=== PATIENT | female | born 1955 | race Caucasian/White ===

== ENCOUNTER 2020-05-02 06:50 | Inpatient (IN) | payer MEDICARE, OTHER, SELFPAY ==
[2020-05-01 13:30] VITALS: BMI 24.7
[2020-05-02] VITALS (18 sets, daily range): BP systolic 92–141; BP diastolic 55–104; PULSE 50–87; RESP 11–21; TEMP 36.2–37.1; O2SAT 95–100
--- NOTE | 2020-05-02 | CT_ITS ---
CT Images, Deep Stimulator Guide; total exam DLP: 984.20 mGy-cm MTDD
--- NOTE | 2020-05-02 07:00 | MR_ITS ---
WS: [id number] MRI BRAIN WITH AND WITHOUT CONTRAST, limited examination. HISTORY: Preop for deep brain stimulator. COMPARISON: 08/31/2019 TECHNIQUE: Multiplanar imaging performed through the brain with Prohance 12 ml's IV. No diffusion-weighted imaging is submitted on today's examination. There is very mild cerebral atroph y. No significant signal abnormalities or enhancing masses are identified within the visualized porti ons of the brain. No prior infarct or lacunes. On the postcontrast imaging there are no enhancing ma sses or vascular malformations. No midline shift. Visualized portions of the [place] are nor mal. No significant paranasal sinus disease or mastoid air cell disease. MR/MR head wo/w con [id number] IMPRESSION: 1. Limited evaluation of the brain. Study is performed prior to deep brain sti mulator placement. 2. Mild atrophy. No mass or midline shift or edema.
[2020-05-02 07:48] LABS: Blood Urea Nitrogen 13 mg/dL (8-23); Glomerular Filtration Rate 84.2 mL/min (90-130)
--- NOTE | 2020-05-02 08:02 | W.PM.OPSUD ---
Surgery/Procedure H&P Update DATE OF PROCEDURE: May 02, 2020 DATE H&P PERFORMED: 04/29/20 H&P UPDATE INFORMATION: I have reviewed H&P completed within last 30 days and H&P to be scanned into chart PREOP DIAGNOSIS: Parkinsons disease PRIMARY INDICATION FOR PROCEDURE: Parkinson's disease PLANNED PROCEDURE: Operation Date: 05/02/20 08:10 Proposed Procedures Bilateral Deep Brain Stimulator placement, Stage 1 26334 G20(Bilateral) - Ken Rodarte MD
--- NOTE | 2020-05-02 09:09 | ANES.PREANE2 ---
Pre-Anesthetic Assessment Pre-Anesthetic Assessment: Height/Weight: Height 1.57 m Weight 61.235 kg Preop Diagnosis: Parkinsons disease Proposed Procedure: Operation Date: 05/02/20 08:10 Proposed Procedures p Deep Brain Stimulator Stage 1 45446 G20(Bilateral) - Ken Rodarte MD Social: Social History: Tobacco (quit 1999) and No alcohol Exam: Pre-Anes Outpt Exam: alert, oriented x 3, clear to auscultation bilaterally and regular rate & rhythm Airway: Submandibular: WNL Cervical ROM: WNL MP: 1 Dentition: False (upper and lower) History/ROS: No significant history except as noted Pulmonary: Pulmonary: COPD and BROCK CV/HEM: CV/HEM: HTN : : None reported Hepatic: Hepatic: None reported GI: GI: GERD (occ) Metabolic: Metabolic: Thyroid Musc/skel: Musc/skel: Lower Back Pain and OA/DJD Neuropsych: Comments: parkinsons dz Anesthetic Plan: ASA status: 3 Anesthesia: Anesthesia Evaluation and General Risk of > 500 ml blood loss (7ml/kg in children): No PFSH Anesthesia PFSH: Medical History (Updated 01/04/20 @ 14:04 by Ken Rodarte MD) Parkinsons disease Surgical History (Updated 01/04/20 @ 14:04 by Ken Rodarte MD) History of left knee replacement S/P bilateral foot surgery Family History (Updated 01/04/20 @ 12:57 by Ksenia Joshi LPN) Brother CAD (coronary artery disease) Hypertension Father CAD (coronary artery disease) Diabetes Hypertension Mother CAD (coronary artery disease) Hypertension Sister Hypertension Social History (Updated 01/04/20 @ 12:57 by Ksenia Joshi LPN) Smoking and tobacco status: never smoked Alcohol intake: never Marital status: Current occupational status: disabled Data Anesthesia CBC & Chem 7: 05/02/20 07:25 Other Labs: Laboratory Results - last 48 hr 05/02/20 07:25 BUN 13 Creatinine 0.7 GFR Calculation 84.2 L Cardiac Studies: No Data to Display
--- NOTE | 2020-05-02 09:10 | SUR.PREOP ---
IV PLACED IN [facility] FOR MRI
--- NOTE | 2020-05-02 09:17 | ANES.PREANE2 ---
Documented by User: Yoselyn Lopes CRNA 05/02/20 09:19 Pre-Anesthetic Assessment Pre-Anesthetic Assessment: Height/Weight: Height 1.57 m Weight 61.235 kg Temp Pulse Resp BP Pulse Ox 97.5 F L 87 18 141/85 98 05/02/20 09:07 05/02/20 09:07 05/02/20 09:07 05/02/20 09:07 05/02/20 09:07 Preop Diagnosis: Parkinsons disease Proposed Procedure: Operation Date: 05/02/20 08:10 Proposed Procedures p Deep Brain Stimulator Stage 1 11052 G20(Bilateral) - Ken Rodarte MD Was Beta Kingsley taken within 24 hours: N/A Last intake: Intake Last Liquid Date 05/01/20 Last Liquid Time 23:00 Last Solid Date 05/01/20 Last Solid Time 19:00 Social: Social History: No alcohol and No tobacco Exam: Pre-Anes Outpt Exam: alert, oriented x 3, clear to auscultation bilaterally and regular rate & rhythm Airway: Submandibular: WNL Cervical ROM: WNL MP: 1 History/ROS: No significant history except as noted Pulmonary: Pulmonary: None reported CV/HEM: CV/HEM: None reported : : None reported Hepatic: Hepatic: None reported GI: GI: None reported Metabolic: Metabolic: Thyroid Musc/skel: Musc/skel: None reported Neuropsych: Comments: tremors and freezing episodes Anesthetic Plan: ASA status: 2 Anesthesia: Anesthesia Evaluation and MAC Risk of > 500 ml blood loss (7ml/kg in children): No PFSH Anesthesia PFSH: Medical History (Updated 01/04/20 @ 14:04 by Ken Rodarte MD) Parkinsons disease Surgical History (Updated 01/04/20 @ 14:04 by Ken Rodarte MD) History of left knee replacement S/P bilateral foot surgery Family History (Updated 01/04/20 @ 12:57 by Ksenia Joshi LPN) Brother CAD (coronary artery disease) Hypertension Father CAD (coronary artery disease) Diabetes Hypertension Mother CAD (coronary artery disease) Hypertension Sister Hypertension Social History (Updated 01/04/20 @ 12:57 by Ksenia Joshi LPN) Smoking and tobacco status: never smoked Alcohol intake: never Marital status: Current occupational status: disabled Data Anesthesia CBC & Chem 7: 05/02/20 07:25 Other Labs: Laboratory Results - last 48 hr 05/02/20 07:25 BUN 13 Creatinine 0.7 GFR Calculation 84.2 L Cardiac Studies: No Data to Display Documented by User: Reji Simmons MD 05/02/20 09:25 PFSH Anesthesia PFSH: Medical History (Updated 01/04/20 @ 14:04 by Ken Rodarte MD) Parkinsons disease Surgical History (Updated 01/04/20 @ 14:04 by Ken Rodarte MD) History of left knee replacement S/P bilateral foot surgery Family History (Updated 01/04/20 @ 12:57 by Ksenia Joshi LPN) Brother CAD (coronary artery disease) Hypertension Father CAD (coronary artery disease) Diabetes Hypertension Mother CAD (coronary artery disease) Hypertension Sister Hypertension Social History (Updated 01/04/20 @ 12:57 by Ksenia Joshi LPN) Smoking and tobacco status: never smoked Alcohol intake: never Marital status: Current occupational status: disabled Data Anesthesia CBC & Chem 7: 05/02/20 07:25 Cardiac Studies: No Data to Display
--- NOTE | 2020-05-02 09:27 | P.OP_ITS ---
Brief Operative Note: Date of procedure: 05/02/20 Pre-op diagnosis: Parkinson's disease Post-op diagnosis: same Procedure Done: Bilateral CT/MRI guided stereotactic placement of deep brain stimulation electrode arrays, with microelectrode recordings. Surgeon: Ken Rodarte Estimated blood loss (mL): 40 Complications: None Post-op Plan: Overnight ICU monitoring. Condition: stable Disposition: ICU Coding Level of Care Code Acute Superintendent Meter Tests for Micheline Garcia
[2020-05-02] MEDS: vancomycin 1,000 MG in sodium chloride 0.9% 250 ML 250 MG IV (10:09)
[2020-05-02] MEDS: iohexol 300 mg/mL 100 mL Btl IV (10:11)
--- NOTE | 2020-05-02 11:04 | SUR.OPER ---
Family Notified Of Patient's Status Via Phone.
[2020-05-02] MEDS: thrombin 5,000 unit SDV 5000 UNIT XX (11:31)
--- NOTE | 2020-05-02 11:34 | SUR.OPER ---
Family Notified Of Patient's Status Via Phone.
--- NOTE | 2020-05-02 13:00 | SUR.OPER ---
Family Notified Of Patient's Status Via Phone.
--- NOTE | 2020-05-02 13:43 | SUR.OPER ---
Family Notified Of Patient's Status Via Phone.
[2020-05-02] MEDS: neomycin-poly-bacitracin oint 28 gm 1 APPLIC TOPICAL (14:48)
--- NOTE | 2020-05-02 14:53 | SUR.OPER ---
Family Notified Of Patient's Status Via Phone.
--- NOTE | 2020-05-02 16:12 | CTR_ITS ---
PROCEDURE INFORMATION: Exam: CT Head Without Contrast Exam date and time: 05/02/2020 4:39 PM Age: 64 years old Clinical indication: Device placement; Other: Stimulator; Additional info: Postop TECHNIQUE: Imaging protocol: Computed tomography of the head without contrast. Radiation optimization: All CT scans at this facility use at least one of these dose optimization techniques: automated exposure control; mA and/or kV adjustment per patient size (includes targeted exams where dose is matched to clinical indication); or iterative reconstruction. COMPARISON: CT head w con [id number] 05/02/2020 9:53 AM RADIATION DOSE METRICS: Total DLP: 749.57 mGy-cm FINDINGS: Tubes, catheters and devices: Stimulator leads transverse the right and left frontal lobes with tips near the inferior right and left thalami respectively. Brain: No abnormal brain attenuation. No intracranial hemorrhage. Anterior frontal pneumocephaly. Ventricles: Normal. No ventriculomegaly. Bones/joints: Bilateral frontal calvarium [place] holes. Sinuses: Visualized sinuses are unremarkable. No fluid levels. Mastoid air cells: Visualized mastoid air cells are well aerated. Soft tissues: Postsurgical changes of the bilateral frontal and right temporal scalp with implant devices. CT/CT head wo con* [id number] IMPRESSION: 1. Bilateral stimulator leads with tips near the inferior right and left thalami. 2. Bilateral frontal calvarial [place] holes and frontal pneumocephaly, consistent with recent surgery. Radiation Dose CTDIVOL = (mGy): DLP = 749.57 (mGy-cm)
[2020-05-02] MEDS: lactated ringers 1,000 ML 90 ML IV (16:55)
[2020-05-02 17:17] LABS: Basophils # 0.1 10^3/uL (0.0-0.1); Basophils % 0.7 %; Eosinophils % 0.1 %; Hematocrit 38.2 % (37.0-47.0); Lymphocytes # 0.5 10^3/uL (0.8-4.8); Lymphocytes % 5.9 %; Mean Corpuscular HGB Conc 31.4 g/dL (30.0-36.0); Mean Corpuscular Hemoglobin 29.1 pg (28.0-34.0); Mean Corpuscular Volume 92.5 fL (81-99); Monocytes # 0.2 10^3/uL (0.2-0.9); Monocytes % 2.9 %; Neutrophils # 6.9 10^3/uL (1.8-7.7); Neutrophils % 90.3 %; Nucleated Red Blood Cells % 0 %; Platelet Count 218 10^3/cmm (130-400); Red Blood Count 4.13 10^6/uL (4.1-5.3); Red Cell Distribution Width 14.9 % (12.1-15.1); White Blood Count 7.6 10^3/uL (4.0-10.0)
[2020-05-02 17:28] LABS: Anion Gap 13.5 (5-19); Blood Urea Nitrogen 12 mg/dL (8-23); Calcium 8.2 mg/dL (8.5-10.5); Carbon Dioxide 20 mmol/L (22-29); Chloride 108 mmol/L (98-107); Glomerular Filtration Rate 124.2 mL/min (90-130); Glucose 116 mg/dL (65-115); Osmolality Calculated 283 mOsm/kg (285-295); Potassium 3.5 mmol/L (3.5-5.1); Sodium 138 mmol/L (136-145)
[2020-05-02 17:54] LABS: Fibrinogen 496 mg/dL (184-529); INR 1.09 (0.8-1.2)
[2020-05-02] MEDS: docusate sodium 100 mg Capsule PO (19:10)
[2020-05-02] MEDS: ropinirole 2 mg Tablet PO (21:22)
--- NOTE | 2020-05-02 23:36 | PM.OP ---
Operative Report Date of procedure: May 02, 2020 Pre-op Diagnosis: Parkinsons disease Post-op diagnosis: same Procedure Done: Bilateral CT/MRI guided stereotactic placement of deep brain stimulation electrode arrays via bur holes, with microelectrode recordings Implants: Medtronic 3389S, 40 cm leads Stimloc bur hole covers Pathology: none sent Surgeon: Ken Rodarte Anesthesia: MAC Estimated blood loss (mL): 40 IV fluids (mL): 1,500 Complications: None Condition: stable Disposition: ICU Brief History: The patient is a 64-year-old female with advanced Parkinson's disease. She has symptoms that have progressed in spite of aggressive medication management. She has significant side-effects related to the required medications. She has some tremor, but is mainly bothered by severe dyskinesias and intermittent freezing spells . She was referred by Dr. Webster for consideration of Deep Brain Stimulator implantation. After review of the diagnostic and treatment options with the risks/potential benefits/rationale for each, she requested to proceed with bilateral deep brain stimulator lead implantations (Stage I) via burrholes. Procedure: After routine preoperative evaluation and informed consent were obtained, the patient was fit in the [employer] model G stereotactic head frame and transported to the Radiology Department. A postcontrast CT scan of the head was performed utilizing a stereotactic localization protocol. The CT images were merged with the preoperative brain MRI. Utilizing the [employer]ish[employer] workstation, bilateral subthalamic nucleus targets were chosen. Approach trajectories were planned to minimize the risk of ventricular entry or vascular injury during lead placements. The patient was transported to the surgical suite, and positioned supine on the operating table. The operating table was adjusted to a modified beach chair position. The head was placed in a comfortable position and secured to the table utilizing the Multani adapter, which was attached to the stereotactic head frame. Hair clippers were utilized on the scalp, which was then scrubbed with Betadine and prepped with DuraPrep. Modified sterile draping was utilized to preserve a sterile field, without limiting patient upper extremity movements or the ability to perform neurologic assessments during the procedure. Anesthesia personnel monitored the patient and maintained minimal sedation during the procedure. The stereotactic arc/ring/frame components were assembled, target coordinates were set. The device was secured to the stereotactic head frame. The planned right frontal scalp entry site was marked with a sterile skin marker. The area was infiltrated with 1% lidocaine with epinephrine. An incision was made and carried down to the pericranium. Archie clips were applied. A self-retaining retractor was placed. The [employer] high-speed drill and an Acra-Cut advertising copy writer were utilized to create a 14 mm [place] hole. The dura was coagulated at the base of the [place] hole. A Medtronic Stimloc [place] hole ring was placed and secured with 2 screws. A cruciate dural incision was made and the dural leaflets were coagulated with the bipolar electrocautery. Hemostasis was ensured. The microdrive system was assembled and affixed to the stereotactic frame. The guide tube/reducing sleeve and Stylet were placed. The microelectrode array was then positioned within the electrode drive system and through the guide tube/reducing sleeve. The array was advanced toward the target site on the right, with intermittent microelectrode recordings obtained and patient testing performed. The microelectrode array was advanced past the target site, and recordings were obtained to further verify appropriate localization. Target localization was felt to be accurate. The microelectrode array was removed. The [employer] 3389S 40 cm lead was measured, and the stop was secured at the desired position. The furniture associate sleeve was removed from the guide tube, and the lead was advanced to the target site without incident. The lead extension was connected to the lead and intraoperative stimulation was initiated with the assistance of the Medtronic representatives. The patient was also monitored closely by Anesthesia personnel, with no adverse effect on vital signs observed. Her status was monitored during various neurologic tests, and her ability to perform tasks simulating normal activities of daily living was assessed. Extraocular movements, speech, cognition and verbalization were evaluated. Stimulation at the chosen site resulted in improvement in bradykinesia/rigidity and general upper extremity function. The patient tolerated stimulation to 5 V with no adverse effects. Decreased rigidity/bradykinesia and a general improvement in upper extremity function was noted at less than 3 V stimulation. The guide tube was carefully withdrawn to a point allowing visualization of the lead at the [place] hole entry site. The Medtronic Stimloc [place] Hole Cover locking cap was advanced into the [place] hole ring and secured. The locking mechanism was closed to anchor the lead at the [place] hole entry site. The lead was marked with a sterile marker at the locking cap-lead interface. The lead stylet was removed. The guide tube and drive components were removed as necessary to provide adequate access to the [place] hole site. The lead was placed within the slot in the [place] hole ring and secured with the final component of the Stimloc device. A loop of the lead was placed about the [place] hole site. The lead tail was placed in a protected location while the contralateral DBS lead was placed. Attention was then turned to the left side. Stereotactic component coordinates were adjusted to target the left subthalamic nucleus, with a trajectory that avoided major vasculature, sulci, and the lateral ventricle. A scalp incision was made on the left side, after infiltration with 1% Xylocaine with epinephrine. Archie clips were applied, and a self-retaining retractor was placed. A [place] hole was fashioned with the Acra-Cut advertising copy writer and the [employer] Jose high-speed drill. The [place] hole ring was placed and secured with 2 screws. A cruciate dural incision was fashioned with a #11 blade, and the dural leaflets were coagulated with the bipolar electrocautery. The microdrive system was assembled and secured to the stereotactic frame. The guide tube/reducing sleeve and Stylet were placed. The microelectrode array was positioned within the electrode drive system and through the guide tube/reducing sleeve. The array was advanced toward the target site, with intermittent microelectrode recordings obtained and patient testing performed. The microelectrode array was advanced past the target site, and recordings were obtained to further verify appropriate localization. Target localization was felt to be acceptable. The microelectrode array was removed. A Lumicell Diagnosticstronic 3389S 40 cm lead was measured, and the stop was secured at the desired position. The furniture associate sleeve was removed from the guide tube, and the lead was advanced to the target site without incident. The lead extension was connected to the lead, and intraoperative stimulation was initiated with the assistance of the Medtronic representatives. The patient was monitored by Anesthesia personnel for changes in vital signs. Neurologic and functional testing was performed. Extraocular movements, speech, cognition and verbalization were evaluated. Stimulation at the chosen site again resulted in improvement in bradykinesia/rigidity and general upper extremity function. The patient tolerated stimulation to 5 V with no adverse effects. Decreased rigidity/bradykinesia and a general improvement in upper extremity function were noted at less than 3 V stimulation. The guide tube was carefully withdrawn to a point allowing visualization of the lead at the [place] hole entry site. The Medtronic Stimloc Burt Hole Cover locking cap was advanced into the [place] hole ring and secured. The locking mechanism was closed to anchor the lead at the [place] hole entry site. The lead was marked with a sterile marker at the lead/orlando hole ring interface. The lead stylet was removed. The guide tube and drive components were removed as necessary to provide adequate access to the [place] hole site. The lead was placed within the slot in the [place] hole ring and secured with the third component of the Stimloc [place] Hole cover device. A subgaleal pocket was fashioned extending from the skin incision site into the posterior temporal area behind the right ear. The tunneling tool was utilized to pass the left sided lead tail to the right-sided scalp incision. A bullet protector was placed over the exposed end of each lead. The bullet protector on the left was marked with a second silk tie to allow identification of left versus right at the time of generator placement. The bullet protectors and lead tails were advanced into the subgaleal pocket to allow ease of access at the time of Stage II pulse generator implantation and lead extension connection. A loose coil of each lead tail was fashioned around their respective [place] hole covers. Both incision sites were copiously irrigated with sterile saline and antibiotic irrigation. Hemostasis was ensured with the bipolar electrocautery and thrombin-soaked Gelfoam. Scalp incision closures were performed with 2-0 Vicryl Plus simple interrupted closure of the galea. Final skin closure was performed at both scalp incision sites utilizing 3-0 Nylon in a running locking pattern. Antibiotic ointment was placed along the suture lines. Sterile dressing were applied, followed by a Kerlix head wrap. The patient was released from the stereotactic head frame and transported to the ICU for postoperative monitoring and management. The patient tolerated the procedure well. All sponge, needle, and instrument counts were correct at the completion of the procedure.
[2020-05-03] VITALS (32 sets, daily range): BP systolic 99–129; BP diastolic 48–73; PULSE 51–90; RESP 11–25; TEMP 37.1; O2SAT 94–99
--- NOTE | 2020-05-03 08:03 | PC.NURSE ---
given by proir nurse not scanned
[2020-05-03] MEDS: CLONazepam 0.5 mg Tablet PO (08:28)
[2020-05-03] MEDS: levothyroxine 100 mcg Tablet PO (08:28)
[2020-05-03] MEDS: ropinirole 2 mg Tablet PO (08:28)
[2020-05-03] MEDS: pantoprazole DR 40 mg Tablet PO (08:28)
[2020-05-03] MEDS: docusate sodium 100 mg Capsule PO (08:29)
--- NOTE | 2020-05-03 08:57 | PC.NURSE ---
assist dressing change on head with Dr Rodarte
--- NOTE | 2020-05-03 13:50 | PC.NURSE ---
last antibiotic hung at this time pending discharge .....
--- NOTE | 2020-05-28 08:02 | PM.DCS ---
Discharge Providers Date of Admission: 05/02/20 06:50 Date of Discharge: May 03, 2020 Attending Provider at Admission: Ken Rodarte MD Attending Provider at Discharge: Ken Rodarte MD Primary Care Provider: TRU JAIMES MD Reason for Visit Reason for Visit: Parkinsons Disease Brief History: The patient is a 64-year-old female with advanced Parkinson's disease. She has symptoms that have progressed in spite of aggressive medication management. She has significant side-effects related to the required medications. She has some tremor, but is mainly bothered by severe dyskinesias and intermittent freezing spells . She was referred by Dr. Webster for consideration of Deep Brain Stimulator implantation. After review of the diagnostic and treatment options with the risks/potential benefits/rationale for each, she requested to proceed with bilateral deep brain stimulator lead implantations (Stage I) via burrholes. Discharge Data Data Completed and Pending: Completed Studies During Hospitalization Category Date Time Status CT head w con 704 60 Routine Cat Scan 05/02/20 09:[address] head wo con* 7 0450 Routine Cat Scan 05/02/20 16:12 Completed MR head wo/w con [id number] Routine MRI 05/02/20 07:00 Completed Vitals: Last Vital Signs Temp 98.8 F 05/03/20 14:18 Pulse 82 05/03/20 14:18 Resp 22 H 05/03/20 14:18 BP 124/71 05/03/20 14:18 Pulse Ox 98 05/03/20 14:18 Discharge Plan Discharge Patient Disposition: Home, Self-Care Condition: Stable Prescriptions: Continued amantadine HCl 100 mg capsule 100 mg PO BID RF: 0 ropinirole [Requip XL] 2 mg tablet extended release 24 hr 2 mg PO TID RF: 0 levothyroxine 100 mcg capsule 100 mcg PO DAILY RF: 0 Prilosec OTC 20 mg tablet,delayed release (DR/EC) 20 mg PO DAILY RF: 0 calcium carbonate 600 mg calcium (1,500 mg) tablet 600 mg PO DAILY RF: 0 alendronate 70 mg tablet 70 mg PO .weekly RF: 0 clonazepam [Klonopin] 0.5 mg tablet 0.5 mg PO DAILY Qty: 30 RF: 5 carbidopa-levodopa [Sinemet] 25-250 mg tablet 1 tab PO .COMPLEX Qty: 315 RF: 0 Held aspirin [Adult Aspirin Regimen] 81 mg tablet,delayed release (DR/EC) 81 mg PO DAILY RF: 0 Hold Instructions: Resume on 05/05/20. No Action Cordova 10-325 mg tablet 1 tab PO TID PRN (Reason: pain) Qty: 20 RF: 0 Referrals: Ken Rodarte MD [Physician] - 2 weeks (05/16/20@1:00) Discharge Diet: Usual diet Discharge Activity: Limit activity as instructed Activity Restrictions/Additional Instructions: Activity - No driving until office followup visit - No lifting/pushing/pulling over 10 pounds - Avoid twisting or bending - Walking is encouraged - Home exercise per physical therapist - You may engage in sexual intercourse at any time as long as it is comfortable for you - Check with your doctor before returning to work. Notify your doctor if you develop: - temperature of 101.5 degrees F. or higher - redness or swelling of the incision - Foul drainage - increasing pain - increasing numbness or tingling in the arms or legs - New or increasing problems with vision, balance, memory, speaking, nausea or vomiting Hygiene: - Showering is okay - No tub baths or soaking Other: Remove outer bandage 3 days after surgery. If you have paper strips, leaving in place until they fall off on their own. If you have stitches, keep your incision dry until the stitches are removed. Brain surgery: You may wear hats, scarves or turbans at any time. Your doctor's office is available to answer any questions from 7 AM to 5:00 PM, Wednesday through at [phone]. After hours, go to the emergency room at [facility] or call 911 for assistance. Discharge Date/Time: 05/03/20 13:45 Coding Level of Care Code Acute Progress Man for Micheline Garcia
== END 2020-05-03 13:45 | disposition home or self-care (01) | DRG 24 ==
LOC: OR 06:52 → ICU 11:15
PROVIDERS: Admitting Provider Specialist; PCP Family Medicine; Visit Provider Specialist
PROC: 00H03MZ Insertion of Neurostimulator Lead into Brain, Percutaneous Approach (ICD-10-PCS; principal; 2020-05-02 08:10)
DX: G20 Parkinson's disease (principal); J44.9 Chronic obstructive pulmonary disease, unspecified; Z87.891 Personal history of nicotine dependence; I10 Essential (primary) hypertension; M19.90 Unspecified osteoarthritis, unspecified site; Z96.652 Presence of left artificial knee joint
CPT/HCPCS: 12345; 36415; 70450; 70460; 70553; 80048; 82565; 84520; 85025; 85384; 85610; A9579; C1778; J0131; J0360; J0690; J2001; J2250; J2704; J3010; J3370; J3490; J7050; Q9967

== ENCOUNTER 2020-05-09 08:18 | Day surgery (SDC) | payer MEDICARE, OTHER, SELFPAY ==
[2020-05-08 14:15] VITALS: BMI 24.7
[2020-05-09] VITALS (9 sets, daily range): BP systolic 108–133; BP diastolic 61–74; PULSE 63–83; RESP 12–18; TEMP 36.4–36.5; O2SAT 96–98
[2020-05-09] MEDS: sodium chloride 0.9% 1,000 ML 30 ML IV (08:46)
[2020-05-09] MEDS: vancomycin 1,000 MG in sodium chloride 0.9% 250 ML 250 MG IV (08:50)
--- NOTE | 2020-05-09 09:05 | W.PM.OPSUD ---
Surgery/Procedure H&P Update DATE OF PROCEDURE: May 09, 2020 DATE H&P PERFORMED: 04/29/20 H&P UPDATE INFORMATION: I have reviewed H&P completed within last 30 days and H&P to be scanned into chart PREOP DIAGNOSIS: Parkinson's disease PRIMARY INDICATION FOR PROCEDURE: Parkinson's disease, with medically refractory symptoms PLANNED PROCEDURE: Operation Date: 05/09/20 09:45 Proposed Procedures Deep Brain Stimulator pulse generator implantation, Stage 2(Not Applicable) - Ken Rodarte MD
--- NOTE | 2020-05-09 09:18 | ANES.PREANE2 ---
Pre-Anesthetic Assessment Pre-Anesthetic Assessment: Height/Weight: Height 1.57 m Weight 61.235 kg Temp Pulse Resp BP Pulse Ox 97.7 F 63 12 108/63 96 05/09/20 09:10 05/09/20 09:15 05/09/20 09:15 05/09/20 09:15 05/09/20 09:15 Preop Diagnosis: Parkinson's disease Proposed Procedure: Operation Date: 05/09/20 09:45 Proposed Procedures p Deep Brain Stimulator Stage 2(Not Applicable) - Ken Rodarte MD Familial anesthetic complications: None Was Beta Kingsley taken within 24 hours: N/A Last intake: Intake Last Liquid Date 05/08/20 Last Liquid Time 19:00 Last Solid Date 05/08/20 Last Solid Time 19:00 Social: Social History: No alcohol and No tobacco Exam: Pre-Anes Outpt Exam: alert, oriented x 3, clear to auscultation bilaterally and regular rate & rhythm Airway: Cervical ROM: WNL MP: 1 Additional comments: missing Pulmonary: Pulmonary: None reported CV/HEM: CV/HEM: None reported : : None reported Hepatic: Hepatic: None reported GI: GI: GERD Metabolic: Metabolic: Thyroid Musc/skel: Musc/skel: None reported Comments: osteoporis Neuropsych: Comments: parkinson's Anesthetic Plan: ASA status: 3 Anesthesia: General Risk of > 500 ml blood loss (7ml/kg in children): No Meds/Allergies Current Medications: Current Medications Generic Name Dose Route Start Last Admin Trade Name Freq PRN Reason Stop Dose Admin Sodium Chloride 1,000 mls @ 30 ml s/hr 05/09/20 08:45 05/09/20 08:46 Sodium Chloride 0.9% IV 05/10/20 08:44 30 mls/hr .Q24H TALHA Administration PFSH Anesthesia PFSH: Medical History (Updated 01/04/20 @ 14:04 by Ken Rodarte MD) Parkinsons disease Surgical History (Updated 01/04/20 @ 14:04 by Ken Rodarte MD) History of left knee replacement S/P bilateral foot surgery Family History (Updated 01/04/20 @ 12:57 by Ksenia Joshi LPN) Brother CAD (coronary artery disease) Hypertension Father CAD (coronary artery disease) Diabetes Hypertension Mother CAD (coronary artery disease) Hypertension Sister Hypertension Social History (Updated 01/04/20 @ 12:57 by Ksenia Joshi LPN) Smoking and tobacco status: never smoked Alcohol intake: never Marital status: Current occupational status: disabled Data Anesthesia Cardiac Studies: No Data to Display
--- NOTE | 2020-05-09 09:31 | P.OP_ITS ---
Brief Operative Note: Date of procedure: 05/09/20 Pre-op diagnosis: Parkinsons disease Post-op diagnosis: same Procedure Done: Placement of subcutaneous programmable pulse generator with connection to bilateral DBS electrode arrays. Surgeon: Ken Rodarte Estimated blood loss (mL): 3 Complications: None. Post-op Plan: PACU, then Home per Ambulatory Surgery protocol. Condition: stable Disposition: PACU Coding Level of Care Code Acute Boot And Saddle Repair Person for Micheline Garcia
--- NOTE | 2020-05-09 11:01 | SUR.OPER ---
Family Notified Of Patient's Status Via Phone.
[2020-05-09] MEDS: neomycin-poly-bacitracin oint 28 gm 1 APPLIC TOPICAL (11:03)
--- NOTE | 2020-05-09 15:23 | P.OP_ITS ---
Operative Report Date of procedure: May 09, 2020 Pre-op Diagnosis: Parkinson's disease Post-op diagnosis: same Procedure Done: Placement of subcutaneous programmable pulse generator with connection to bilateral deep brain stimulation electrode arrays. (Stage II) Implants: [employer] Activa PC pulse generator. Surgeon: Ken Rodarte Anesthesia: General Estimated blood loss (mL): 3 IV fluids (mL): 700 Complications: None Condition: stable Disposition: PACU Brief History: The patient is a 64-year-old female with Parkinson's disease and medically re fractory symptoms. She was referred by her managing neurologist for consideration of deep brain stimulator implantation. Imaging studies demonstrated no contraindication to deep brain stimulation therapy. After review of the diagnostic and treatment options with the risks/potential benefits/rationale for each, the patient requested to proceed with surgery. DESCRIPTION OF PROCEDURE: Procedure: After routine preoperative evaluation and informed consent were obtained, the patient was taken to the Operating Room and placed under general endotracheal anesthesia. She was positioned supine on the operating table with the head rotated toward the left. Scalp preparation with hair clippers was performed. A proposed transverse skin incision was marked in the right infraclavicular area. A proposed scalp incision was marked in line with the planned course of the subcutaneous lead extensions just beyond the palpable bullet protectors for the previously implanted deep brain stimulation lead tails. The right scalp, anterolateral neck and anterior chest were then prepped and draped in the usual fashion. The proposed incision sites were infiltrated with 1% lidocaine with epinephrine. The right lateral scalp incision was made with a sharp knife and carried down into the subcutaneous tissues. Self-retaining retractors were placed. The bullet tip protectors for the lead tails were identified and delivered into the incision. Gentle traction allowed the leads to be extended to the point that the bullet tip protectors could be removed. The right infraclavicular incision was made at the previously injected site. A subcutaneous pocket was fashioned with blunt dissection. The subcutaneous tunneling tool was then utilized to create a subcutaneous passage between the scalp incision and the infraclavicular incision. The 40 centimeter lead extensions were passed through the subcutaneous tunnel between the 2 incision sites without incident. The protective boots were advanced over the DBS lead tails, which were then advanced into the connector sites on the lead extensions. The set screws were tightened with a torque wrench, and verified to be engaging the connection sites appropriately. The connections appeared to be secure. The boots were advanced over the connection sites and silk ties were applied. The distal connectors were advanced into the ports on the [employer] Activa PC pulse generator and a lead test was performed. The lead test demonstrated no lead faults. The incision sites were copiously irrigated with sterile saline and antibiotic irrigation. The pulse generator was placed within the subcutaneous pocket and secured with a silk anchor suture placed through the suture loop on the device. Excess lead extension was coiled deep to the device prior to securing the device in position and proceeding with wound closure. Closure was performed in multiple layers with 2-0 Vicryl Plus simple interrupted closure of the galea at the scalp incision site and deep dermis at the infraclavicular site. Final skin closure was performed at the scalp site with 4-0 nylon in a running locking pattern. Final closure at the infraclavicular site was performed with 3-0 Vicryl Plus in a running subcuticular pattern. Steri-Strips were applied at the infraclavicular incision site, with antibiotic ointment applied along the scalp suture line. Sterile dressings were placed at both sites. The patient tolerated the procedure well. All sponge, needle and instrument counts were correct at the completion of the procedure. She was extubated and transported to the PACU, without incident.
--- NOTE | 2020-05-09 22:02 | PM.DCS ---
Discharge Providers Date of Discharge: May 03, 2020 Attending Provider at Discharge: Ken Rodarte MD Primary Care Provider: TRU JAIMES MD Diagnoses at Discharge Discharge Diagnosis (1) Parkinsons disease: Status: Chronic Reason for Visit Reason for Visit: Brief History: The patient is a 64-year-old female with advanced Parkinson's disease. She has symptoms that have progressed in spite of aggressive medication management. She has significant side-effects related to the required medications. She has some tremor, but is mainly bothered by severe dyskinesias and intermittent freezing spells . She was referred by Dr. Webster for consideration of Deep Brain Stimulator implantation. After review of the diagnostic and treatment options with the risks/potential benefits/rationale for each, she requested to proceed with bilateral deep brain stimulator lead implantations (Stage I) via burrholes. Hospital Course Hospital Course: The patient underwent bilateral orlando holes and CT/MRI guided stereotactic placement of deep brain stimulation electrode arrays, with microelectrode recordings, on 05/02/2020 (Stage I). She tolerated the procedure well. She was monitored in the intensive care unit overnight. A postoperative CT documented bilateral DBS lead placements, without intracranial hemorrhage. She completed perioperative intravenous antibiotics. She was ambulatory, voiding, and tolerating regular diet prior to discharge home on postoperative day #1. Physical Exam Const: COMMON NORMALS: no acute distress and alert GENERAL APPEARANCE: cooperative and comfortable HENMT: HEAD & SCALP: other (Surgical site scalp dressings intact) Eye: COMMON NORMALS: EOMs intact bilaterally Neck/C-Spine: COMMON NORMALS: supple Resp: COMMON NORMALS: normal respiratory effort EFFORT & INSPECTION: Yes able to speak in complete sentences and Yes tachypneic Extremity: COMMON NORMALS: no clubbing, cyanosis or edema Neuro: SENSORIUM/ORIENTATION: Yes alert SPEECH: speech normal MOTOR EXAM: Tremors during motor activity present Psych: COMMON NORMALS: mental status grossly normal, Normal thought process present and speech normal APPEARANCE: Yes grossly normal ATTITUDE: Yes calm and Yes engaged ACTIVITY/MOTOR BEHAVIOR: Yes appropriate eye contact SPEECH: Yes normal speech MOOD & AFFECT: Yes euthymic mood THOUGHT PROCESS: Normal thought process present ATTENTION/CONCENTRATION: Yes attention grossly intact INSIGHT: Good insight present (Psych) JUDGEMENT: Good judgement present (Psych) Skin: WOUNDS: Yes surgical site (Bilateral frontal scalp surgical incisions intact. Sutures present.) Discharge Data Procedures Performed: Burrholes and bilateral CT/MRI guided stereotactic placement of deep brain stimulation electrode arrays, with microelectrode recordings. IV antibiotics. ICU monitoring. Head CT. Vitals: Last Vital Signs Temp 97.7 F 05/09/20 12:04 Pulse 80 05/09/20 13:25 Resp 18 05/09/20 13:25 BP 117/70 05/09/20 13:25 Pulse Ox 98 05/09/20 13:25 Discharge Plan Discharge Patient Disposition: Home, Self-Care Condition: Stable Prescriptions: New Tyronza 10-325 mg tablet 1 tab PO TID PRN (Reason: pain) Qty: 20 RF: 0 Continued amantadine HCl 100 mg capsule 100 mg PO BID RF: 0 ropinirole [Requip XL] 2 mg tablet extended release 24 hr 2 mg PO TID RF: 0 levothyroxine 100 mcg capsule 100 mcg PO DAILY RF: 0 Prilosec OTC 20 mg tablet,delayed release (DR/EC) 20 mg PO DAILY RF: 0 calcium carbonate 600 mg calcium (1,500 mg) tablet 600 mg PO DAILY RF: 0 alendronate 70 mg tablet 70 mg PO .weekly RF: 0 clonazepam [Klonopin] 0.5 mg tablet 0.5 mg PO DAILY Qty: 30 RF: 5 carbidopa-levodopa [Sinemet] 25-250 mg tablet 1 tab PO .COMPLEX Qty: 315 RF: 0 Held aspirin [Adult Aspirin Regimen] 81 mg tablet,delayed release (DR/EC) 81 mg PO DAILY RF: 0 Hold Instructions: Resume on 05/05/20. Discontinued hydrocodone-acetaminophen [Tyronza] 7.5-325 mg tablet 1 tab PO Q4H PRN (Reason: pain) Qty: 20 RF: 0 Discharge Orders: Discharge Order (Routine); Ordered 05/09/20 Ordered By: Ken Rodarte Referrals: Yesenia Webster MD [Physician] - 05/27/20 (As per Dr. Webster's office.) Ken Rodarte MD [Physician] - 05/13/20 1:00 pm (Frontal scalp suture removal) TRU JAIMES MD [Primary Care Provider] - Discharge Diet: Regular Discharge Activity: Limit activity as instructed Patient Instructions: Post Anesthesia Care Activity Restrictions/Additional Instructions: Activity - No driving until office followup visit - No lifting/pushing/pulling over 10 pounds - Avoid twisting or bending - Walking is encouraged - Home exercise per physical therapist - You may engage in sexual intercourse at any time as long as it is comfortable for you - Check with your doctor before returning to work. Notify your doctor if you develop: - temperature of 101.5 degrees F. or higher - redness or swelling of the incision - Foul drainage - increasing pain - increasing numbness or tingling in the arms or legs - New or increasing problems with vision, balance, memory, speaking, nausea or vomiting Hygiene: - Showering is okay - No tub baths or soaking Other: Remove outer bandage 3 days after surgery. If you have paper strips, leaving in place until they fall off on their own. If you have stitches, keep your incision dry until the stitches are removed. Brain surgery: You may wear hats, scarves or turbans at any time. Your doctor's office is available to answer any questions from 7 AM to 5:00 PM, Wednesday through at [phone]. After hours, go to the emergency room at [facility] or call 911 for assistance. Discharge Date/Time: 05/09/20 14:03 Discharge Attestations Time Spent in Discharge Care*: other (postop global) Quality Metrics Clinical Quality Measures During this hospital stay, did patient experience: None Coding Level of Care Code Acute Upscale Security Officer for Micheline Fwd Exam Comprehensive Diagnoses Parkinsons disease G20 Comment postop global
== END 2020-05-09 14:03 | disposition home or self-care (01) ==
PROVIDERS: PCP Family Medicine; Visit Provider Specialist
PROC: (CPT 61885; principal; 2020-05-09 09:45)
DX: G20 Parkinson's disease (principal); K21.9 Gastro-esophageal reflux disease without esophagitis; M81.0 Age-related osteoporosis without current pathological fracture; Z82.49 Family history of ischemic heart disease and other diseases of the circulatory system
CPT/HCPCS: 61885; 12345; 96365; C1767; J0330; J0690; J2001; J2370; J2405; J2704; J3010; J3370; J3490; J7030; J7050

== ENCOUNTER → 2020-05-27 10:28 | Outpatient (BNVA) | payer MEDICARE, OTHER, SELFPAY | PROVIDERS: PCP Family Medicine; Visit Provider Specialist | DX: G20 Parkinson's disease (principal) | CPT/HCPCS: 95983; 99214 ==

== ENCOUNTER → 2020-06-10 07:44 | Outpatient (BNVA) | payer MEDICARE, OTHER, SELFPAY | PROVIDERS: PCP Family Medicine; Visit Provider Specialist | DX: G20 Parkinson's disease (principal); Z96.89 Presence of other specified functional implants | CPT/HCPCS: 95983; 99214 ==

== ENCOUNTER → 2020-06-17 07:46 | Outpatient (BNVA) | payer MEDICARE, OTHER, SELFPAY | PROVIDERS: PCP Family Medicine; Referring Provider Specialist; Visit Provider Specialist | DX: G20 Parkinson's disease (principal) | CPT/HCPCS: 95983; 99213 ==

== ENCOUNTER → 2020-06-19 07:44 | Outpatient (BNVA) | payer MEDICARE, OTHER, SELFPAY | PROVIDERS: PCP Family Medicine; Visit Provider Specialist | DX: G20 Parkinson's disease (principal) | CPT/HCPCS: 95983; 99213 ==

== ENCOUNTER → 2020-07-02 07:46 | Outpatient (BNVA) | payer MEDICARE, OTHER, SELFPAY | PROVIDERS: PCP Family Medicine; Visit Provider Specialist | DX: G20 Parkinson's disease (principal); R26.81 Unsteadiness on feet | CPT/HCPCS: 95983; 99214 ==

== ENCOUNTER → 2020-07-08 07:48 | Outpatient (BNVA) | payer MEDICARE, OTHER, SELFPAY | PROVIDERS: PCP Family Medicine; Visit Provider Specialist | DX: G20 Parkinson's disease (principal) | CPT/HCPCS: 95983; 95984; 99213 ==

== ENCOUNTER 2020-07-15 11:47 | Outpatient (RCR) | payer MEDICARE, OTHER, SELFPAY | END 2020-07-29 23:59 | disposition home or self-care (01) | LOC: SPT 11:47 | PROVIDERS: PCP Family Medicine; Visit Provider Specialist | DX: R26.81 Unsteadiness on feet (principal) | CPT/HCPCS: 97110; 97112; 97162 ==

== ENCOUNTER → 2020-07-24 07:50 | Outpatient (BNVA) | payer MEDICARE, OTHER, SELFPAY | PROVIDERS: PCP Family Medicine; Visit Provider Specialist | DX: G20 Parkinson's disease (principal) | CPT/HCPCS: 95983; 95984; 99214 ==

== ENCOUNTER 2020-07-30 06:00 | Outpatient (RCR) | payer MEDICARE, OTHER, SELFPAY | END 2020-08-28 23:59 | disposition home or self-care (01) | LOC: SPT 06:00 | PROVIDERS: PCP Family Medicine; Visit Provider Specialist | DX: R26.81 Unsteadiness on feet (principal) | CPT/HCPCS: 97110; 97112 ==

== ENCOUNTER 2020-08-29 06:00 | Outpatient (RCR) | payer MEDICARE, OTHER, SELFPAY | END 2020-09-04 23:00 | disposition home or self-care (01) | LOC: SPT 06:00 | PROVIDERS: PCP Family Medicine; Visit Provider Specialist | DX: R26.81 Unsteadiness on feet (principal) | CPT/HCPCS: 97110; 97112 ==

== ENCOUNTER → 2020-10-30 07:48 | Outpatient (BNVA) | payer MEDICARE, SELFPAY | PROVIDERS: PCP Family Medicine; Visit Provider Specialist | DX: G20 Parkinson's disease (principal) | CPT/HCPCS: 95983; 99214 ==

== ENCOUNTER → 2020-12-02 09:44 | Outpatient (BNVA) | payer MEDICARE, OTHER, SELFPAY | PROVIDERS: PCP Family Medicine; Visit Provider Family Medicine | DX: E03.9 Hypothyroidism, unspecified (principal); Z13.6 Encounter for screening for cardiovascular disorders | CPT/HCPCS: 80053; 80061; 84443; 85025 ==

== ENCOUNTER → 2020-12-03 16:42 | Outpatient (BNVA) | payer MEDICARE, OTHER, SELFPAY | PROVIDERS: PCP Family Medicine; Visit Provider Family Medicine | DX: Z13.6 Encounter for screening for cardiovascular disorders (principal); E03.9 Hypothyroidism, unspecified; R60.0 Localized edema; D64.9 Anemia, unspecified | CPT/HCPCS: 83550 ==

== ENCOUNTER 2020-12-11 15:02 | Outpatient (CLI) | payer MEDICARE, SELFPAY ==
--- NOTE | 2020-12-11 15:45 | USCV_ITS ---
Ksenia Tejada Age: 65 Gender: F : 1955 Exam Date: 12/11/2020 15:34 Ordering Phys: Jenni Beltran DO Technologist: Shaniqua Burns [place] [facility] [place] Indication: SOB BP: 134 / 82 HR: 85 Rhythm: Sinus Technical Quality: Adequate MEASUREMENTS (Male / Female) Normal Values 2D ECHO LV Diastolic Diameter PLAX 3.5 cm 4.2 - 5.9 / 3.9 - 5.3 cm LV Systolic Diameter PLAX 1.9 cm LV Chamber Size 3.1 cm IVS Diastolic Thickness 1.1 cm 0.6 - 1.0 / 0.6 - 0.9 cm IVS Systolic Thickness 1.0 cm LVPW Diastolic Thickness 1.2 cm 0.6 - 1.0 / 0.6 - 0.9 cm LVPW Systolic Thickness 1.1 cm RV Chamber Size 2.5 cm LVOT Diameter 2.1 cm LV Ejection Fraction 2D Teich 77.5 % LV Ejection Fraction MOD 2C 44.6 % LV Ejection Fraction 2C AL 46.0 % LA Diameter 4.4 cm LA Width 3.3 cm LA Height 4.5 cm RA Width 2.3 cm RA Height 4.5 cm Aorta at Sinotubular Diameter 3.2 cm M-MODE LV Diastolic Diameter MM 4.4 cm 4.2 - 5.9 / 3.9 - 5.3 cm LV Systolic Diameter MM 2.7 cm LV Ejection Fraction MM Teich 69.0 % IVS Diastolic Thickness MM 1.3 cm 0.6 - 1.0 / 0.6 - 0.9 cm IVS Systolic Thickness MM 1.7 cm LVPW Diastolic Thickness MM 1.5 cm 0.6 - 1.0 / 0.6 - 0.9 cm LVPW Systolic Thickness MM 2.0 cm RV Diastolic Diameter MM 1.2 cm Aortic Annulus Diameter 3.1 cm LA Ao Ratio MM 1.4 MV E Point Septal Separation 0.5 cm DOPPLER AV Peak Velocity 138.0 cm/s LVOT Peak Velocity 105.0 cm/s AV Area Cont Eq vti 2.6 cm squared AV Area Cont Eq pk 2.6 cm squared MV Area PHT 6.7 cm squared Mitral E to A Ratio 0.8 MV E' Velocity 43.0 cm/s Mitral E to MV E' Ratio 7.1 Mitral E to LV E' Lateral Ratio 5.8 Mitral E to LV E' Septal Ratio 9.2 TR Peak Velocity 135.1 cm/s TR Peak Gradient 7.3 mmHg TR Mean Velocity 85.4 cm/s TR Mean Gradient 3.3 mmHg TR Velocity Time Integral 27.2 cm TV Peak E Velocity 65.0 cm/s Right Atrial Pressure 3.0 mmHg Pulmonary Artery Systolic Pressu 10.3 mmHg PV Peak Velocity 69.0 cm/s RV Acceleration Time 0.1 s RV Ejection Time 0.3 s RV AcT/ET 0.4 FINDINGS Left Ventricle Normal left ventricular cavity size. Normal left ventricular systolic function. No regional wall motion abnormalities. Left ventricular ejection fraction is estimated at 65 %. Grade I/IV diastolic dysfunction (abnormal relaxation filling pattern), normal to mildly elevated filling pressures. Right Ventricle The right ventricle is normal in size and function. Right Atrium The right atrium is normal in size. Left Atrium The left atrium is normal in size. Mitral Valve Structurally normal mitral valve without significant stenosis or prolapse. There is no mitral regurgitation. Aortic Valve Mild aortic valve calcification. No aortic valve stenosis. Trace aortic valve regurgitation. Tricuspid Valve Structurally normal tricuspid valve without significant stenosis or regurgitation. Pulmonary artery systolic pressure is normal. Pulmonic Valve Structurally normal pulmonic valve without significant stenosis. There is no pulmonic regurgitation. Pericardium Normal pericardium without effusion. Aorta Normal ascending aorta dimension. CONCLUSIONS 1-Normal left ventricular cavity size. Normal left ventricular systolic function. No regional wall motion abnormalities. Left ventricular ejection fraction is estimated at 65 %. Grade I/IV diastolic dysfunction (abnormal relaxation filling pattern), normal to mildly elevated filling pressures. 2-Mild aortic valve calcification. No aortic valve stenosis. Trace aortic valve regurgitation. 3-There is no pericardial effusion. 4-Pulmonary artery systolic pressure is within normal limits. 5-Right atrial pressure is around 5 mm of mercury. 6-There are no prior echocardiogram studies to compare. Indra Gonzales MD (Electronically Signed) Final Date: 11 December 2020 19:01 S
== END 2020-12-11 15:03 | disposition home or self-care (01) ==
LOC: US 15:03
PROVIDERS: PCP Family Medicine; Visit Provider Family Medicine
DX: R06.02 Shortness of breath (principal); I70.0 Atherosclerosis of aorta
CPT/HCPCS: 93306

== ENCOUNTER 2020-12-16 12:44 | Outpatient (CLI) | payer MEDICARE, SELFPAY ==
--- NOTE | 2020-12-16 12:53 | XR_ITS ---
WS: [id number] HIP WITH PELVIS LEFT TECHNIQUE: 3 views of the left hip with pelvis CLINICAL INFORMATION: chronic left hip pain COMPARISON: None. FINDINGS: Osteopenia. Moderate degenerative arthritis left hip. Normal left pubic rami. No acute fractures. XR/XR hip LT 2-3V wo/w pel* [id number] IMPRESSION: Moderate degenerative arthritis left hip. No acute fractures.
== END 2020-12-16 12:45 | disposition home or self-care (01) ==
LOC: RADWPI 12:47
PROVIDERS: PCP Family Medicine; Visit Provider Family Medicine
DX: G89.29 Other chronic pain (principal); M16.12 Unilateral primary osteoarthritis, left hip
CPT/HCPCS: 73502; 80048

== ENCOUNTER → 2020-12-27 07:37 | Outpatient (BNVA) | payer MEDICARE, SELFPAY | PROVIDERS: PCP Family Medicine; Visit Provider Surgery | DX: Z01.812 Encounter for preprocedural laboratory examination (principal); Z12.11 Encounter for screening for malignant neoplasm of colon | CPT/HCPCS: 87635 ==

== ENCOUNTER 2021-01-01 09:37 | Day surgery (SDC) | payer MEDICARE, SELFPAY ==
[2020-12-31 12:05] VITALS: BMI 29.2
--- NOTE | 2021-01-01 10:08 | W.PM.OPSUD ---
Surgery/Procedure H&P Update DATE OF PROCEDURE: January 01, 2021 DATE H&P PERFORMED: 12/12/20 H&P UPDATE INFORMATION: I have reviewed H&P completed within last 30 days, I have examined patient prior to procedure and Changes to prior documentation as noted here CHANGES TO PREVIOUS DOCUMENTATION: Dr. Beltran requested an EGD as she is concerned about the patient's anemia, so we will plan to perform a diagnostic EGD and screening colonoscopy today. Patient agreed on the plan of care. Plan of care; After thorough history and physical examination and reviewing the chart, plan to perform a diagnostic esophagogastroduodenoscopy and screening colonoscopy with possible biopsy and possible polypectomy, in the GI lab. I discussed with the patient in detail the risks,benefits,alternatives and indications.The risk of aspiration, bleeding, soft tissue injury, perforation of the stomach/esophagus/colon and other potential concomitant complications were explained to the patient in details.The patient understood this well and did agree to proceed. Rationale was carefully and clearly discussed with the patient.Appropriate informed consent have been reviewed and signed Verbal and written Instructions were given to the patient for colonoscopy prep PREOP DIAGNOSIS: Anemia and screening colonoscopy PRIMARY INDICATION FOR PROCEDURE: The same PLANNED PROCEDURE: Operation Date: 01/01/21 11:00 Proposed Procedures p EGD(Not Applicable) - Catrachito Calderon MD s Colonoscopy 78921 Z12.11(Not Applicable) - Catrachito Calderon MD
[2021-01-01 10:15] VITALS: BP 134/77; PULSE 89; RESP 18; TEMP 37.3; O2SAT 98
[2021-01-01] MEDS: sodium chloride 0.9% 1,000 ML 30 ML IV (10:19)
--- NOTE | 2021-01-01 10:25 | ANES.PREANE2 ---
Pre-Anesthetic Assessment Pre-Anesthetic Assessment: Height/Weight: Height 1.57 m Weight 72.575 kg Temp Pulse Resp BP Pulse Ox 99.1 F 89 18 134/77 98 01/01/21 10:15 01/01/21 10:15 01/01/21 10:15 01/01/21 10:15 01/01/21 10:15 Preop Diagnosis: Anemia and screening colonoscopy Proposed Procedure: Operation Date: 01/01/21 11:00 Proposed Procedures p EGD(Not Applicable) - Catrachito Calderon MD s Colonoscopy 82781 Z12.11(Not Applicable) - Catrachito Calderon MD Familial anesthetic complications: None Was Beta Kingsley taken within 24 hours: N/A Last intake: Intake Last Liquid Date 12/31/20 Last Solid Date 12/30/20 Social: Social History: No alcohol and No tobacco Exam: Pre-Anes Outpt Exam: alert, oriented x 3, clear to auscultation bilaterally and regular rate & rhythm Airway: Cervical ROM: WNL MP: 2 Dentition: Loose (top two loose, multiple missing, patient informed of risk of dental damage) GI: GI: GERD Metabolic: Metabolic: Thyroid Neuropsych: Comments: parkinson's Anesthetic Plan: ASA status: 2 Anesthesia: MAC Risk of > 500 ml blood loss (7ml/kg in children): No Meds/Allergies Current Medications: Current Medications Generic Name Dose Route Start Last Admin Trade Name Freq PRN Reason Stop Dose Admin Sodium Chloride 1,000 mls @ 30 ml s/hr 01/01/21 10:00 01/01/21 10:19 Sodium Chloride 0.9% IV 01/02/21 09:59 30 mls/hr .Q24H TALHA Administration PFSH Anesthesia PFSH: Medical History (Updated 12/16/20 @ 09:21 by Jenni Beltran DO) Family history of colon cancer GERD (gastroesophageal reflux disease) Hypothyroidism Parkinsons disease RLS (restless legs syndrome) Surgical History (Updated 12/16/20 @ 09:09 by Jenni Beltran DO) History of colonoscopy History of left knee replacement History of shoulder surgery S/P bilateral foot surgery Status post deep brain stimulator placement Family History Brother CAD (coronary artery disease) Hypertension Father CAD (coronary artery disease) Diabetes Hypertension Mother CAD (coronary artery disease) Hypertension Sister Hypertension Social History Smoking and tobacco status: never smoked Alcohol intake: never Marital status: Current occupational status: disabled History of recent travel: No Data Anesthesia Cardiac Studies: No Data to Display
[2021-01-01 12:34] VITALS: BP 112/58; PULSE 78; RESP 18; TEMP 36.6; O2SAT 97
[2021-01-01 12:40] VITALS: BP 107/60; PULSE 78; RESP 18; O2SAT 98
--- NOTE | 2021-01-01 12:54 | ANE.PACU2 ---
Inpatient post-anesthesia follow up: Airway intact: Yes Vital signs: Temperature 97.8 F Pulse Rate 78 Respiratory Rate 18 Blood Pressure 107/60 Pulse Oximetry 98 Oxygen Delivery Me thod Room Air Oxygen Flow Rate Fraction of Inspir ed Oxygen Hydration adequate: Yes Nausea and vomiting: No Pain level: 1 Mental status: Baseline
--- NOTE | 2021-01-01 16:55 | SUR.PHASEII ---
called pt and did not script for omprezole will get otc prescription placed into shred box per juancho cunharn
== END 2021-01-01 13:05 | disposition home or self-care (01) ==
PROVIDERS: PCP Family Medicine; Visit Provider Surgery
PROC: 0DJ08ZZ Inspection of Upper Intestinal Tract, Via Natural or Artificial Opening Endoscopic (ICD-10-PCS; CPT 43235; principal; 2021-01-01 11:00)
PROC: 0DJD8ZZ Inspection of Lower Intestinal Tract, Via Natural or Artificial Opening Endoscopic (ICD-10-PCS; CPT 45378; 2021-01-01 11:00)
DX: Z12.11 Encounter for screening for malignant neoplasm of colon (principal); D64.9 Anemia, unspecified; K52.9 Noninfective gastroenteritis and colitis, unspecified; Q27.30 Arteriovenous malformation, site unspecified; K31.7 Polyp of stomach and duodenum; K21.00 Gastro-esophageal reflux disease with esophagitis, without bleeding; I85.00 Esophageal varices without bleeding; K44.9 Diaphragmatic hernia without obstruction or gangrene; K29.70 Gastritis, unspecified, without bleeding; G20 Parkinson's disease; E03.9 Hypothyroidism, unspecified; Z80.0 Family history of malignant neoplasm of digestive organs
CPT/HCPCS: 12345; 43239; 45378; 82274; 83630; 87493; 87506; 88305; J2704; J7030

== ENCOUNTER → 2021-01-28 10:32 | Outpatient (BNVA) | payer MEDICARE, SELFPAY | PROVIDERS: PCP Family Medicine; Visit Provider Family Medicine | DX: E03.9 Hypothyroidism, unspecified (principal) | CPT/HCPCS: 84443 ==

== ENCOUNTER 2021-03-18 11:27 | Outpatient (CLI) | payer MEDICARE, SELFPAY ==
--- NOTE | 2021-03-18 11:45 | USCV_ITS ---
Ksenia Tejada Age: 65 Gender: F : 1955 Exam Date: 03/18/2021 11:49 Ordering Phys: Jenni Beltran DO Technologist: Awa Lord Exam Location: [facility] – [place] Indication: LT ANKLE SWELLING AND REDNESS PROCEDURES: Venous duplex imaging was performed in only the left lower extremity. The following venous structures were evaluated: common femoral vein, profunda vein, proximal portion of the greater saphenous vein, superficial femoral vein, and the popliteal vein. In addition, the posterior tibial and peroneal trunk were evaluated. FINDINGS: Normal 2-D Doppler and augmentation and compressibility throughout the lower extremity venous structures. Additional imaging through the proximal calf veins also reveals no thrombus. Limited evaluation of the greater saphenous vein is patent with no thrombus.. The veins were found to be easily compressible with spontaneous blood flow. Non pulsatile flow pattern. CONCLUSIONS No evidence of DVT in the above-mentioned identifiable veins. Dr Abner Núñez MD [facility] (Electronically Signed) Final Date: 19 March 2021 19:27 S
== END 2021-03-18 11:28 | disposition home or self-care (01) ==
LOC: RAD 11:31
PROVIDERS: PCP Family Medicine; Visit Provider Family Medicine
DX: M79.89 Other specified soft tissue disorders (principal); L53.9 Erythematous condition, unspecified; E03.9 Hypothyroidism, unspecified
CPT/HCPCS: 84443; 93971

== ENCOUNTER → 2021-04-02 07:54 | Outpatient (BNVA) | payer MEDICARE, SELFPAY | PROVIDERS: PCP Family Medicine; Visit Provider Specialist | DX: G20 Parkinson's disease (principal); Z96.82 Presence of neurostimulator | CPT/HCPCS: 95983; 95984; 99214 ==

== ENCOUNTER 2021-04-18 11:58 | Outpatient (CLI) | payer MEDICARE, SELFPAY ==
--- NOTE | 2021-04-18 12:45 | USCV_ITS ---
Ksenia Tejada Age: 65 Gender: F : 1955 Exam Date: 04/18/2021 12:41 Ordering Phys: Jenni Beltran DO Technologist: Indy Peacock [place] [facility] [place]: HISTORY: PROCEDURES: Bilateral duplex Venous Insufficiency study of the Deep and Superficial systems was carried out according to normal protocol with the patient in supine positon for deep system and dependent position for the superficial system. FINDINGS: No DVT or superficial thrombus seen in right or left leg. Right GSV reflux noted in distal and below knee segments Left GSV reflux noted in SFJ, GSV prox, mid, distal and below knee segments. No reflux noted in SSV in right or left leg CONCLUSIONS 1. No evidence of DVT in the above-mentioned identifiable veins. 2. On the right side, significant venous reflux of greater than 500 ms were noted at the distal and below-knee greater saphenous vein segments. The venous segments were found to be 0.48 and 0.47 cm in diameter and at a depth of more than 1 cm from the surface. 3. On the left side, significant venous reflux of greater than 500 ms were noted at the saphenofemoral junction, and throughout the greater saphenous vein including the below-knee segment. The venous segments were measuring anywhere from 0.42 to 0.69 cm in diameter and at a depth of more than 1 cm from the surface. There was some reflux in the left popliteal vein but was found to be less than 1000 ms. 4. No significant reflux were noted of the small saphenous veins bilaterally. Dr Abner Núñez MD [facility] (Electronically Signed) Final Date: 18 Apr 2021 16:31 S
== END 2021-04-18 11:59 | disposition home or self-care (01) ==
LOC: US 12:00
PROVIDERS: PCP Family Medicine; Visit Provider Family Medicine
DX: R60.0 Localized edema (principal)
CPT/HCPCS: 93970

== ENCOUNTER 2021-06-25 07:44 | Outpatient (CLI) | payer MEDICARE, SELFPAY ==
--- NOTE | 2021-06-25 07:50 | US_ITS ---
WS: [id number] ABDOMINAL ULTRASOUND LIMITED REASON FOR VISIT: ABNORMAL RESULTS OF LIVER FUNCTION STUDIES TECHNIQUE: Grayscale and Doppler ultrasound examination of the abdomen. FINDINGS: Pancreas: Obscured by bowel gas. Abdominal aorta and IVC: Normal Liver: Liver measures 12.7 cm in length. Moderately echogenic without focal lesion. Gallbladder: Gallbladder wall thickness measures 0.2 mm. No calculi. Common bile duct measures 8 mm i n maximum diameter. Right kidney: Right kidney measures 10.1 cm x 5.1 cm x 4.8 cm. No mass, hydronephrosis, or calculus i dentified. No ascites. US/US abdomen limited [id number] IMPRESSION: Possible fatty infiltration of the liver. Common bile duct diameter is at the upper limits of normal to slightly dilated. If the Alkaline phosphatase is significantly elevated CT scan of the abdomen o r MRCP would be most helpful for evaluation of biliary obstruction.
== END 2021-06-25 07:45 | disposition home or self-care (01) ==
PROVIDERS: PCP Family Medicine; Visit Provider Internal Medicine Gastroenterology
DX: R94.5 Abnormal results of liver function studies (principal)
CPT/HCPCS: 76705

== ENCOUNTER 2021-08-06 18:24 | Emergency (ER) | payer MEDICARE, SELFPAY ==
--- NOTE | 2021-08-06 18:25 | XRR_ITS ---
PROCEDURE INFORMATION: Exam: XR Chest Exam date and time: 08/06/2021 6:25 PM Age: 66 years old Clinical indication: Sternal or substernal pain; Additional info: Cp TECHNIQUE: Imaging protocol: XR of the chest. Views: 1 view. COMPARISON: No relevant prior studies available. FINDINGS: Tubes, catheters and devices: Implanted right chest vagus nerve stimulator device. Lungs: Unremarkable. No consolidation. Pleural spaces: Unremarkable. No pleural effusion. No pneumothorax. Heart/Mediastinum: Unremarkable. No cardiomegaly. Bones/joints: Unremarkable. XR/XR chest 1V portable [id number] IMPRESSION: No acute pulmonary disease.
[2021-08-06 18:32] VITALS: BP 131/71; PULSE 86; RESP 18; TEMP 37.3; O2SAT 96; BMI 32.9
--- NOTE | 2021-08-06 20:14 | ED_ITS ---
Documented by User: Reji Smith MD 08/09/21 19:20 HPI - Chest Pain General: Chief Complaint: Chest Pain Stated Complaint: CP/SOB Time Seen by Provider: 08/06/21 20:13 History of Present Illness: HPI narrative: Ms. Tejada is a 66-year-old lady with significant past medical history of hypertension, hyperlipidemia, and Parkinson's disease who presents the emergency department due to chest pain. Symptom onset was subacute at approximately 2 PM. She was driving at this time and does not recall any specific provoking factors. She describes the chest pain as across her chest that is aching and occasionally sharp in nature with r adiation through to the back. She had mild associated nausea and lightheadedness which subsequently improved but the discomfort persisted. Intensity of symptoms is moderate. Overall the course has persisted. There is no associated shortness of breath or other infectious symptoms. She reports 1 similar episode approximately 1 month ago however this resolved spontaneously. She denies frequent previous episodes of chest pain. No other specific exacerbating, or provoking factors identified. Review of Systems General: Reports: 10 or more systems reviewed and unremarkable except in HPI and below Narrative: CONSTITUTIONAL: See HPI EYES - denies pain, denies loss of vision EARS - denies ear issues. NOSE - denies congestion or rhinorrhea. THROAT - denies sore throat or difficulty swallowing. CARDIOVASCULAR -see HPI RESPIRATORY - denies shortness of breath and cough GASTROINTESTINAL -see HPI GENITOURINARY - denies dysuria or urinary frequency MUSCULOSKELETAL- denies deformity or pain SKIN - denies rashes or new changed skin lesions NEUROLOGIC - denies focal weakness or sensory changes HEMATOLOGIC/LYMPHATIC - denies easy bruising or lymphadenopathy. [facility] ED PFSH: Medical History Family history of colon cancer GERD (gastroesophageal reflux disease) Hypothyroidism Parkinsons disease RLS (restless legs syndrome) Surgical History History of colonoscopy (~12/2020) History of esophagogastroduodenoscopy (EGD) (~12/2020) History of left knee replacement History of shoulder surgery S/P bilateral foot surgery Status post deep brain stimulator placement Family History Brother CAD (coronary artery disease) Hypertension Father CAD (coronary artery disease) Diabetes Hypertension Mother CAD (coronary artery disease) Hypertension Sister Hypertension Social History Smoking and tobacco status: never smoked Alcohol intake: never Marital status: Current occupational status: disabled History of recent travel: No Physical Exam Narrative: EXAM NARRATIVE: GENERAL/CONSTITUTIONAL - well-appearing. No acute distress. Eyes - PERRL, no conjunctival injection ENMT - Atraumatic external nose and ears. Moist mucous membranes NECK - supple. trachea midline CARDIOVASCULAR - regular rate and rhythm. Peripheral pulses 2+ and equal RESPIRATORY -clear to auscultation bilaterally. No retractions or accessory muscle use. ABDOMEN/GI -mild tenderness in the epigastric region. Nondistended. No tenderness to percussion or evidence of peritonitis MSK - Extremities without obvious deformity or tenderness to palpation SKIN - Warm, Dry NEURO - alert and appropriately oriented. strength and sensation intact. Moves all extremities equally. PSYCH - Appropriate mood and affect Course ED course: - Patient was seen and evaluated by me at bedside - Patient placed on cardiac monitors, IV access obtained - Initial evaluation notable for no acute distress, nontoxic appearance. -Symptom treatment ordered - Labs notable for no leukocytosis, metabolic panel notable for T bili of 5 with direct bili 3.6, AST mildly elevated at 133, alk phos elevated 387. delta troponin negative. - Imaging notable for concern for biliary pathology - Initially attempted to obtain MRCP at this facility however we do not have protocols for this given the patient's deep brain stimulator. - Patient care handed off to overnight physician Dr. Pretty pending outside transfer Vital Signs: Vital signs: Vital Signs Temperature 98.3 F 08/07/21 06:00 Pulse Rate 72 08/07/21 12:32 Respiratory Rate 21 H 08/07/21 12:32 Blood Pressure 113/58 08/07/21 06:30 Pulse Oximetry 97 08/07/21 12:32 MDM - Chest Pain Medical Records: Attestation: I reviewed the patient's medical records. Lab Data: Attestation: I reviewed the patient's lab results. Labs: Lab Results 08/06/21 08/06/21 08/06/21 Range/Units 20:20 20:20 20:20 WBC 9.1 (4.0-10.0) 10^3/ uL RBC 4.63 (4.1-5.3) 10^6/u L Hgb 14.4 (11.5-15.3) g/dL Hct 42.7 (37.0-47.0) % MCV 92.2 (81-99) fl MCH 31.1 (28.0-34.0) pg MCHC 33.7 (30.0-36.0) g/dL RDW 13.9 (12.1-15.1) % Plt Count 228 (130-400) 10^3/c mm MPV 10.8 H (7.4-10.4) fL Neut % (Auto) 81.7 % Lymph % (Auto) 9.8 % [place] % (Auto) 6.8 % Eos % (Auto) 0.7 % Baso % (Auto) 0.7 % Neut # (Auto) 7.42 (1.8-7.7) 10^3/u L Lymph # (Auto) 0.9 (0.8-4.8) 10^3/u L [place] # (Auto) 0.6 (0.2-0.9) 10^3/u L Eos # (Auto) 0.1 (0.0-0.8) 10^3/u L Baso # (Auto) 0.1 (0.0-0.1) 10^3/u L Nucleated RBC % (a uto) 0 % Nucleated RBCs # 0.0 /100WBC Sodium 133 L (136-145) mmol/L Potassium 3.8 (3.5-5.1) mmol/L Chloride 101 (98-107) mmol/L Carbon Dioxide 20 L (22-29) mmol/L Anion Gap 15.8 (5-19) BUN 8 (8-23) mg/dL Creatinine 0.5 (0.5-0.9) mg/dL GFR Calculation 123.4 (90-130) mL/min Glucose 92 (65-115) mg/dL Calculated Osmolal ity 274 L (285-295) mOsm/k g Calcium 8.1 L (8.5-10.5) mg/dL Total Bilirubin 5.0 H (0.15-1.2) mg/dL Direct Bilirubin (0.00-0.30) mg/d L AST 133 H (0-32) U/L ALT 29 (0-33) U/L Alkaline Phosphata se 387 H (35-105) IU/L Troponin T Baselin e 15 H (0-10) ng/L Troponin T 120 Min [place] (0-10) ng/L Delta Troponin T (0-10) ABS# Troponin T Hi Sens 6Hr (0-10) ng/L Troponin T Hi Sens 6Hr Delta (0-12) ng/L NT-Pro-B Natriuret Pep 274 H (0-125) pg/mL Total Protein 7.8 (6.6-8.7) g/dL Albumin 3.2 L (3.5-5.2) g/dL Globulin 4.6 (1.3-4.6) g/dL Lipase 19 (13-60) U/L SARS-CoV-2 Ag (Rap id) (Negative) 08/06/21 08/06/21 08/06/21 Range/Units 20:20 21:30 22:24 WBC (4.0-10.0) 10^3/ uL RBC (4.1-5.3) 10^6/u L Hgb (11.5-15.3) g/dL Hct (37.0-47.0) % MCV (81-99) fl MCH (28.0-34.0) pg MCHC (30.0-36.0) g/dL RDW (12.1-15.1) % Plt Count (130-400) 10^3/c mm MPV (7.4-10.4) fL Neut % (Auto) % Lymph % (Auto) % [place] % (Auto) % Eos % (Auto) % Baso % (Auto) % Neut # (Auto) (1.8-7.7) 10^3/u L Lymph # (Auto) (0.8-4.8) 10^3/u L [place] # (Auto) (0.2-0.9) 10^3/u L Eos # (Auto) (0.0-0.8) 10^3/u L Baso # (Auto) (0.0-0.1) 10^3/u L Nucleated RBC % (a uto) % Nucleated RBCs # /100WBC Sodium (136-145) mmol/L Potassium (3.5-5.1) mmol/L Chloride (98-107) mmol/L Carbon Dioxide (22-29) mmol/L Anion Gap (5-19) BUN (8-23) mg/dL Creatinine (0.5-0.9) mg/dL GFR Calculation (90-130) mL/min Glucose (65-115) mg/dL Calculated Osmolal ity (285-295) mOsm/k g Calcium (8.5-10.5) mg/dL Total Bilirubin (0.15-1.2) mg/dL Direct Bilirubin 3.60 H (0.00-0.30) mg/d L AST (0-32) U/L ALT (0-33) U/L Alkaline Phosphata se (35-105) IU/L Troponin T Baselin e (0-10) ng/L Troponin T 120 Min [place] 14.26 H (0-10) ng/L Delta Troponin T -0.74 L (0-10) ABS# Troponin T Hi Sens 6Hr (0-10) ng/L Troponin T Hi Sens 6Hr Delta (0-12) ng/L NT-Pro-B Natriuret Pep (0-125) pg/mL Total Protein (6.6-8.7) g/dL Albumin (3.5-5.2) g/dL Globulin (1.3-4.6) g/dL Lipase (13-60) U/L SARS-CoV-2 Ag (Rap id) Negative (Negative) 08/07/21 Range/Units 02:25 WBC (4.0-10.0) 10^3/ uL RBC (4.1-5.3) 10^6/u L Hgb (11.5-15.3) g/dL Hct (37.0-47.0) % MCV (81-99) fl MCH (28.0-34.0) pg MCHC (30.0-36.0) g/dL RDW (12.1-15.1) % Plt Count (130-400) 10^3/c mm MPV (7.4-10.4) fL Neut % (Auto) % Lymph % (Auto) % [place] % (Auto) % Eos % (Auto) % Baso % (Auto) % Neut # (Auto) (1.8-7.7) 10^3/u L Lymph # (Auto) (0.8-4.8) 10^3/u L [place] # (Auto) (0.2-0.9) 10^3/u L Eos # (Auto) (0.0-0.8) 10^3/u L Baso # (Auto) (0.0-0.1) 10^3/u L Nucleated RBC % (a uto) % Nucleated RBCs # /100WBC Sodium (136-145) mmol/L Potassium (3.5-5.1) mmol/L Chloride (98-107) mmol/L Carbon Dioxide (22-29) mmol/L Anion Gap (5-19) BUN (8-23) mg/dL Creatinine (0.5-0.9) mg/dL GFR Calculation (90-130) mL/min Glucose (65-115) mg/dL Calculated Osmolal ity (285-295) mOsm/k g Calcium (8.5-10.5) mg/dL Total Bilirubin (0.15-1.2) mg/dL Direct Bilirubin (0.00-0.30) mg/d L AST (0-32) U/L ALT (0-33) U/L Alkaline Phosphata se (35-105) IU/L Troponin T Baselin e (0-10) ng/L Troponin T 120 Min [place] (0-10) ng/L Delta Troponin T (0-10) ABS# Troponin T Hi Sens 6Hr 15.80 H (0-10) ng/L Troponin T Hi Sens 6Hr Delta 0.80 (0-12) ng/L NT-Pro-B Natriuret Pep (0-125) pg/mL Total Protein (6.6-8.7) g/dL Albumin (3.5-5.2) g/dL Globulin (1.3-4.6) g/dL Lipase (13-60) U/L SARS-CoV-2 Ag (Rap id) (Negative) EKG Data^: EKG 1: Attestation: I personally reviewed and interpreted this EKG as follows: EKG interpretation date: 08/06/21 EKG interpretation time: 20:32 Interpretation: Twelve-lead EKG shows a regular sinus rhythm at a rate of 73. [place] interval 187, QRS duration 102, QTc 439. Left axis deviation. Interpretation: Sinus rhythm Discharge Plan Discharge Patient Disposition: Xfer Short-Term Hosp Clinical Impression: Hyperbilirubinemia, Parkinsons disease, Bile duct obstruction Referrals: Jenni Beltran DO [Primary Care Provider] - Sign Out Sign Out Data: Patient Sign Out occurred on 08/07/21 at 06:11. Patient's care was discussed, and care was transferred from to Gutierrez Harden DO. Coding Level of Care Code ED Scrap Dealer for Chg Fwd Documented by User: Vanessa Pretty MD 08/07/21 05:46 HPI - Chest Pain General: Chief Complaint: Chest Pain Stated Complaint: CP/SOB Time Seen by Provider: 08/06/21 20:13 PFSH ED PFSH: Medical History Family history of colon cancer GERD (gastroesophageal reflux disease) Hypothyroidism Parkinsons disease RLS (restless legs syndrome) Surgical History History of colonoscopy (~12/2020) History of esophagogastroduodenoscopy (EGD) (~12/2020) History of left knee replacement History of shoulder surgery S/P bilateral foot surgery Status post deep brain stimulator placement Family History Brother CAD (coronary artery disease) Hypertension Father CAD (coronary artery disease) Diabetes Hypertension Mother CAD (coronary artery disease) Hypertension Sister Hypertension Social History Smoking and tobacco status: never smoked Alcohol intake: never Marital status: Current occupational status: disabled History of recent travel: No Course Vital Signs: Vital signs: Vital Signs Temperature 98.3 F 08/07/21 06:00 Pulse Rate 72 08/07/21 12:32 Respiratory Rate 21 H 08/07/21 12:32 Blood Pressure 113/58 08/07/21 06:30 Pulse Oximetry 97 08/07/21 12:32 MDM - Chest Pain Lab Data: Labs: Lab Results 08/06/21 08/06/21 08/06/21 Range/Units 20:20 20:20 20:20 WBC 9.1 (4.0-10.0) 10^3/ uL RBC 4.63 (4.1-5.3) 10^6/u L Hgb 14.4 (11.5-15.3) g/dL Hct 42.7 (37.0-47.0) % MCV 92.2 (81-99) fl MCH 31.1 (28.0-34.0) pg MCHC 33.7 (30.0-36.0) g/dL RDW 13.9 (12.1-15.1) % Plt Count 228 (130-400) 10^3/c mm MPV 10.8 H (7.4-10.4) fL Neut % (Auto) 81.7 % Lymph % (Auto) 9.8 % [place] % (Auto) 6.8 % Eos % (Auto) 0.7 % Baso % (Auto) 0.7 % Neut # (Auto) 7.42 (1.8-7.7) 10^3/u L Lymph # (Auto) 0.9 (0.8-4.8) 10^3/u L [place] # (Auto) 0.6 (0.2-0.9) 10^3/u L Eos # (Auto) 0.1 (0.0-0.8) 10^3/u L Baso # (Auto) 0.1 (0.0-0.1) 10^3/u L Nucleated RBC % (a uto) 0 % Nucleated RBCs # 0.0 /100WBC Sodium 133 L (136-145) mmol/L Potassium 3.8 (3.5-5.1) mmol/L Chloride 101 (98-107) mmol/L Carbon Dioxide 20 L (22-29) mmol/L Anion Gap 15.8 (5-19) BUN 8 (8-23) mg/dL Creatinine 0.5 (0.5-0.9) mg/dL GFR Calculation 123.4 (90-130) mL/min Glucose 92 (65-115) mg/dL Calculated Osmolal ity 274 L (285-295) mOsm/k g Calcium 8.1 L (8.5-10.5) mg/dL Total Bilirubin 5.0 H (0.15-1.2) mg/dL Direct Bilirubin (0.00-0.30) mg/d L AST 133 H (0-32) U/L ALT 29 (0-33) U/L Alkaline Phosphata se 387 H (35-105) IU/L Troponin T Baselin e 15 H (0-10) ng/L Troponin T 120 Min [place] (0-10) ng/L Delta Troponin T (0-10) ABS# Troponin T Hi Sens 6Hr (0-10) ng/L Troponin T Hi Sens 6Hr Delta (0-12) ng/L NT-Pro-B Natriuret Pep 274 H (0-125) pg/mL Total Protein 7.8 (6.6-8.7) g/dL Albumin 3.2 L (3.5-5.2) g/dL Globulin 4.6 (1.3-4.6) g/dL Lipase 19 (13-60) U/L SARS-CoV-2 Ag (Rap id) (Negative) 08/06/21 08/06/21 08/06/21 Range/Units 20:20 21:30 22:24 WBC (4.0-10.0) 10^3/ uL RBC (4.1-5.3) 10^6/u L Hgb (11.5-15.3) g/dL Hct (37.0-47.0) % MCV (81-99) fl MCH (28.0-34.0) pg MCHC (30.0-36.0) g/dL RDW (12.1-15.1) % Plt Count (130-400) 10^3/c mm MPV (7.4-10.4) fL Neut % (Auto) % Lymph % (Auto) % [place] % (Auto) % Eos % (Auto) % Baso % (Auto) % Neut # (Auto) (1.8-7.7) 10^3/u L Lymph # (Auto) (0.8-4.8) 10^3/u L [place] # (Auto) (0.2-0.9) 10^3/u L Eos # (Auto) (0.0-0.8) 10^3/u L Baso # (Auto) (0.0-0.1) 10^3/u L Nucleated RBC % (a uto) % Nucleated RBCs # /100WBC Sodium (136-145) mmol/L Potassium (3.5-5.1) mmol/L Chloride (98-107) mmol/L Carbon Dioxide (22-29) mmol/L Anion Gap (5-19) BUN (8-23) mg/dL Creatinine (0.5-0.9) mg/dL GFR Calculation (90-130) mL/min Glucose (65-115) mg/dL Calculated Osmolal ity (285-295) mOsm/k g Calcium (8.5-10.5) mg/dL Total Bilirubin (0.15-1.2) mg/dL Direct Bilirubin 3.60 H (0.00-0.30) mg/d L AST (0-32) U/L ALT (0-33) U/L Alkaline Phosphata se (35-105) IU/L Troponin T Baselin e (0-10) ng/L Troponin T 120 Min [place] 14.26 H (0-10) ng/L Delta Troponin T -0.74 L (0-10) ABS# Troponin T Hi Sens 6Hr (0-10) ng/L Troponin T Hi Sens 6Hr Delta (0-12) ng/L NT-Pro-B Natriuret Pep (0-125) pg/mL Total Protein (6.6-8.7) g/dL Albumin (3.5-5.2) g/dL Globulin (1.3-4.6) g/dL Lipase (13-60) U/L SARS-CoV-2 Ag (Rap id) Negative (Negative) 08/07/21 Range/Units 02:25 WBC (4.0-10.0) 10^3/ uL RBC (4.1-5.3) 10^6/u L Hgb (11.5-15.3) g/dL Hct (37.0-47.0) % MCV (81-99) fl MCH (28.0-34.0) pg MCHC (30.0-36.0) g/dL RDW (12.1-15.1) % Plt Count (130-400) 10^3/c mm MPV (7.4-10.4) fL Neut % (Auto) % Lymph % (Auto) % [place] % (Auto) % Eos % (Auto) % Baso % (Auto) % Neut # (Auto) (1.8-7.7) 10^3/u L Lymph # (Auto) (0.8-4.8) 10^3/u L [place] # (Auto) (0.2-0.9) 10^3/u L Eos # (Auto) (0.0-0.8) 10^3/u L Baso # (Auto) (0.0-0.1) 10^3/u L Nucleated RBC % (a uto) % Nucleated RBCs # /100WBC Sodium (136-145) mmol/L Potassium (3.5-5.1) mmol/L Chloride (98-107) mmol/L Carbon Dioxide (22-29) mmol/L Anion Gap (5-19) BUN (8-23) mg/dL Creatinine (0.5-0.9) mg/dL GFR Calculation (90-130) mL/min Glucose (65-115) mg/dL Calculated Osmolal ity (285-295) mOsm/k g Calcium (8.5-10.5) mg/dL Total Bilirubin (0.15-1.2) mg/dL Direct Bilirubin (0.00-0.30) mg/d L AST (0-32) U/L ALT (0-33) U/L Alkaline Phosphata se (35-105) IU/L Troponin T Baselin e (0-10) ng/L Troponin T 120 Min [place] (0-10) ng/L Delta Troponin T (0-10) ABS# Troponin T Hi Sens 6Hr 15.80 H (0-10) ng/L Troponin T Hi Sens 6Hr Delta 0.80 (0-12) ng/L NT-Pro-B Natriuret Pep (0-125) pg/mL Total Protein (6.6-8.7) g/dL Albumin (3.5-5.2) g/dL Globulin (1.3-4.6) g/dL Lipase (13-60) U/L SARS-CoV-2 Ag (Rap id) (Negative) Discharge Plan Discharge Patient Disposition: Xfer Short-Term Hosp Clinical Impression: Hyperbilirubinemia, Parkinsons disease, Bile duct obstruction Referrals: Jenni Beltran DO [Primary Care Provider] - Sign Out Sign Out Data: Patient Sign Out occurred on 08/07/21 at 06:11. Patient's care was discussed, and care was transferred from to Gutierrez Harden DO. Coding Level of Care Code ED Scrap Dealer for Chg Fwd Documented by User: Gutierrez Harden DO 08/07/21 06:01 HPI - Chest Pain General: Chief Complaint: Chest Pain Stated Complaint: CP/SOB Time Seen by Provider: 08/06/21 20:13 PFSH ED PFSH: Medical History Family history of colon cancer GERD (gastroesophageal reflux disease) Hypothyroidism Parkinsons disease RLS (restless legs syndrome) Surgical History History of colonoscopy (~12/2020) History of esophagogastroduodenoscopy (EGD) (~12/2020) History of left knee replacement History of shoulder surgery S/P bilateral foot surgery Status post deep brain stimulator placement Family History Brother CAD (coronary artery disease) Hypertension Father CAD (coronary artery disease) Diabetes Hypertension Mother CAD (coronary artery disease) Hypertension Sister Hypertension Social History Smoking and tobacco status: never smoked Alcohol intake: never Marital status: Current occupational status: disabled History of recent travel: No Course Vital Signs: Vital signs: Vital Signs Temperature 98.3 F 08/07/21 06:00 Pulse Rate 72 08/07/21 12:32 Respiratory Rate 21 H 09/09/21 12:32 Blood Pressure 113/58 08/07/21 06:30 Pulse Oximetry 97 08/07/21 12:32 MDM - Chest Pain MDM Narrative: Medical decision making narrative: Patient appeared on my work list however I was not in the department nor did I see the patient while she was here. See Dr. Patino note to manage the patient in the emergency room. Lab Data: Labs: Lab Results 08/06/21 08/06/21 08/06/21 Range/Units 20:20 20:20 20:20 WBC 9.1 (4.0-10.0) 10^3/ uL RBC 4.63 (4.1-5.3) 10^6/u L Hgb 14.4 (11.5-15.3) g/dL Hct 42.7 (37.0-47.0) % MCV 92.2 (81-99) fl MCH 31.1 (28.0-34.0) pg MCHC 33.7 (30.0-36.0) g/dL RDW 13.9 (12.1-15.1) % Plt Count 228 (130-400) 10^3/c mm MPV 10.8 H (7.4-10.4) fL Neut % (Auto) 81.7 % Lymph % (Auto) 9.8 % [place] % (Auto) 6.8 % Eos % (Auto) 0.7 % Baso % (Auto) 0.7 % Neut # (Auto) 7.42 (1.8-7.7) 10^3/u L Lymph # (Auto) 0.9 (0.8-4.8) 10^3/u L [place] # (Auto) 0.6 (0.2-0.9) 10^3/u L Eos # (Auto) 0.1 (0.0-0.8) 10^3/u L Baso # (Auto) 0.1 (0.0-0.1) 10^3/u L Nucleated RBC % (a uto) 0 % Nucleated RBCs # 0.0 /100WBC Sodium 133 L (136-145) mmol/L Potassium 3.8 (3.5-5.1) mmol/L Chloride 101 (98-107) mmol/L Carbon Dioxide 20 L (22-29) mmol/L Anion Gap 15.8 (5-19) BUN 8 (8-23) mg/dL Creatinine 0.5 (0.5-0.9) mg/dL GFR Calculation 123.4 (90-130) mL/min Glucose 92 (65-115) mg/dL Calculated Osmolal ity 274 L (285-295) mOsm/k g Calcium 8.1 L (8.5-10.5) mg/dL Total Bilirubin 5.0 H (0.15-1.2) mg/dL Direct Bilirubin (0.00-0.30) mg/d L AST 133 H (0-32) U/L ALT 29 (0-33) U/L Alkaline Phosphata se 387 H (35-105) IU/L Troponin T Baselin e 15 H (0-10) ng/L Troponin T 120 Min [place] (0-10) ng/L Delta Troponin T (0-10) ABS# Troponin T Hi Sens 6Hr (0-10) ng/L Troponin T Hi Sens 6Hr Delta (0-12) ng/L NT-Pro-B Natriuret Pep 274 H (0-125) pg/mL Total Protein 7.8 (6.6-8.7) g/dL Albumin 3.2 L (3.5-5.2) g/dL Globulin 4.6 (1.3-4.6) g/dL Lipase 19 (13-60) U/L SARS-CoV-2 Ag (Rap id) (Negative) 08/06/21 08/06/21 08/06/21 Range/Units 20:20 21:30 22:24 WBC (4.0-10.0) 10^3/ uL RBC (4.1-5.3) 10^6/u L Hgb (11.5-15.3) g/dL Hct (37.0-47.0) % MCV (81-99) fl MCH (28.0-34.0) pg MCHC (30.0-36.0) g/dL RDW (12.1-15.1) % Plt Count (130-400) 10^3/c mm MPV (7.4-10.4) fL Neut % (Auto) % Lymph % (Auto) % [place] % (Auto) % Eos % (Auto) % Baso % (Auto) % Neut # (Auto) (1.8-7.7) 10^3/u L Lymph # (Auto) (0.8-4.8) 10^3/u L [place] # (Auto) (0.2-0.9) 10^3/u L Eos # (Auto) (0.0-0.8) 10^3/u L Baso # (Auto) (0.0-0.1) 10^3/u L Nucleated RBC % (a uto) % Nucleated RBCs # /100WBC Sodium (136-145) mmol/L Potassium (3.5-5.1) mmol/L Chloride (98-107) mmol/L Carbon Dioxide (22-29) mmol/L Anion Gap (5-19) BUN (8-23) mg/dL Creatinine (0.5-0.9) mg/dL GFR Calculation (90-130) mL/min Glucose (65-115) mg/dL Calculated Osmolal ity (285-295) mOsm/k g Calcium (8.5-10.5) mg/dL Total Bilirubin (0.15-1.2) mg/dL Direct Bilirubin 3.60 H (0.00-0.30) mg/d L AST (0-32) U/L ALT (0-33) U/L Alkaline Phosphata se (35-105) IU/L Troponin T Baselin e (0-10) ng/L Troponin T 120 Min [place] 14.26 H (0-10) ng/L Delta Troponin T -0.74 L (0-10) ABS# Troponin T Hi Sens 6Hr (0-10) ng/L Troponin T Hi Sens 6Hr Delta (0-12) ng/L NT-Pro-B Natriuret Pep (0-125) pg/mL Total Protein (6.6-8.7) g/dL Albumin (3.5-5.2) g/dL Globulin (1.3-4.6) g/dL Lipase (13-60) U/L SARS-CoV-2 Ag (Rap id) Negative (Negative) 08/07/21 Range/Units 02:25 WBC (4.0-10.0) 10^3/ uL RBC (4.1-5.3) 10^6/u L Hgb (11.5-15.3) g/dL Hct (37.0-47.0) % MCV (81-99) fl MCH (28.0-34.0) pg MCHC (30.0-36.0) g/dL RDW (12.1-15.1) % Plt Count (130-400) 10^3/c mm MPV (7.4-10.4) fL Neut % (Auto) % Lymph % (Auto) % [place] % (Auto) % Eos % (Auto) % Baso % (Auto) % Neut # (Auto) (1.8-7.7) 10^3/u L Lymph # (Auto) (0.8-4.8) 10^3/u L [place] # (Auto) (0.2-0.9) 10^3/u L Eos # (Auto) (0.0-0.8) 10^3/u L Baso # (Auto) (0.0-0.1) 10^3/u L Nucleated RBC % (a uto) % Nucleated RBCs # /100WBC Sodium (136-145) mmol/L Potassium (3.5-5.1) mmol/L Chloride (98-107) mmol/L Carbon Dioxide (22-29) mmol/L Anion Gap (5-19) BUN (8-23) mg/dL Creatinine (0.5-0.9) mg/dL GFR Calculation (90-130) mL/min Glucose (65-115) mg/dL Calculated Osmolal ity (285-295) mOsm/k g Calcium (8.5-10.5) mg/dL Total Bilirubin (0.15-1.2) mg/dL Direct Bilirubin (0.00-0.30) mg/d L AST (0-32) U/L ALT (0-33) U/L Alkaline Phosphata se (35-105) IU/L Troponin T Baselin e (0-10) ng/L Troponin T 120 Min [place] (0-10) ng/L Delta Troponin T (0-10) ABS# Troponin T Hi Sens 6Hr 15.80 H (0-10) ng/L Troponin T Hi Sens 6Hr Delta 0.80 (0-12) ng/L NT-Pro-B Natriuret Pep (0-125) pg/mL Total Protein (6.6-8.7) g/dL Albumin (3.5-5.2) g/dL Globulin (1.3-4.6) g/dL Lipase (13-60) U/L SARS-CoV-2 Ag (Rap id) (Negative) Discharge Plan Discharge Patient Disposition: Xfer Short-Term Hosp Clinical Impression: Hyperbilirubinemia, Parkinsons disease, Bile duct obstruction Referrals: Jenni Beltran DO [Primary Care Provider] - Sign Out Sign Out Data: Patient Sign Out occurred on 08/07/21 at 06:11. Patient's care was discussed, and care was transferred from to Gutierrez Harden DO. Coding Level of Care Code ED Scrap Dealer for Micheline Garcia
--- NOTE | 2021-08-06 20:18 | PC.NURSE ---
pt states around 2 [address] she was driving home and a pain started across her chest that then radiated into her back. pt stabbing and aching when it doesn't feel like its stabbing her. pt states no hx of same symptoms.
--- NOTE | 2021-08-06 20:26 | ECG_ITS ---
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 Measurements Intervals [place] Rate: 73 P: 18 ME: 187 QRS: -40 QRSD: 102 T: -4 QT: 396 QTc: 439 Interpretive Statements SINUS RHYTHM LEFT AXIS DEVIATION [QRS AXIS < -30] No previous ECG available for comparison Electronically Signed On 08-07-2021 9:09:35 CDT by Jeimy Jules M.D. [email or web address]
[2021-08-06 20:33] LABS: Basophils # 0.1 10^3/uL (0.0-0.1); Basophils % 0.7 %; Eosinophils # 0.1 10^3/uL (0.0-0.8); Eosinophils % 0.7 %; Hematocrit 42.7 % (37.0-47.0); Hemoglobin 14.4 g/dL (11.5-15.3); Lymphocytes # 0.9 10^3/uL (0.8-4.8); Lymphocytes % 9.8 %; Mean Corpuscular HGB Conc 33.7 g/dL (30.0-36.0); Mean Corpuscular Hemoglobin 31.1 pg (28.0-34.0); Mean Corpuscular Volume 92.2 fl (81-99); Mean Platelet Volume 10.8 fL (7.4-10.4); Monocytes # 0.6 10^3/uL (0.2-0.9); Monocytes % 6.8 %; Neutrophils # 7.42 10^3/uL (1.8-7.7); Neutrophils % 81.7 %; Nucleated Red Blood Cells % 0 %; Platelet Count 228 10^3/cmm (130-400); Red Blood Count 4.63 10^6/uL (4.1-5.3); Red Cell Distribution Width 13.9 % (12.1-15.1); White Blood Count 9.1 10^3/uL (4.0-10.0)
[2021-08-06 20:37] VITALS: BP 144/74; PULSE 72; RESP 21; O2SAT 98
[2021-08-06 20:54] LABS: Troponin(5th) Baseline 15 ng/L (0-10)
[2021-08-06 21:00] VITALS: BP 123/64; PULSE 75; RESP 26; O2SAT 98
[2021-08-06 21:03] LABS: Alanine Aminotransferase 29 U/L (0-33); Albumin Level 3.2 g/dL (3.5-5.2); Alkaline Phosphatase 387 IU/L (35-105); Anion Gap 15.8 (5-19); Aspartate Amino Transferase 133 U/L (0-32); Blood Urea Nitrogen 8 mg/dL (8-23); Calcium 8.1 mg/dL (8.5-10.5); Carbon Dioxide 20 mmol/L (22-29); Chloride 101 mmol/L (98-107); Creatinine Clr Calc Pharmacy 68.4898; Globulin 4.6 g/dL (1.3-4.6); Glomerular Filtration Rate 123.4 mL/min (90-130); Glucose 92 mg/dL (65-115); Lipase 19 U/L (13-60); NT Pro B Type Natriuretic Pept 274 pg/mL (0-125); Osmolality Calculated 274 mOsm/kg (285-295); Potassium 3.8 mmol/L (3.5-5.1); Sodium 133 mmol/L (136-145); Total Protein 7.8 g/dL (6.6-8.7)
--- NOTE | 2021-08-06 21:46 | CTR_ITS ---
PROCEDURE INFORMATION: Exam: CTA Chest With Contrast Exam date and time: 08/06/2021 9:46 PM Age: 66 years old Clinical indication: Other: Elevated tbili; Angina and shortness of breath; Prior surgery; Surgery type: Brain stimulator, egd; Additional info: SOB, cp, elevated tbili, ? gallbladder pathology TECHNIQUE: Imaging protocol: Computed tomographic angiography of the chest with contrast. 3D rendering (Not supervised by radiologist): MIP and/or 3D reconstructed images were created by the technologist. Radiation optimization: All CT scans at this facility use at least one of these dose optimization techniques: automated exposure control; mA and/or kV adjustment per patient size (includes targeted exams where dose is matched to clinical indication); or iterative reconstruction. Contrast material: OMNI 350; Contrast volume: 95 ml; Contrast route: INTRAVENOUS (IV); COMPARISON: CR (CHEST, ) 08/06/2021 7:09 PM RADIATION DOSE METRICS: Total DLP (mGy-cm): 2870.05 FINDINGS: Tubes, catheters and devices: Vagus nerve stimulator device implanted in the right anterior chest wall. Pulmonary arteries: Normal. No pulmonary emboli. Aorta: Unremarkable. No aortic aneurysm. No aortic dissection. Lungs: Unremarkable. No consolidation. No masses. Pleural spaces: Unremarkable. No pneumothorax. No pleural effusion. Heart: Unremarkable. No cardiomegaly. No pericardial effusion. Mediastinal space: Moderate sized hiatal hernia. Distal thoracic esophageal varices suspected. Lymph nodes: Unremarkable. No enlarged lymph nodes. Bones/joints: Age indeterminate mild severity wedge compression deformity of the T11 vertebral body. Soft tissues: Chest wall soft tissues are unremarkable. Thoracic paraspinal soft tissues are unremarkable. IMPRESSION: Negative for acute chest abnormality. PROCEDURE INFORMATION: Exam: CT Abdomen And Pelvis With Contrast Exam date and time: 08/06/2021 9:46 PM Age: 66 years old Clinical indication: Other: Elevated tbili; Angina and shortness of breath; Prior surgery; Surgery type: Brain stimulator, egd; Additional info: SOB, cp, elevated tbili, ? gallbladder pathology TECHNIQUE: Imaging protocol: Computed tomography of the abdomen and pelvis with contrast. Radiation optimization: All CT scans at this facility use at least one of these dose optimization techniques: automated exposure control; mA and/or kV adjustment per patient size (includes targeted exams where dose is matched to clinical indication); or iterative reconstruction. Contrast material: OMNI 350; Contrast volume: 95 ml; Contrast route: INTRAVENOUS (IV); COMPARISON: CR (CHEST, ) 08/06/2021 7:09 PM RADIATION DOSE METRICS: Total DLP (mGy-cm): 2870.05 FINDINGS: Mediastinal space: Moderate sized hiatal hernia. Thoracic esophageal varices. Liver: Nodular changes of liver parenchyma. Heterogeneous parenchyma. Gallbladder and bile ducts: Diffuse dilation of intrahepatic and extrahepatic biliary system. There is increased enhancement of the distal common bile duct wall near the pancreatic head with smooth tapering of the distal common bile duct of uncertain significance. The gallbladder is moderately distended without inflammatory wall thickening. Pancreas: Normal. No ductal dilation. Spleen: Small amorphous low-attenuation lesion at the superior margin of the spleen. Negative for splenomegaly. Adrenal glands: Normal. No mass. Kidneys and ureters: Normal. No hydronephrosis. Stomach and bowel: Negative for bowel obstruction or perforation. Appendix: No evidence of appendicitis. Intraperitoneal space: Small volume ascites. No free intraperitoneal air. Vasculature: Retroaortic left renal vein. Mesenteric vasculature is patent. No abdominal aortic aneurysm. Lymph nodes: Unremarkable. No enlarged lymph nodes. Urinary bladder: Unremarkable as visualized. Reproductive: Unremarkable as visualized. Bones/joints: Unremarkable. No acute fracture. Soft tissues: Unremarkable. CT/CT angio chest w abd pel w con IMPRESSION: 1. Diffusely dilated biliary system. Distal common bile duct obstruction is not excluded. 2. Chronic liver disease. 3. Small volume ascites. 4. Distal thoracic esophageal varices. Radiation Dose CTDIVOL = (mGy): DLP = 2870.05~2870.05 (mGy-cm)
[2021-08-06 22:00] VITALS: PULSE 79; O2SAT 95
[2021-08-06] MEDS: iohexol 350 mg/mL 100 mL Btl IV (22:08)
[2021-08-06] MEDS: iodixanol 320 mg/mL 100mL Btl IV (22:12)
[2021-08-06 22:25] LABS: SARS Covid-2 Antigen Negative (Negative)
[2021-08-06 22:30] VITALS: BP 135/75; PULSE 77; O2SAT 98
[2021-08-06 22:55] LABS: Troponin 5 2HR 14.26 ng/L (0-10); Troponin 5 2HR Delta -0.74 ABS# (0-10)
[2021-08-07] VITALS (7 sets, daily range): BP systolic 113–132; BP diastolic 57–59; PULSE 59–78; RESP 19–21; TEMP 36.8; O2SAT 97–99
--- NOTE | 2021-08-07 00:26 | ECG_ITS ---
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 Measurements Intervals [place] Rate: 86 P: 50 PA: 198 QRS: -23 QRSD: 109 T: 55 QT: 391 QTc: 468 Interpretive Statements SINUS RHYTHM BORDERLINE LEFT AXIS DEVIATION [QRS AXIS < -20] No previous ECG available for comparison Electronically Signed On 08-07-2021 9:26:59 CDT by Jeimy Jules M.D. [id number]
[2021-08-07] MEDS: piperacillin-tazobactam 4.5 GM in sodium chloride 0.9% (plus) 50 ML IV (01:43)
--- NOTE | 2021-08-07 03:19 | PC.NURSE ---
3rd EKG canceled per physician
--- NOTE | 2021-08-07 03:47 | PC.NURSE ---
left for work at this time: mike Tejada- [phone]
--- NOTE | 2021-08-07 04:09 | PC.NURSE ---
pt asleep at this time. did not wake for vitals.
--- NOTE | 2021-08-07 05:41 | US_ITS ---
WS: [id number] ULTRASOUND ABDOMEN LIMITED CLINICAL INFORMATION: abd pain COMPARISON: None. FINDINGS: Technically difficult examination due to bowel gas Liver Size: Cirrhotic liver Craniocaudal length: 14.9 cm. Echogenicity: Coarse Surface nodularity: Present Mass (size and location): None. Bile ducts Intrahepatic ducts: Normal. Common bile duct diameter: 0.3 cm. Gallbladder Normal. Gallstones: None. Gallbladder sludge: None. Gallbladder wall thickenin.6 mm Pericholecystic fluid: None. Sonographic Ventura sign: Absent. Pancreas Not well seen due to bowel gas Right kidney: Normal. Hydronephrosis: None. Size: 10.4 cm x 5.3 cm x 4.7 cm. Abdominal aorta and IVC Visualized portions are normal. Ascites: Minimal US/US gall bladder [id number] IMPRESSION: 1. Cirrhotic liver with coarse heterogeneous echotexture. 2. Distended gallbladder with mild wall thickening likely due to hepatocellula r disease. No cholelithiasis. 3. Minimal ascites. 4. No hydronephrosis in right kidney.
--- NOTE | 2021-08-07 05:58 | PC.NURSE ---
ultrasound bedside at this time
--- NOTE | 2021-08-07 05:59 | PC.NURSE ---
site around IV cath reddened
--- NOTE | 2021-08-07 06:29 | PC.NURSE ---
pt moved rooms at this time. new vitals taken and pt call light within reach.
--- NOTE | 2021-08-07 10:53 | W.ED.GENADLT ---
HPI - General Adult General: Chief complaint: Chest Pain Stated complaint: CP/SOB Time Seen by Provider: 08/06/21 20:13 History of Present Illness: HPI narrative: Initially the patient was seen by Dr. Oneill and by Dr. Pretty. She was signed out with the plan to transfer her this morning. I had at the chart on my work list and had thought that she had been discharged realize she was still here signed out the chart is not having participated in her care. I did make arrangements for transfer see notes below. She has elevated liver enzymes and T bili. She came in initially with chest pain saw by Dr. Parra that this was referred pain from her gallbladder issues. He had hoped to do and it MRCP however because she has a deep brain stimulator from her Parkinson's she is not able to have an MRI. [facility] ED PFSH: Medical History Family history of colon cancer GERD (gastroesophageal reflux disease) Hypothyroidism Parkinsons disease RLS (restless legs syndrome) Surgical History History of colonoscopy (~12/2020) History of esophagogastroduodenoscopy (EGD) (~12/2020) History of left knee replacement History of shoulder surgery S/P bilateral foot surgery Status post deep brain stimulator placement Family History Brother CAD (coronary artery disease) Hypertension Father CAD (coronary artery disease) Diabetes Hypertension Mother CAD (coronary artery disease) Hypertension Sister Hypertension Social History Smoking and tobacco status: never smoked Alcohol intake: never Marital status: Current occupational status: disabled History of recent travel: No Course Vital Signs: Vital signs: Vital Signs Temperature 98.3 F 08/07/21 06:00 Pulse Rate 72 08/07/21 12:32 Respiratory Rate 21 H 08/07/21 12:32 Blood Pressure 113/58 08/07/21 06:30 Pulse Oximetry 97 08/07/21 12:32 MDM - General Adult MDM Narrative: Medical decision making narrative: We are able to make arrangements to transfer patient to [facility] where they do have GI and are able to do ERCP. Arrangements made. Lab Data: Labs: Lab Results 08/06/21 08/06/21 08/06/21 Range/Units 20:20 20:20 20:20 WBC 9.1 (4.0-10.0) 10^3/ uL RBC 4.63 (4.1-5.3) 10^6/u L Hgb 14.4 (11.5-15.3) g/dL Hct 42.7 (37.0-47.0) % MCV 92.2 (81-99) fl MCH 31.1 (28.0-34.0) pg MCHC 33.7 (30.0-36.0) g/dL RDW 13.9 (12.1-15.1) % Plt Count 228 (130-400) 10^3/c mm MPV 10.8 H (7.4-10.4) fL Neut % (Auto) 81.7 % Lymph % (Auto) 9.8 % Island % (Auto) 6.8 % Eos % (Auto) 0.7 % Baso % (Auto) 0.7 % Neut # (Auto) 7.42 (1.8-7.7) 10^3/u L Lymph # (Auto) 0.9 (0.8-4.8) 10^3/u L Island # (Auto) 0.6 (0.2-0.9) 10^3/u L Eos # (Auto) 0.1 (0.0-0.8) 10^3/u L Baso # (Auto) 0.1 (0.0-0.1) 10^3/u L Nucleated RBC % (a uto) 0 % Nucleated RBCs # 0.0 /100WBC Sodium 133 L (136-145) mmol/L Potassium 3.8 (3.5-5.1) mmol/L Chloride 101 (98-107) mmol/L Carbon Dioxide 20 L (22-29) mmol/L Anion Gap 15.8 (5-19) BUN 8 (8-23) mg/dL Creatinine 0.5 (0.5-0.9) mg/dL GFR Calculation 123.4 (90-130) mL/min Glucose 92 (65-115) mg/dL Calculated Osmolal ity 274 L (285-295) mOsm/k g Calcium 8.1 L (8.5-10.5) mg/dL Total Bilirubin 5.0 H (0.15-1.2) mg/dL Direct Bilirubin (0.00-0.30) mg/d L AST 133 H (0-32) U/L ALT 29 (0-33) U/L Alkaline Phosphata se 387 H (35-105) IU/L Troponin T Baselin e 15 H (0-10) ng/L Troponin T 120 Min crow (0-10) ng/L Delta Troponin T (0-10) ABS# Troponin T Hi Sens 6Hr (0-10) ng/L Troponin T Hi Sens 6Hr Delta (0-12) ng/L NT-Pro-B Natriuret Pep 274 H (0-125) pg/mL Total Protein 7.8 (6.6-8.7) g/dL Albumin 3.2 L (3.5-5.2) g/dL Globulin 4.6 (1.3-4.6) g/dL Lipase 19 (13-60) U/L SARS-CoV-2 Ag (Rap id) (Negative) 08/06/21 08/06/21 08/06/21 Range/Units 20:20 21:30 22:24 WBC (4.0-10.0) 10^3/ uL RBC (4.1-5.3) 10^6/u L Hgb (11.5-15.3) g/dL Hct (37.0-47.0) % MCV (81-99) fl MCH (28.0-34.0) pg MCHC (30.0-36.0) g/dL RDW (12.1-15.1) % Plt Count (130-400) 10^3/c mm MPV (7.4-10.4) fL Neut % (Auto) % Lymph % (Auto) % Island % (Auto) % Eos % (Auto) % Baso % (Auto) % Neut # (Auto) (1.8-7.7) 10^3/u L Lymph # (Auto) (0.8-4.8) 10^3/u L Island # (Auto) (0.2-0.9) 10^3/u L Eos # (Auto) (0.0-0.8) 10^3/u L Baso # (Auto) (0.0-0.1) 10^3/u L Nucleated RBC % (a uto) % Nucleated RBCs # /100WBC Sodium (136-145) mmol/L Potassium (3.5-5.1) mmol/L Chloride (98-107) mmol/L Carbon Dioxide (22-29) mmol/L Anion Gap (5-19) BUN (8-23) mg/dL Creatinine (0.5-0.9) mg/dL GFR Calculation (90-130) mL/min Glucose (65-115) mg/dL Calculated Osmolal ity (285-295) mOsm/k g Calcium (8.5-10.5) mg/dL Total Bilirubin (0.15-1.2) mg/dL Direct Bilirubin 3.60 H (0.00-0.30) mg/d L AST (0-32) U/L ALT (0-33) U/L Alkaline Phosphata se (35-105) IU/L Troponin T Baselin e (0-10) ng/L Troponin T 120 Min crow 14.26 H (0-10) ng/L Delta Troponin T -0.74 L (0-10) ABS# Troponin T Hi Sens 6Hr (0-10) ng/L Troponin T Hi Sens 6Hr Delta (0-12) ng/L NT-Pro-B Natriuret Pep (0-125) pg/mL Total Protein (6.6-8.7) g/dL Albumin (3.5-5.2) g/dL Globulin (1.3-4.6) g/dL Lipase (13-60) U/L SARS-CoV-2 Ag (Rap id) Negative (Negative) 08/07/21 Range/Units 02:25 WBC (4.0-10.0) 10^3/ uL RBC (4.1-5.3) 10^6/u L Hgb (11.5-15.3) g/dL Hct (37.0-47.0) % MCV (81-99) fl MCH (28.0-34.0) pg MCHC (30.0-36.0) g/dL RDW (12.1-15.1) % Plt Count (130-400) 10^3/c mm MPV (7.4-10.4) fL Neut % (Auto) % Lymph % (Auto) % Island % (Auto) % Eos % (Auto) % Baso % (Auto) % Neut # (Auto) (1.8-7.7) 10^3/u L Lymph # (Auto) (0.8-4.8) 10^3/u L Island # (Auto) (0.2-0.9) 10^3/u L Eos # (Auto) (0.0-0.8) 10^3/u L Baso # (Auto) (0.0-0.1) 10^3/u L Nucleated RBC % (a uto) % Nucleated RBCs # /100WBC Sodium (136-145) mmol/L Potassium (3.5-5.1) mmol/L Chloride (98-107) mmol/L Carbon Dioxide (22-29) mmol/L Anion Gap (5-19) BUN (8-23) mg/dL Creatinine (0.5-0.9) mg/dL GFR Calculation (90-130) mL/min Glucose (65-115) mg/dL Calculated Osmolal ity (285-295) mOsm/k g Calcium (8.5-10.5) mg/dL Total Bilirubin (0.15-1.2) mg/dL Direct Bilirubin (0.00-0.30) mg/d L AST (0-32) U/L ALT (0-33) U/L Alkaline Phosphata se (35-105) IU/L Troponin T Baselin e (0-10) ng/L Troponin T 120 Min crow (0-10) ng/L Delta Troponin T (0-10) ABS# Troponin T Hi Sens 6Hr 15.80 H (0-10) ng/L Troponin T Hi Sens 6Hr Delta 0.80 (0-12) ng/L NT-Pro-B Natriuret Pep (0-125) pg/mL Total Protein (6.6-8.7) g/dL Albumin (3.5-5.2) g/dL Globulin (1.3-4.6) g/dL Lipase (13-60) U/L SARS-CoV-2 Ag (Rap id) (Negative) Discharge Plan Discharge Patient Disposition: Xfer Short-Term Hosp Clinical Impression: Hyperbilirubinemia, Parkinsons disease, Bile duct obstruction Prescriptions: No Action (DME) Upright Walker See Rx Instructions .Route .MEDSUPPLY Qty: 1 RF: 0 amantadine HCl 100 mg capsule 100 mg PO BID Qty: 60 RF: 5 carbidopa-levodopa [Sinemet] 25-100 mg tablet 1 tab PO DAILY Qty: 30 RF: 5 ropinirole [Requip XL] 2 mg tablet extended release 24 hr 2 mg PO TID Qty: 90 RF: 5 clonazepam 0.5 mg tablet 0.5 mg PO DAILY Qty: 30 RF: 5 ferrous sulfate [Feosol] 325 mg (65 mg iron) tablet 325 mg PO BID Qty: 60 RF: 1 Euthyrox 137 mcg tablet 137 mcg PO DAILY RF: 0 hydrochlorothiazide 12.5 mg tablet 12.5 mg PO DAILY RF: 0 omeprazole magnesium [Prilosec OTC] 20 mg tablet,delayed release (DR/EC) 40 mg PO DAILY Qty: 0 RF: 0 Referrals: Jenni Beltran DO [Primary Care Provider] - Sign Out Sign Out Data: Patient Sign Out occurred on 08/07/21 at 06:11. Patient's care was discussed, and care was transferred from to Gutierrez Harden DO. Coding Level of Care Code ED Triple Valve Mechanic for Micheline Garcia
== END 2021-08-07 16:31 | disposition short-term general hospital (02) ==
PROVIDERS: Emergency Medicine; Emergency Provider Family Medicine; PCP Family Medicine
DX: E80.6 Other disorders of bilirubin metabolism (principal); G20 Parkinson's disease; K83.1 Obstruction of bile duct; Z20.822 Contact with and (suspected) exposure to COVID-19
CPT/HCPCS: 71045; 71275; 74177; 76705; 80053; 82248; 83690; 83880; 84484; 85025; 87426; 93005; 96365; 99284; J2543; Q9967

== ENCOUNTER 2021-09-21 17:02 | Emergency (ER) | payer MEDICARE, SELFPAY ==
[2021-09-21 17:08] VITALS: BP 100/52; PULSE 79; RESP 15; TEMP 37.1; O2SAT 95; BMI 30.3
--- NOTE | 2021-09-21 17:26 | ECG_ITS ---
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 Measurements Intervals [place] Rate: 70 P: 11 NV: 199 QRS: -25 QRSD: 107 T: -1 QT: 412 QTc: 446 Interpretive Statements SINUS RHYTHM MINIMAL VOLTAGE CRITERIA FOR LVH, CONSIDER NORMAL VARIANT [MEETS CRITERIA IN ONE OF: R(aVL), S(V1), R(V5), R(V5/V6)+S(V1)] POSSIBLE ANTERIOR MYOCARDIAL INFARCTION , PROBABLY OLD [30 ms Q WAVE IN V3/V4, OR R < 0.2 mV IN V4] Compared to ECG 08/06/2021 20:32:51 Myocardial infarct finding now present Left-axis deviation no longer present Electronically Signed On 09-21-2021 18:37:38 CDT by Abner Núñez M.D. [id number]
--- NOTE | 2021-09-21 17:27 | XRR_ITS ---
PROCEDURE INFORMATION: Exam: XR Chest Exam date and time: 09/21/2021 5:27 PM Age: 66 years old Clinical indication: Dyspnea and shortness of breath; Prior surgery; Surgery type: Brain stimulator; Patient HX: SOB and dyspnea. TECHNIQUE: Imaging protocol: XR of the chest. Views: 1 view. COMPARISON: CR XR chest 1V portable [id number] 08/06/2021 7:09 PM FINDINGS: Tubes, catheters and devices: Stimulator device in the right chest wall with leads extending up the neck. Lungs: Unremarkable. No consolidation. Pleural spaces: Unremarkable. No pleural effusion. No pneumothorax. Heart/Mediastinum: Unremarkable. No cardiomegaly. Bones/joints: Unremarkable. XR/XR chest 1V portable [id number] IMPRESSION: No acute findings. Radiation Dose CTDIVOL = (mGy): DLP = (mGy-cm)
--- NOTE | 2021-09-21 17:43 | XRR_ITS ---
PROCEDURE INFORMATION: Exam: XR Right Shoulder Exam date and time: 09/21/2021 5:43 PM Age: 66 years old Clinical indication: Prior surgery; Surgery type: Brain stimulator; Patient HX: C/O right shoulder pain. No injury. ; Additional info: Eval pain TECHNIQUE: Imaging protocol: XR Right shoulder. Views: 2 or more views. COMPARISON: CR (CHEST, ) 09/21/2021 5:45 PM FINDINGS: Tubes, catheters and devices: Stimulator device in the right chest wall with leads extending up the right neck. Bones/joints: Mild degenerative changes of the acromioclavicular joint. The bones are intact and in normal alignment. Soft tissues: Normal. XR/XR shoulder RT min 2V* [id number] IMPRESSION: 1. No acute finding. Radiation Dose CTDIVOL = (mGy): DLP = (mGy-cm)
--- NOTE | 2021-09-21 17:43 | CTR_ITS ---
PROCEDURE INFORMATION: Exam: CT Abdomen And Pelvis With Contrast Exam date and time: 09/21/2021 5:43 PM Age: 66 years old Clinical indication: Abdominal pain; Localized; Right upper quadrant (ruq); Prior surgery; Surgery date: 1-6 months; Surgery type: Stent; Additional info: Eval pathology, eval for stent migration (cbd) and L hip marija TECHNIQUE: Imaging protocol: Computed tomography of the abdomen and pelvis with contrast. Radiation optimization: All CT scans at this facility use at least one of these dose optimization techniques: automated exposure control; mA and/or kV adjustment per patient size (includes targeted exams where dose is matched to clinical indication); or iterative reconstruction. Contrast material: OMNI 300; Contrast volume: 95 ml; Contrast route: INTRAVENOUS (IV); COMPARISON: CT angio chest w abd pel w con 08/06/2021 10:03 PM RADIATION DOSE METRICS: Total DLP (mGy-cm): 1556.36 FINDINGS: Tubes, catheters and devices: Stent extending from the mid common bile duct into the 3rd portion of the duodenum. Liver: Normal. No mass. Gallbladder and bile ducts: Mild dilatation of the common bile duct measuring 13 mm. Mild intrahepatic ductal dilatation appears improved. Pancreas: Normal. No ductal dilation. Spleen: Stable hypodensities in the superior spleen, too small to characterize. The spleen size is normal. Adrenal glands: Normal. No mass. Kidneys and ureters: Unremarkable. No calculus or hydronephrosis. Stomach and bowel: Unremarkable. No obstruction. No mucosal thickening. Appendix: The appendix is visualized and is normal. Intraperitoneal space: Mild pelvic ascites. No free air. Mild edema throughout the mesentery. Vasculature: Portal venous hypertension with gastroesophageal varices. Retroaortic left renal vein. Lymph nodes: Prominent retroperitoneal and peripancreatic lymph nodes are most likely reactive. Urinary bladder: Unremarkable as visualized. Reproductive: Unremarkable as visualized. Bones/joints: Mild degenerative changes of the spine. Chronic T11 compression fracture. No acute fracture. Soft tissues: Unremarkable. Other findings: Mild body wall edema. CT/CT abdomen pelvis w con* [id number] IMPRESSION: 1. Common bile duct stent in standard position, with distal tip in the duodenum. 2. Improved mild intrahepatic ductal dilatation. 3. Cirrhotic liver with portal venous hypertension and gastroesophageal varices. 4. Mild ascites. 5. Stable low-density lesions in the superior spleen, possibly cysts. Radiation Dose CTDIVOL = (mGy): DLP = 1556.36 (mGy-cm)
[2021-09-21 18:02] VITALS: BP 113/60; PULSE 75; RESP 18; TEMP 37.1; O2SAT 94
[2021-09-21 18:32] LABS: Basophils # 0.1 10^3/uL (0.0-0.1); Basophils % 0.6 %; Eosinophils # 0.5 10^3/uL (0.0-0.8); Eosinophils % 5.2 %; Hematocrit 38.3 % (37.0-47.0); Lymphocytes # 0.8 10^3/uL (0.8-4.8); Lymphocytes % 8.3 %; Mean Corpuscular HGB Conc 33.9 g/dL (30.0-36.0); Mean Corpuscular Hemoglobin 31.9 pg (28.0-34.0); Mean Corpuscular Volume 93.9 fl (81-99); Mean Platelet Volume 10.8 fL (7.4-10.4); Monocytes # 1.2 10^3/uL (0.2-0.9); Monocytes % 12.9 %; Neutrophils # 6.57 10^3/uL (1.8-7.7); Neutrophils % 72.7 %; Nucleated Red Blood Cells % 0 %; Platelet Count 204 10^3/cmm (130-400); Red Blood Count 4.08 10^6/uL (4.1-5.3)
[2021-09-21 18:37] VITALS: PULSE 78; RESP 17; TEMP 37.1; O2SAT 96
[2021-09-21 18:43] LABS: INR 1.17 (0.8-1.2)
[2021-09-21 18:52] LABS: Alanine Aminotransferase 21 U/L (0-33); Albumin Level 3.1 g/dL (3.5-5.2); Alkaline Phosphatase 271 IU/L (35-105); Anion Gap 15.5 (5-19); Aspartate Amino Transferase 34 U/L (0-32); Blood Urea Nitrogen 10 mg/dL (8-23); Carbon Dioxide 19 mmol/L (22-29); Chloride 103 mmol/L (98-107); Creatinine Clr Calc Pharmacy 65.7156; Globulin 3.6 g/dL (1.3-4.6); Glomerular Filtration Rate 123.4 mL/min (90-130); Glucose 96 mg/dL (65-115); Lipase 13 U/L (13-60); Osmolality Calculated 277 mOsm/kg (285-295); Potassium 3.5 mmol/L (3.5-5.1); Sodium 134 mmol/L (136-145); Total Bilirubin 1.6 mg/dL (0.15-1.2); Total Protein 6.7 g/dL (6.6-8.7)
[2021-09-21 18:55] LABS: Troponin T (5th) Once 16 ng/L (0-10)
[2021-09-21 19:07] LABS: SARS Covid-2 Antigen Negative (Negative)
[2021-09-21] MEDS: iohexol 300 mg/mL 100 mL Btl IV (19:23)
--- NOTE | 2021-09-21 19:24 | ED_ITS ---
HPI - General Adult General: Chief complaint: Abdominal Pain Stated complaint: WEAKNESS; RUQ PAIN Time Seen by Provider: 09/21/21 17:11 History of Present Illness: HPI narrative: Patient is a 66-year-old female with a history of Parkinson's disease with deep brain stimulator, fatty liver disease, biliary stent placement for CBD dilation from 08/07/[address] Shaffer who presents the emergency room with complaints of right-sided shoulder pain, right upper abdominal pain radiating towards the left upper quadrant, and left-sided hip pain. Patient says the pain started 3days ago. Patient denies any fever chills, diarrhea, nausea/vomiting, chest pain or shortness of breath. Patient denies any fall or injuries. Patient is due to follow-up with Dr. Shaffer for the biliary stent evaluation on Wednesday. Onset: 3 days ago Duration:3 days Location:home Severity:home Review of Systems Narrative: Constitutional: No fever, no chills. HEENT: No vision changes CV: No chest pain, no palpitations PULM: no cough, no dyspnea. GI: +RUQ and LLQ abdominal pain, no N/V/D. : No dysuria MSKEL: +R shoulder pain, +L hip pain SKIN: No new rashes, no lesions. NEURO: No headache, no focal weakness. HEME: No visible bruises PSYCH: Normal mood PFSH ED PFSH: Medical History Family history of colon cancer GERD (gastroesophageal reflux disease) Hypothyroidism Parkinsons disease RLS (restless legs syndrome) Surgical History History of colonoscopy (~12/2020) History of esophagogastroduodenoscopy (EGD) (~12/2020) History of left knee replacement History of shoulder surgery S/P bilateral foot surgery Status post deep brain stimulator placement Family History Brother CAD (coronary artery disease) Hypertension Father CAD (coronary artery disease) Diabetes Hypertension Mother CAD (coronary artery disease) Hypertension Sister Hypertension Social History Alcohol intake: never Marital status: Current occupational status: disabled History of recent travel: No Female Reproductive History: Date of last menstrual period: 02/20/21 Physical Exam Narrative: EXAM NARRATIVE: Head: Atraumatic Eyes: PERRL, conjunctiva without injection ENT: Mucous membrane moist NECK: Supple, ROM intact LUNGS: LCTAB, no crackles/rhonchi CV: RRR ABDOMEN: Soft, no focal TTP. NO guarding rebound, guarding, rigidity. No CVA tenderness to percussion. Neg Ventura/Neg McBurney's point tenderness, no suprabupic tenderness to palpation. EXTREMITY: Normal ROM right shoulder intact, left hip intact, no focal tenderness to palpation, neurovascular exam intact SKIN: No rash or erythema NEURO: Awake and alert, no focal motor deficits PSYCH: Normal mood and affect Course Vital Signs: Vital signs: Vital Signs Temperature 98.7 F 09/21/21 18:37 Pulse Rate 66 09/21/21 21:09 Respiratory Rate 18 09/21/21 21:09 Blood Pressure 107/66 09/21/21 21:09 Pulse Oximetry 98 09/21/21 21:09 MDM - General Adult MDM Narrative: Medical decision making narrative: 66-year-old female with a history of recent biliary stent placement presenting to the emergency room for complaints including right shoulder pain, right upper quadrant pain radiating to her left upper quadrant, and left hip pain. There is no focal findings on physical exam at this time. EKG showing regular sinus rhythm at HT of 70. Normal axis. No ST elevations/depressions to suggest coronary occlusion. Normal MA, QRS, QT intervals. XR R shoulder are negative for any acute finding. Patient is noted to have a troponin of 16. EKG is nonischemic. Repeat troponin 2 hours is similar. No suspicion for ACS currently. CT abdomen pelvis showed a distended gallbladder without any signs of cholecystitis. Left hip appears to be intact. At this time, patient has no focal complaints. Patient instructed to follow-up with Dr. Shaffer on Wednesday for further evaluation. Disposition: Discharge. Patient counseled regarding diagnostic impression, treatment plan. Patient given ED strict return precautions to return for continuation, worsening, or development of new symptoms. Instructed to f/u w/ Dr. Shaffer regarding symptoms today. Patient verbalized understanding. Lab Data: Labs: Lab Results 09/21/21 09/21/21 09/21/21 18:19 18:19 18:19 WBC 9.0 10^3/uL 10^3/ uL (4.0-10.0) RBC 4.08 10^6/uL L 10 ^6/uL (4.1-5.3) Hgb 13.0 g/dL g/dL (11.5-15.3) Hct 38.3 % % (37.0-47.0) MCV 93.9 fl fl (81-99) MCH 31.9 pg pg (28.0-34.0) MCHC 33.9 g/dL g/dL (30.0-36.0) RDW 15.0 % % (12.1-15.1) Plt Count 204 10^3/cmm 10^3 /cmm (130-400) MPV 10.8 fL H fL (7.4-10.4) Neut % (Auto) 72.7 % % Lymph % (Auto) 8.3 % % Hardeman % (Auto) 12.9 % % Eos % (Auto) 5.2 % % Baso % (Auto) 0.6 % % Neut # (Auto) 6.57 10^3/uL 10^3 /uL (1.8-7.7) Lymph # (Auto) 0.8 10^3/uL 10^3/ uL (0.8-4.8) Hardeman # (Auto) 1.2 10^3/uL H 10^ 3/uL (0.2-0.9) Eos # (Auto) 0.5 10^3/uL 10^3/ uL (0.0-0.8) Baso # (Auto) 0.1 10^3/uL 10^3/ uL (0.0-0.1) Nucleated RBC % (a uto) 0 % % Nucleated RBCs # 0.0 /100WBC /100W BC PT 15.30 SECONDS H S ECONDS (12.1-14.9) INR 1.17 (0.8-1.2) APTT 43.0 SECONDS H SE CONDS (23.9-36.7) Sodium 134 mmol/L L mmol /L (136-145) Potassium 3.5 mmol/L mmol/L (3.5-5.1) Chloride 103 mmol/L mmol/L (98-107) Carbon Dioxide 19 mmol/L L mmol/ L (22-29) Anion Gap 15.5 (5-19) BUN 10 mg/dL mg/dL (8-23) Creatinine 0.5 mg/dL mg/dL (0.5-0.9) GFR Calculation 123.4 mL/min mL/m in (90-130) Glucose 96 mg/dL mg/dL (65-115) Calculated Osmolal ity 277 mOsm/kg L mOs m/kg (285-295) Calcium 8.0 mg/dL L mg/dL (8.5-10.5) Total Bilirubin 1.6 mg/dL H mg/dL (0.15-1.2) AST 34 U/L H U/L (0-32) ALT 21 U/L U/L (0-33) Alkaline Phosphata se 271 IU/L H IU/L (35-105) Troponin T Gen 5 n g/L Troponin T 120 Min [place] Troponin T Total Protein 6.7 g/dL g/dL (6.6-8.7) Albumin 3.1 g/dL L g/dL (3.5-5.2) Globulin 3.6 g/dL g/dL (1.3-4.6) Lipase 13 U/L U/L (13-60) Urine Color Urine Appearance Urine pH Ur Specific Gravit y Urine Protein Urine Glucose (UA) Urine Ketones Urine Blood Urine Nitrate Urine Bilirubin Urine Urobilinogen Ur Leukocyte Jud ase Urine RBC Urine WBC Ur Squamous Epith Cells Amorphous Sediment Urine Bacteria Urine Mucus SARS-CoV-2 Ag (Rap id) 09/21/21 09/21/21 09/21/21 18:19 18:20 19:04 WBC RBC Hgb Hct MCV MCH MCHC RDW Plt Count MPV Neut % (Auto) Lymph % (Auto) Hardeman % (Auto) Eos % (Auto) Baso % (Auto) Neut # (Auto) Lymph # (Auto) Hardeman # (Auto) Eos # (Auto) Baso # (Auto) Nucleated RBC % (a uto) Nucleated RBCs # PT INR APTT Sodium Potassium Chloride Carbon Dioxide Anion Gap BUN Creatinine GFR Calculation Glucose Calculated Osmolal ity Calcium Total Bilirubin AST ALT Alkaline Phosphata se Troponin T Gen 5 n g/L 16 ng/L H ng/L (0-10) Troponin T 120 Min [place] Troponin T Total Protein Albumin Globulin Lipase Urine Color Yellow (Yellow) Urine Appearance Sl hazy (CLEAR) Urine pH 5 (5-7) Ur Specific Gravit y 1.020 (1.005-1.030) Urine Protein Trace (Negative) Urine Glucose (UA) Norm (Normal) Urine Ketones Negative (Negative) Urine Blood Neg (Negative) Urine Nitrate Negative (Negative) Urine Bilirubin 1+ H (Negative) Urine Urobilinogen 4 mg/dL H mg/dL (Negative) Ur Leukocyte Jud ase 1+ H (Negative) Urine RBC 0-4 /hpf H /hpf (0-2) Urine WBC 5-10 /hpf H /hpf (0-5) Ur Squamous Epith Cells 15-25 /hpf H /hpf (0-5) Amorphous Sediment Not Reportable Urine Bacteria 1+ /hpf H /hpf (NONE) Urine Mucus 3+ /hpf /hpf SARS-CoV-2 Ag (Rap id) Negative (Negative) 09/21/21 20:08 WBC RBC Hgb Hct MCV MCH MCHC RDW Plt Count MPV Neut % (Auto) Lymph % (Auto) Hardeman % (Auto) Eos % (Auto) Baso % (Auto) Neut # (Auto) Lymph # (Auto) Hardeman # (Auto) Eos # (Auto) Baso # (Auto) Nucleated RBC % (a uto) Nucleated RBCs # PT INR APTT Sodium Potassium Chloride Carbon Dioxide Anion Gap BUN Creatinine GFR Calculation Glucose Calculated Osmolal ity Calcium Total Bilirubin AST ALT Alkaline Phosphata se Troponin T Gen 5 n g/L Troponin T 120 Min [place] 13.66 ng/L H ng/L (0-10) Delta Troponin T Not Reportable Total Protein Albumin Globulin Lipase Urine Color Urine Appearance Urine pH Ur Specific Gravit y Urine Protein Urine Glucose (UA) Urine Ketones Urine Blood Urine Nitrate Urine Bilirubin Urine Urobilinogen Ur Leukocyte Jud ase Urine RBC Urine WBC Ur Squamous Epith Cells Amorphous Sediment Urine Bacteria Urine Mucus SARS-CoV-2 Ag (Rap id) Imaging Data^: Other Imaging: Radiologist's impression: [address] [id number] ReportSigned Patient: Elizabeth Tejada #: [id number]: 5Acct#:[id number]/Sex: 66 / FADM Date: 09/21/21Loc: ERRoom/Bed:Attending Dr: Ordering Provider/Ordering MD: Gloria Be MD Date of Service: 09/21/21 Procedure(s): XR shoulder RT min 2V* [id number] Accession Number(s): [id number] Report Number: [id number] PROCEDURE INFORMATION: Exam: XR Right Shoulder Exam date and time: 09/21/2021 5:43 PM Age: 66 years old Clinical indication: Prior surgery; Surgery type: Brain stimulator; Patient HX: C/O right shoulder pain. No injury. ; Additional info: Eval pain TECHNIQUE: Imaging protocol: XR Right shoulder. Views: 2 or more views. COMPARISON: CR (CHEST, ) 09/21/2021 5:45 PM FINDINGS: Tubes, catheters and devices: Stimulator device in the right chest wall with leads extending up the right neck. Bones/joints: Mild degenerative changes of the acromioclavicular joint. The bones are intact and in normal alignment. Soft tissues: Normal. XR/XR shoulder RT min 2V* [id number] IMPRESSION: 1. No acute finding. Radiation Dose CTDIVOL = (mGy): DLP = (mGy-cm) Dictated By:Priscila Escalante By:Priscila Escalante Date/Time:09/21/21 1941DD/ [address] [id number] Scan ReportSigned Patient: Elizabeth Tejada #: [id number]: 5Acct#:[id number]/Sex: 66 / FADM Date: 09/21/21Loc: ERRoom/Bed:Attending Dr: Ordering Provider/Ordering MD: Gloria Be MD Date of Service: 09/21/21 Procedure(s): CT abdomen pelvis w con* [id number] Accession Number(s): [id number] Report Number: [id number] PROCEDURE INFORMATION: Exam: CT Abdomen And Pelvis With Contrast Exam date and time: 09/21/2021 5:43 PM Age: 66 years old Clinical indication: Abdominal pain; Localized; Right upper quadrant (ruq); Prior surgery; Surgery date: 1-6 months; Surgery type: Stent; Additional info: Eval pathology, eval for stent migration (cbd) and L hip marija TECHNIQUE: Imaging protocol: Computed tomography of the abdomen and pelvis with contrast. Radiation optimization: All CT scans at this facility use at least one of these dose optimization techniques: automated exposure control; mA and/or kV adjustment per patient size (includes targeted exams where dose is matched to clinical indication); or iterative reconstruction. Contrast material: OMNI 300; Contrast volume: 95 ml; Contrast route: INTRAVENOUS (IV); COMPARISON: CT angio chest w abd pel w con 08/06/2021 10:03 PM RADIATION DOSE METRICS: Total DLP (mGy-cm): 1556.36 FINDINGS: Tubes, catheters and devices: Stent extending from the mid common bile duct into the 3rd portion of the duodenum. Liver: Normal. No mass. Gallbladder and bile ducts: Mild dilatation of the common bile duct measuring 13 mm. Mild intrahepatic ductal dilatation appears improved. Pancreas: Normal. No ductal dilation. Spleen: Stable hypodensities in the superior spleen, too small to characterize. The spleen size is normal. Adrenal glands: Normal. No mass. Kidneys and ureters: Unremarkable. No calculus or hydronephrosis. Stomach and bowel: Unremarkable. No obstruction. No mucosal thickening. Appendix: The appendix is visualized and is normal. Intraperitoneal space: Mild pelvic ascites. No free air. Mild edema throughout the mesentery. Vasculature: Portal venous hypertension with gastroesophageal varices. Retroaortic left renal vein. Lymph nodes: Prominent retroperitoneal and peripancreatic lymph nodes are most likely reactive. Urinary bladder: Unremarkable as visualized. Reproductive: Unremarkable as visualized. Bones/joints: Mild degenerative changes of the spine. Chronic T11 compression fracture. No acute fracture. Soft tissues: Unremarkable. Other findings: Mild body wall edema. CT/CT abdomen pelvis w con* [id number] IMPRESSION: 1. Common bile duct stent in standard position, with distal tip in the duodenum. 2. Improved mild intrahepatic ductal dilatation. 3. Cirrhotic liver with portal venous hypertension and gastroesophageal varices. 4. Mild ascites. 5. Stable low-density lesions in the superior spleen, possibly cysts. Radiation Dose CTDIVOL = (mGy): DLP = 1556.36 (mGy-cm) Dictated By:Priscila Escalante By:Priscila Escalante Date/Time:09/21/211948DD/ 174 Ksenia Tejada 66 F [address] [id number] ReportSigned Patient: Elizabeth Tejada #: [id number]: 5Acct#:[id number]/Sex: 66 / FADM Date: 09/21/21Loc: ERRoom/Bed:Attending Dr: Ordering Provider/Ordering MD: Gloria Be MD Date of Service: 09/21/21 Procedure(s): XR chest 1V portable [id number] Accession Number(s): [id number] Report Number: [id number] PROCEDURE INFORMATION: Exam: XR Chest Exam date and time: 09/21/2021 5:27 PM Age: 66 years old Clinical indication: Dyspnea and shortness of breath; Prior surgery; Surgery type: Brain stimulator; Patient HX: SOB and dyspnea. TECHNIQUE: Imaging protocol: XR of the chest. Views: 1 view. COMPARISON: CR XR chest 1V portable [id number] 08/06/2021 7:09 PM FINDINGS: Tubes, catheters and devices: Stimulator device in the right chest wall with leads extending up the neck. Lungs: Unremarkable. No consolidation. Pleural spaces: Unremarkable. No pleural effusion. No pneumothorax. Heart/Mediastinum: Unremarkable. No cardiomegaly. Bones/joints: Unremarkable. XR/XR chest 1V portable [id number] IMPRESSION: No acute findings. Radiation Dose CTDIVOL = (mGy): DLP = (mGy-cm) Dictated By:Priscila Escalante By:Priscila Escalante Date/Time:09/21/211939DD/ 26 Discharge Plan Discharge Patient Disposition: Home Clinical Impression: Acute hip pain, Acute shoulder pain Condition: Stable Prescriptions: No Action (DME) Upright Walker See Rx Instructions .Route .MEDSUPPLY Qty: 1 RF: 0 omeprazole magnesium [Prilosec OTC] 20 mg tablet,delayed release (DR/EC) 40 mg PO BID RF: 0 amantadine HCl 100 mg capsule 100 mg PO BID Qty: 60 RF: 5 carbidopa-levodopa [Sinemet] 25-100 mg tablet 1 tab PO DAILY Qty: 30 RF: 5 ropinirole [Requip XL] 2 mg tablet extended release 24 hr 2 mg PO TID Qty: 90 RF: 5 clonazepam 0.5 mg tablet 0.5 mg PO DAILY Qty: 30 RF: 5 ferrous sulfate [Feosol] 325 mg (65 mg iron) tablet 325 mg PO BID Qty: 60 RF: 1 hydrochlorothiazide 12.5 mg tablet See Rx Instructions .ROUTE .COMPLEX Qty: 30 RF: 0 Euthyrox 137 mcg tablet See Rx Instructions .ROUTE .COMPLEX Qty: 14 RF: 0 Discharge Orders: Discharge ED (Routine); Ordered 09/21/21 Ordered By: Gloria Be Referrals: Jenni Beltran DO [Primary Care Provider] - Discharge Diet: Advance as tolerated Discharge Activity: Resume usual activity Patient Instructions: Shoulder Pain (ED), Hip Pain (ED) Activity Restrictions/Additional Instructions: Come back to the ER if your pain worsens or if you have any abdominal complaints. Coding Level of Care Code ED Choir Member for Micheline Garcia
[2021-09-21 20:11] LABS: Add Urine Microscopic? YES; Bilirubin Urine 1+ (Negative); Blood Urine Neg (Negative); Glucose Urine UA Norm (Normal); Ketones Urine Negative (Negative); Leukocyte Esterase Urine 1+ (Negative); Nitrate Urine Negative (Negative); Protein Urine Trace (Negative); Urine Appearance SL Hazy (CLEAR); Urine Color Yellow (Yellow); Urobilinogen Urine 4 mg/dL (Negative); pH Urine 5 (5-7)
[2021-09-21 20:12] LABS: Add Urine Culture? No; Bacteria Urine 1+ /hpf; Mucus Urine 3+ /hpf; RBC Urine 0-4 /hpf (0-2); Squamous Epithelial Cell Urine 15-25 /hpf (0-5)
[2021-09-21 20:36] LABS: Troponin 5 2HR 13.66 ng/L (0-10)
[2021-09-21 21:09] VITALS: BP 107/66; PULSE 66; RESP 18; O2SAT 98
== END 2021-09-21 21:19 | disposition home or self-care (01) ==
PROVIDERS: Emergency Provider Emergency Medicine; PCP Family Medicine
DX: M25.551 Pain in right hip (principal); M25.511 Pain in right shoulder; K82.8 Other specified diseases of gallbladder; K21.9 Gastro-esophageal reflux disease without esophagitis; E03.9 Hypothyroidism, unspecified; G20 Parkinson's disease
CPT/HCPCS: 36415; 71045; 73030; 74177; 80053; 81001; 83690; 84484; 85025; 85610; 85730; 87426; 93005; 99283; Q9967

== ENCOUNTER → 2021-10-03 15:02 | Outpatient (BNVA) | payer MEDICARE, SELFPAY | PROVIDERS: PCP Family Medicine; Visit Provider Family Medicine | DX: E03.9 Hypothyroidism, unspecified (principal) | CPT/HCPCS: 84443 ==

== ENCOUNTER → 2021-10-06 08:02 | Outpatient (BNVA) | payer MEDICARE, SELFPAY | PROVIDERS: PCP Family Medicine; Visit Provider Specialist | DX: G20 Parkinson's disease (principal); Z96.82 Presence of neurostimulator; Z91.81 History of falling | CPT/HCPCS: 95983; 95984; 99214 ==

== ENCOUNTER 2021-10-14 06:00 | Outpatient (RCR) | payer MEDICARE, SELFPAY | END 2021-10-28 23:59 | disposition home or self-care (01) | LOC: SPT 06:00 | PROVIDERS: PCP Family Medicine; Referring Provider Family Medicine; Visit Provider Family Medicine | DX: R26.81 Unsteadiness on feet (principal) | CPT/HCPCS: 97110; 97162 ==

== ENCOUNTER → 2021-10-20 08:23 | Outpatient (BNVA) | payer MEDICARE, SELFPAY | PROVIDERS: PCP Family Medicine; Visit Provider Internal Medicine Rheumatology | DX: R76.8 Other specified abnormal immunological findings in serum (principal); G20 Parkinson's disease; Z79.899 Other long term (current) drug therapy; Z11.59 Encounter for screening for other viral diseases; Z11.1 Encounter for screening for respiratory tuberculosis; K74.60 Unspecified cirrhosis of liver; M19.041 Primary osteoarthritis, right hand; M19.042 Primary osteoarthritis, left hand; M25.552 Pain in left hip; M19.90 Unspecified osteoarthritis, unspecified site; E03.9 Hypothyroidism, unspecified | CPT/HCPCS: 36415; 73130; 82306; 84443; 86160; 86162; 86200; 86235; 86255; 86376; 86431; 86480; 86704; 86800; 86803; 87340; 99204 ==

== ENCOUNTER 2021-10-20 10:30 | Outpatient (CLI) | payer MEDICARE, SELFPAY ==
--- NOTE | 2021-10-20 10:41 | XRR_ITS ---
PROCEDURE INFORMATION: Exam: XR Right Hand Exam date and time: 10/20/2021 10:41 AM Age: 66 years old Clinical indication: Pain; Hand; Bilateral; Additional info: R76.8 - other specified abnormal immunological findings i. . . TECHNIQUE: Imaging protocol: XR Right hand. Views: 3 or more views. COMPARISON: No relevant prior studies available. FINDINGS: Bones/joints: There is minimal degenerative changes, manifested by joint space narrowing and tiny periarticular osteophytes, involving mainly the 3rd and 5th DIP joints. No acute fracture or dislocation. Soft tissues: Normal. XR/XR hand RT min 3V* [id number] IMPRESSION: Minimal osteoarthrosis, involving mainly the 3rd and 5th DIP joints. Radiation Dose CTDIVOL = (mGy): DLP = (mGy-cm)
--- NOTE | 2021-10-20 10:41 | XRR_ITS ---
PROCEDURE INFORMATION: Exam: XR Left Hand Exam date and time: 10/20/2021 10:41 AM Age: 66 years old Clinical indication: Pain; Hand; Bilateral; Additional info: R76.8 - other specified abnormal immunological findings i. . . TECHNIQUE: Imaging protocol: XR Left hand. Views: 3 or more views. COMPARISON: No relevant prior studies available. FINDINGS: Bones/joints: No fracture or dislocation. Joint spaces are well maintained. Soft tissues: Normal. XR/XR hand LT min 3V* [id number] IMPRESSION: No acute findings. Radiation Dose CTDIVOL = (mGy): DLP = (mGy-cm)
[2021-10-20 12:43] LABS: Hepatitis B Core AB, Total Non-Reactive (Nonreactive); Hepatitis B Surface Antigen Non-Reactive (Nonreactive)
[2021-10-20 12:58] LABS: 25 Hydroxy Vitamin D 24 ng/mL (30-100); Thyroid Stimulating Hormone 6.31 uIU/mL (0.27-4.20)
[2021-10-20 13:19] LABS: Hepatitis C Virus Antibody Non-Reactive (Nonreactive)
[2021-10-21 12:53] LABS: COMPLEMENT COMPONENT C3C 155 mg/dL (83-193); COMPLEMENT COMPONENT C4C 18 mg/dL (15-57)
[2021-10-21 14:47] LABS: Cyclic Citrullinated Peptide <16 UNITS
[2021-10-21 14:58] LABS: THYROID PEROXIDASE ANTIBODIES 46 IU/mL (<9)
[2021-10-21 16:17] LABS: Thyroglobulin AB >1000 IU/mL (< or = 1)
[2021-10-22 12:07] LABS: COMPLEMENT, TOTAL (CH50) >60 U/mL (31-60)
[2021-10-22 14:33] LABS: ANA PATTERN Nuclear, Homogeneous; ANA SCREEN, IFA POSITIVE (NEGATIVE)
[2021-10-22 16:57] LABS: CENTROMERE B ANTIBODY <1.0 NEG AI (<1.0 NEG); JO-1 ANTIBODY <1.0 NEG AI (<1.0 NEG); RNP ANTIBODY <1.0 NEG AI (<1.0 NEG); SCL-70 ANTIBODY <1.0 NEG AI (<1.0 NEG); SJOGREN'S ANTIBODY (SS-A) <1.0 NEG AI (<1.0 NEG); SM ANTIBODY <1.0 NEG AI (<1.0 NEG); SS-B <1.0 NEG AI (<1.0 NEG)
[2021-10-24 12:18] LABS: Quantiferon Mitogen 6.56 IU/mL; Quantiferon Nil 0.01 IU/mL; Quantiferon TB Gold NEGATIVE (NEGATIVE)
[2021-10-24 15:07] LABS: DNA AB (DS) CRITHIDIA,IFA NEGATIVE (NEGATIVE)
== END 2021-10-20 10:31 | disposition home or self-care (01) ==
PROVIDERS: PCP Family Medicine; Visit Provider Internal Medicine Rheumatology
DX: M19.90 Unspecified osteoarthritis, unspecified site (principal); R76.8 Other specified abnormal immunological findings in serum; Z79.899 Other long term (current) drug therapy; Z11.59 Encounter for screening for other viral diseases; E03.9 Hypothyroidism, unspecified; Z11.1 Encounter for screening for respiratory tuberculosis
CPT/HCPCS: 36415; 73130; 82306; 84443; 86160; 86162; 86200; 86235; 86255; 86376; 86431; 86480; 86704; 86800; 86803; 87340

== ENCOUNTER 2021-10-29 06:00 | Outpatient (RCR) | payer MEDICARE, SELFPAY | END 2021-11-28 23:59 | disposition home or self-care (01) | LOC: SPT 06:00 | PROVIDERS: PCP Family Medicine; Referring Provider Family Medicine; Visit Provider Family Medicine | DX: R26.81 Unsteadiness on feet (principal) | CPT/HCPCS: 97110 ==

== ENCOUNTER 2021-11-06 07:34 | Outpatient (CLI) | payer MEDICARE, SELFPAY ==
--- NOTE | 2021-11-06 08:00 | US_ITS ---
WS: [id number] RIGHT UPPER QUADRANT ULTRASOUND HISTORY: K80.50 - Calculus of bile duct without cholangitis COMPARISON: 08/07/[address] 09/21/2021 Liver: 14.0 cm in length. Liver is normal size. Markedly heterogeneous echogenicity. No discrete mass identified. Probably related to patient's chronic cirrhosis and underlying liver disease. Portal Vein: Normal hepatopetal flow with monophasic waveform. Gallbladder: Well distended gallbladder. There is mild diffuse wall thickening which appears chronic. No pericholecystic fluid. There is ringdown artifact. CBD: 0.5 cm Pancreas: Not well visualized pancreas. There is a bright echogenic reflector near the region of the pancreatic head and course of the common bile duct. This area is significantly obscured by bowel gas but this is probably related to the common bile duct stent. Right kidney: 11.7 cm in length. Normal size and echogenicity. No hydronephrosis or mass. Aorta and IVC: Unremarkable abdominal aorta and IVC. No ascites. US/US gall bladder [id number] IMPRESSION: 1. Common bile duct stent is not well visualized due to significant adjacent b owel gas. RIGHT specular reflector near the pancreatic head which is probably t he common bile duct stent. The exact location is difficult to visualize otherwi se. 2. No residual common bile duct dilatation. 3. Heterogeneous liver related to cirrhosis. 4. Gallbladder adenomyomatosis. No stones identified today.
== END 2021-11-06 07:35 | disposition home or self-care (01) ==
LOC: RAD 07:41
PROVIDERS: PCP Family Medicine; Visit Provider Surgery
DX: K80.50 Calculus of bile duct without cholangitis or cholecystitis without obstruction (principal)
CPT/HCPCS: 76705

== ENCOUNTER 2021-11-29 06:00 | Outpatient (RCR) | payer MEDICARE, SELFPAY | END 2021-12-29 23:59 | disposition home or self-care (01) | LOC: SPT 06:00 | PROVIDERS: PCP Family Medicine; Referring Provider Family Medicine; Visit Provider Family Medicine | DX: R26.81 Unsteadiness on feet (principal) | CPT/HCPCS: 97110 ==

== ENCOUNTER 2021-12-01 07:24 | Outpatient (CLI) | payer MEDICARE, SELFPAY ==
[2021-12-01 08:09] LABS: Basophils # 0.1 10^3/uL (0.0-0.1); Basophils % 0.8 %; Eosinophils # 0.1 10^3/uL (0.0-0.8); Eosinophils % 1.3 %; Hematocrit 39.3 % (37.0-47.0); Hemoglobin 12.9 g/dL (11.5-15.3); Lymphocytes # 0.6 10^3/uL (0.8-4.8); Lymphocytes % 6.2 %; Mean Corpuscular HGB Conc 32.8 g/dL (30.0-36.0); Mean Corpuscular Hemoglobin 30.6 pg (28.0-34.0); Mean Corpuscular Volume 93.3 fl (81-99); Mean Platelet Volume 9.6 fL (7.4-10.4); Monocytes # 0.8 10^3/uL (0.2-0.9); Monocytes % 8.3 %; Neutrophils # 7.64 10^3/uL (1.8-7.7); Nucleated Red Blood Cells % 0 %; Platelet Count 293 10^3/cmm (130-400); Red Blood Count 4.21 10^6/uL (4.1-5.3); Red Cell Distribution Width 13.2 % (12.1-15.1); White Blood Count 9.2 10^3/uL (4.0-10.0)
[2021-12-01 08:20] LABS: INR 1.12 (0.8-1.2)
[2021-12-01 08:26] LABS: Alanine Aminotransferase < 5 U/L (0-33); Albumin Level 3.1 g/dL (3.5-5.2); Alkaline Phosphatase 279 IU/L (35-105); Anion Gap 15.9 (5-19); Aspartate Amino Transferase 41 U/L (0-32); Blood Urea Nitrogen 8 mg/dL (8-23); Carbon Dioxide 19 mmol/L (22-29); Chloride 103 mmol/L (98-107); Globulin 4.6 g/dL (1.3-4.6); Glucose 97 mg/dL (65-115); Osmolality Calculated 276 mOsm/kg (285-295); Potassium 3.9 mmol/L (3.5-5.1); Sodium 134 mmol/L (136-145); Total Bilirubin 1.2 mg/dL (0.15-1.2); Total Protein 7.7 g/dL (6.6-8.7)
== END 2021-12-01 07:25 | disposition home or self-care (01) ==
LOC: LAB 07:34
PROVIDERS: PCP Family Medicine; Visit Provider Nurse Practitioner
DX: K74.60 Unspecified cirrhosis of liver (principal)
CPT/HCPCS: 36415; 80048; 80076; 85025; 85610

== ENCOUNTER 2021-12-08 12:47 | Outpatient (CLI) | payer MEDICARE, SELFPAY ==
--- NOTE | 2021-12-08 | CT_ITS ---
WS: [id number] CT ABDOMEN WITH AND WITHOUT CONTRAST HISTORY: OBSTRUCTIVE HYPERBILIRUBINEMIA Contiguous single phase 5 mm axial imaging performed to the abdomen. Oral contrast has been provided. Coronal and sagittal reformats are submitted. All CT scans at [facility] use at least one of these dose optimization techniques: automated exposure control; mA and/or kV adjustment per patient size (includes targeted exams where dose is matched to clinical indication); or iterative reconstruct ion. CONTRAST: Omnipaque 300; 95 mL IV. DLP: 1260.21 mGycm COMPARISON: 09/21/2021 and gallbladder ultrasound 11/06/2021 Lower thorax: Lung bases are clear. Mild enlargement of the heart. Small amount of pericardial thicke brett. Moderate-sized hiatal hernia. Liver: Diffuse heterogeneous appearance of the liver. There are a few scattered areas of decreased at tenuation which are probably small cysts but these are unchanged. There is mild central bile duct dil atation which is also similar to the prior study. Gallbladder: Gallbladder is identified and well distended. There is a common bile duct stent which be gins in the distal common bile duct and extends into the duodenum. Unchanged in position. Common bile duct is not dilated. Portal vein is normal. Pancreas: Normal size. No pancreatic duct dilatation. Spleen: Spleen is normal size. Variable density with areas of decreased attenuation towards the super ior spleen. Similar to the prior studies. Adrenals: Normal. Right kidney: Normal. Left kidney: Normal. Aorta: Visualized aorta demonstrates mild atherosclerosis. Retroaortic LEFT renal vein. GI tract: There is marked constipation and fecal retention throughout the transverse colon. No GI tra ct obstruction. There are several indeterminate but enlarged lymph nodes identified which are probably present on the most recent studies but appears slightly more prominent in the gastrohepatic region and just superio r to the pancreas. These are ill-defined soft tissue nodules with the largest measuring 16 mm suspici ous for lymph nodes. There are a few prominent lymph nodes also in the retroperitoneum, periaortic in location which have slightly decreased in size since 09/21/2021. There is mild diffuse mesenteric ed ginger. Abdominal wall: No hernia. Visualized osseous structures: T11 compression fracture by 20%. CT/CT abdomen wo/w con [id number] IMPRESSION: 1. Common bile duct stent remains unchanged in position. Very mild persistent intrahepatic dilatation but improved since 08/06/2021. 2. Cirrhotic, edematous appearing liver. 3. Mesenteric edema. 4. Soft tissue nodules gastrohepatic and near the celiac axis and in the retro peritoneum as described above. Gastrohepatic lymph nodes measure up to 16 mm in diameter and may be related to patient's cirrhosis. No progression since 021. 5. Retroperitoneal lymph nodes are shotty and slightly improved since 09/21/20 21. These lymph nodes all may be reactive lymph nodes or inflammatory. No histo ry of malignancy or malignancy identified.
[2021-12-08] MEDS: iohexol 300 mg/mL 50 mL Btl PO (14:00)
[2021-12-08] MEDS: iohexol 300 mg/mL 100 mL Btl IV (14:00)
== END 2021-12-08 12:48 | disposition home or self-care (01) ==
PROVIDERS: PCP Family Medicine; Visit Provider Nurse Practitioner
DX: K83.1 Obstruction of bile duct (principal); K74.60 Unspecified cirrhosis of liver; R60.0 Localized edema
CPT/HCPCS: 74170; Q9967

== ENCOUNTER 2022-01-15 16:08 | Outpatient (CLI) | payer MEDICARE, SELFPAY ==
[2022-01-15 16:55] LABS: Basophils # 0.1 10^3/uL (0.0-0.1); Basophils % 1.2 %; Eosinophils # 0.6 10^3/uL (0.0-0.8); Eosinophils % 7.3 %; Hematocrit 24.9 % (37.0-47.0); Hemoglobin 7.5 g/dL (11.5-15.3); Lymphocytes # 1.2 10^3/uL (0.8-4.8); Lymphocytes % 13.7 %; Mean Corpuscular HGB Conc 30.1 g/dL (30.0-36.0); Mean Corpuscular Hemoglobin 26.3 pg (28.0-34.0); Mean Corpuscular Volume 87.4 fl (81-99); Mean Platelet Volume 10.4 fL (7.4-10.4); Monocytes # 0.9 10^3/uL (0.2-0.9); Monocytes % 10.5 %; Neutrophils % 67.1 %; Nucleated Red Blood Cells % 0 %; Platelet Count 274 10^3/cmm (130-400); Red Blood Count 2.85 10^6/uL (4.1-5.3); Red Cell Distribution Width 14.9 % (12.1-15.1); White Blood Count 8.5 10^3/uL (4.0-10.0)
[2022-01-15 17:18] LABS: Alanine Aminotransferase 27 U/L (0-33); Albumin Level 3.3 g/dL (3.5-5.2); Alkaline Phosphatase 306 IU/L (35-105); Aspartate Amino Transferase 42 U/L (0-32); Blood Urea Nitrogen 10 mg/dL (8-23); Carbon Dioxide 20 mmol/L (22-29); Chloride 111 mmol/L (98-107); Globulin 3.9 g/dL (1.3-4.6); Glomerular Filtration Rate 123.4 mL/min (90-130); Glucose 95 mg/dL (65-115); Osmolality Calculated 291 mOsm/kg (285-295); Sodium 141 mmol/L (136-145); Total Bilirubin 0.6 mg/dL (0.15-1.2); Total Protein 7.2 g/dL (6.6-8.7)
[2022-01-15 17:49] LABS: INR 1.07 (0.8-1.2)
== END 2022-01-15 16:09 | disposition home or self-care (01) ==
PROVIDERS: PCP Family Medicine; Visit Provider Nurse Practitioner
DX: K74.60 Unspecified cirrhosis of liver (principal)
CPT/HCPCS: 80053; 85025; 85610

== ENCOUNTER → 2022-02-03 15:28 | Outpatient (BNVA) | payer MEDICARE, SELFPAY | PROVIDERS: PCP Family Medicine; Visit Provider Family Medicine | DX: E03.9 Hypothyroidism, unspecified (principal) | CPT/HCPCS: 84443 ==

== ENCOUNTER → 2022-02-11 13:50 | Outpatient (BNVA) | payer MEDICARE, SELFPAY | PROVIDERS: PCP Family Medicine; Visit Provider Internal Medicine Rheumatology | DX: R76.8 Other specified abnormal immunological findings in serum (principal); M15.9 Polyosteoarthritis, unspecified; M70.62 Trochanteric bursitis, left hip; Y93.9 Activity, unspecified | CPT/HCPCS: 99214 ==

== ENCOUNTER 2022-02-21 12:06 | Emergency (ER) | payer MEDICARE, SELFPAY ==
--- NOTE | 2022-02-21 12:18 | XRR_ITS ---
PROCEDURE INFORMATION: Exam: XR Chest Exam date and time: 02/21/2022 1:22 PM Age: 66 years old Clinical indication: Shortness of breath; Prior surgery; Surgery date: 6+ months; Surgery type: Dbs box; Patient HX: C/O SOB w fluid retention; Additional info: Dyspnea TECHNIQUE: Imaging protocol: XR of the chest. Views: 1 view. COMPARISON: CR XR chest 1V portable [id number] 09/21/2021 5:45 PM FINDINGS: Tubes, catheters and devices: Stimulator device again noted in the right chest wall with leads extending up the right neck. Lungs: No consolidation. Pleural spaces: No pleural effusion. No pneumothorax. Heart/Mediastinum: Borderline cardiomegaly. Bones/joints: Visualized osseous structures are intact. XR/XR chest 1V portable [id number] IMPRESSION: No acute findings.
[2022-02-21 12:20] VITALS: BP 110/62; PULSE 75; RESP 18; TEMP 36.6; O2SAT 97; BMI 34.7
--- NOTE | 2022-02-21 13:19 | ED_ITS ---
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 Patient is followed by Dr. Beltran patient had completed course of 20 mg of Lasix for 2 weeks without significant improvement in symptoms. Now patient has been on 3 days of hydrochlorothiazide 12.5 mg daily. Patient reports leg swelling abdominal swelling and shortness of breath. Patient also reports orthopnea requiring increasing pillow use over the last 3-month. Patient reports that she has had decreased urinary output. Patient denies any nausea/vomiting, abdominal complaints, hematemesis, melena or hematochezia. Onset:chronic Duration:ongoing Location:home Severity:moderate Associated symptoms: Reports dyspnea; Deny chest pain, nausea, rash, palpitations or vomiting Review of Systems Const: Denies: fever(s) or chills Eyes: Denies: change in vision ENMT: Denies: mouth pain Card: Denies: chest pain or palpitations Resp: Reports: dyspnea; Denies: non-productive cough GI: Denies: abdominal pain, nausea, vomiting or diarrhea : Denies: dysuria Musc: Reports: other (+leg swelling); Denies: extremity pain Skin/Breast: Denies: rash or new lesions Neuro: Denies: weakness in extremities Psych: Reports: other (Normal mood) Ang/Lymph: Denies: easy bruising PFSH ED PFSH: Medical History Anti-TPO antibodies present Family history of colon cancer Fatty liver disease, nonalcoholic GERD (gastroesophageal reflux disease) High risk medication use Hypothyroidism Immunization counseling Inflammatory arthritis Liver cirrhosis Osteoarthritis, generalized Parkinsons disease Positive NICO (antinuclear antibody) RLS (restless legs syndrome) Surgical History History of colonoscopy (~12/2020) History of esophagogastroduodenoscopy (EGD) (~12/2020) History of left knee replacement History of shoulder surgery S/P bilateral foot surgery S/P ERCP Status post deep brain stimulator placement Family History Brother CAD (coronary artery disease) Hypertension Father CAD (coronary artery disease) Diabetes Hypertension Mother CAD (coronary artery disease) Hypertension Sister Hypertension Other Lupus Rheumatoid arthritis Denies family history of Lung disease Stroke Social History Smoking and tobacco status: never smoked Alcohol intake: never Marital status: Current occupational status: disabled History of recent travel: No Female Reproductive History: Date of last menstrual period: 02/20/21 Physical Exam Const: COMMON NORMALS: alert HENMT: COMMON NORMALS: atraumatic HEAD & SCALP: atraumatic MOUTH: moist mucous membranes not abnormal Eye: COMMON NORMALS: EOMs intact bilaterally and conjunctivae normal CONJUNCTIVA: Yes conjunctivae normal Neck/C-Spine: COMMON NORMALS: full ROM and supple Resp: COMMON NORMALS: normal respiratory effort and clear to auscultation bilaterally AUSCULTATION: clear to auscultation bilaterally Cardio: COMMON NORMALS: regular rate RATE: regular rate GI: COMMON NORMALS: Soft to palpation and non-tender PALPATION: Yes Soft to palpation OTHER: No focal TTP. NO guarding rebound, guarding, rigidity. No CVA tenderness to percussion. Neg Ventura/Neg McBurney's point tenderness, no suprabupic tenderness to palpation. : OTHER: RECTAL exam supervised by PRICE green: hemoocult negative brown stool Extremity: COMMON NORMALS: full ROM NARRATIVE EXTREMITY EXAM: 3+ lower extremity edema above the knees bilaterally Neuro: SENSORIUM/ORIENTATION: Yes alert MOTOR EXAM: No Abnormal motor strength present and Other motor observations present (no focal motor deficits) Psych: COMMON NORMALS: speech normal SPEECH: Yes normal speech MOOD & AFFECT: Yes euthymic mood Course Vital Signs: Vital signs: Vital Signs Temperature 98.1 F 02/21/22 17:36 Pulse Rate 73 02/21/22 19:38 Respiratory Rate 14 02/21/22 19:38 Blood Pressure 116/55 02/21/22 19:38 Pulse Oximetry 97 02/21/22 19:38 [facility] - General Adult Medical Decision Making 66-year-old female with a history of Echavarria cirrhosis complicated by esophageal varices presenting to the emergency room for evaluation of weight gain and abdominal swelling. On exam, patient has 3+ lower extremity edema to the thigh. Lab work showed a hemoglobin of 6.0 down from baseline 7.5. Rectal exam negative for melena or hemoocult stool. Patient does not have any history of melena or hematochezia or recent hematemesis. Given the fact that patient does have a history of varices with last EGD done in November at [facility] and the patient has been on iron since December without any significant improvement in her hemoglobin, I discussed case with Dr. Cook. Dr. Cook recommended transferring to outside facility given the fact that patient has a history of a varices. Although it is unlikely the patient has an acute upper GI bleed from varices currently, however we cannot rule out this possibility and at this time it is best to transfer this patient per Dr. Cook. Potassium 2.7 repleted with p.o. potassium tablets. BNP of 3K consistent with baseline of 2.7K. XR chest did not show any signs of CHF. S/p protonix and 1u of PRBC. Patient continues to be hemodynamically stable without any signs of melena or hematochezia or active hematemesis. Case was discussed with Dr. Mendes from GI at [facility] who agreed with the transfer to facility for further GI evaluation. Disposition: transfer to outside hospital for management of volume overload and GI bleeding Lab Data : 02/21/22 14:23 02/21/22 14:23 Radiology Impressions Chest X-Ray 02/21/22 12:18 IMPRESSION: No acute findings. Laboratory Results WBC 9.8 10^3/uL (4.0-10.0) 02/21/22 14: RBC 2.72 10^6/uL (4.1-5.3) L 02/21/22 14:23 Hgb 6.0 g/dL (11.5-15.3) L* 02/21/22 14: Hct 21.3 % (37.0-47.0) L 02/21/22 14: MCV 78.3 fl (81-99) L 02/21/22 14:23 MCH 22.1 pg (28.0-34.0) L 02/21/22 14: MCHC 28.2 g/dL (30.0-36.0) L 02/21/22 14: RDW 22.5 % (12.1-15.1) H 02/21/22 14:23 Plt Count 303 10^3/cmm (130-400) 02/21/22 14:23 MPV 10.5 fL (7.4-10.4) H 02/21/22 14:23 Neut % (Auto) 75.7 % 02/21/22 14:23 Lymph % (Auto) 9.0 % 02/21/22 14:23 Addison % (Auto) 8.5 % 02/21/22 14:23 Eos % (Auto) 6.1 % 02/21/22 14:23 Baso % (Auto) 0.4 % 02/21/22 14:23 Neut # (Auto) 7.43 10^3/uL (1.8-7.7) 02/21/22 14:23 Lymph # (Auto) 0.9 10^3/uL (0.8-4.8) 02/21/22 14:23 Addison # (Auto) 0.8 10^3/uL (0.2-0.9) 02/21/22 14:23 Eos # (Auto) 0.6 10^3/uL (0.0-0.8) 02/21/22 14:23 Baso # (Auto) 0.0 10^3/uL (0.0-0.1) 02/21/22 14: Nucleated RBC % (auto) 0 % 02/21/22 14: Nucleated RBCs # 0.0 /100WBC 02/21/22 14:23 PT 15.60 SECONDS (12.1-14.9) H 02/21/22 15:38 INR 1.21 (0.8-1.2) H 02/21/22 15:38 APTT 36.8 SECONDS (23.9-36.7) H 02/21/22 15:38 Sodium 135 mmol/L (136-145) L 02/21/22 14:23 Potassium 2.6 mmol/L (3.5-5.1) L* 02/21/22 14:23 Chloride 100 mmol/L (98-107) 02/21/22 14:23 Carbon Dioxide 23 mmol/L (22-29) 02/21/22 14:23 Anion Gap 14.6 (5-19) 02/21/22 14:23 BUN 14 mg/dL (8-23) 02/21/22 14:23 Creatinine 0.6 mg/dL (0.5-0.9) 02/21/22 14:23 GFR Calculation 100.0 mL/min (90-130) 02/21/22 14:23 Glucose 94 mg/dL (65-115) 02/21/22 14:23 Calculated Osmolality 280 mOsm/kg (285-295) L 02/21/22 14:23 Calcium 8.2 mg/dL (8.5-10.5) L 02/21/22 14:23 Troponin T Baseline 21 ng/L (0-10) H 02/21/22 14:23 Troponin T 120 Minute 17.21 ng/L (0-10) H 02/21/22 16:08 Delta Troponin T -3.79 ABS# (0-10) L 02/21/22 16:08 NT-Pro-B Natriuret Pep 3039 pg/mL (0-125) H 02/21/22 14:23 Blood Type O Negative 02/21/22 15:38 Rho(D) Type Negative 02/21/22 15:38 Antibody Screen Negative 02/21/22 15:38 Crossmatch See Detail 02/21/22 15:38 Imaging Data Other Imaging: Radiologist's impression: [address] [address] XRay Report Signed Patient: Ksenia Tejada Unit #: [id number] : 1955 Age/Sex: 66 / F ADM Date: 02/21/22 Loc: ER Room/Bed: Attending Dr: Ordering Provider/Ordering MD: Gloria Be MD Date of Service: 02/21/22 Procedure(s): XR chest 1V portable [id number] Accession Number(s): [id number] Report Number: [id number] PROCEDURE INFORMATION: Exam: XR Chest Exam date and time: 02/21/2022 1:22 PM Age: 66 years old Clinical indication: Shortness of breath; Prior surgery; Surgery date: 6+ months; Surgery type: Dbs box; Patient HX: C/O SOB w fluid retention; Additional info: Dyspnea TECHNIQUE: Imaging protocol: XR of the chest. Views: 1 view. COMPARISON: CR XR chest 1V portable [id number] 09/21/2021 5:45 PM FINDINGS: Tubes, catheters and devices: Stimulator device again noted in the right chest wall with leads extending up the right neck. Lungs: No consolidation. Pleural spaces: No pleural effusion. No pneumothorax. Heart/Mediastinum: Borderline cardiomegaly. Bones/joints: Visualized osseous structures are intact. XR/XR chest 1V portable [id number] IMPRESSION: No acute findings. ? Dictated By: Davon Rose DO Signed By: Davon Rose DO Signed Date/Time: 02/21/22 151 DD/ 1322 Discharge Plan Discharge Patient Disposition: Transfer to ED Clinical Impression: Anemia, Esophageal varices, GI bleed, Volume overload, Acute hypokalemia Condition: Stable Prescriptions: No Action (DME) Upright Walker See Rx Instructions .Route .MEDSUPPLY Qty: 1 0RF Rx Instructions: Use walker daily with ambulation at all times omeprazole magnesium [Prilosec OTC] 20 mg tablet,delayed release (DR/EC) 40 mg PO BID 0RF amantadine HCl 100 mg tablet 100 mg PO BID 0RF prednisone 5 mg tablet See Rx Instructions PO DAILY Qty: 60 1RF Rx Instructions: take 1 or 2 tabs for 5-7 days prn joint pain flare PO daily; potassium chloride [Klor-Con 10] 10 mEq tablet extended release 10 meq PO DAILY Qty: 30 0RF ferrous sulfate [Feosol] 325 mg (65 mg iron) tablet 325 mg PO BID Qty: 60 1RF (DME) upright walker with wheels and brakes See Rx Instructions .Route .MEDSUPPLY Qty: 1 0RF Rx Instructions: As directed carbidopa-levodopa 25-100 mg tablet 1 tab PO TID Qty: 90 3RF hydroxychloroquine 200 mg tablet See Rx Instructions PO DAILY Qty: 45 3RF Rx Instructions: alternate taking 1 tab today and 2 tabs tomorrow PO daily; ropinirole 2 mg tablet extended release 24 hr See Rx Instructions .ROUTE .COMPLEX Qty: 90 2RF Dose Instruction: TAKE 1 TABLET BY MOUTH THREE TIMES DAILY Rx Instructions: TAKE 1 TABLET BY MOUTH THREE TIMES DAILY levothyroxine 150 mcg tablet 150 mcg PO DAILY 90 Days Qty: 90 1RF clonazepam 0.5 mg tablet 0.5 mg PO DAILY PRN (Reason: Anxiety) 0RF hydrochlorothiazide 12.5 mg tablet 12.5 mg PO DAILY 0RF diclofenac sodium 1 % gel 2 g topical QID PRN (Reason: Pain) 0RF Rx Instructions: apply to affected area as needed carvedilol 3.125 mg Tablet 3.125 mg PO BID 0RF Rx Instructions: must administer with a meal/food Referrals: Jenni Beltran DO [Primary Care Provider] - Coding Level of Care Code ED Shipping Room Helper for Chg Fwd Exam Comprehensive
--- NOTE | 2022-02-21 14:18 | ECG_ITS ---
[facility] Test Date: 2022-02-21 Pat Name: Ksenia Tejada Department: Room: Gender: Female [employer]: : 1955 Requested By: Gloria Be Order Number: [id number] Reading MD: Michael Ulloa M.D. Measurements Intervals [place] Rate: 73 P: 4 [place]: 162 QRS: 91 QRSD: 110 T: 100 QT: 432 QTc: 479 Interpretive Statements SINUS RHYTHM BORDERLINE RIGHT AXIS DEVIATION [QRS AXIS > 90] LOW QRS VOLTAGE IN EXTREMITY LEADS [QRS DEFLECTION < 0.5 mV IN LIMB LEADS] POSSIBLE ANTERIOR MYOCARDIAL INFARCTION , OF INDETERMINATE AGE [30 ms Q WAVE IN V3/V4, OR R < 0.2 mV IN V4] Compared to ECG 09/21/2021 18:34:20 Low QRS voltage now present Myocardial infarct finding still present Electronically Signed On 02-23-2022 9:07:21 CDT by Michael Ulloa M.D. [id number]
[2022-02-21 14:45] LABS: Basophils % 0.4 %; Eosinophils # 0.6 10^3/uL (0.0-0.8); Eosinophils % 6.1 %; Hematocrit 21.3 % (37.0-47.0); Lymphocytes # 0.9 10^3/uL (0.8-4.8); Mean Corpuscular HGB Conc 28.2 g/dL (30.0-36.0); Mean Corpuscular Hemoglobin 22.1 pg (28.0-34.0); Mean Corpuscular Volume 78.3 fl (81-99); Mean Platelet Volume 10.5 fL (7.4-10.4); Monocytes # 0.8 10^3/uL (0.2-0.9); Monocytes % 8.5 %; Neutrophils # 7.43 10^3/uL (1.8-7.7); Neutrophils % 75.7 %; Nucleated Red Blood Cells % 0 %; Platelet Count 303 10^3/cmm (130-400); Red Blood Count 2.72 10^6/uL (4.1-5.3); Red Cell Distribution Width 22.5 % (12.1-15.1); White Blood Count 9.8 10^3/uL (4.0-10.0)
[2022-02-21 15:14] LABS: Troponin(5th) Baseline 21 ng/L (0-10)
[2022-02-21 15:20] LABS: Anion Gap 14.6 (5-19); Blood Urea Nitrogen 14 mg/dL (8-23); Calcium 8.2 mg/dL (8.5-10.5); Carbon Dioxide 23 mmol/L (22-29); Chloride 100 mmol/L (98-107); Glucose 94 mg/dL (65-115); NT Pro B Type Natriuretic Pept 3039 pg/mL (0-125); Osmolality Calculated 280 mOsm/kg (285-295); Sodium 135 mmol/L (136-145)
[2022-02-21 16:01] LABS: INR 1.21 (0.8-1.2)
[2022-02-21 16:02] LABS: Partial Thromboplastin Time 36.8 SECONDS (23.9-36.7)
[2022-02-21 16:15] LABS: Potassium 2.6 mmol/L (3.5-5.1)
[2022-02-21 16:36] LABS: Troponin 5 2HR 17.21 ng/L (0-10)
[2022-02-21 16:39] LABS: Troponin 5 2HR Delta -3.79 ABS# (0-10)
[2022-02-21 17:36] VITALS: PULSE 74; RESP 15; TEMP 36.7
--- NOTE | 2022-02-21 19:37 | PC.NURSE ---
Patient transferred to [facility] with blood continuing transfusing
--- NOTE | 2022-02-21 19:37 | PC.NURSE ---
Vital signs printed and scanned into chart
[2022-02-21 19:38] VITALS: BP 116/55; PULSE 73; RESP 14; O2SAT 97
== END 2022-02-21 19:23 ==
PROVIDERS: Emergency Provider Emergency Medicine; PCP Family Medicine
DX: I85.00 Esophageal varices without bleeding (principal); K92.2 Gastrointestinal hemorrhage, unspecified; E87.70 Fluid overload, unspecified; E87.6 Hypokalemia; D64.9 Anemia, unspecified
CPT/HCPCS: 36415; 36430; 71045; 80048; 83880; 84484; 85025; 85610; 85730; 86850; 86900; 86920; 93005; 99283; P9016

== ENCOUNTER → 2022-03-05 15:11 | Outpatient (BNVA) | payer MEDICARE, SELFPAY | PROVIDERS: PCP Family Medicine; Visit Provider Family Medicine | DX: R60.0 Localized edema (principal); E03.9 Hypothyroidism, unspecified; I85.00 Esophageal varices without bleeding; M79.89 Other specified soft tissue disorders; K21.9 Gastro-esophageal reflux disease without esophagitis | CPT/HCPCS: 85025 ==

== ENCOUNTER 2022-03-16 11:22 | Inpatient (IN) | payer MEDICARE, SELFPAY ==
[2022-03-16] VITALS (77 sets, daily range): BP systolic 93–131; BP diastolic 47–76; PULSE 57–77; RESP 12–24; TEMP 36.2–36.4; O2SAT 99–100; BMI 24.1
[2022-03-16] MEDS: succinylcholine 20 mg/mL SDV 10mL 100 MG IVP (11:30)
--- NOTE | 2022-03-16 11:30 | PC.NURSE ---
PT PLACED ON CONTINUOUS SPO2, NIBP, AND CM.
--- NOTE | 2022-03-16 11:36 | XR_ITS ---
WS: [id number] Exam: XR chest 1V portable [id number] Date/Time of Exam: 03/16/2022 12:16 PM Reason For Exam: dyspnea/cough Comparison 02/21/2022. The lungs are clear and fully expanded. Parts of the right upper lobe are obscured by a battery pack. Heart size is normal. The mediastinum is not widened. An ET tube has been placed and ends about 3 cm above the tad in satisfactory position. An enteric tube enters the stomach and appears to end xu r the expected region of the gastric antrum. Regional bony elements are intact. A neurostimulator pac k overlies the upper right chest with the leads extending cephalad. XR/XR chest 1V portable [id number] IMPRESSION: 1. No acute cardiopulmonary finding. 2. ET tube and enteric tube both in satisfactory position.
--- NOTE | 2022-03-16 11:36 | CTR_ITS ---
PROCEDURE INFORMATION: Exam: CT Head Without Contrast Exam date and time: 03/16/2022 12:17 PM Age: 66 years old Clinical indication: Altered mental status/memory loss; Prior surgery; Surgery type: Brain stimulator; Patient HX: PT found down this am. Fall last night; Additional info: AMS TECHNIQUE: Imaging protocol: Computed tomography of the head without contrast. Axial, coronal and sagittal reformatted images were created and reviewed. Radiation optimization: All CT scans at this facility use at least one of these dose optimization techniques: automated exposure control; mA and/or kV adjustment per patient size (includes targeted exams where dose is matched to clinical indication); or iterative reconstruction. COMPARISON: CT head wo con* [id number] 05/02/2020 5:16 PM RADIATION DOSE METRICS: Total DLP (mGy-cm): 1196.88 FINDINGS: Brain: Bilateral stimulator leads in place. Patchy areas of hypoattenuation in the periventricular and subcortical white matter, consistent with chronic small vessel ischemic disease. No CT evidence of acute intracranial hemorrhage or acute territorial infarction. No significant mass effect or midline shift. Basal cisterns patent. Cerebral ventricles: Prominence of the cortical sulci, cisterns and ventricular system, consistent with cerebral and cerebellar volume loss. Paranasal sinuses: Mild ethmoid mucosal thickening. No fluid levels. Mastoid air cells: Grossly unremarkable. Bones/joints: No acute osseous abnormality. Soft tissues: Grossly unremarkable. CT/CT head wo con* [id number]: 1[address] No CT evidence of acute intracranial abnormality. 2. Additional findings, as above.
[2022-03-16] MEDS: propofol 10 mg/mL SDV 20 mL 100 MG IVP (11:50)
[2022-03-16 12:00] LABS: ABG PCO2 20.1 mmHg (35-45); ABG PH Result 7.49 (7.35-7.45); Alveolar-Arterial Oxygen Gradi 11.9 mmHg (5-10); Arterial Blood Gas Hematocrit 27.6 % (37-47); Base Excess ABG -6.5 mmol/L (-2.0-2.0); Blood Gas Allen Test Pos; Blood Gas Operator Identificat CAK; Blood Gas Sample Site Radial, left; Blood Gas Sample Type Arterial; Blood Gas Tidal Volume 0.45; Carboxyhemoglobin < 0.0 %THgb (0.4-20.1); HCO3 ABG 15.4 mmol/L (22-26); HGB O2 Sat 97.9 % (95-100); Ionized Calcium Level - ABG 1.1 mmol/L (1.1-1.4); Oxygen Device VENT; Oxygen Saturation ABG 98.8; Potassium Level - ABG 3.2 mmol/L (3.5-5.0)
[2022-03-16 12:07] LABS: Add Urine Microscopic? NO; Charge for UA Resulting for Rev
[2022-03-16 12:09] LABS: Basophils % 0.4 %; Eosinophils % 0.1 %; Hematocrit 30.9 % (37.0-47.0); Hemoglobin 9.3 g/dL (11.5-15.3); Lymphocytes # 0.9 10^3/uL (0.8-4.8); Lymphocytes % 8.7 %; Mean Corpuscular HGB Conc 30.1 g/dL (30.0-36.0); Mean Corpuscular Hemoglobin 24.3 pg (28.0-34.0); Mean Corpuscular Volume 80.7 fl (81-99); Mean Platelet Volume 10.5 fL (7.4-10.4); Monocytes # 0.7 10^3/uL (0.2-0.9); Monocytes % 6.8 %; Neutrophils # 9.07 10^3/uL (1.8-7.7); Neutrophils % 83.4 %; Nucleated Red Blood Cells % 0 %; Platelet Count 229 10^3/cmm (130-400); Red Blood Count 3.83 10^6/uL (4.1-5.3); Red Cell Distribution Width 25.5 % (12.1-15.1); White Blood Count 10.9 10^3/uL (4.0-10.0)
[2022-03-16 12:19] LABS: Bilirubin Urine Neg (Negative); Blood Urine Neg (Negative); Glucose Urine UA Norm (Normal); Ketones Urine 1+ (Negative); Leukocyte Esterase Urine Negative (Negative); Nitrate Urine Negative (Negative); Protein Urine Neg (Negative); Urine Appearance Clear (CLEAR); Urine Color Yellow (Yellow); Urobilinogen Urine 4 mg/dL (Negative); pH Urine 7 (5-7)
[2022-03-16 12:42] LABS: Troponin(5th) Baseline 15 ng/L (0-10)
--- NOTE | 2022-03-16 12:44 | PC.NURSE ---
UPDATED PT FAMILY ON CARE. NO NEEDS VERBALIZED AT THIS TIME. PT CONDITION IS UNCHANGED.
[2022-03-16 12:45] LABS: Alanine Aminotransferase 28 U/L (0-33); Alkaline Phosphatase 225 IU/L (35-105); Anion Gap 18.9 (5-19); Aspartate Amino Transferase 36 U/L (0-32); Blood Urea Nitrogen 17 mg/dL (8-23); Calcium 7.5 mg/dL (8.5-10.5); Carbon Dioxide 14 mmol/L (22-29); Chloride 110 mmol/L (98-107); Creatine Phosphokinase 94 U/L (26-192); Globulin 4.4 g/dL (1.3-4.6); Glomerular Filtration Rate 83.7 mL/min (90-130); Glucose 106 mg/dL (65-115); Lipase 7 U/L (13-60); Magnesium 2.1 mg/dL (1.7-2.3); Osmolality Calculated 290 mOsm/kg (285-295); Potassium 3.9 mmol/L (3.5-5.1); Sodium 139 mmol/L (136-145); Total Bilirubin 0.9 mg/dL (0.15-1.2); Total Protein 7.4 g/dL (6.6-8.7)
[2022-03-16 12:46] LABS: Lactic Sepsis W/Reflex 2.2 mmol/L (0.5-2.2)
[2022-03-16] MEDS: ondansetron 2 mg/ML SDV 2 mL 4 MG IVP (12:51)
--- NOTE | 2022-03-16 12:51 | CTR_ITS ---
PROCEDURE INFORMATION: Exam: CT Abdomen And Pelvis With Contrast Exam date and time: 03/16/2022 2:33 PM Age: 66 years old Clinical indication: Abdominal pain; Generalized; Additional info: Abd pain TECHNIQUE: Imaging protocol: Computed tomography of the abdomen and pelvis with contrast. Radiation optimization: All CT scans at this facility use at least one of these dose optimization techniques: automated exposure control; mA and/or kV adjustment per patient size (includes targeted exams where dose is matched to clinical indication); or iterative reconstruction. Contrast material: OMNI 350; Contrast volume: 75 ml; Contrast route: INTRAVENOUS (IV); COMPARISON: CT abdomen wo/w con [id number] 12/08/2021 1:15 PM RADIATION DOSE METRICS: Total DLP (mGy-cm): 1748.51 FINDINGS: Tubes, catheters and devices: CBD stent has been removed. No obvious extrahepatic bile duct dilatation however there is possible minimal intrahepatic bile duct prominence. Biliary ductal assessment such as MRCP or ERCP may be helpful. Clinical/LFT correlation and possible GI consultation should also be obtained. NG tube with the tip in the distal gastric antrum region. Lungs: Left basilar linear scarring-atelectasis. Heart: Mild cardiomegaly which may have increased since prior exam. Diaphragm: Probable small hiatal hernia. Liver: Liver is normal in size with lobulated contour suggesting cirrhosis and/or other diffuse or hepatic biliary disease such as primary sclerosing cholangitis. Areas of peripheral concave hepatic contour suggesting which may be related to regional parenchymal atrophy/retraction. No obvious mass during portal venous phase. Gallbladder and bile ducts: Gallbladder is mildly distended with no obvious wall thickening or regional inflammatory response.. Pancreas: Normal. No ductal dilation. Spleen: Normal. No splenomegaly. Adrenal glands: Normal. No mass. Kidneys and ureters: See Veins finding. Stomach and bowel: There is minimal segmental colonic wall thickening involving the cecum and mid/distal descending colon which could be related to nondistention versus mild nonspecific colitis. Moderate-large colorectal stool burden with no bowel obstruction, pneumatosis or other suspicious bowel wall thickening. Appendix: No evidence of appendicitis. Intraperitoneal space: Trace amount of perihepatic ascites similar to prior exam. Trace amount of pelvic ascites. Arteries: See Veins finding. Veins: Retroaortic left renal vein, normal variant. No aortic aneurysm. No large branch venous thrombosis. Again seen see is mesenteric haziness around the proximal SMA with no obvious a submit thrombosis. Lymph nodes: Nonspecific slightly prominent peripancreatic/periportal and upper aortocaval lymph nodes measuring up to 12 mm short axis, unchanged. Urinary bladder: Suboptimally assessed bladder due to incomplete distention. The Brown balloon is in place. Reproductive: Unremarkable as visualized. Bones/joints: Stable chronic T11 compression deformity. Multilevel vertebral disc degeneration and endplate osteophytes. No acute osseous findings otherwise. Soft tissues: No acute findings. Other findings: Several images are degraded due to external streak artifacts arising from patient's arm(s) and from motion artifacts. CT/CT abdomen pelvis w con* [id number] IMPRESSION: 1. Comparison CT 11/29/2021. Interval removal of CBD stent. Slightly prominent intrahepatic bile duct as described with no obvious extrahepatic bile duct dilatation. There is also abnormal hepatic contour and mild upper abdominal adenopathy as described. Please see discussion above. 2. Small abdominopelvic ascites. 3. Mild segmental colonic wall thickening which may be related to nondistention/contraction versus mild colitis. Moderate-large colorectal stool burden. No bowel obstruction or other acute bowel findings. 4. Nonspecific mild mesenteric haziness around the proximal SMA, nonspecific. No obvious SMA stenosis or thrombosis. 5. Other nonacute findings as above.
--- NOTE | 2022-03-16 12:56 | W.ED.NEUROSD ---
HPI - Neuro Symptoms/Deficit General: Chief Complaint: Neuro Symptoms/Deficit Stated Complaint: UNRESPONSIVE Time Seen by Provider: 03/16/22 11:23 Source: family Mode of arrival: EMS Limitations: altered mental status History of Present Illness: 66-year-old female presents to the emergency room in acute respiratory distress essentially nonresponsive except to painful stimuli. She has a known history of Parkinson's she was last seen well sometime last evening. She is a Do Not Recussitate however family member who is present with her wants us to go ahead and intubate if needed and complete the work-up to find cause of her acute deterioration. There is no reports of chest pain fever sweats or chills. Patient does have known extensive liver disease with nonalcoholic steatohepatitis. She also has a positive NICO and history of antithyroid peroxidase antibodies. No report of chest pain cough or shortness of breath prior to this morning. Family were at the bedside said she seemed to be her normal self yesterday at around 2 PM. Her was with her last night and reported she fell at 10. She seemed to be altered at that time but they cannot really give a last known baseline normal between those 2 time periods. Onset (ago): hour(s) Timing confirmed by: spouse PFSH ED PFS: Medical History (Updated 03/16/22 @ 16:58 by Gutierrez Kennedy DO) Anti-TPO antibodies present Family history of colon cancer Fatty liver disease, nonalcoholic GERD (gastroesophageal reflux disease) High risk medication use Hypothyroidism Immunization counseling Inflammatory arthritis Liver cirrhosis KING (nonalcoholic steatohepatitis) Osteoarthritis, generalized Parkinsons disease Positive NICO (antinuclear antibody) RLS (restless legs syndrome) Surgical History History of colonoscopy (~12/2020) History of esophagogastroduodenoscopy (EGD) (~12/2020) History of left knee replacement History of shoulder surgery S/P bilateral foot surgery S/P ERCP Status post deep brain stimulator placement Family History Brother CAD (coronary artery disease) Hypertension Father CAD (coronary artery disease) Diabetes Hypertension Mother CAD (coronary artery disease) Hypertension Sister Hypertension Other Lupus Rheumatoid arthritis Denies family history of Lung disease Stroke Social History Smoking and tobacco status: never smoked Alcohol intake: never Marital status: Current occupational status: disabled History of recent travel: No Female Reproductive History: Date of last menstrual period: 02/20/21 Procedures Intubation Time out performed: Yes sedative: Etomidate Mg Given: 20 Mg Given: 100 Laryngoscope: fiber optic video scope Assist Device Used: fiber optic device ET Tube Size: 7.5 ET Tube Uncuffed: No Tube Secured Depth (cm): 21 Tube Secured Location: teeth Tube Placement Confirmation: visualized tube passing through cords, equal breath sounds bilaterally, no breath sounds over epigastrium and confirmation by capnometry Patient Tolerated Procedure: well Intubation Complications: none Additional Comments: Initial chest x-ray confirmed ET tube placement. Later imaging showed a dislodgment was repositioned Course Vital Signs: Vital signs: Vital Signs Temperature 97.6 F 03/16/22 11:28 Pulse Rate 77 03/16/22 11:28 Respiratory Rate 12 03/16/22 15:36 Blood Pressure 131/76 03/16/22 11:28 Pulse Oximetry 99 03/16/22 11:28 MDM - Neuro Symptoms/Deficit Medical Decision Making FlapHepatoencephalopathy. Incidental finding the ET tube seems to have shifted by the time the CT head and neck was done this will be adjusted and reimaged. Rate has been decreased in space and became more respiratory alkalotic. I think the altered mental status primarily driven by the CT patient also has a secondary incidental finding of a pneumonia she is chronically anemic and her hemoglobin today is actually better than her usual baseline. Discussed with hospitalist will admit orders have been written. Medical Records I reviewed the patient's medical records. Lab Data I reviewed the patient's lab results. : 03/16/22 11:25 03/16/22 11:[address] 03/16/22 11:[address] evidence of acute intracranial abnormality. 2. Additional findings, as above. Abdomen/Pelvis CT 03/16/22 12:51 IMPRESSION: 1. Comparison CT 11/29/2021. Interval removal of CBD stent. Slightly prominent intrahepatic bile duct as described with no obvious extrahepatic bile duct dilatation. There is also abnormal hepatic contour and mild upper abdominal adenopathy as described. Please see discussion above. 2. Small abdominopelvic ascites. 3. Mild segmental colonic wall thickening which may be related to nondistention/contraction versus mild colitis. Moderate-large colorectal stool burden. No bowel obstruction or other acute bowel findings. 4. Nonspecific mild mesenteric haziness around the proximal SMA, nonspecific. No obvious SMA stenosis or thrombosis. 5. Other nonacute findings as above. Head/Neck CTA 03/16/22 12:59 IMPRESSION: 1. No acute abnormality. 2. Chronic findings as discussed above. IMPRESSION: 1. The study is moderately limited due to patient motion artifact. 2. The endotracheal tube terminates at the entrance to the right mainstem bronchus. This should be withdrawn 3 cm and reimaged. 3. There are age-indeterminate superior endplate compression fractures at T1, T3, and T4. Mild vertebral body height loss is present at each level. These are new from the chest CT dated 08/06/2021. 4. No significant vascular abnormality REFERENCES: NASCET CRITERIA. The degree of internal carotid artery stenosis is based on NASCET criteria. Normal is no stenosis. Mild is less than 50% stenosis. Moderate is 50-69% stenosis. Severe is 70% to 99% stenosis. Total occlusion is no detectable patent lumen. ADDENDUM: 03/16/22 1553 THIS REPORT CONTAINS FINDINGS THAT MAY BE CRITICAL TO PATIENT CARE. The findings were verbally communicated via telephone conference with GUTIERREZ KENNEDY at 3:52 PM CDT on 03/16/2022. The findings were acknowledged and understood. Chest X-Ray 03/16/22 15:56 IMPRESSION: 1. Mild diffuse interstitial infiltrates in both lungs may represent pulmonary edema or interstitial pneumonia. This is a new finding. 2. ET tube directed into the right mainstem bronchus. The tube should be withdrawn approximately 3 cm for optimal position. NG tube in satisfactory location. These findings were discussed by phone with the attending ER physician Dr. Kennedy at 4:20 PM 03/16/2022. Laboratory Results WBC 10.9 10^3/uL (4.0-10.0) H 03/16/22 11:25 RBC 3.83 10^6/uL (4.1-5.3) L 03/16/22 11:25 Hgb 9.3 g/dL (11.5-15.3) L 03/16/22 11:25 Hct 30.9 % (37.0-47.0) L 03/16/22 11:25 MCV 80.7 fl (81-99) L 03/16/22 11:25 MCH 24.3 pg (28.0-34.0) L 03/16/22 11:25 MCHC 30.1 g/dL (30.0-36.0) 03/16/22 11:25 RDW 25.5 % (12.1-15.1) H 03/16/22 11:25 Plt Count 229 10^3/cmm (130-400) 03/16/22 11:25 MPV 10.5 fL (7.4-10.4) H 03/16/22 11:25 Neut % (Auto) 83.4 % 03/16/22 11: Lymph % (Auto) 8.7 % 03/16/22 11:25 [place] % (Auto) 6.8 % 03/16/22 11:25 Eos % (Auto) 0.1 % 03/16/22 11:25 Baso % (Auto) 0.4 % 03/16/22 11:25 Neut # (Auto) 9.07 10^3/uL (1.8-7.7) H 03/16/22 11:25 Lymph # (Auto) 0.9 10^3/uL (0.8-4.8) 03/16/22 11:25 [place] # (Auto) 0.7 10^3/uL (0.2-0.9) 03/16/22 11:25 Eos # (Auto) 0.0 10^3/uL (0.0-0.8) 03/16/22 11:25 Baso # (Auto) 0.0 10^3/uL (0.0-0.1) 03/16/22 11:25 Nucleated RBC % (auto) 0 % 03/16/22 11: Nucleated RBCs # 0.0 /100WBC 03/16/22 11:25 Specimen Type Arterial 03/16/22 15:23 Sample Site Radial, left 03/16/22 15:23 ABG pH 7.60 (7.35-7.45) H* 03/16/22 15:23 ABG pCO2 15.3 mmHg (35-45) L* 03/16/22 15: ABG pO2 214.0 mmHg (80.0-100.0) H 03/16/22 15: ABG HCO3 15.0 mmol/L (22-26) L 03/16/22 15: ABG O2 Saturation 98.0 03/16/22 15: ABG Base Excess -5.1 mmol/L (-2.0-2.0) L 03/16/22: Joshua Test Pos 03/16/22 15: A-a O2 Gradient 6.2 mmHg (5-10) 03/16/22 15: Hematocrit 26.1 % (37-47) L 03/16/22: Hgb O2 Saturation 97.2 % (95-100) 03/16/22: Carboxyhemoglobin < 0.0 %THgb (0.4-20.1) L 03/16/22: Methemoglobin 0.9 % (0.4-1.5) 03/16/22: Total Hemoglobin 8.5 g/dL (12-16) L 03/16/22 15: Sodium 143.0 mmol/L (131-143) 03/16/22 15: Potassium 2.7 mmol/L (3.5-5.0) L 03/16/22: Glucose 87.0 mg/dL (70-115) 03/16/22: Ionized Calcium 1.1 mmol/L (1.1-1.4) 03/16/22: O2 Delivery Device Vent 03/16/22 15: FiO2 40.0 % 03/16/22 15: Tidal Volume 0.45 03/16/22 15: PEEP 5.0 cmH20 03/16/22 15: Delinquent Tax Collector Assistant ID Cak 03/16/22 15: Sodium 139 mmol/L (136-145) 03/16/22 11:25 Potassium 3.9 mmol/L (3.5-5.1) 03/16/22 11:25 Chloride 110 mmol/L (98-107) H 03/16/22 11:25 Carbon Dioxide 14 mmol/L (22-29) L 03/16/22 11:25 Anion Gap 18.9 (5-19) 03/16/22 11:25 BUN 17 mg/dL (8-23) 03/16/22 11:25 Creatinine 0.7 mg/dL (0.5-0.9) 03/16/22 11:25 GFR Calculation 83.7 mL/min (90-130) L 03/16/22 11:25 Glucose 106 mg/dL (65-115) 03/16/22 11:25 Calculated Osmolality 290 mOsm/kg (285-295) 03/16/22 11:25 Lactic Acid 2.2 mmol/L (0.5-2.2) 03/16/22 11:25 Lactic Acid (Sepsis) 1.6 mmol/L (0.5-2.2) 03/16/22 15:45 Calcium 7.5 mg/dL (8.5-10.5) L 03/16/22 11:25 Magnesium 2.1 mg/dL (1.7-2.3) 03/16/22 11:25 Total Bilirubin 0.9 mg/dL (0.15-1.2) 03/16/22 11:25 AST 36 U/L (0-32) H 03/16/22 11:25 ALT 28 U/L (0-33) 03/16/22 11:25 Alkaline Phosphatase 225 IU/L (35-105) H 03/16/22 11:25 Ammonia 255 umol/L (11-51) H 03/16/22 12:33 Creatine Kinase 94 U/L (26-192) 03/16/22 11:25 Troponin T Baseline 15 ng/L (0-10) H 03/16/22 11:25 Troponin T 120 Minute 17.71 ng/L (0-10) H 03/16/22 14:04 Delta Troponin T 2.71 ABS# (0-10) 03/16/22 14:04 Total Protein 7.4 g/dL (6.6-8.7) 03/16/22 11:25 Albumin 3.0 g/dL (3.5-5.2) L 03/16/22 11:25 Globulin 4.4 g/dL (1.3-4.6) 03/16/22 11:25 Lipase 7 U/L (13-60) L 03/16/22 11:25 Urine Color Yellow (Yellow) 03/16/22 11:49 Urine Appearance Clear (CLEAR) 03/16/22 11:49 Urine pH 7 (5-7) 03/16/22 11:49 Ur Specific Wilmer 1.010 (1.005-1.030) 03/16/22 11:49 Urine Protein Neg (Negative) 03/16/22 11:49 Urine Glucose (UA) Norm (Normal) 03/16/22 11:49 Urine Ketones 1+ (Negative) H 03/16/22 11:49 Urine Blood Neg (Negative) 03/16/22 11:49 Urine Nitrate Negative (Negative) 03/16/22 11:49 Urine Bilirubin Neg (Negative) 03/16/22 11:49 Urine Urobilinogen 4 mg/dL (Negative) H 03/16/22 11:49 Ur Leukocyte Esterase Negative (Negative) 03/16/22 11:49 Discharge Plan Discharge Patient Disposition: Admitted As Inpatient Clinical Impression: Parkinsons disease, Acute hepatic encephalopathy, Cystitis Clinical Impression: (Ruled Out): Acute respiratory failure with hypoxia, Esophageal varices, KING (nonalcoholic steatohepatitis) Condition: Stable Prescriptions: No Action (DME) Upright Walker See Rx Instructions .Route .MEDSUPPLY Qty: 1 0RF Rx Instructions: Use walker daily with ambulation at all times amantadine HCl 100 mg tablet 100 mg PO BID 0RF levothyroxine 150 mcg tablet 150 mcg PO DAILY 90 Days Qty: 90 1RF furosemide [Lasix] 40 mg tablet 40 mg PO QAM Qty: 90 0RF ferrous sulfate [Feosol] 325 mg (65 mg iron) tablet 325 mg PO BID Qty: 60 1RF (DME) upright walker with wheels and brakes See Rx Instructions .Route .MEDSUPPLY Qty: 1 0RF Rx Instructions: As directed carbidopa-levodopa 25-100 mg tablet 1 tab PO TID Qty: 90 3RF clonazepam 0.5 mg tablet 0.5 mg PO DAILY PRN (Reason: Anxiety) 0RF carvedilol 3.125 mg Tablet 3.125 mg PO BID 0RF Rx Instructions: must administer with a meal/food Aldactone 25 mg tablet 25 mg PO BID 0RF Protonix 40 mg tablet,delayed release (DR/EC) 40 mg PO BID 0RF hydroxychloroquine 200 mg tablet 200 mg PO DAILY 0RF ropinirole 2 mg tablet extended release 24 hr 2 mg PO TID 0RF Referrals: Jenni Beltran DO [Primary Care Provider] - Coding Level of Care Code ED State Wildlife Officer for Hireng Radha
[2022-03-16 12:57] LABS: Ammonia 255 umol/L (11-51)
--- NOTE | 2022-03-16 12:59 | CTR_ITS ---
PROCEDURE INFORMATION: Exam: CT Angiography Head With Contrast, Arteriography Exam date and time: 03/16/2022 2:38 PM Age: 66 years old Clinical indication: Cognitive deficit; Altered mental status; Prior surgery; Additional info: AMS TECHNIQUE: Imaging protocol: Computed tomography angiography of the head with contrast. Exam focused on the arteries. 3D rendering (Not supervised by radiologist): MIP and/or 3D reconstructed images were created by the technologist. Radiation optimization: All CT scans at this facility use at least one of these dose optimization techniques: automated exposure control; mA and/or kV adjustment per patient size (includes targeted exams where dose is matched to clinical indication); or iterative reconstruction. Contrast material: OMNI 350; Contrast volume: 75 ml; Contrast route: INTRAVENOUS (IV); COMPARISON: 1. CT head wo con* [id number] 03/16/2022 12:[address] angio chest w abd pel w con 08/06/2021 10:03 PM RADIATION DOSE METRICS: Total DLP (mGy-cm): 1755.32 FINDINGS: Limitations: Evaluation is limited due to timing of the contrast bolus. Tubes, catheters and devices: Bilateral deep brain stimulator device leads are noted. The leads appear appropriately positioned, terminating in the subthalamic regions. ANTERIOR CIRCULATION: Right internal carotid artery: Unremarkable. Intracranial segment is patent with no significant stenosis. No aneurysm. Right middle cerebral artery: Unremarkable. No occlusion or significant stenosis. No aneurysm. Right anterior cerebral artery: Unremarkable. No occlusion or significant stenosis. No aneurysm. Left internal carotid artery: Unremarkable. Intracranial segment is patent with no significant stenosis. No aneurysm. Left middle cerebral artery: Unremarkable. No occlusion or significant stenosis. No aneurysm. Left anterior cerebral artery: Unremarkable. No occlusion or significant stenosis. No aneurysm. POSTERIOR CIRCULATION: Right vertebral artery: Unremarkable. No occlusion or significant stenosis. No aneurysm. Left vertebral artery: Unremarkable. No occlusion or significant stenosis. No aneurysm. Basilar artery: Unremarkable. No occlusion or significant stenosis. No aneurysm. Right posterior cerebral artery: Unremarkable. No occlusion or significant stenosis. No aneurysm. Left posterior cerebral artery: Unremarkable. No occlusion or significant stenosis. No aneurysm. Brain: No definite mass, cerebral edema, or midline shift. Cerebral ventricles: No ventriculomegaly. Bones/joints: Bifrontal [place] holes are noted. Soft tissues: Unremarkable. PROCEDURE INFORMATION: Exam: CT Angiography Neck With Contrast Exam date and time: 03/16/2022 2:38 PM Age: 66 years old Clinical indication: Cognitive deficit; Altered mental status; Prior surgery; Additional info: AMS TECHNIQUE: Imaging protocol: Computed tomography angiography of the neck with contrast. 3D rendering (Not supervised by radiologist): MIP and/or 3D reconstructed images were created by the technologist. Radiation optimization: All CT scans at this facility use at least one of these dose optimization techniques: automated exposure control; mA and/or kV adjustment per patient size (includes targeted exams where dose is matched to clinical indication); or iterative reconstruction. Contrast material: OMNI 350; Contrast volume: 75 ml; Contrast route: INTRAVENOUS (IV); COMPARISON: 1. CT head wo con* [id number] 03/16/2022 12:[address] angio chest w abd pel w con 08/06/2021 10:03 PM RADIATION DOSE METRICS: Total DLP (mGy-cm): 1755.32 FINDINGS: Limitations: The study is moderately limited due to patient motion artifact. Tubes, catheters and devices: The endotracheal tube terminates at the entrance to the right mainstem bronchus. This should be withdrawn 3 cm and reimaged. Right common carotid artery: No stenosis. No dissection or occlusion. Right internal carotid artery: No stenosis of the extracranial segment. No dissection or occlusion. Right external carotid artery: No occlusion or stenosis of the origin. Left common carotid artery: No stenosis. No dissection or occlusion. Left internal carotid artery: No stenosis of the extracranial segment. No dissection or occlusion. Left external carotid artery: No occlusion or stenosis of the origin. Right vertebral artery: No stenosis. No dissection or occlusion. Left vertebral artery: No stenosis. No dissection or occlusion. Soft tissues: Normal. No significant soft tissue swelling. Bones/joints: There are age-indeterminate superior endplate compression fractures at T1, T3, and T4. Mild vertebral body height loss is present at each level. These are new from the chest CT dated 08/06/2021. CT/CT angio headneck* [id number] IMPRESSION: 1. No acute abnormality. 2. Chronic findings as discussed above. IMPRESSION: 1. The study is moderately limited due to patient motion artifact. 2. The endotracheal tube terminates at the entrance to the right mainstem bronchus. This should be withdrawn 3 cm and reimaged. 3. There are age-indeterminate superior endplate compression fractures at T1, T3, and T4. Mild vertebral body height loss is present at each level. These are new from the chest CT dated 08/06/2021. 4. No significant vascular abnormality REFERENCES: NASCET CRITERIA. The degree of internal carotid artery stenosis is based on NASCET criteria. Normal is no stenosis. Mild is less than 50% stenosis. Moderate is 50-69% stenosis. Severe is 70% to 99% stenosis. Total occlusion is no detectable patent lumen.
--- NOTE | 2022-03-16 13:37 | ECG_ITS ---
[facility] Test Date: 2022-03-16 Pat Name: Ksenia Tejada Department: Room: Gender: Female Nitro Worker: : 1955 Requested By: Gutierrez Harrison Order Number: [id number] Reading MD: Jeimy Jules M.D. Measurements Intervals [place] Rate: 69 P: 40 CT: 176 QRS: 180 QRSD: 106 T: 201 QT: 423 QTc: 454 Interpretive Statements SINUS RHYTHM LATERAL MYOCARDIAL INFARCTION , OF INDETERMINATE AGE ST DEVIATION AND MODERATE T-WAVE ABNORMALITY, CONSIDER ANTERIOR ISCHEMIA ST DEVIATION AND MODERATE T-WAVE ABNORMALITY, CONSIDER INFERIOR ISCHEMIA Compared to ECG 03/16/2022 11:34:09 T-wave abnormality now present Possible ischemia now present Intraventricular conduction delay no longer present Myocardial infarct finding still present Electronically Signed On 03-17-2022 7:34:04 CDT by Jeimy Jules M.D. [id number]
--- NOTE | 2022-03-16 14:00 | PC.NURSE ---
PC TO PHARMACY FOR NEED OF LACTULOSE MALE VERBALIZED UNDERSTANDING AND STATED THAT IT WOULD BE PROVIDED TO ME.
--- NOTE | 2022-03-16 14:05 | PC.NURSE ---
PER [place] PHARMACIST LACTULOSE PROVIDED CAN BE ADM RECTALLY.
[2022-03-16 14:15] LABS: Reflex Lactate Order REFLEX LACTIC ORDERD
[2022-03-16] MEDS: iohexol 350 mg/mL 100 mL Btl IV ×2 (14:34→14:35)
[2022-03-16 14:48] LABS: Troponin 5 2HR 17.71 ng/L (0-10)
[2022-03-16 14:50] LABS: Troponin 5 2HR Delta 2.71 ABS# (0-10)
[2022-03-16] MEDS: lactulose oral liq 20 gm/30 mL UDC 200 GM PR (14:50)
[2022-03-16 15:34] LABS: Alveolar-Arterial Oxygen Gradi 6.2 mmHg (5-10); Arterial Blood Gas Hematocrit 26.1 % (37-47); Base Excess ABG -5.1 mmol/L (-2.0-2.0); Blood Gas Allen Test Pos; Blood Gas Operator Identificat CAK; Blood Gas Sample Site Radial, left; Blood Gas Sample Type Arterial; Blood Gas Tidal Volume 0.45; Carboxyhemoglobin < 0.0 %THgb (0.4-20.1); HGB O2 Sat 97.2 % (95-100); Ionized Calcium Level - ABG 1.1 mmol/L (1.1-1.4); Methemoglobin 0.9 % (0.4-1.5); Oxygen Device VENT; Potassium Level - ABG 2.7 mmol/L (3.5-5.0); Total Hemoglobin 8.5 g/dL (12-16)
--- NOTE | 2022-03-16 15:50 | PC.NURSE ---
PT CLEANED FOR INCONTINENCE OF BOWEL. PT HAS CHUCKS REPLACED. PT CONDITION IS UNCHANGED.
--- NOTE | 2022-03-16 15:56 | XR_ITS ---
WS: [id number] Exam: XR chest 1V portable [id number] Date/Time of Exam: 03/16/2022 4:02 PM Reason For Exam: ET tube position Comparison made with the earlier study on the same day at 1224 hours. Mild diffuse infiltrates in both lungs may represent pulmonary edema. This is a new finding. The hear t is upper limits normal size. ET tube is directed into the proximal right mainstem bronchus and shou ld be withdrawn 3 cm for optimal position. Enteric tube remains in good position within the stomach. Contrast seen in the bilateral renal collecting systems. Neurostimulator pack overlies the right ches t. The lungs are fully expanded. No pleural effusions XR/XR chest 1V portable [id number] IMPRESSION: 1. Mild diffuse interstitial infiltrates in both lungs may represent pulmonary edema or interstitial pneumonia. This is a new finding. 2. ET tube directed into the right mainstem bronchus. The tube should be withdr awn approximately 3 cm for optimal position. NG tube in satisfactory location. These findings were discussed by phone with the attending ER physician Dr. Ruben velasquez at 4:20 PM 03/16/2022.
[2022-03-16 16:13] LABS: ABG PCO2 15.3 mmHg (35-45)
[2022-03-16 16:41] LABS: Lactic Acid level (Lactate) 1.6 mmol/L (0.5-2.2)
--- NOTE | 2022-03-16 17:03 | PM.HP ---
Providers/Chief Complaint Primary Care Provider: Jenni Beltran DO Chief Complaint: UNRESPONSIVE History of Present Illness Ksenia Tejada is a 66 year old female with a past medical history of Echavarria, managed by insurance administrative assistant in [place], history of Parkinson's disease with deep brain stimulator in place, hypothyroidism, restless leg syndrome, recently had an admission in [place] for esophageal variceal bleed requiring 2 units PRBC, 7 variceals were banded, she had an EGD also, she has had ancolonoscopy within the last 6 months to look for sources of bleeding which was unremarkable, she had a CBD stent removed, no recent fevers, no cough, recent history of UTIs, no significant issue with hyperammonemia, she lives at home with her . Currently patient is intubated, sedated, does not respond to stimuli. Patient's family is at bedside, patient's [id number] and children who are the healthcare power of drill grinder. Patient is a DNR, does not want to have dialysis, on her healthcare directives she did not want to have intubation, however her family wanted a trial of intubation to see if he could reverse her mentation, if not then they are okay with us discontinuing intubation. The story is that she has been doing well, at her last checkup with Dr. Beltran and her insurance administrative assistant she was doing well. Yesterday there is nothing on the ordinary, at roughly 10 PM she did have a fall, she did not hit her head, so mechanical fall. Her was there, she was acting appropriately, she went to bed at roughly 10 PM. This morning, when her went to wake her up she did not wake up, she would not respond, so he called family members who advised him to call EMS, here in the emergency room patient was nonresponsive, would not respond to sternal rub, so she was intubated at request of family members. CT of the head had no acute stroke findings, her ammonia levels were 244, she has been given lactulose, placed on fentanyl, Versed, hospitalist team was called for admission. Review of Systems General: Reports: ROS unobtainable due to medical condition Medications/Allergies Home Medications Medication Instructions Recorded Confirmed Last Taken Type Upright Walker #1 ea 10/30/20 03/16/22 Unknown Rx ferrous sulfate 325 mg (65 mg 325 mg PO BID #60 tab 04/11/21 03/16/22 02/20/22 Rx iron) tablet (Feosol) upright walker with wheels and #1 ea 10/13/21 03/16/22 Unknown Rx brakes amantadine HCl 100 mg tablet 100 mg PO BID 10/20/21 03/16/22 02/20/22 History carvedilol 3.125 mg tablet 3.125 mg PO BID 02/21/22 03/16/22 02/21/22 History clonazepam 0.5 mg tablet 0.5 mg PO DAILY PRN 02/21/22 03/16/22 Unknown History carbidopa 25 mg-levodopa 100 mg 1 tab PO TID #90 tab 02/24/22 03/16/22 Unknown Rx tablet furosemide 40 mg tablet (Lasix) 40 mg PO QAM #90 tab 03/05/22 03/16/22 Unknown Rx levothyroxine 150 mcg tablet 150 mcg PO DAILY 90 Days #90 tab 03/05/22 03/16/22 Unknown Rx hydroxychloroquine 200 mg tablet 200 mg PO DAILY 03/16/22 03/16/22 Unknown History pantoprazole 40 mg tablet,delayed 40 mg PO BID 03/16/22 03/16/22 Unknown History release (Protonix) ropinirole 2 mg tablet,extended 2 mg PO TID 03/16/22 03/16/22 Unknown History release 24 hr spironolactone 25 mg tablet 25 mg PO BID 03/16/22 03/16/22 Unknown History (Aldactone) Allergies Allergy/AdvReac Type Severity Reaction Status Date / Time No Known Allergies Allergy Verified 03/16/22 12:39 PFSH Acute PFSH: Medical History Anti-TPO antibodies present Family history of colon cancer Fatty liver disease, nonalcoholic GERD (gastroesophageal reflux disease) High risk medication use Hypothyroidism Immunization counseling Inflammatory arthritis Liver cirrhosis ECHAVARRIA (nonalcoholic steatohepatitis) Osteoarthritis, generalized Parkinsons disease Positive NICO (antinuclear antibody) RLS (restless legs syndrome) Surgical History History of colonoscopy (~12/2020) History of esophagogastroduodenoscopy (EGD) (~12/2020) History of left knee replacement History of shoulder surgery S/P bilateral foot surgery S/P ERCP Status post deep brain stimulator placement Family History Brother CAD (coronary artery disease) Hypertension Father CAD (coronary artery disease) Diabetes Hypertension Mother CAD (coronary artery disease) Hypertension Sister Hypertension Other Lupus Rheumatoid arthritis Denies family history of Lung disease Stroke Social History Smoking and tobacco status: never smoked Alcohol intake: never Marital status: Current occupational status: disabled History of recent travel: No Female Reproductive History: Date of last menstrual period: 02/20/21 Vitals/I&O/Wt Last Vital Signs Temp 97.6 F 03/16/22 11:28 Pulse 77 03/16/22 11:28 Resp 12 03/16/22 15:36 BP 131/76 03/16/22 11:28 Pulse Ox 99 03/16/22 11:28 03/16/22 03/16/22 03/16/22 06:59 14:59 22:59 Intake Total 1.975 / 1.975 16.467 / 18.442 Balance 1.975 / 1.975 16.467 / 18.442 Weight last 48 hrs Weight 65.771 kg Physical Exam Const: COMMON NORMALS: no acute distress OTHER: Intubated, sedated, endotracheal tube in place HENMT: COMMON NORMALS: normocephalic HEAD & SCALP: normocephalic Eye: OTHER: Pupils bilaterally constricted Chest: OTHER: Right chest, deep brain stimulator in place Resp: COMMON NORMALS: normal respiratory effort, No retractions, No use of accessory muscles and clear to auscultation bilaterally AUSCULTATION: clear to auscultation bilaterally Cardio: COMMON NORMALS: regular rate, regular rhythm, S1 normal heart sound present and S2 normal heart sound present RATE: regular rate RHYTHM: regular rhythm HEART SOUNDS: S1 normal heart sound present and S2 normal heart sound present GI: COMMON NORMALS: Normal to inspection, nondistended, normoactive bowel sounds present, Soft to palpation, non-tender, No hepatosplenomegaly present, no masses and no bruits PALPATION: Yes Soft to palpation and Yes No hepatosplenomegaly present Extremity: COMMON NORMALS: no clubbing, cyanosis or edema, no calf tenderness and no pedal edema Neuro: OTHER: Does not follow neurologic testing, pupils pinpoint Urinary Catheter Management: Brown: Cath Placed During This Visit: yes Urinary Catheter Date of Insertion: 03/16/22 Urinary Catheter Time of Insertion: 11:49 Data : 03/16/22 11:25 03/16/22 11:25 Micro: Microbiology 03/16/22 12:00 Gram Stain - Final Sputum - Endotracheal Tube Aspirate 03/16/22 12:49 Blood Culture - Preliminary Blood SPECIMEN COLLECTED 03/16/22 12:33 Blood Culture - Preliminary Blood SPECIMEN COLLECTED A&P Assessment and plan (1) Acute hepatic encephalopathy: Status: Acute (2) Hyperammonemia: Status: Acute (3) Acute respiratory failure: Status: Acute (4) Altered mental status: Status: Acute (5) ECHAVARRIA (nonalcoholic steatohepatitis): Status: Acute (6) Esophageal varices: Status: Acute (7) Anemia: Status: Acute Plan Acute encephalopathy altered mental status -Etiology likely secondary to hepatic encephalopathy, hyperammonemia -However still concerning for underlying CVA -Neurochecks, NIH stroke scale, allow for permissive hypertension -Avoiding aspirin given history of esophageal variceal bleed recently requiring banding, continue statin Hepatic encephalopathy, -Lactulose, rifaximin -Monitor for cerebral edema -Rectal tube Acute respiratory failure -Due to nonresponsiveness -Continue intubation, mechanical ventilation -Minimize FiO2, minimize tidal volume, optimize PEEP -Versed, fentanyl for sedation -ABG shows respiratory alkalosis with compensatory metabolic acidosis, will repeat ABG Echavarria -History of esophageal varices -History of CBD stent, status post removal -History of EGD colonoscopy History of esophageal variceal bleed, status post 2 units PRBC, hemoglobin 9.3 -Protonix -Avoid blood thinners SCDs for DVT prophylaxis CODE STATUS DNR, family wants a trial of intubation, if her mentation does not improve they would like to proceed with extubation, and her healthcare directive she does not want to have aggressive interventions, no dialysis History of diastolic CHF does not look fluid overloaded Attestations Medical Necessity Statement*: Patient requires hospitalization, inpatient, greater than 2 midnights, for nonresponsive, acute hypoxic respiratory failure, hyperammonemia Coding Level of Care Code Acute Hand Candy Dipper for g Fwd Diagnoses Acute hepatic encephalopathy K72.00 Hyperammonemia E72.20 Acute respiratory failure J96.00 Altered mental status R41.82 ECHAVARRIA (nonalcoholic steatohepatitis) K75.81 Esophageal varices I85.00 Anemia D64.9
--- NOTE | 2022-03-16 17:04 | PC.NURSE ---
REPORT CALLED TO BRIANA THRASHER IN ICU.
--- NOTE | 2022-03-16 17:16 | XRR_ITS ---
PROCEDURE INFORMATION: Exam: XR Chest Exam date and time: 03/16/2022 5:22 PM Age: 66 years old Clinical indication: Device placement; Ett placement (vent status); Additional info: Et tube placement TECHNIQUE: Imaging protocol: XR of the chest. Views: 1 view. COMPARISON: CR XR chest 1V portable [id number] 03/16/2022 4:09 PM FINDINGS: Tubes, catheters and devices: An endotracheal tube is present, terminating approximately 2.7 cm above the tad. A nasogastric tube is seen terminating in the stomach. Lungs: Senescent changes are present. No focal consolidation is identified. Pleural spaces: Unremarkable. No pleural effusion. No pneumothorax. Heart/Mediastinum: The cardiac silhouette is mildly enlarged, likely due to underlying cardiomegaly. Bones/joints: Unremarkable. XR/XR chest 1V portable [id number] IMPRESSION: The endotracheal tube has been repositioned, now terminating approximately 2.7 cm above the tad.
--- NOTE | 2022-03-16 17:20 | ECG_ITS ---
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 Measurements Intervals [place] Rate: 63 P: [place]: QRS: 48 QRSD: 121 T: 12 QT: 470 QTc: 483 Interpretive Statements SINUS RHYTHM WITH ISOLATED VENTRICULAR PREMATURE COMPLEXES MODERATE INTRAVENTRICULAR CONDUCTION DELAY [110+ ms QRS DURATION] MODERATE T-WAVE ABNORMALITY, CONSIDER ANTERIOR ISCHEMIA Compared to ECG 03/16/2022 13:21:07 Ventricular premature complex(es) now present Aberrant conduction of supraventricular beat(s) now present Intraventricular conduction delay now present Sinus rhythm no longer present Myocardial infarct finding no longer present T-wave abnormality still present Possible ischemia still present Electronically Signed On 03-17-2022 7:25:28 CDT by Jeimy Jules M.D. [id number]
--- NOTE | 2022-03-16 17:37 | ECG_ITS ---
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 Measurements Intervals [place] Rate: 70 P: 4 CT: 148 QRS: -11 QRSD: 141 T: 20 QT: 451 QTc: 489 Interpretive Statements SINUS RHYTHM INTRAVENTRICULAR CONDUCTION DELAY [130+ ms QRS DURATION] PROBABLE LATERAL MYOCARDIAL INFARCTION , PROBABLY OLD [35 ms Q WAVE IN I/aVL/V5/V6] Compared to ECG 02/21/2022 15:21:42 Intraventricular conduction delay now present Myocardial infarct finding still present Electronically Signed On 03-17-2022 7:39:07 CDT by Jeimy Jules M.D. [id number]
[2022-03-16 17:45] LABS: NT Pro B Type Natriuretic Pept 3268 pg/mL (0-125); Procalcitonin 0.25 ng/mL (0-0.5); Thyroid Stimulating Hormone 4.91 uIU/mL (0.27-4.20)
[2022-03-16 17:55] LABS: C Reactive Protein 39.5 mg/L (0.0-4.9)
[2022-03-16 18:15] LABS: Troponin 5 6HR 19.29 ng/L (0-10)
[2022-03-16 18:16] LABS: Troponin 5 6HR Delta 4.29 ng/L (0-12)
[2022-03-16] MEDS: spironolactone 25 mg Tablet PO (18:34)
[2022-03-16] MEDS: sodium chloride 0.9% 1,000 ML 100 ML IV (18:34)
[2022-03-16] MEDS: pantoprazole 40 mg SDV IVP (18:34)
[2022-03-16] MEDS: piperacillin-tazobactam 3.375 GM in sodium chloride 0.9% (plus) 50 ML IV (18:35)
[2022-03-16] MEDS: lactulose oral liq 20 gm/30 mL UDC 30 GM PO (19:08)
--- NOTE | 2022-03-16 19:13 | PC.NURSE ---
Dr. Grant approved changing Lactulose to OG tube due to stool being too formed for rectal tube
[2022-03-16 20:26] LABS: Troponin(5th) Baseline 21 ng/L (0-10)
[2022-03-16] MEDS: carbidopa-levodopa 25-100mg Tablet 1 EACH PO (21:07)
--- NOTE | 2022-03-16 21:16 | PC.NURSE ---
Pt is intubated and on 75 mcg of fent cont IV and 3mg versed IV. Pt responds only to painful stimulus with minimal withdraw from pain on extremities. pt does not follow commands at this time. NIH score of 2 given
[2022-03-16 22:31] LABS: Troponin 5 2HR 21.73 ng/L (0-10)
[2022-03-16 22:45] LABS: Troponin 5 2HR Delta 0.73 ABS# (0-10)
[2022-03-16 23:00] LABS: Glucose Point of Care 76 mg/dL (70-110)
[2022-03-16] MEDS: dextrose 5%-sod chloride 0.9% 1,000 ML 100 ML IV (23:18)
--- NOTE | 2022-03-16 23:20 | ECG_ITS ---
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 Measurements Intervals [place] Rate: 69 P: [place]: QRS: -35 QRSD: 128 T: 3 QT: 388 QTc: 416 Interpretive Statements Possible sinus rhythm LEFT AXIS DEVIATION [QRS AXIS < -30] MODERATE INTRAVENTRICULAR CONDUCTION DELAY [110+ ms QRS DURATION] ST DEVIATION AND MODERATE T-WAVE ABNORMALITY, CONSIDER ANTERIOR ISCHEMIA [-0.1+ mV T-WAVE IN V3/V4] Compared to ECG 03/16/2022 11:34:09 Left-axis deviation now present T-wave abnormality now present Possible ischemia now present Sinus rhythm no longer present Myocardial infarct finding no longer present Electronically Signed On 03-17-2022 19:00:10 CDT by Abner Núñez M.D. [id number]
[2022-03-17] VITALS (60 sets, daily range): BP systolic 89–126; BP diastolic 43–72; PULSE 67–86; RESP 10–17; TEMP 36.8–37.8; O2SAT 97–100
[2022-03-17] MEDS: lactulose oral liq 20 gm/30 mL UDC 30 GM PO ×4 (01:14→19:49)
[2022-03-17 02:09] LABS: Glucose Point of Care 81 mg/dL (70-110)
[2022-03-17] MEDS: piperacillin-tazobactam 3.375 GM in sodium chloride 0.9% (plus) 50 ML IV ×3 (02:41→18:08)
[2022-03-17 03:15] LABS: Basophils # 0.1 10^3/uL (0.0-0.1); Basophils % 0.6 %; Eosinophils # 0.3 10^3/uL (0.0-0.8); Eosinophils % 2.5 %; Hematocrit 30.7 % (37.0-47.0); Hemoglobin 9.1 g/dL (11.5-15.3); Lymphocytes # 1.1 10^3/uL (0.8-4.8); Lymphocytes % 8.4 %; Mean Corpuscular HGB Conc 29.6 g/dL (30.0-36.0); Mean Corpuscular Hemoglobin 24.4 pg (28.0-34.0); Mean Corpuscular Volume 82.3 fl (81-99); Mean Platelet Volume 10.8 fL (7.4-10.4); Monocytes # 0.9 10^3/uL (0.2-0.9); Neutrophils # 10.49 10^3/uL (1.8-7.7); Neutrophils % 81.1 %; Nucleated Red Blood Cells % 0 %; Platelet Count 233 10^3/cmm (130-400); Red Blood Count 3.73 10^6/uL (4.1-5.3); White Blood Count 12.9 10^3/uL (4.0-10.0)
[2022-03-17 03:33] LABS: INR 1.23 (0.8-1.2)
[2022-03-17 03:34] LABS: Ammonia 214 umol/L (11-51); Lactate (Lactic Acid level) 2.5 mmol/L (0.5-2.2)
[2022-03-17 03:40] LABS: Troponin 5 6HR 25.99 ng/L (0-10)
[2022-03-17 03:41] LABS: Troponin 5 6HR Delta 4.99 ng/L (0-12)
[2022-03-17 03:42] LABS: Arterial Blood Gas Hematocrit 27.1 % (37-47); Base Excess ABG -5.1 mmol/L (-2.0-2.0); Blood Gas Allen Test Pos; Blood Gas Sample Site Radial, right; Blood Gas Sample Type Arterial; Blood Gas Tidal Volume 0.45; HCO3 ABG 15.2 mmol/L (22-26); Oxygen Device VENT
[2022-03-17 03:46] LABS: ABG PCO2 15.9 mmHg (35-45); ABG PH Result 7.59 (7.35-7.45)
[2022-03-17 03:46] LABS: NT Pro B Type Natriuretic Pept 2502 pg/mL (0-125); Procalcitonin 0.23 ng/mL (0-0.5)
[2022-03-17 03:57] LABS: Alanine Aminotransferase 17 U/L (0-33); Albumin Level 2.6 g/dL (3.5-5.2); Alkaline Phosphatase 195 IU/L (35-105); Anion Gap 16.3 (5-19); Aspartate Amino Transferase 31 U/L (0-32); Blood Urea Nitrogen 14 mg/dL (8-23); C Reactive Protein 34.7 mg/L (0.0-4.9); Calcium 8.1 mg/dL (8.5-10.5); Carbon Dioxide 15 mmol/L (22-29); Chloride 114 mmol/L (98-107); Creatine Phosphokinase 301 U/L (26-192); Glomerular Filtration Rate 83.7 mL/min (90-130); Glucose 71 mg/dL (65-115); Magnesium 2.1 mg/dL (1.7-2.3); Osmolality Calculated 295 mOsm/kg (285-295); Phosphorus 2.4 mg/dL (2.5-4.5); Sodium 143 mmol/L (136-145); Total Bilirubin 0.9 mg/dL (0.15-1.2); Total Protein 6.6 g/dL (6.6-8.7)
[2022-03-17 04:26] LABS: Potassium 2.3 mmol/L (3.5-5.1)
[2022-03-17] MEDS: lidocaine 1% 5 ML in potassium chloride premix 100 ML 25 ML IV ×2 (05:17→08:41)
[2022-03-17] MEDS: pantoprazole 40 mg SDV IVP ×2 (05:48→18:08)
[2022-03-17] MEDS: levothyroxine 150 mcg Tablet PO (08:41)
[2022-03-17] MEDS: spironolactone 25 mg Tablet PO ×2 (08:41→18:08)
[2022-03-17] MEDS: carbidopa-levodopa 25-100mg Tablet 1 EACH PO ×3 (08:41→20:47)
[2022-03-17] MEDS: propofol 1,000 MG/100 ML INJ 11.84 MG IV ×3 (09:23→17:59)
[2022-03-17] MEDS: dextrose 5%-sod chloride 0.9% 1,000 ML 100 ML IV (09:33)
[2022-03-17 10:34] LABS: Anion Gap 19.2 (5-19); Blood Urea Nitrogen 16 mg/dL (8-23); Calcium 7.6 mg/dL (8.5-10.5); Carbon Dioxide 12 mmol/L (22-29); Chloride 119 mmol/L (98-107); Glomerular Filtration Rate 62.6 mL/min (90-130); Glucose 104 mg/dL (65-115); Osmolality Calculated 305 mOsm/kg (285-295); Potassium 3.2 mmol/L (3.5-5.1); Sodium 147 mmol/L (136-145)
--- NOTE | 2022-03-17 12:04 | P.PN_ITS ---
Subjective Subjective: Patient remains intubated because he responded, normotensive, afebrile, does not respond to commands, pupils constricted, continues to have large bowel movements Vitals/I&O/Wt Last Vital Signs Temp 98.2 F 03/17/22 07:22 Pulse 83 03/17/22 07:22 Resp 13 03/17/22 11:54 BP 104/54 03/17/22 07:22 Pulse Ox 99 03/17/22 11:54 03/16/22 03/17/22 03/17/22 22:59 06:59 14:59 Intake Total 56.467 / 58.442 911.808 / 154.850 9720 / 1075 Output Total 1275 / 1275 200 / 1475 200 / 200 Balance -1218.533 / -1216.558 711.808 / -504.750 875 / 875 Weight last 48 hrs Weight 65.771 kg Physical Exam Const: COMMON NORMALS: no acute distress OTHER: Remains intubated, sedated Resp: COMMON NORMALS: normal respiratory effort, No retractions, No use of accessory muscles and clear to auscultation bilaterally AUSCULTATION: clear to auscultation bilaterally Cardio: COMMON NORMALS: regular rate, regular rhythm, S1 normal heart sound present and S2 normal heart sound present RATE: regular rate RHYTHM: regular rhythm HEART SOUNDS: S1 normal heart sound present and S2 normal heart sound present GI: COMMON NORMALS: Normal to inspection, nondistended, normoactive bowel sounds present, Soft to palpation and non-tender PALPATION: Yes Soft to palpation Extremity: COMMON NORMALS: no pedal edema Urinary Catheter Management: Brown: Cath Placed During This Visit: yes Reason for Continuing Indwelling Catheter: Accurate Measurement of Urinary Output in Critically Ill Patients Urinary Catheter Date of Insertion: 03/16/22 Urinary Catheter Time of Insertion: 11:49 Data : 03/17/22 02:07 03/17/22 09:45 Micro: Microbiology 03/16/22 12:00 Gram Stain - Final Sputum - Endotracheal Tube Aspirate Sputum Culture - Preliminary 03/16/22 12:49 Blood Culture - Preliminary Blood SPECIMEN COLLECTED 03/16/22 12:33 Blood Culture - Preliminary Blood SPECIMEN COLLECTED A&P Assessment and plan (1) Acute hepatic encephalopathy: Status: Acute (2) Hyperammonemia: Status: Acute (3) Acute respiratory failure: Status: Acute (4) Altered mental status: Status: Acute (5) KING (nonalcoholic steatohepatitis): Status: Acute (6) Esophageal varices: Status: Acute (7) Anemia: Status: Acute Plan Acute encephalopathy altered mental status -Etiology likely secondary to hepatic encephalopathy, hyperammonemia -However still concerning for underlying CVA, possible brainstem -Neurochecks, NIH stroke scale, allow for permissive hypertension -Avoiding aspirin given history of esophageal variceal bleed recently requiring banding, continue statin Hepatic encephalopathy, -Lactulose, rifaximin -Rectal tube in place -Monitor for cerebral edema Hypokalemia, will replace Persistent respiratory alkalosis with compensatory metabolic acidosis, have adjusted ventilator settings repeat ABG at 4 PM Acute respiratory failure -Due to nonresponsiveness -Continue intubation, mechanical ventilation -Minimize FiO2, minimize tidal volume, optimize PEEP -Fentanyl, propofol for sedation -ABG shows respiratory alkalosis with compensatory metabolic acidosis, will repeat ABG [place] -History of esophageal varices -History of CBD stent, status post removal -History of EGD colonoscopy History of esophageal variceal bleed, status post 2 units PRBC, hemoglobin 9.3 -Protonix -Avoid blood thinners SCDs for DVT prophylaxis CODE STATUS DNR, family wants a trial of intubation, if her mentation does not improve they would like to proceed with extubation, and her healthcare directive she does not want to have aggressive interventions, no dialysis History of diastolic CHF does not look fluid overloaded Attestations Medical Necessity Statement*: Patient requires hospitalization for respiratory failure, hyperammonemia, acute encephalopathy, critical care time spent over 35 minutes Coding Level of Care Code Acute Elevator Tender for [facility] Fwd Diagnoses Acute hepatic encephalopathy K72.00 Hyperammonemia E72.20 Acute respiratory failure J96.00 Altered mental status R41.82 KING (nonalcoholic steatohepatitis) K75.81 Esophageal varices I85.00 Anemia D64.9
[2022-03-17] MEDS: potassium chloride ER 20 mEq Tablet 40 MEQ PO (13:40)
[2022-03-17] MEDS: cisatracurium 100 MG in sodium chloride 0.9% 50 ML IV (13:47)
[2022-03-17 16:36] LABS: ABG PCO2 23.1 mmHg (35-45); ABG PH Result 7.38 (7.35-7.45); Base Excess ABG -10.1 mmol/L (-2.0-2.0); Blood Gas Allen Test Pos; Blood Gas Operator Identificat GD; Blood Gas Sample Site Radial, left; Blood Gas Sample Type Arterial; HCO3 ABG 13.6 mmol/L (22-26); Oxygen Device VENT
[2022-03-17 18:45] LABS: Anion Gap 16.7 (5-19); Blood Urea Nitrogen 19 mg/dL (8-23); Calcium 7.4 mg/dL (8.5-10.5); Carbon Dioxide 13 mmol/L (22-29); Chloride 122 mmol/L (98-107); Glomerular Filtration Rate 55.5 mL/min (90-130); Glucose 118 mg/dL (65-115); Osmolality Calculated 309 mOsm/kg (285-295); Phosphorus 3.5 mg/dL (2.5-4.5); Potassium 3.7 mmol/L (3.5-5.1); Sodium 148 mmol/L (136-145)
--- NOTE | 2022-03-17 19:01 | PC.NURSE ---
TOF BIS TOF 1400 4/4 BIS 60 1500 4/4 BIS 52 1600 2/4 BIS 45 1700 2/4 BIS 43 1800 2/4 BIS 40
[2022-03-17] MEDS: dextrose 5%-ns + KCl 40 40 MEQ/1,000 ML BAG 125 MEQ IV (19:48)
[2022-03-17] MEDS: atorvastatin 40 mg Tablet PO (20:47)
[2022-03-17] MEDS: propofol 1,000 MG/100 ML INJ 29.6 MG IV (21:35)
[2022-03-17 22:08] LABS: Glucose Point of Care 108 mg/dL (70-110)
[2022-03-18] VITALS (97 sets, daily range): BP systolic 95–133; BP diastolic 39–60; PULSE 74–86; RESP 14–20; TEMP 36.6–37.4; O2SAT 96–100
[2022-03-18] MEDS: propofol 1,000 MG/100 ML INJ 29.6 MG IV ×3 (00:36→07:06)
[2022-03-18] MEDS: lactulose oral liq 20 gm/30 mL UDC 30 GM PO ×3 (00:36→14:14)
[2022-03-18] MEDS: piperacillin-tazobactam 3.375 GM in dextrose 5% (plus) 50 ML IV (02:40)
[2022-03-18 02:58] LABS: Basophils # 0.2 10^3/uL (0.0-0.1); Basophils % 0.9 %; Eosinophils # 0.9 10^3/uL (0.0-0.8); Hematocrit 33.6 % (37.0-47.0); Hemoglobin 9.3 g/dL (11.5-15.3); Lymphocytes # 1.8 10^3/uL (0.8-4.8); Lymphocytes % 9.8 %; Mean Corpuscular HGB Conc 27.7 g/dL (30.0-36.0); Mean Corpuscular Hemoglobin 24.5 pg (28.0-34.0); Mean Corpuscular Volume 88.7 fl (81-99); Mean Platelet Volume 10.2 fL (7.4-10.4); Monocytes % 10.9 %; Neutrophils # 13.31 10^3/uL (1.8-7.7); Neutrophils % 72.8 %; Nucleated Red Blood Cells % 0 %; Platelet Count 235 10^3/cmm (130-400); Red Blood Count 3.79 10^6/uL (4.1-5.3); Red Cell Distribution Width 25.9 % (12.1-15.1); White Blood Count 18.3 10^3/uL (4.0-10.0)
[2022-03-18 03:26] LABS: Lactate (Lactic Acid level) 1.5 mmol/L (0.5-2.2)
[2022-03-18 03:39] LABS: NT Pro B Type Natriuretic Pept 686 pg/mL (0-125); Procalcitonin 0.29 ng/mL (0-0.5)
[2022-03-18 03:44] LABS: Alanine Aminotransferase 10 U/L (0-33); Albumin Level 2.5 g/dL (3.5-5.2); Alkaline Phosphatase 201 IU/L (35-105); Anion Gap 14.1 (5-19); Aspartate Amino Transferase 28 U/L (0-32); Blood Urea Nitrogen 14 mg/dL (8-23); C Reactive Protein 80.1 mg/L (0.0-4.9); Calcium 7.3 mg/dL (8.5-10.5); Carbon Dioxide 14 mmol/L (22-29); Chloride 123 mmol/L (98-107); Globulin 4.2 g/dL (1.3-4.6); Glomerular Filtration Rate 55.5 mL/min (90-130); Glucose 122 mg/dL (65-115); Magnesium 2.3 mg/dL (1.7-2.3); Osmolality Calculated 306 mOsm/kg (285-295); Phosphorus 3.9 mg/dL (2.5-4.5); Potassium 4.1 mmol/L (3.5-5.1); Sodium 147 mmol/L (136-145); Total Bilirubin 0.6 mg/dL (0.15-1.2); Total Protein 6.7 g/dL (6.6-8.7)
[2022-03-18] MEDS: dextrose 5%-ns + KCl 40 40 MEQ/1,000 ML BAG 125 MEQ IV ×2 (03:46→11:49)
[2022-03-18 03:49] LABS: INR 1.45 (0.8-1.2)
[2022-03-18 03:57] LABS: Creatine Phosphokinase 230 U/L (26-192)
[2022-03-18 06:04] LABS: ABG PCO2 37.8 mmHg (35-45); ABG PH Result 7.22 (7.35-7.45); Arterial Blood Gas Hematocrit 39.1 % (37-47); Base Excess ABG -11.6 mmol/L (-2.0-2.0); Blood Gas Allen Test Pos; Blood Gas Operator Identificat JB; Blood Gas Sample Site Radial, right; Blood Gas Sample Type Arterial; HCO3 ABG 15.4 mmol/L (22-26); Oxygen Device VENT
--- NOTE | 2022-03-18 06:15 | PC.NURSE ---
TOF and BIS readings throughout this RN shift 2000: 03/02; 40 2100: 03/02; 41 2200: 03/02; 43 2300: 03/02; 33 0000: 03/02; 43 0100: 03/02; 49 0200: 03/02; 39 0300: 03/02; 45 0400: 03/02; 41 0500: 03/02; 44 0600: 03/02; 40 03/17/2022 @1900 medications were adjusted in mar to what was found currently running at bedside. Nimbex found 0.7; MAR showed 0.1 Fentanyl found 125; MAR showed 100 Propofol found 75; MAR showed 30
[2022-03-18] MEDS: pantoprazole 40 mg SDV IVP ×2 (06:27→17:39)
[2022-03-18 08:43] LABS: Ammonia 60 umol/L (11-51)
--- NOTE | 2022-03-18 09:31 | PC.CHAP ---
Pastoral Care Encounter/Spiritual Assessment Type of Contact [] Declined electro mechanical solar technician visit [] Patient/Family/Request visit [] Outpatient visit [] Follow-up visit [] Physician referral [] Code/Alert [x] Routine visit [] Staff referral [] Actively dying [x] Patient sleeping [] Family support [] [] Out of room [] Palliative care [] [] Receiving care in room [] Pre-surgical visit [] Trauma [] Long length of stay [x] ICU visit [x] Other: vent Relational/Emotional Strength [] Patient feels connected with others/family/visitors/staff [] Distress [] Loneliness/isolation [] Abandonment Spirituality of Patient [] Person of Eunice [] Attends Confucianism of their Eunice [] Believes in Prayer [] Reads Bible or Sikh materials [] There are Spiritual issues to be addressed Funeral Car Chauffeur Interventions [x] Prayer [] Active listening [] Non-anxious presence [] Spiritual/emotional support [] Crisis/trauma care [] Spiritual counseling [] Bereavement support [] Provided bereavement packet [] Provided Bible/devotional materials [] Provided toy/stuffed animal, coloring book to patient or family member [] Provided Communion [] Anointing/[place] [] Salvation [x] Completed spiritual assessment [] Other: Impact on Illness or Injury [] Angry [] Fearful [] Anxious [] Often cries [] Exhaustion [] Unable to work [] Unable to attend pentecostal [] Unable to walk/stand [] Unable to read [] Unable to drive [] Unable to eat/drink [] Unable to sleep [] Unable to be with family [] Patient intubated [] Other: Summary Time spent with patient
[2022-03-18] MEDS: levothyroxine 150 mcg Tablet PO (09:40)
[2022-03-18] MEDS: carbidopa-levodopa 25-100mg Tablet 1 EACH PO ×3 (09:40→21:30)
[2022-03-18] MEDS: sodium bicarbonate 8.4% 1 mEq/mL 50mL Syr 50 MEQ IVP ×2 (09:40→16:33)
[2022-03-18] MEDS: spironolactone 25 mg Tablet PO (09:40)
[2022-03-18] MEDS: vancomycin 1,000 MG in sodium chloride 0.9% 250 ML 250 MG IV (11:24)
--- NOTE | 2022-03-18 13:23 | PM.DCS ---
Discharge Providers Date of Admission: 03/16/22 16:42 Date of Discharge: March 18, 2022 Attending Provider at Admission: Joshua Grant MD Attending Provider at Discharge: Joshua Grant MD Primary Care Provider: Jenni Beltran DO Diagnoses at Discharge Discharge Diagnosis (1) Acute hepatic encephalopathy: Status: Acute (2) Hyperammonemia: Status: Acute (3) Acute respiratory failure: Status: Acute (4) Altered mental status: Status: Acute (5) KING (nonalcoholic steatohepatitis): Status: Acute (6) Esophageal varices: Status: Acute (7) Anemia: Status: Acute Reason for Visit Reason for Visit: UNRESPONSIVE Physical Exam Urinary Catheter Management: Brown: Cath Placed During This Visit: yes Reason for Continuing Indwelling Catheter: Accurate Measurement of Urinary Output in Critically Ill Patients Urinary Catheter Date of Insertion: 03/16/22 Urinary Catheter Time of Insertion: 11:49 Discharge Data Studies Completed and Pending Completed Studies During Hospitalization Category Date Time Status CT abdomen pelvis w con* [id number] Stat Cat Scan 03/16/22 12:[address] head wo con* [id number] Stat Cat Scan 03/16/22 11:36 Completed CTA head neck [CT angio headneck* [id number]] Stat Cat Scan 03/16/22 12:59 Completed XR chest 1V portable [id number] Stat Exams 03/16/22 11:36 Completed XR chest 1V portable [id number] Stat Exams 03/16/22 15:56 Completed XR chest 1V portable [id number] Stat Exams 03/16/22 17:16 Completed Pending at discharge Category Date Time Status ABG ONLY [Arterial Blood Gas W/O Coox] Stat Lab 03/16/22 18:00 Ordered Ammonia AM LABS Lab 03/19/22 04:00 Ordered Ammonia AM LABS Lab 03/20/22 04:00 Ordered Ammonia AM LABS Lab 03/21/22 04:00 Ordered Arterial Blood Gas W/O Coox AM LABS Lab 03/19/22 04:00 Ordered BMP [Basic Metabolic Panel] Timed Lab 03/18/22 12:45 Ordered Blood Culture Stat Lab 03/16/22 12:49 Results C Reactive Protein AM LABS Lab 03/19/22 04:00 Ordered Complete Blood Count w/Auto AM LABS Lab 03/19/22 04:00 Ordered Complete Blood Count w/Auto AM LABS Lab 03/20/22 04:00 Ordered Comprehensive Metabolic Panel AM LABS Lab 03/19/22 04:00 Ordered Comprehensive Metabolic Panel AM LABS Lab 03/20/22 04:00 Ordered Creatine Phosphokinase AM LABS Lab 03/19/22 04:00 Ordered Lactate (Lactic Acid level) AM LABS Lab 03/19/22 04:00 Ordered MRSA by PCR Stat Lab 03/18/22 07:49 Uncollected Magnesium AM LABS Lab 03/19/22 04:00 Ordered NT Pro B Type Natriuretic Pept QAM Lab 03/19/22 06:00 Ordered Phosphorus AM LABS Lab 03/19/22 04:00 Ordered Procalcitonin AM LABS Lab 03/19/22 04:00 Ordered Prothrombin Time INR AM LABS Lab 03/19/22 04:00 Ordered Radiology Impressions Head CT 03/16/22 11:36 IMPRESSION: 1. No CT evidence of acute intracranial abnormality. 2. Additional findings, as above. Abdomen/Pelvis CT 03/16/22 12:51 IMPRESSION: 1. Comparison CT 11/29/2021. Interval removal of CBD stent. Slightly prominent intrahepatic bile duct as described with no obvious extrahepatic bile duct dilatation. There is also abnormal hepatic contour and mild upper abdominal adenopathy as described. Please see discussion above. 2. Small abdominopelvic ascites. 3. Mild segmental colonic wall thickening which may be related to nondistention/contraction versus mild colitis. Moderate-large colorectal stool burden. No bowel obstruction or other acute bowel findings. 4. Nonspecific mild mesenteric haziness around the proximal SMA, nonspecific. No obvious SMA stenosis or thrombosis. 5. Other nonacute findings as above. Head/Neck CTA 03/16/22 12:59 IMPRESSION: 1. No acute abnormality. 2. Chronic findings as discussed above. IMPRESSION: 1. The study is moderately limited due to patient motion artifact. 2. The endotracheal tube terminates at the entrance to the right mainstem bronchus. This should be withdrawn 3 cm and reimaged. 3. There are age-indeterminate superior endplate compression fractures at T1, T3, and T4. Mild vertebral body height loss is present at each level. These are new from the chest CT dated 08/06/2021. 4. No significant vascular abnormality REFERENCES: NASCET CRITERIA. The degree of internal carotid artery stenosis is based on NASCET criteria. Normal is no stenosis. Mild is less than 50% stenosis. Moderate is 50-69% stenosis. Severe is 70% to 99% stenosis. Total occlusion is no detectable patent lumen. ADDENDUM: 03/16/22 1558 THIS REPORT CONTAINS FINDINGS THAT MAY BE CRITICAL TO PATIENT CARE. The findings were verbally communicated via telephone conference with PATRICIA KENNEDY at 3:52 PM CDT on 03/16/2022. The findings were acknowledged and understood. Chest X-Ray 03/16/22 17:16 IMPRESSION: The endotracheal tube has been repositioned, now terminating approximately 2.7 cm above the tad. Laboratory Results WBC 18.3 10^3/uL (4.0-10.0) H 03/18/22 02:24 RBC 3.79 10^6/uL (4.1-5.3) L 03/18/22 02:24 Hgb 9.3 g/dL (11.5-15.3) L 03/18/22 02:24 Hct 33.6 % (37.0-47.0) L 03/18/22 02:24 MCV 88.7 fl (81-99) D 03/18/22 02:24 MCH 24.5 pg (28.0-34.0) L 03/18/22 02:24 MCHC 27.7 g/dL (30.0-36.0) L D 03/18/22 02:24 RDW 25.9 % (12.1-15.1) H 03/18/22 02:24 Plt Count 235 10^3/cmm (130-400) 03/18/22 02:24 MPV 10.2 fL (7.4-10.4) 03/18/22 02:24 Neut % (Auto) 72.8 % 03/18/22 02:24 Lymph % (Auto) 9.8 % 03/18/22 02:24 [place] % (Auto) 10.9 % 03/18/22 02:24 Eos % (Auto) 5.0 % 03/18/22 02:24 Baso % (Auto) 0.9 % 03/18/22 02:24 Neut # (Auto) 13.31 10^3/uL (1.8-7.7) H 03/18/22 02:24 Lymph # (Auto) 1.8 10^3/uL (0.8-4.8) 03/18/22 02:24 [place] # (Auto) 2.0 10^3/uL (0.2-0.9) H 03/18/22 02:24 Eos # (Auto) 0.9 10^3/uL (0.0-0.8) H 03/18/22 02:24 Baso # (Auto) 0.2 10^3/uL (0.0-0.1) H 03/18/22 02:24 Nucleated RBC % (auto) 0 % 03/18/22 02:24 Nucleated RBCs # 0.0 /100WBC 03/18/22 02:24 PT 18.00 SECONDS (12.1-14.9) H 03/18/22 02:24 INR 1.45 (0.8-1.2) H 03/18/22 02:24 Specimen Type Arterial 03/18/22 05:44 Sample Site Radial, right 03/18/22 05:44 ABG pH 7.22 (7.35-7.45) L 03/18/22 05:44 ABG pCO2 37.8 mmHg (35-45) 03/18/22 05:44 ABG pO2 116.0 mmHg (80.0-100.0) H 03/18/22 05:44 ABG HCO3 15.4 mmol/L (22-26) L 03/18/22 05:44 ABG O2 Saturation 98.0 03/16/22 15:23 ABG Base Excess -11.6 mmol/L (-2.0-2.0) L 03/18/22 05:44 Joshua Test Pos 03/18/22 05:44 A-a O2 Gradient 6.2 mmHg (5-10) 03/16/22 15:23 Hematocrit 39.1 % (37-47) 03/18/22 05:44 Hgb O2 Saturation 97.2 % (95-100) 03/16/22 15:23 Carboxyhemoglobin < 0.0 %THgb (0.4-20.1) L 03/16/22 15:23 Methemoglobin 0.9 % (0.4-1.5) 03/16/22 15:23 Total Hemoglobin 8.5 g/dL (12-16) L 03/16/22 15:23 Sodium 143.0 mmol/L (131-143) 03/16/22 15:23 Potassium 2.7 mmol/L (3.5-5.0) L 03/16/22 15:23 Glucose 87.0 mg/dL (70-115) 03/16/22 15:23 Ionized Calcium 1.1 mmol/L (1.1-1.4) 03/16/22 15:23 O2 Delivery Device Vent 03/18/22 05:44 FiO2 25.0 % 03/18/22 05:44 Tidal Volume 0.40 03/18/22 05:44 PEEP 5.0 cmH20 03/18/22 05:44 Vp Software [employer] ID [email or web address] 03/18/22 05:44 Sodium 147 mmol/L (136-145) H 03/18/22 02:24 Potassium 4.1 mmol/L (3.5-5.1) 03/18/22 02:24 Chloride 123 mmol/L (98-107) H 03/18/22 02:24 Carbon Dioxide 14 mmol/L (22-29) L 03/18/22 02:24 Anion Gap 14.1 (5-19) 03/18/22 02:24 BUN 14 mg/dL (8-23) 03/18/22 02:24 Creatinine 1.0 mg/dL (0.5-0.9) H 03/18/22 02:24 GFR Calculation 55.5 mL/min (90-130) L 03/18/22 02:24 Glucose 122 mg/dL (65-115) H 03/18/22 02:24 POC Glucose 108 mg/dL (70-110) 03/17/22 21:57 Calculated Osmolality 306 mOsm/kg (285-295) H 03/18/22 02:24 Lactic Acid 2.2 mmol/L (0.5-2.2) 03/16/22 11:25 Lactic Acid (Sepsis) 1.6 mmol/L (0.5-2.2) 03/16/22 15:45 Lactate 1.5 mmol/L (0.5-2.2) 03/18/22 02:24 Calcium 7.3 mg/dL (8.5-10.5) L 03/18/22 02:24 Phosphorus 3.9 mg/dL (2.5-4.5) 03/18/22 02:24 Magnesium 2.3 mg/dL (1.7-2.3) 03/18/22 02:24 Total Bilirubin 0.6 mg/dL (0.15-1.2) 03/18/22 02:24 AST 28 U/L (0-32) 03/18/22 02:24 ALT 10 U/L (0-33) 03/18/22 02:24 Alkaline Phosphatase 201 IU/L (35-105) H 03/18/22 02:24 Ammonia 60 umol/L (11-51) H 03/18/22 08:02 Creatine Kinase 230 U/L (26-192) H 03/18/22 02:24 Troponin T Baseline 21 ng/L (0-10) H 03/16/22 19:55 Troponin T 120 Minute 21.73 ng/L (0-10) H 03/16/22 21:55 Delta Troponin T 0.73 ABS# (0-10) 03/16/22 21:55 Troponin T Hi Sens 6Hr 25.99 ng/L (0-10) H 03/17/22 02:07 Troponin T Hi Sens 6Hr Delta 4.99 ng/L (0-12) 03/17/22 02:07 C-Reactive Protein 80.1 mg/L (0.0-4.9) H 03/18/22 02:24 NT-Pro-B Natriuret Pep 686 pg/mL (0-125) H 03/18/22 02:24 Total Protein 6.7 g/dL (6.6-8.7) 03/18/22 02:24 Albumin 2.5 g/dL (3.5-5.2) L 03/18/22 02:24 Globulin 4.2 g/dL (1.3-4.6) 03/18/22 02:24 Lipase 7 U/L (13-60) L 03/16/22 11:25 Procalcitonin 0.29 ng/mL (0-0.5) 03/18/22 02:24 TSH 4.91 uIU/mL (0.27-4.20) H 03/16/22 14:04 Urine Color Yellow (Yellow) 03/16/22 11:49 Urine Appearance Clear (CLEAR) 03/16/22 11:49 Urine pH 7 (5-7) 03/16/22 11:49 Ur Specific [place] 1.010 (1.005-1.030) 03/16/22 11:49 Urine Protein Neg (Negative) 03/16/22 11:49 Urine Glucose (UA) Norm (Normal) 03/16/22 11:49 Urine Ketones 1+ (Negative) H 03/16/22 11:49 Urine Blood Neg (Negative) 03/16/22 11:49 Urine Nitrate Negative (Negative) 03/16/22 11:49 Urine Bilirubin Neg (Negative) 03/16/22 11:49 Urine Urobilinogen 4 mg/dL (Negative) H 03/16/22 11:49 Ur Leukocyte Esterase Negative (Negative) 03/16/22 11:49 Vitals Last Vital Signs Temp 97.9 F 03/18/22 09:30 Pulse 76 03/18/22 10:15 Resp 17 03/18/22 12:01 BP 103/48 03/18/22 10:15 Pulse Ox 99 03/18/22 12:01 Discharge Plan Discharge Patient Disposition: Home Condition: Stable Prescriptions: No Action (DME) Upright Walker See Rx Instructions .Route .MEDSUPPLY Qty: 1 0RF Rx Instructions: Use walker daily with ambulation at all times amantadine HCl 100 mg tablet 100 mg PO BID 0RF levothyroxine 150 mcg tablet 150 mcg PO DAILY 90 Days Qty: 90 1RF furosemide [Lasix] 40 mg tablet 40 mg PO QAM Qty: 90 0RF ferrous sulfate [Feosol] 325 mg (65 mg iron) tablet 325 mg PO BID Qty: 60 1RF (DME) upright walker with wheels and brakes See Rx Instructions .Route .MEDSUPPLY Qty: 1 0RF Rx Instructions: As directed carbidopa-levodopa 25-100 mg tablet 1 tab PO TID Qty: 90 3RF clonazepam 0.5 mg tablet 0.5 mg PO DAILY PRN (Reason: Anxiety) 0RF carvedilol 3.125 mg Tablet 3.125 mg PO BID 0RF Rx Instructions: must administer with a meal/food Aldactone 25 mg tablet 25 mg PO BID 0RF Protonix 40 mg tablet,delayed release (DR/EC) 40 mg PO BID 0RF hydroxychloroquine 200 mg tablet 200 mg PO DAILY 0RF ropinirole 2 mg tablet extended release 24 hr 2 mg PO TID 0RF Referrals: Jenni Beltran DO [Primary Care Provider] - Patient Instructions: Opioid Safety Coding Level of Care Code Acute Chg [facility] note Diagnoses Acute hepatic encephalopathy K72.00 Hyperammonemia E72.20 Acute respiratory failure J96.00 Altered mental status R41.82 KING (nonalcoholic steatohepatitis) K75.81 Esophageal varices I85.00 Anemia D64.9
--- NOTE | 2022-03-18 13:28 | P.PN_ITS ---
Subjective Medications: Medication Review Details: Patient was seen this morning, remains intubated, sedated, afebrile overnight, on 2 Levophed Patient was reexamined this afternoon, she is off sedation, she does have a weak cough reflex, no gag reflex according to nursing staff, she does open her eyes to pain, opens her eyes to the Babinski reflex, pupils reactive to light, family at bedside, I advised family at bedside, we will allow sedation medication to wear off, and recheck mentation, check reflexes, her ammonia levels have improved to 60 Vitals/I&O/Wt Last Vital Signs Temp 97.9 F 03/18/22 09:30 Pulse 76 03/18/22 10:15 Resp 17 03/18/22 12:01 BP 103/48 03/18/22 10:15 Pulse Ox 99 03/18/22 12:01 03/17/22 03/18/22 03/18/22 22:59 06:59 14:59 Intake Total 1763.398 / 2978.518 1315.274 / 4293.792 1635.507 / 1635.507 Output Total 1900 / 2300 350 / 2650 900 / 900 Balance -136.602 / 678.518 965.274 / 1643.792 735.507 / 735.507 Physical Exam Const: COMMON NORMALS: no acute distress and patient oriented x3 Resp: COMMON NORMALS: normal respiratory effort, No retractions, No use of accessory muscles and clear to auscultation bilaterally AUSCULTATION: clear to auscultation bilaterally Cardio: COMMON NORMALS: regular rate, regular rhythm, S1 normal heart sound present and S2 normal heart sound present RATE: regular rate RHYTHM: regular rhythm HEART SOUNDS: S1 normal heart sound present and S2 normal heart sound present GI: COMMON NORMALS: Normal to inspection, nondistended, normoactive bowel sounds present, Soft to palpation and non-tender PALPATION: Yes Soft to palpation Extremity: COMMON NORMALS: no pedal edema Neuro: COMMON NORMALS: patient oriented x3 Psych: COMMON NORMALS: mental status grossly normal Urinary Catheter Management: Brown: Cath Placed During This Visit: yes Reason for Continuing Indwelling Catheter: Accurate Measurement of Urinary Output in Critically Ill Patients Urinary Catheter Date of Insertion: 03/16/22 Urinary Catheter Time of Insertion: 11:49 Data : 03/18/22 02:24 03/18/22 02:24 Micro: Microbiology 03/16/22 12:00 Gram Stain - Final Sputum - Endotracheal Tube Aspirate Sputum Culture - Final 03/16/22 12:49 Blood Culture - Preliminary Blood NEGATIVE TO DATE 03/16/22 12:33 Blood Culture - Preliminary Blood NEGATIVE TO DATE A&P Assessment and plan (1) Acute hepatic encephalopathy: Status: Acute (2) Hyperammonemia: Status: Acute (3) Acute respiratory failure: Status: Acute (4) Altered mental status: Status: Acute (5) KING (nonalcoholic steatohepatitis): Status: Acute (6) Esophageal varices: Status: Acute (7) Anemia: Status: Acute Plan Acute encephalopathy altered mental status -Etiology likely secondary to hepatic encephalopathy, hyperammonemia -However still concerning for underlying CVA, possible brainstem -Neurochecks, NIH stroke scale, allow for permissive hypertension -Avoiding aspirin given history of esophageal variceal bleed recently requiring banding, continue statin -Monitor mentation off sedation, Hepatic encephalopathy, -Serum ammonia level 60 -Lactulose, rifaximin -Rectal tube in place -Monitor for cerebral edema Hyponatremia, likely secondary to diarrhea, continue IV fluids Hypokalemia, likely secondary to diarrhea, will replace Metabolic acidosis, likely secondary to diarrhea, will give an amp of bicarb, recheck BMP in the afternoon Persistent respiratory alkalosis with compensatory metabolic acidosis, have adjusted ventilator settings repeat ABG at 4 PM Acute respiratory failure -Due to nonresponsiveness -Continue intubation, mechanical ventilation -Minimize FiO2, minimize tidal volume, optimize PEEP -Give sedation vacation, minimal 25 fentanyl if needed -ABG shows metabolic acidosis as above [place] -History of esophageal varices -History of CBD stent, status post removal -History of EGD colonoscopy History of esophageal variceal bleed, status post 2 units PRBC, hemoglobin 9.3 -Protonix -Avoid blood thinners SCDs for DVT prophylaxis CODE STATUS DNR, family wants a trial of intubation, if her mentation does not improve they would like to proceed with extubation, and her healthcare directive she does not want to have aggressive interventions, no dialysis History of diastolic CHF does not look fluid overloaded Attestations Medical Necessity Statement*: Patient requires hospitalization for acute encephalopathy, acute respiratory failure, hyperammonemia, critical care time spent over 55 minutes Coding Level of Care Code Acute Independent [employer]or for [employer]g [employer]wd Diagnoses Acute hepatic encephalopathy K72.00 Hyperammonemia E72.20 Acute respiratory failure J96.00 Altered mental status R41.82 KING (nonalcoholic steatohepatitis) K75.81 Esophageal varices I85.00 Anemia D64.9
[2022-03-18 15:08] LABS: Blood Urea Nitrogen 11 mg/dL (8-23); Calcium 7.3 mg/dL (8.5-10.5); Carbon Dioxide 13 mmol/L (22-29); Chloride 127 mmol/L (98-107); Glomerular Filtration Rate 71.8 mL/min (90-130); Glucose 109 mg/dL (65-115); Osmolality Calculated 310 mOsm/kg (285-295); Sodium 150 mmol/L (136-145)
[2022-03-18 15:24] LABS: Anion Gap 14.9 (5-19); Potassium 4.9 mmol/L (3.5-5.1)
--- NOTE | 2022-03-18 18:12 | PC.NURSE ---
Shift Summary: Sedation has been stopped around 11 am. Attempting to wake patient up. SHe is opening eyes to her name, but cannot follow any commands. Ammonia levels have decreased to 60. SHe has had 1800mL of output form the rectal tube and 600 urine output. Patient frequentl turned throughout the day.
[2022-03-18] MEDS: piperacillin-tazobactam 3.375 GM in sodium chloride 0.9% (plus) 100 ML IV (19:27)
[2022-03-18] MEDS: dextrose 5%-ns + KCl 40 40 MEQ/1,000 ML BAG 150 MEQ IV (19:27)
[2022-03-18] MEDS: atorvastatin 40 mg Tablet PO (21:30)
[2022-03-19] VITALS (58 sets, daily range): BP systolic 112–149; BP diastolic 55–84; PULSE 66–99; RESP 13–22; TEMP 36.7–38.1; O2SAT 95–100
[2022-03-19] MEDS: dextrose 5%-ns + KCl 40 40 MEQ/1,000 ML BAG 150 MEQ IV ×4 (02:07→21:36)
[2022-03-19] MEDS: lactulose oral liq 20 gm/30 mL UDC 30 GM PO (02:08)
[2022-03-19 03:17] LABS: Glucose Point of Care 118 mg/dL (70-110)
[2022-03-19] MEDS: vancomycin 1,000 MG in sodium chloride 0.9% 250 ML 250 MG IV ×2 (03:24→20:20)
[2022-03-19] MEDS: piperacillin-tazobactam 3.375 GM in sodium chloride 0.9% (plus) 100 ML IV ×3 (03:27→20:19)
[2022-03-19 03:53] LABS: Basophils # 0.1 10^3/uL (0.0-0.1); Eosinophils # 0.8 10^3/uL (0.0-0.8); Eosinophils % 6.6 %; Hematocrit 31.6 % (37.0-47.0); Hemoglobin 8.8 g/dL (11.5-15.3); Lymphocytes # 1.1 10^3/uL (0.8-4.8); Lymphocytes % 9.3 %; Mean Corpuscular HGB Conc 27.8 g/dL (30.0-36.0); Mean Corpuscular Hemoglobin 24.6 pg (28.0-34.0); Mean Corpuscular Volume 88.3 fl (81-99); Mean Platelet Volume 10.1 fL (7.4-10.4); Monocytes % 8.5 %; Neutrophils % 74.2 %; Nucleated Red Blood Cells % 0 %; Platelet Count 173 10^3/cmm (130-400); Red Blood Count 3.58 10^6/uL (4.1-5.3); Red Cell Distribution Width 25.2 % (12.1-15.1); White Blood Count 11.5 10^3/uL (4.0-10.0)
[2022-03-19 04:17] LABS: Ammonia 53 umol/L (11-51); Lactate (Lactic Acid level) 1.6 mmol/L (0.5-2.2)
[2022-03-19 04:18] LABS: Alanine Aminotransferase < 5 U/L (0-33); Albumin Level 2.1 g/dL (3.5-5.2); Alkaline Phosphatase 198 IU/L (35-105); Aspartate Amino Transferase 24 U/L (0-32); Blood Urea Nitrogen 9 mg/dL (8-23); C Reactive Protein 62.6 mg/L (0.0-4.9); Carbon Dioxide 14 mmol/L (22-29); Chloride 129 mmol/L (98-107); Globulin 4.6 g/dL (1.3-4.6); Glomerular Filtration Rate 83.7 mL/min (90-130); Glucose 129 mg/dL (65-115); Magnesium 2.2 mg/dL (1.7-2.3); Osmolality Calculated 314 mOsm/kg (285-295); Phosphorus 1.2 mg/dL (2.5-4.5); Sodium 152 mmol/L (136-145); Total Bilirubin 0.7 mg/dL (0.15-1.2); Total Protein 6.7 g/dL (6.6-8.7)
[2022-03-19 04:32] LABS: NT Pro B Type Natriuretic Pept 1472 pg/mL (0-125); Procalcitonin 0.19 ng/mL (0-0.5)
[2022-03-19 04:42] LABS: Creatine Phosphokinase 240 U/L (26-192)
[2022-03-19 04:46] LABS: INR 1.34 (0.8-1.2)
[2022-03-19 05:42] LABS: ABG PCO2 23.1 mmHg (35-45); ABG PH Result 7.45 (7.35-7.45); Arterial Blood Gas Hematocrit 34.1 % (37-47); Base Excess ABG -6.4 mmol/L (-2.0-2.0); Blood Gas Allen Test Pos; Blood Gas Sample Type Arterial; HCO3 ABG 16.1 mmol/L (22-26)
[2022-03-19 05:43] LABS: Blood Gas Operator Identificat JB; Blood Gas Sample Site Radial, right; Oxygen Device VENT
[2022-03-19] MEDS: pantoprazole 40 mg SDV IVP ×2 (06:21→17:34)
[2022-03-19] MEDS: carbidopa-levodopa 25-100mg Tablet 1 EACH PO ×3 (08:17→20:19)
[2022-03-19] MEDS: levothyroxine 150 mcg Tablet PO (08:17)
--- NOTE | 2022-03-19 09:49 | PM.PN ---
Subjective Subjective: Patient was seen this morning, family at bedside, she does awaken her eyes to sternal rub, withdraws from pain, Babinski is downward going bilaterally, withdraws from pain, pupils equal round reactive to light, has a cough reflex, has a gag reflex, is not following commands, does not track, afebrile, normotensive, on minimal ventilator settings Vitals/I&O/Wt Last Vital Signs Temp 98.9 F 03/19/22 06:28 Pulse 86 03/19/22 06:00 Resp 21 H 03/19/22 07:45 BP 124/60 03/19/22 06:00 Pulse Ox 98 03/19/22 07:45 03/18/22 03/19/22 03/19/22 22:59 06:59 14:59 Intake Total 1493.564 / 3129.071 1350 / 4479.071 1025 / 1025 Output Total 2075 / 2975 1200 / 4175 Balance -581.436 / 154.071 150 / 939.759 7602 / 1025 Physical Exam Const: COMMON NORMALS: no acute distress Eye: COMMON NORMALS: Equal, round and reactive pupils present PUPIL: Yes Equal, round and reactive pupils present Resp: COMMON NORMALS: normal respiratory effort, No retractions, No use of accessory muscles and clear to auscultation bilaterally AUSCULTATION: clear to auscultation bilaterally Cardio: COMMON NORMALS: regular rate, regular rhythm, S1 normal heart sound present and S2 normal heart sound present RATE: regular rate RHYTHM: regular rhythm HEART SOUNDS: S1 normal heart sound present and S2 normal heart sound present GI: COMMON NORMALS: Normal to inspection, nondistended, normoactive bowel sounds present, Soft to palpation, non-tender and No hepatosplenomegaly present PALPATION: Yes Soft to palpation and Yes No hepatosplenomegaly present Extremity: COMMON NORMALS: no pedal edema Psych: OTHER: Does withdraw from pain, Babinski's downward going bilaterally, does not track, does awaken with sternal rub, does have spontaneous eye opening to words and pain, does localize pain, does not follow commands Urinary Catheter Management: Brown: Cath Placed During This Visit: yes Reason for Continuing Indwelling Catheter: Accurate Measurement of Urinary Output in Critically Ill Patients Urinary Catheter Date of Insertion: 03/16/22 Urinary Catheter Time of Insertion: 11:49 Data : 03/19/22 03:11 03/19/22 03:11 Micro: Microbiology 03/16/22 12:00 Gram Stain - Final Sputum - Endotracheal Tube Aspirate Sputum Culture - Final A&P Assessment and plan (1) Acute hepatic encephalopathy: Status: Acute (2) Hyperammonemia: Status: Acute (3) Acute respiratory failure: Status: Acute (4) Altered mental status: Status: Acute (5) KING (nonalcoholic steatohepatitis): Status: Acute (6) Esophageal varices: Status: Acute (7) Anemia: Status: Acute Plan Hypernatremia -Serum sodium 152 -Likely secondary to diarrhea, -We will give free water flushes through orogastric tube -Continue IV fluids -Stop lactulose Acute encephalopathy altered mental status -Etiology likely secondary to hepatic encephalopathy, hyperammonemia -However still concerning for underlying CVA, possible brainstem -Neurochecks, NIH stroke scale, allow for permissive hypertension -Avoiding aspirin given history of esophageal variceal bleed recently requiring banding, continue statin -Monitor mentation off sedation, Hepatic encephalopathy, -Serum ammonia level 50 -Hold lactulose, rifaximin -Rectal tube in place -Monitor for cerebral edema Hypokalemia, likely secondary to diarrhea, will replace Metabolic acidosis, likely secondary to diarrhea, monitor Acute respiratory failure -Due to nonresponsiveness -Continue intubation, mechanical ventilation -Minimize FiO2, minimize tidal volume, optimize PEEP -Give sedation vacation, minimal 25 fentanyl if needed -Spontaneous breathing trial -ABG shows metabolic acidosis as above [place] -History of esophageal varices -History of CBD stent, status post removal -History of EGD colonoscopy History of esophageal variceal bleed, status post 2 units PRBC, hemoglobin 9.3 -Protonix -Avoid blood thinners SCDs for DVT prophylaxis CODE STATUS DNR, family wants a trial of intubation, if her mentation does not improve they would like to proceed with extubation, and her healthcare directive she does not want to have aggressive interventions, no dialysis History of diastolic CHF does not look fluid overloaded Attestations Medical Necessity Statement*: Patient requires hospitalization for acute encephalopathy, hypernatremia, ICU, critical care time spent over 35 minutes Coding Level of Care Code Acute Conference Concierge for g Fwd Diagnoses Acute hepatic encephalopathy K72.00 Hyperammonemia E72.20 Acute respiratory failure J96.00 Altered mental status R41.82 KING (nonalcoholic steatohepatitis) K75.81 Esophageal varices I85.00 Anemia D64.9
--- NOTE | 2022-03-19 10:07 | PC.NURSE ---
Fentanyl bag had . NUrse wasted fentanyl bag#: [id number] and ordered new Bag. Nurse Job witnessed waste.
--- NOTE | 2022-03-19 10:21 | PC.SOCIAL ---
Addendum entered by Boone Leo RN 03/19/22 10:21: Explained to pt's family Pg 2 IMM. Pt is intubated. Original Note: Pg 2 IMM Explained to pt Pg 2 IMM. No questions voiced. Provided pt a copy. Initialed, dated, & timed a copy & placed in chart.
[2022-03-19] MEDS: AMANTADINE HCL 100 MG 100 EACH PO ×2 (11:19→17:34)
--- NOTE | 2022-03-19 11:26 | PC.NURSE ---
Nurse called [facility] and asked them to bring in home medication called Amantadine. Amantadine was brought in and taken to pharmacy for labeling. Home medication is in patient's pharmacy bin to be given as scheduled.
--- NOTE | 2022-03-19 13:29 | PC.NUTR ---
TF consult received. Recommend Jevity 1.2 beginning at 15 mls/hr and increasing 10 mls/hr Q8H as tolerated until goal rate of 45 mls/hr is reached, plus flushes of 100 mls Q4H. Details in RD assessment.
--- NOTE | 2022-03-19 14:34 | PC.NURSE ---
Extubated at 1425 to 4lnc. Adjusted down to 2lnc.
[2022-03-19 16:21] LABS: Blood Urea Nitrogen 5 mg/dL (8-23); Calcium 7.2 mg/dL (8.5-10.5); Carbon Dioxide 14 mmol/L (22-29); Chloride 128 mmol/L (98-107); Glucose 112 mg/dL (65-115); Osmolality Calculated 308 mOsm/kg (285-295); Sodium 150 mmol/L (136-145)
[2022-03-19] MEDS: atorvastatin 40 mg Tablet PO (20:19)
[2022-03-20] VITALS (27 sets, daily range): BP systolic 90–174; BP diastolic 49–81; PULSE 46–77; RESP 12–22; TEMP 36.6–36.8; O2SAT 94–100
[2022-03-20] MEDS: piperacillin-tazobactam 3.375 GM in sodium chloride 0.9% (plus) 100 ML IV ×3 (02:49→20:33)
[2022-03-20] MEDS: dextrose 5%-ns + KCl 40 40 MEQ/1,000 ML BAG 150 MEQ IV (04:12)
[2022-03-20 05:04] LABS: Basophils # 0.1 10^3/uL (0.0-0.1); Basophils % 0.9 %; Eosinophils % 8.9 %; Hematocrit 31.5 % (37.0-47.0); Hemoglobin 8.7 g/dL (11.5-15.3); Lymphocytes # 1.2 10^3/uL (0.8-4.8); Lymphocytes % 10.6 %; Mean Corpuscular HGB Conc 27.6 g/dL (30.0-36.0); Mean Corpuscular Hemoglobin 24.6 pg (28.0-34.0); Mean Platelet Volume 10.7 fL (7.4-10.4); Monocytes # 0.9 10^3/uL (0.2-0.9); Monocytes % 7.5 %; Neutrophils # 8.29 10^3/uL (1.8-7.7); Neutrophils % 71.8 %; Nucleated Red Blood Cells % 0 %; Platelet Count 149 10^3/cmm (130-400); Red Blood Count 3.54 10^6/uL (4.1-5.3); White Blood Count 11.5 10^3/uL (4.0-10.0)
[2022-03-20 05:24] LABS: Ammonia 41 umol/L (11-51)
[2022-03-20 05:25] LABS: Lactate (Lactic Acid level) 1.7 mmol/L (0.5-2.2)
[2022-03-20 05:27] LABS: Alanine Aminotransferase 17 U/L (0-33); Albumin Level 2.5 g/dL (3.5-5.2); Alkaline Phosphatase 186 IU/L (35-105); Anion Gap 12.2 (5-19); Aspartate Amino Transferase 33 U/L (0-32); Blood Urea Nitrogen 4 mg/dL (8-23); C Reactive Protein 34.6 mg/L (0.0-4.9); Calcium 7.6 mg/dL (8.5-10.5); Carbon Dioxide 16 mmol/L (22-29); Chloride 124 mmol/L (98-107); Globulin 3.9 g/dL (1.3-4.6); Glomerular Filtration Rate 123.4 mL/min (90-130); Glucose 94 mg/dL (65-115); Osmolality Calculated 303 mOsm/kg (285-295); Phosphorus 1.3 mg/dL (2.5-4.5); Potassium 4.2 mmol/L (3.5-5.1); Sodium 148 mmol/L (136-145); Total Bilirubin 0.8 mg/dL (0.15-1.2); Total Protein 6.4 g/dL (6.6-8.7)
[2022-03-20] MEDS: pantoprazole 40 mg SDV IVP ×2 (05:46→17:19)
[2022-03-20 06:07] LABS: NT Pro B Type Natriuretic Pept 2536 pg/mL (0-125); Procalcitonin 0.16 ng/mL (0-0.5)
[2022-03-20] MEDS: levothyroxine 150 mcg Tablet PO (07:55)
[2022-03-20] MEDS: carbidopa-levodopa 25-100mg Tablet 1 EACH PO ×3 (07:55→20:35)
[2022-03-20] MEDS: phosphorus 250 mg Tablet PO ×2 (07:55→17:03)
[2022-03-20] MEDS: AMANTADINE HCL 100 MG 100 EACH PO ×2 (07:58→17:04)
--- NOTE | 2022-03-20 08:29 | CT_ITS ---
WS: [id number] CT HEAD NONCONTRAST HISTORY: cva? TECHNIQUE: Contiguous axial imaging performed through the brain in 2.5 mm imaging. Bone and soft tiss ue windows. Sagittal and coronal reformats reviewed. All CT scans at [place] use at least one of these dose optimization techniques: automated exposure control; mA and/or kV adjustment per pa tient size (includes targeted exams where dose is matched to clinical indication); or iterative recon struction. DLP: 1565.61 mGy.cm COMPARISON: 03/16/2022 There is extensive artifact through the brain secondary to bilateral deep thalamic stimulators. No ch lenny in position of the deep stimulator devices. There are no gross areas of hemorrhage and no midlin e shift. Extensive artifact through the brain would easily obscure areas of edema and hemorrhage. Mild atrophy. Ventricles: Normal size with no hydrocephalus. Paranasal sinuses: As visualized are clear. Mastoid air cells: Well pneumatized. Calvarium and scalp: Bifrontal [place] holes for the deep stimulator device. CT/CT head wo con* [id number] IMPRESSION: 1. Very limited evaluation of the brain due to extensive artifact from the talat p thalamic stimulator electrodes. 2. No large areas of hemorrhage or edema. No midline shift.
--- NOTE | 2022-03-20 08:30 | PC.NURSE ---
During pt exam, found rectal tube at end of bed. MD at bedside, ordered to leave out. Will monitor.
--- NOTE | 2022-03-20 09:58 | PC.CHAP ---
Pastoral Care Encounter/Spiritual Assessment Type of Contact [] Declined pearl technician visit [] Patient/Family/Request visit [] Outpatient visit [] Follow-up visit [] Physician referral [] Code/Alert [x] Routine visit [] Staff referral [] Actively dying [] Patient sleeping [x] Family support [] [] Out of room [] Palliative care [] [] Receiving care in room [] Pre-surgical visit [] Trauma [] Long length of stay [x] ICU visit [] Other: Relational/Emotional Strength [] Patient feels connected with others/family/visitors/staff [] Distress [] Loneliness/isolation [] Abandonment Spirituality of Patient [] Person of [place] [] Attends Protestant of their [place] [] Believes in Prayer [] Reads Bible or Mu-Ism materials [] There are Spiritual issues to be addressed Software Product Specialist Interventions [x] Prayer [] Active listening [] Non-anxious presence [] Spiritual/emotional support [] Crisis/trauma care [] Spiritual counseling [] Bereavement support [] Provided bereavement packet [] Provided Bible/devotional materials [] Provided toy/stuffed animal, coloring book to patient or family member [] Provided Communion [] Anointing/[place] [] Salvation [x] Completed spiritual assessment [] Other: Impact on Illness or Injury [] Angry [] Fearful [] Anxious [] Often cries [] Exhaustion [] Unable to work [] Unable to attend baptist [] Unable to walk/stand [] Unable to read [] Unable to drive [] Unable to eat/drink [] Unable to sleep [] Unable to be with family [] Patient intubated [] Other: Summary not verbal yet... gifted a prayer shawl Time spent with patient 10 min
--- NOTE | 2022-03-20 10:14 | P.PN_ITS ---
Subjective Subjective: Patient was seen this morning, she is alert to person, not to place, not to time she does follow commands such as squeezing my fingers bilaterally, wiggling her toes, she is able to smile for me, her answers are limited to simple yes or no questions, she does have at times word finding difficulty, responses are delayed, no facial droop, no slurring of her words Vitals/I&O/Wt Last Vital Signs Temp 97.9 F 03/20/22 08:00 Pulse 61 03/20/22 08:30 Resp 21 H 03/20/22 08:30 BP 156/72 03/20/22 10:00 Pulse Ox 99 03/20/22 08:30 03/19/22 03/20/22 03/20/22 22:59 06:59 14:59 Intake Total 1340 / 3565 1090 / 4655 890 / 890 Output Total 275 / 725 1200 / 1925 300 / 300 Balance 1065 / 2840 -110 / 2730 590 / 590 Physical Exam Const: COMMON NORMALS: no acute distress OTHER: Alert to person, not to place, not to time HENMT: COMMON NORMALS: normocephalic HEAD & SCALP: normocephalic Neck/C-Spine: COMMON NORMALS: no JVD Resp: COMMON NORMALS: normal respiratory effort, No retractions, No use of accessory muscles and clear to auscultation bilaterally AUSCULTATION: clear to auscultation bilaterally Cardio: COMMON NORMALS: no JVD, regular rate, regular rhythm, S1 normal heart sound present and S2 normal heart sound present RATE: regular rate RHYTHM: regular rhythm HEART SOUNDS: S1 normal heart sound present and S2 normal heart sound present GI: COMMON NORMALS: Normal to inspection, nondistended, normoactive bowel sounds present, Soft to palpation, non-tender and No hepatosplenomegaly present PALPATION: Yes Soft to palpation and Yes No hepatosplenomegaly present Extremity: COMMON NORMALS: no pedal edema Urinary Catheter Management: Brown: Cath Placed During This Visit: yes Reason for Continuing Indwelling Catheter: Accurate Measurement of Urinary Output in Critically Ill Patients Urinary Catheter Date of Insertion: 03/16/22 Urinary Catheter Time of Insertion: 11:49 Data : 03/20/22 04:42 03/20/22 04:42 Micro: Microbiology 03/18/22 18:35 MRSA Culture - Final Nose A&P Assessment and plan (1) Acute hepatic encephalopathy: Status: Acute (2) Hyperammonemia: Status: Acute (3) Acute respiratory failure: Status: Acute (4) Altered mental status: Status: Acute (5) KING (nonalcoholic steatohepatitis): Status: Acute (6) Esophageal varices: Status: Acute (7) Anemia: Status: Acute Plan Hypernatremia -Serum sodium 150 -Likely secondary to diarrhea, -Continue IV fluids -Speech therapy consult Acute encephalopathy altered mental status -Etiology likely secondary to hepatic encephalopathy, hyperammonemia -However still concerning for underlying CVA we will repeat CVA -Neurochecks, NIH stroke scale -Avoiding aspirin given history of esophageal variceal bleed recently requiring banding, continue statin -Monitor mentation off sedation, Hepatic encephalopathy, -Serum ammonia level 50 -Decrease lactulose to once daily, rifaximin -Remove rectal tube -Monitor for cerebral edema Hypokalemia, likely secondary to diarrhea, will replace Metabolic acidosis, likely secondary to diarrhea, monitor Acute respiratory failure -Due to nonresponsiveness -Successfully extubated yesterday to nasal cannula -Monitor respiratory status closely -Confirmed with family she is DO NOT INTUBATE [place] -History of esophageal varices -History of CBD stent, status post removal -History of EGD colonoscopy History of esophageal variceal bleed, status post 2 units PRBC, hemoglobin 9.3 -Protonix -Avoid blood thinners SCDs for DVT prophylaxis CODE STATUS confirmed with family she is DNR/DNI, confirmed with her written goals of care History of diastolic CHF does not look fluid overloaded Deconditioning PT OT Speech therapy eval Nutrition eval Attestations Medical Necessity Statement*: Patient requires hospitalization for hypernatremia, acute encephalopathy, deconditioning Coding Level of Care Code Acute Archery Equipment Hay Sorter for [facility] Fwd Diagnoses Acute hepatic encephalopathy K72.00 Hyperammonemia E72.20 Acute respiratory failure J96.00 Altered mental status R41.82 KING (nonalcoholic steatohepatitis) K75.81 Esophageal varices I85.00 Anemia D64.9
--- NOTE | 2022-03-20 14:04 | PC.NURSE ---
Report given to Katerine THRASHER. Pt transferred to room 259-2 per staff.
[2022-03-20 16:26] LABS: Vancomycin Trough 7.4 ug/mL (10-15)
[2022-03-20] MEDS: lactulose oral liq 20 gm/30 mL UDC 30 GM PO (17:03)
[2022-03-20] MEDS: dextrose 5%-ns + KCl 40 40 MEQ/1,000 ML BAG 75 MEQ IV (17:05)
[2022-03-20] MEDS: atorvastatin 40 mg Tablet PO (20:35)
[2022-03-21] VITALS (9 sets, daily range): BP systolic 123–151; BP diastolic 66–75; PULSE 46–78; RESP 16–20; TEMP 36.4–36.9; O2SAT 95–100
[2022-03-21] MEDS: piperacillin-tazobactam 3.375 GM in sodium chloride 0.9% (plus) 100 ML IV ×2 (04:02→12:25)
[2022-03-21] MEDS: lanolin oint 7 gm 1 APPLIC TOPICAL (04:10)
[2022-03-21] MEDS: pantoprazole 40 mg SDV IVP ×2 (05:52→16:55)
[2022-03-21 06:05] LABS: Basophils # 0.1 10^3/uL (0.0-0.1); Basophils % 1.4 %; Eosinophils # 1.1 10^3/uL (0.0-0.8); Eosinophils % 13.4 %; Lymphocytes % 12.9 %; Mean Corpuscular HGB Conc 28.1 g/dL (30.0-36.0); Mean Corpuscular Hemoglobin 24.9 pg (28.0-34.0); Mean Corpuscular Volume 88.4 fl (81-99); Mean Platelet Volume 10.9 fL (7.4-10.4); Monocytes # 0.8 10^3/uL (0.2-0.9); Monocytes % 9.7 %; Neutrophils # 5.03 10^3/uL (1.8-7.7); Neutrophils % 62.2 %; Nucleated Red Blood Cells % 0 %; Platelet Count 136 10^3/cmm (130-400); Red Blood Count 3.62 10^6/uL (4.1-5.3); Red Cell Distribution Width 24.9 % (12.1-15.1); White Blood Count 8.1 10^3/uL (4.0-10.0)
--- NOTE | 2022-03-21 06:13 | PC.NURSE ---
Shift Summary Patient did really well and slept through most of the night. No complaints of pain. Patient is requesting to have some ice water. This nurse educated patient that she is currently NPO and cannot have anything due to aspiration risks.
[2022-03-21 06:26] LABS: Alanine Aminotransferase 6 U/L (0-33); Albumin Level 2.5 g/dL (3.5-5.2); Alkaline Phosphatase 187 IU/L (35-105); Anion Gap 12.8 (5-19); Aspartate Amino Transferase 28 U/L (0-32); Blood Urea Nitrogen 5 mg/dL (8-23); Calcium 7.2 mg/dL (8.5-10.5); Carbon Dioxide 15 mmol/L (22-29); Chloride 116 mmol/L (98-107); Globulin 4.4 g/dL (1.3-4.6); Glomerular Filtration Rate 123.4 mL/min (90-130); Glucose 88 mg/dL (65-115); Osmolality Calculated 287 mOsm/kg (285-295); Phosphorus 1.9 mg/dL (2.5-4.5); Potassium 3.8 mmol/L (3.5-5.1); Sodium 140 mmol/L (136-145); Total Bilirubin 0.8 mg/dL (0.15-1.2); Total Protein 6.9 g/dL (6.6-8.7)
[2022-03-21 06:32] LABS: Ammonia 21 umol/L (11-51); Lactate (Lactic Acid level) 1.1 mmol/L (0.5-2.2)
[2022-03-21 06:33] LABS: NT Pro B Type Natriuretic Pept 2730 pg/mL (0-125); Procalcitonin 0.18 ng/mL (0-0.5)
[2022-03-21] MEDS: dextrose 5%-ns + KCl 40 40 MEQ/1,000 ML BAG 75 MEQ IV (06:41)
[2022-03-21 07:12] LABS: C Reactive Protein 22.2 mg/L (0.0-4.9)
[2022-03-21] MEDS: phosphorus 250 mg Tablet PO ×2 (08:10→16:56)
[2022-03-21] MEDS: levothyroxine 150 mcg Tablet PO (08:10)
[2022-03-21] MEDS: carbidopa-levodopa 25-100mg Tablet 1 EACH PO ×3 (08:10→21:29)
[2022-03-21] MEDS: AMANTADINE HCL 100 MG 100 EACH PO ×2 (08:11→16:55)
--- NOTE | 2022-03-21 09:18 | PC.SOCIAL ---
IMM Update Pg. 2 of IMM updated and reviewed with patient, who verbalized understanding. Copy provided.
--- NOTE | 2022-03-21 13:50 | PM.PN ---
Subjective Subjective: Patient was seen this morning, family member at bedside, she is alert to person, not to place but not to time, she is sitting up in bed, much more alert and awake, she tells me she is hungry, she would like to try something to eat Vitals/I&O/Wt Last Vital Signs Temp 98.1 F 03/21/22 11:28 Pulse 54 L 03/21/22 11:28 Resp 16 03/21/22 11:28 BP 131/72 03/21/22 11:28 Pulse Ox 96 03/21/22 11:28 03/20/22 03/21/22 03/21/22 22:59 06:59 14:59 Intake Total 160 / 1260 1131.25 / 2391.25 100 / 100 Output Total 1000 / 1300 500 / 1800 Balance -840 / -40 631.25 / 591.25 100 / 100 Physical Exam Const: COMMON NORMALS: no acute distress EXAM LIMITATIONS: altered mental status Resp: COMMON NORMALS: normal respiratory effort, No retractions, No use of accessory muscles and clear to auscultation bilaterally AUSCULTATION: clear to auscultation bilaterally Cardio: COMMON NORMALS: regular rate, regular rhythm, S1 normal heart sound present and S2 normal heart sound present RATE: regular rate RHYTHM: regular rhythm HEART SOUNDS: S1 normal heart sound present and S2 normal heart sound present GI: COMMON NORMALS: Normal to inspection, nondistended, normoactive bowel sounds present, Soft to palpation and non-tender PALPATION: Yes Soft to palpation Extremity: COMMON NORMALS: no pedal edema Neuro: OTHER: Alert to person, not to place, not to time, does follow commands Urinary Catheter Management: Brown: Cath Placed During This Visit: yes Reason for Continuing Indwelling Catheter: Accurate Measurement of Urinary Output in Critically Ill Patients Urinary Catheter Date of Insertion: 03/16/22 Urinary Catheter Time of Insertion: 11:49 Data : 03/21/22 05:40 03/21/22 05:40 Micro: Microbiology 03/16/22 12:49 Blood Culture - Final Blood NO GROWTH AFTER 5 DAYS 03/16/22 12:33 Blood Culture - Final Blood NO GROWTH AFTER 5 DAYS A&P Assessment and plan (1) Acute hepatic encephalopathy: Status: Acute (2) Hyperammonemia: Status: Acute (3) Acute respiratory failure: Status: Acute (4) Altered mental status: Status: Acute (5) KING (nonalcoholic steatohepatitis): Status: Acute (6) Esophageal varices: Status: Acute (7) Anemia: Status: Acute Plan Hypernatremia -Resolved -Likely secondary to diarrhea, Decrease IV fluids to 50 cc -Speech therapy consult Acute encephalopathy altered mental status -Improving -Etiology likely secondary to hepatic encephalopathy, hyperammonemia -However still concerning for underlying CVA we will repeat CVA -Neurochecks, NIH stroke scale -Avoiding aspirin given history of esophageal variceal bleed recently requiring banding, continue statin -Monitor mentation off sedation, Hepatic encephalopathy, -Serum ammonia level 40 -Decrease lactulose to once daily, rifaximin -Remove rectal tube -Monitor for cerebral edema Hypokalemia, likely secondary to diarrhea, will replace Metabolic acidosis, resolved likely secondary to diarrhea, monitor Acute respiratory failure -Resolved -Due to nonresponsiveness -Successfully extubated to nasal cannula -Monitor respiratory status closely -Confirmed with family she is DO NOT INTUBATE [place] -History of esophageal varices -History of CBD stent, status post removal -History of EGD colonoscopy History of esophageal variceal bleed, status post 2 units PRBC, hemoglobin 9.3 -Protonix -Avoid blood thinners SCDs for DVT prophylaxis CODE STATUS confirmed with family she is DNR/DNI, confirmed with her written goals of care Deconditioning will require longterm placement History of diastolic CHF does not look fluid overloaded Deconditioning PT OT Speech therapy eval Nutrition eval Attestations Medical Necessity Statement*: Patient requires hospitalization for encephalopathy, deconditioning, Coding Level of Care Code Acute Java Programmer Analyst for [facility] Diagnoses Acute hepatic encephalopathy K72.00 Hyperammonemia E72.20 Acute respiratory failure J96.00 Altered mental status R41.82 KING (nonalcoholic steatohepatitis) K75.81 Esophageal varices I85.00 Anemia D64.9
[2022-03-21] MEDS: acetaminophen 325 mg Tablet 650 MG PO (16:55)
[2022-03-21] MEDS: lactulose oral liq 20 gm/30 mL UDC 30 GM PO (16:56)
[2022-03-21] MEDS: atorvastatin 40 mg Tablet PO (21:29)
[2022-03-21] MEDS: dextrose 5%-ns + KCl 40 40 MEQ/1,000 ML BAG 50 MEQ IV (22:27)
[2022-03-22] VITALS (14 sets, daily range): BP systolic 111–139; BP diastolic 57–74; PULSE 49–73; RESP 16–24; TEMP 36.3–36.8; O2SAT 94–100
[2022-03-22 05:50] LABS: Alanine Aminotransferase 8 U/L (0-33); Albumin Level 2.4 g/dL (3.5-5.2); Alkaline Phosphatase 167 IU/L (35-105); Blood Urea Nitrogen 7 mg/dL (8-23); Calcium 7.1 mg/dL (8.5-10.5); Carbon Dioxide 15 mmol/L (22-29); Chloride 119 mmol/L (98-107); Globulin 3.4 g/dL (1.3-4.6); Glomerular Filtration Rate 159.7 mL/min (90-130); Glucose 82 mg/dL (65-115); Magnesium 1.8 mg/dL (1.7-2.3); Osmolality Calculated 293 mOsm/kg (285-295); Phosphorus 2.7 mg/dL (2.5-4.5); Sodium 143 mmol/L (136-145); Total Bilirubin 0.5 mg/dL (0.15-1.2); Total Protein 5.8 g/dL (6.6-8.7)
[2022-03-22] MEDS: pantoprazole 40 mg SDV IVP (06:05)
[2022-03-22 06:09] LABS: Anion Gap 13.3 (5-19); Potassium 4.3 mmol/L (3.5-5.1)
[2022-03-22 06:10] LABS: Aspartate Amino Transferase 27 U/L (0-32)
[2022-03-22] MEDS: phosphorus 250 mg Tablet PO ×2 (08:21→18:18)
[2022-03-22] MEDS: carbidopa-levodopa 25-100mg Tablet 1 EACH PO ×3 (08:21→20:18)
[2022-03-22] MEDS: levothyroxine 150 mcg Tablet PO (08:21)
[2022-03-22] MEDS: AMANTADINE HCL 100 MG 100 EACH PO ×2 (08:22→19:03)
[2022-03-22] MEDS: pantoprazole DR 40 mg Tablet PO (08:25)
--- NOTE | 2022-03-22 09:20 | PM.PN ---
Subjective Subjective: Patient was seen this morning, she is sitting up in bed, alert to person, to place, not to time, she follows commands, she is having breakfast, she is much more alert and awake, she has no complaints, she wants to have a soda Vitals/I&O/Wt Last Vital Signs Temp 98.3 F 03/22/22 08:00 Pulse 51 L 03/22/22 08:00 Resp 18 03/22/22 08:00 BP 132/71 03/22/22 08:00 Pulse Ox 100 03/22/22 07:34 03/21/22 03/22/22 03/22/22 22:59 06:59 14:59 Intake Total 1112.5 / 2241.25 300 / 2541.25 240 / 240 Output Total 600 / 600 Balance 512.5 / 1641.25 300 / 1941.25 240 / 240 Physical Exam Const: COMMON NORMALS: no acute distress ORIENTATION/CONSCIOUSNESS: Yes awake, Yes oriented to person and Yes oriented to place Resp: COMMON NORMALS: normal respiratory effort, No retractions, No use of accessory muscles and clear to auscultation bilaterally AUSCULTATION: clear to auscultation bilaterally Cardio: COMMON NORMALS: regular rate, regular rhythm, S1 normal heart sound present and S2 normal heart sound present RATE: regular rate RHYTHM: regular rhythm HEART SOUNDS: S1 normal heart sound present and S2 normal heart sound present GI: COMMON NORMALS: Normal to inspection, nondistended, normoactive bowel sounds present, Soft to palpation and non-tender PALPATION: Yes Soft to palpation Extremity: COMMON NORMALS: no pedal edema Neuro: SENSORIUM/ORIENTATION: Yes oriented to person and Yes oriented to place Psych: COMMON NORMALS: mental status grossly normal Urinary Catheter Management: Brown: Cath Placed During This Visit: yes Reason for Continuing Indwelling Catheter: Acute Urinary Retention or Obstruction Urinary Catheter Date of Insertion: 03/16/22 Urinary Catheter Time of Insertion: 11:49 Data : 03/21/22 05:40 03/22/22 05:05 Micro: Microbiology 03/16/22 12:49 Blood Culture - Final Blood NO GROWTH AFTER 5 DAYS 03/16/22 12:33 Blood Culture - Final Blood NO GROWTH AFTER 5 DAYS A&P Assessment and plan (1) Acute hepatic encephalopathy: Status: Acute (2) Hyperammonemia: Status: Acute (3) Acute respiratory failure: Status: Acute (4) Altered mental status: Status: Acute (5) KING (nonalcoholic steatohepatitis): Status: Acute (6) Esophageal varices: Status: Acute (7) Anemia: Status: Acute Plan Hypernatremia -Resolved -Likely secondary to diarrhea, Decrease IV fluids to 50 cc -Speech therapy consult Acute encephalopathy altered mental status -Resolved -Etiology likely secondary to hepatic encephalopathy, hyperammonemia -However still concerning for underlying CVA, repeat CT poor quality study no acute findings -No facial droop, no slurring of her words, no focal weakness -Neurochecks, NIH stroke scale -Avoiding aspirin given history of esophageal variceal bleed recently requiring banding, continue statin -Monitor mentation off sedation, Hepatic encephalopathy, -Resolved -Serum ammonia level 40 -Decrease lactulose to once daily, rifaximin -Remove rectal tube -Monitor for cerebral edema Hypokalemia, resolved, likely secondary to diarrhea, will replace Metabolic acidosis, resolved likely secondary to diarrhea, monitor Acute respiratory failure -Resolved -Due to nonresponsiveness -Successfully extubated to nasal cannula -Monitor respiratory status closely -Confirmed with family she is DO NOT INTUBATE [place] -History of esophageal varices -History of CBD stent, status post removal -History of EGD colonoscopy History of esophageal variceal bleed, status post 2 units PRBC, hemoglobin 9.3 -Protonix -Avoid blood thinners SCDs for DVT prophylaxis CODE STATUS confirmed with family she is DNR/DNI, confirmed with her written goals of care Deconditioning will require prison placement History of diastolic CHF does not look fluid overloaded Deconditioning PT OT Speech therapy eval Nutrition eval Attestations Medical Necessity Statement*: Patient requires hospitalization for encephalopathy, respiratory failure, hyperammonemia, liver failure, deconditioning Coding Level of Care Code Acute Flame Cutting Supervisor for [facility] Fwdangelo Diagnoses Acute hepatic encephalopathy K72.00 Hyperammonemia E72.20 Acute respiratory failure J96.00 Altered mental status R41.82 KING (nonalcoholic steatohepatitis) K75.81 Esophageal varices I85.00 Anemia D64.9
[2022-03-22] MEDS: lactulose oral liq 20 gm/30 mL UDC 30 GM PO (18:18)
[2022-03-22] MEDS: atorvastatin 40 mg Tablet PO (20:18)
[2022-03-23] VITALS (13 sets, daily range): BP systolic 94–125; BP diastolic 49–74; PULSE 56–89; RESP 12–17; TEMP 36.6–37.1; O2SAT 94–100
[2022-03-23 05:37] LABS: Alanine Aminotransferase 7 U/L (0-33); Albumin Level 2.3 g/dL (3.5-5.2); Alkaline Phosphatase 204 IU/L (35-105); Anion Gap 14.7 (5-19); Aspartate Amino Transferase 25 U/L (0-32); Blood Urea Nitrogen 7 mg/dL (8-23); Calcium 7.7 mg/dL (8.5-10.5); Carbon Dioxide 16 mmol/L (22-29); Chloride 112 mmol/L (98-107); Globulin 4.9 g/dL (1.3-4.6); Glomerular Filtration Rate 123.4 mL/min (90-130); Glucose 69 mg/dL (65-115); Magnesium 1.9 mg/dL (1.7-2.3); Osmolality Calculated 284 mOsm/kg (285-295); Phosphorus 2.8 mg/dL (2.5-4.5); Potassium 3.7 mmol/L (3.5-5.1); Sodium 139 mmol/L (136-145); Total Bilirubin 0.7 mg/dL (0.15-1.2); Total Protein 7.2 g/dL (6.6-8.7)
[2022-03-23] MEDS: carbidopa-levodopa 25-100mg Tablet 1 EACH PO ×3 (09:11→20:01)
[2022-03-23] MEDS: pantoprazole DR 40 mg Tablet PO (09:11)
[2022-03-23] MEDS: phosphorus 250 mg Tablet PO ×2 (09:11→18:06)
[2022-03-23] MEDS: levothyroxine 150 mcg Tablet PO (09:11)
[2022-03-23] MEDS: AMANTADINE HCL 100 MG 100 EACH PO ×2 (09:17→18:06)
--- NOTE | 2022-03-23 12:28 | PC.SOCIAL ---
IMM update IMM updated with patient and family at bedside. Copy Pg 2 provided. Verbalized an understanding. Initialled, dated, timed, and placed in chart.
[2022-03-23] MEDS: lactulose oral liq 20 gm/30 mL UDC 30 GM PO (18:06)
[2022-03-23] MEDS: atorvastatin 40 mg Tablet PO (20:01)
--- NOTE | 2022-03-23 21:01 | P.PN_ITS ---
Subjective Subjective: She felt weaker today. [place] her legs did not carry her today. She does have issues due to Parkinson's disease with initiating movement. They also felt more clumsy, having trouble holding onto objects. Denies prior history of stroke. Cannot have an MRI due to stimulator. Vitals/I&O/Wt Last Vital Signs Temp 98.7 F 03/23/22 19:59 Pulse 78 03/23/22 19:59 Resp 16 03/23/22 19:59 BP 95/60 03/23/22 19:59 Pulse Ox 98 03/23/22 19:59 03/23/22 03/23/22 03/23/22 06:59 14:59 22:59 Intake Total 200 / 200 Output Total 0 / 0 Balance 0 / 1840 200 / 200 Physical Exam Narrative: Family at bedside Sitting up in chair Const: COMMON NORMALS: alert GENERAL APPEARANCE: cooperative ORIENTATION/CONSCIOUSNESS: Yes awake HENMT: COMMON NORMALS: normocephalic, EAC's normal, Normal external nose present and moist oral mucous membranes HEAD & SCALP: normocephalic NOSE: Normal external nose present EXTERNAL AUDITORY CANAL: EAC's normal Neck/C-Spine: COMMON NORMALS: no meningeal signs Chest: CHEST: Yes Symmetrical chest wall rise OTHER: Stimulator R chest Resp: COMMON NORMALS: clear to auscultation bilaterally AUSCULTATION: clear to auscultation bilaterally Cardio: COMMON NORMALS: regular rate, regular rhythm and No murmurs present (Cardio) RATE: regular rate RHYTHM: regular rhythm GI: COMMON NORMALS: Normal to inspection, nondistended, normoactive bowel sounds present, Soft to palpation and non-tender PALPATION: Yes Soft to palpation Extremity: COMMON NORMALS: no pedal edema Neuro: COMMON NORMALS: moves all extremities SENSORIUM/ORIENTATION: Yes alert MENINGEAL SIGNS: Yes no meningeal signs COORDINATION/BALANCE: other (Slow FNF, minute dysmetria on the right) SPEECH: abnormal speech Details: slurred MOTOR EXAM: Pronator motor function present pronator drift of right upper extremity COORDINATION: other (Slow FNF, minute dysmetria on the right) Psych: COMMON NORMALS: mental status grossly normal Skin: COMMON NORMALS: no wounds RASHES: no rashes Urinary Catheter Management: Brown: Cath Placed During This Visit: yes Reason for Continuing Indwelling Catheter: Acute Urinary Retention or Obstruction Urinary Catheter Date of Insertion: 03/16/22 Urinary Catheter Time of Insertion: 11:49 Data : 03/21/22 05:40 03/23/22 04:54 A&P Assessment and plan (1) Acute hepatic encephalopathy: Today she felt weaker. Has not had a bowel movement. Continue lactulose, will increase to twice daily. Discussed with her and family to target to soft bowel movements per day. Follow-up ammonia level. Hyponatremia has resolved. She is doing well in terms of her oxygen. We will follow-up blood counts. She does appear to have pronator drift on the right side, slow FNF bilaterally, but slightly worse with minimal dysmetria on the right. Discussed with her and family cannot exclude that at some point she may have had a small CVA. She cannot have an MRI. CT was unremarkable. CTA results appreciated. Continue statin. He is not hypertensive. Monitor on telemetry. History of variceal bleed, antiplatelet, anticoagulation would be risky. In case of atrial fi brillation, possibly left atrial appendage closure device could be considered. She is also deconditioned, with underlying Parkinson's disease. Continue work with PT, OT. Disposition planning and arrangements for rehabilitation after discharge. Appreciate speech therapy recommendations. Continue aspiration precautions. Status: Acute (2) Hyperammonemia: Status: Acute (3) Acute respiratory failure: Resolved Status: Acute (4) Altered mental status: Resolved Status: Acute (5) KING (nonalcoholic steatohepatitis): Status: Acute (6) Esophageal varices: Status: Acute (7) Anemia: Status: Acute Plan Hypernatremia -Resolved -Likely secondary to diarrhea, Metabolic acidosis, resolved likely secondary to diarrhea, monitor Acute respiratory failure -Resolved -Due to nonresponsiveness -Successfully extubated to nasal cannula -Monitor respiratory status closely -Confirmed with family she is DO NOT INTUBATE [place] -History of esophageal varices -History of CBD stent, status post removal -History of EGD colonoscopy History of esophageal variceal bleed, status post 2 units PRBC, hemoglobin 9.3 -Protonix -Avoid blood thinners History of diastolic CHF does not look fluid overloaded Attestations Medical Necessity Statement*: Continue admission for optimization of control of hepatic encephalopathy, reassessment of blood counts, disposition planning and arrangements. Coding Level of Care Code Acute Shear Grinder Operator for [facility] Radha Diagnoses Acute hepatic encephalopathy K72.00 Hyperammonemia E72.20 Acute respiratory failure J96.00 Altered mental status R41.82 KING (nonalcoholic steatohepatitis) K75.81 Esophageal varices I85.00 Anemia D64.9
[2022-03-24 04:00] VITALS: BP 109/53; PULSE 61; RESP 16; TEMP 36.7; O2SAT 97
[2022-03-24 05:13] LABS: Basophils # 0.1 10^3/uL (0.0-0.1); Basophils % 1.1 %; Eosinophils # 0.6 10^3/uL (0.0-0.8); Eosinophils % 6.5 %; Hematocrit 36.5 % (37.0-47.0); Hemoglobin 9.4 g/dL (11.5-15.3); Lymphocytes # 0.9 10^3/uL (0.8-4.8); Lymphocytes % 9.6 %; Mean Corpuscular HGB Conc 25.8 g/dL (30.0-36.0); Mean Corpuscular Hemoglobin 24.5 pg (28.0-34.0); Mean Corpuscular Volume 95.1 fl (81-99); Mean Platelet Volume 10.7 fL (7.4-10.4); Monocytes % 10.9 %; Neutrophils # 6.37 10^3/uL (1.8-7.7); Neutrophils % 71.2 %; Nucleated Red Blood Cells % 0 %; Platelet Count 134 10^3/cmm (130-400); Red Blood Count 3.84 10^6/uL (4.1-5.3); Red Cell Distribution Width 23.9 % (12.1-15.1); White Blood Count 8.9 10^3/uL (4.0-10.0)
[2022-03-24 05:44] LABS: Alanine Aminotransferase 9 U/L (0-33); Albumin Level 2.1 g/dL (3.5-5.2); Alkaline Phosphatase 248 IU/L (35-105); Anion Gap 12.5 (5-19); Aspartate Amino Transferase 33 U/L (0-32); Blood Urea Nitrogen 10 mg/dL (8-23); Calcium 7.3 mg/dL (8.5-10.5); Carbon Dioxide 18 mmol/L (22-29); Chloride 107 mmol/L (98-107); Globulin 4.4 g/dL (1.3-4.6); Glucose 87 mg/dL (65-115); Magnesium 1.8 mg/dL (1.7-2.3); Osmolality Calculated 276 mOsm/kg (285-295); Potassium 3.5 mmol/L (3.5-5.1); Sodium 134 mmol/L (136-145); Total Bilirubin 0.7 mg/dL (0.15-1.2); Total Protein 6.5 g/dL (6.6-8.7)
[2022-03-24 06:00] VITALS: PULSE 63
[2022-03-24 07:30] LABS: Ammonia 10 umol/L (11-51)
[2022-03-24 08:00] VITALS: BP 133/71; PULSE 58; RESP 12; TEMP 36.8; O2SAT 98
[2022-03-24] MEDS: pantoprazole DR 40 mg Tablet PO (08:41)
[2022-03-24] MEDS: phosphorus 250 mg Tablet PO (08:41)
[2022-03-24] MEDS: lactulose oral liq 20 gm/30 mL UDC 30 GM PO (08:41)
[2022-03-24] MEDS: carbidopa-levodopa 25-100mg Tablet 1 EACH PO (08:42)
[2022-03-24] MEDS: levothyroxine 150 mcg Tablet PO (08:42)
[2022-03-24 12:00] VITALS: BP 104/65; PULSE 69; RESP 12; TEMP 36.8; O2SAT 99
--- NOTE | 2022-03-24 13:39 | P.DS_ITS ---
Discharge Providers Date of Admission: 03/16/22 16:42 Date of Discharge: March 24, 2022 Attending Provider at Admission: Joshua Grant MD Attending Provider at Discharge: Emir Swanson Primary Care Provider: Jenni Beltran DO Diagnoses at Discharge Discharge Diagnosis (1) Acute hepatic encephalopathy: Status: Acute (2) Hyperammonemia: Status: Acute (3) Acute respiratory failure: Status: Acute (4) Altered mental status: Status: Acute (5) ECHAVARRIA (nonalcoholic steatohepatitis): Status: Acute (6) Esophageal varices: Status: Acute (7) Anemia: Status: Acute Reason for Visit Reason for Visit: UNRESPONSIVE Hospital Course Hospital Course 66-year-old lady with history of Echavarria, Parkinson's disease management which includes deep brain stimulator, hypothyroidism, RLS, with recent GI variceal bleeding requiring banding for which she was transferred to [place] this January, previously also with history of CBD stent which had since been removed was admitted after noted to have altered mental status, fall, subsequently could not be awoken. On presentation was unresponsive, was intubated for airway protection. Noted with hepatic encephalopathy, with hyperammonemia. Her medications including clonazepam, ropinirole were held. Consideration given to CVA as well. CT of the head was nondiagnostic due to large amount of artifact with deep brain stimulator electrodes. She was not started on antiplatelet medications due to recent severe GI bleeding. Was started on statin. Blood pressures have been monitored in the hospital, have not been significantly elevated although with some fluctuation. No atrial fibrillation noted. She does not have history of diabetes, her glucose has been within normal limits. CT angiogram head and neck had been obtained, with noted no acute abnormality. Incidentally noted superior endplate compression fractures at T1, T3 and T4, mild vertebral body height loss present at each level. CT abdomen pelvis on presentation with small amount of ascites, prominent intrahepatic bile duct, CBD stent removed, abnormal hepatic contour, mild upper abdominal adenopathy, see full report. Also noted mild segmental colonic wall thickening, possibly related to nondistention/contraction versus mild colitis. Moderate-large colorectal stool burden. Nonspecific mild is enteric dizziness around proximal SMA. No obvious SMA stenosis or thrombosis. She was treated with lactulose, rifaximin, with ammonia levels gradually trending towards normal. With encephalopathy improving she was successfully extubated and has been doing well in terms of oxygenation, maintaining saturations in high 90s on room air. She remains lucid, pleasant, communicative, in good spirits. However, does have residual right side pronator drift, minimal right side dysmetria. Given persistent focal symptoms discussed with her and family that possibility that she had sustained a small CVA is there. She is otherwise also quite deconditioned, requiring further rehabilitation to regain prior functional capacity, and for this purpose has been accepted for further skilled care at [facility]. Nonselective beta-blockers not initiated currently with heart rates noted going down as low as 40s, although mostly staying in the 60s-70s, and blood pressures on the softer side. For these reasons currently carvedilol is also discontinued. Physical Exam Narrative: Family at bedside Sitting up in chair Const: COMMON NORMALS: alert GENERAL APPEARANCE: cooperative ORIENTATION/CONSCIOUSNESS: Yes awake HENMT: COMMON NORMALS: normocephalic, EAC's normal, Normal external nose present and moist oral mucous membranes HEAD & SCALP: normocephalic NOSE: Normal external nose present EXTERNAL AUDITORY CANAL: EAC's normal Neck/C-Spine: COMMON NORMALS: no meningeal signs Chest: CHEST: Yes Symmetrical chest wall rise OTHER: Stimulator R chest Resp: COMMON NORMALS: clear to auscultation bilaterally AUSCULTATION: clear to auscultation bilaterally Cardio: COMMON NORMALS: regular rate, regular rhythm and No murmurs present (Cardio) RATE: regular rate RHYTHM: regular rhythm GI: COMMON NORMALS: Normal to inspection, nondistended, normoactive bowel sounds present, Soft to palpation and non-tender PALPATION: Yes Soft to pal pation Extremity: COMMON NORMALS: no pedal edema Neuro: COMMON NORMALS: moves all extremities SENSORIUM/ORIENTATION: Yes alert MENINGEAL SIGNS: Yes no meningeal signs COORDINATION/BALANCE: other (Slow FNF, minute dysmetria on the right) SPEECH: abnormal speech Details: slurred MOTOR EXAM: Pronator motor function present pronator drift of right upper extremity COORDINATION: other (Slow FNF, minute dysmetria on the right) Psych: COMMON NORMALS: mental status grossly normal Skin: COMMON NORMALS: no wounds RASHES: no rashes Urinary Catheter Management: Brown: Cath Placed During This Visit: yes Reason for Continuing Indwelling Catheter: Acute Urinary Retention or Obstruction Urinary Catheter Date of Insertion: 03/16/22 Urinary Catheter Time of Insertion: 11:49 Discharge Data Studies Completed and Pending Completed Studies During Hospitalization Category Date Time Status CT abdomen pelvis w con* [id number] Stat Cat Scan 03/16/22 12:[address] head wo con* [id number] Routine Cat Scan 03/20/22 08:[address] head wo con* [id number] Stat Cat Scan 03/16/22 11:36 Completed CTA head neck [CT angio headneck* [id number]] Stat Cat Scan 03/16/22 12:59 Completed XR chest 1V portable [id number] Stat Exams 03/16/22 11:36 Completed XR chest 1V portable [id number] Stat Exams 03/16/22 15:56 Completed XR chest 1V portable [id number] Stat Exams 03/16/22 17:16 Completed Pending at discharge Category Date Time Status ABG ONLY [Arterial Blood Gas W/O Coox] Stat Lab 03/16/22 18:00 Ordered Comprehensive Metabolic Panel AM LABS Lab 03/25/22 04:00 Ordered Magnesium AM LABS Lab 03/25/22 04:00 Ordered SARS Covid-2 Antigen Stat Lab 03/24/22 13:12 Uncollected Radiology Impressions Abdomen/Pelvis CT 03/16/22 12:51 IMPRESSION: 1. Comparison CT 11/29/2021. Interval removal of CBD stent. Slightly prominent intrahepatic bile duct as described with no obvious extrahepatic bile duct dilatation. There is also abnormal hepatic contour and mild upper abdominal adenopathy as described. Please see discussion above. 2. Small abdominopelvic ascites. 3. Mild segmental colonic wall thickening which may be related to nondistention/contraction versus mild colitis. Moderate-large colorectal stool burden. No bowel obstruction or other acute bowel findings. 4. Nonspecific mild mesenteric haziness around the proximal SMA, nonspecific. No obvious SMA stenosis or thrombosis. 5. Other nonacute findings as above. Head/Neck CTA 03/16/22 12:59 IMPRESSION: 1. No acute abnormality. 2. Chronic findings as discussed above. IMPRESSION: 1. The study is moderately limited due to patient motion artifact. 2. The endotracheal tube terminates at the entrance to the right mainstem bronchus. This should be withdrawn 3 cm and reimaged. 3. There are age-indeterminate superior endplate compression fractures at T1, T3, and T4. Mild vertebral body height loss is present at each level. These are new from the chest CT dated 08/06/2021. 4. No significant vascular abnormality REFERENCES: NASCET CRITERIA. The degree of internal carotid artery stenosis is based on NASCET criteria. Normal is no stenosis. Mild is less than 50% stenosis. Moderate is 50-69% stenosis. Severe is 70% to 99% stenosis. Total occlusion is no detectable patent lumen. ADDENDUM: 03/16/22 1553 THIS REPORT CONTAINS FINDINGS THAT MAY BE CRITICAL TO PATIENT CARE. The findings were verbally communicated via telephone conference with PATRICIA KENNEDY at 3:52 PM CDT on 03/16/2022. The findings were acknowledged and understood. Chest X-Ray 03/16/22 17:16 IMPRESSION: The endotracheal tube has been repositioned, now terminating approximately 2.7 cm above the tad. Head CT 03/20/22 08:29 IMPRESSION: 1. Very limited evaluation of the brain due to extensive artifact from the deep thalamic stimulator electrodes. 2. No large areas of hemorrhage or edema. No midline shift. Laboratory Results WBC 8.9 10^3/uL (4.0-10.0) 03/24/22 04:20 RBC 3.84 10^6/uL (4.1-5.3) L 03/24/22 04:20 Hgb 9.4 g/dL (11.5-15.3) L 03/24/22 04:20 Hct 36.5 % (37.0-47.0) L 03/24/22 04:20 MCV 95.1 fl (81-99) 03/24/22 04:20 MCH 24.5 pg (28.0-34.0) L 03/24/22 04:20 MCHC 25.8 g/dL (30.0-36.0) L 03/24/22 04:20 RDW 23.9 % (12.1-15.1) H 03/24/22 04:20 Plt Count 134 10^3/cmm (130-400) 03/24/22 04:20 MPV 10.7 fL (7.4-10.4) H 03/24/22 04:20 Neut % (Auto) 71.2 % 03/24/22 04:20 Lymph % (Auto) 9.6 % 03/24/22 04:20 Schleicher % (Auto) 10.9 % 03/24/22 04:20 Eos % (Auto) 6.5 % 03/24/22 04:20 Baso % (Auto) 1.1 % 03/24/22 04:20 Neut # (Auto) 6.37 10^3/uL (1.8-7.7) 03/24/22 04:20 Lymph # (Auto) 0.9 10^3/uL (0.8-4.8) 03/24/22 04:20 Schleicher # (Auto) 1.0 10^3/uL (0.2-0.9) H 03/24/22 04:20 Eos # (Auto) 0.6 10^3/uL (0.0-0.8) 03/24/22 04:20 Baso # (Auto) 0.1 10^3/uL (0.0-0.1) 03/24/22 04:20 Nucleated RBC % (auto) 0 % 03/24/22 04:20 Nucleated RBCs # 0.0 /100WBC 03/24/22 04:20 PT 16.90 SECONDS (12.1-14.9) H 03/19/22 03:11 INR 1.34 (0.8-1.2) H 03/19/22 03:11 Specimen Type Arterial 03/19/22 05:28 Sample Site Radial, right 03/19/22 05:28 ABG pH 7.45 (7.35-7.45) 03/19/22 05:28 ABG pCO2 23.1 mmHg (35-45) L 03/19/22 05:28 ABG pO2 113.0 mmHg (80.0-100.0) H 03/19/22 05:28 ABG HCO3 16.1 mmol/L (22-26) L 03/19/22 05:28 ABG O2 Saturation 98.0 03/16/22 15:23 ABG Base Excess -6.4 mmol/L (-2.0-2.0) L 03/19/22 05:28 Joshua Test Pos 03/19/22 05:28 A-a O2 Gradient 6.2 mmHg (5-10) 03/16/22 15:23 Hematocrit 34.1 % (37-47) L 03/19/22 05:28 Hgb O2 Saturation 97.2 % (95-100) 03/16/22 15:23 Carboxyhemoglobin < 0.0 %THgb (0.4-20.1) L 03/16/22 15:23 Methemoglobin 0.9 % (0.4-1.5) 03/16/22 15:23 Total Hemoglobin 8.5 g/dL (12-16) L 03/16/22 15:23 Sodium 143.0 mmol/L (131-143) 03/16/22 15:23 Potassium 2.7 mmol/L (3.5-5.0) L 03/16/22 15:23 Glucose 87.0 mg/dL (70-115) 03/16/22 15:23 Ionized Calcium 1.1 mmol/L (1.1-1.4) 03/16/22 15:23 O2 Delivery Device Vent 03/19/22 05:28 FiO2 21.0 % 03/19/22 05:28 Tidal Volume 0.40 03/19/22 05:28 PEEP 5.0 cmH20 03/19/22 05:28 Human Resources Assistant Manager ID Esequiel 03/19/22 05:28 Sodium 134 mmol/L (136-145) L 03/24/22 04:20 Potassium 3.5 mmol/L (3.5-5.1) 03/24/22 04:20 Chloride 107 mmol/L (98-107) 03/24/22 04:20 Carbon Dioxide 18 mmol/L (22-29) L 03/24/22 04:20 Anion Gap 12.5 (5-19) 03/24/22 04:20 BUN 10 mg/dL (8-23) 03/24/22 04:20 Creatinine 0.6 mg/dL (0.5-0.9) 03/24/22 04:20 GFR Calculation 100.0 mL/min (90-130) 03/24/22 04:20 Glucose 87 mg/dL (65-115) 03/24/22 04:20 POC Glucose 118 mg/dL (70-110) H 03/19/22 03:13 Calculated Osmolality 276 mOsm/kg (285-295) L 03/24/22 04:20 Lactic Acid 2.2 mmol/L (0.5-2.2) 03/16/22 11:25 Lactic Acid (Sepsis) 1.6 mmol/L (0.5-2.2) 03/16/22 15:45 Lactate 1.1 mmol/L (0.5-2.2) 03/21/22 05:40 Calcium 7.3 mg/dL (8.5-10.5) L 03/24/22 04:20 Phosphorus 2.8 mg/dL (2.5-4.5) 03/23/22 04:54 Magnesium 1.8 mg/dL (1.7-2.3) 03/24/22 04:20 Total Bilirubin 0.7 mg/dL (0.15-1.2) 03/24/22 04:20 AST 33 U/L (0-32) H 03/24/22 04:20 ALT 9 U/L (0-33) 03/24/22 04:20 Alkaline Phosphatase 248 IU/L (35-105) H 03/24/22 04:20 Ammonia 10 umol/L (11-51) L 03/24/22 06:32 Creatine Kinase 240 U/L (26-192) H 03/19/22 03:11 Troponin T Baseline 21 ng/L (0-10) H 03/16/22 19:55 Troponin T 120 Minute 21.73 ng/L (0-10) H 03/16/22 21:55 Delta Troponin T 0.73 ABS# (0-10) 03/16/22 21:55 Troponin T Hi Sens 6Hr 25.99 ng/L (0-10) H 03/17/22 02:07 Troponin T Hi Sens 6Hr Delta 4.99 ng/L (0-12) 03/17/22 02:07 C-Reactive Protein 22.2 mg/L (0.0-4.9) H 03/21/22 05:40 NT-Pro-B Natriuret Pep 2730 pg/mL (0-125) H 03/21/22 05:40 Total Protein 6.5 g/dL (6.6-8.7) L 03/24/22 04:20 Albumin 2.1 g/dL (3.5-5.2) L 03/24/22 04:20 Globulin 4.4 g/dL (1.3-4.6) 03/24/22 04:20 Lipase 7 U/L (13-60) L 03/16/22 11:25 Procalcitonin 0.18 ng/mL (0-0.5) 03/21/22 05:40 TSH 4.91 uIU/mL (0.27-4.20) H 03/16/22 14:04 Urine Color Yellow (Yellow) 03/16/22 11:49 Urine Appearance Clear (CLEAR) 03/16/22 11:49 Urine pH 7 (5-7) 03/16/22 11:49 Ur Specific [place] 1.010 (1.005-1.030) 03/16/22 11:49 Urine Protein Neg (Negative) 03/16/22 11:49 Urine Glucose (UA) Norm (Normal) 03/16/22 11:49 Urine Ketones 1+ (Negative) H 03/16/22 11:49 Urine Blood Neg (Negative) 03/16/22 11:49 Urine Nitrate Negative (Negative) 03/16/22 11:49 Urine Bilirubin Neg (Negative) 03/16/22 11:49 Urine Urobilinogen 4 mg/dL (Negative) H 03/16/22 11:49 Ur Leukocyte Esterase Negative (Negative) 03/16/22 11:49 Vancomycin Trough 7.4 ug/mL (10-15) L 03/20/22 15:45 Vitals Last Vital Signs Temp 98.3 F 03/24/22 12:00 Pulse 69 03/24/22 12:00 Resp 12 03/24/22 12:00 BP 104/65 03/24/22 12:00 Pulse Ox 99 03/24/22 12:00 Discharge Plan Discharge Patient Disposition: Xfer SNF Condition: Stable Prescriptions: New atorvastatin 40 mg Tablet 40 mg PO BEDTIME Qty: 90 0RF lactulose 20 gram/30 mL Solution 30 g PO BID Qty: 2880 0RF Xifaxan 550 mg Tablet 550 mg PO Q12H Qty: 180 0RF Continued (DME) Upright Walker See Rx Instructions .Route .MEDSUPPLY Qty: 1 0RF Rx Instructions: Use walker daily with ambulation at all times amantadine HCl 100 mg tablet 100 mg PO BID 0RF levothyroxine 150 mcg tablet 150 mcg PO DAILY 90 Days Qty: 90 1RF furosemide [Lasix] 40 mg tablet 40 mg PO QAM Qty: 90 0RF ferrous sulfate [Feosol] 325 mg (65 mg iron) tablet 325 mg PO BID Qty: 60 1RF (DME) upright walker with wheels and brakes See Rx Instructions .Route .MEDSUPPLY Qty: 1 0RF Rx Instructions: As directed carbidopa-levodopa 25-100 mg tablet 1 tab PO TID Qty: 90 3RF clonazepam 0.5 mg tablet 0.5 mg PO DAILY PRN (Reason: Anxiety) 0RF Aldactone 25 mg tablet 25 mg PO BID 0RF Protonix 40 mg tablet,delayed release (DR/EC) 40 mg PO BID 0RF hydroxychloroquine 200 mg tablet 200 mg PO DAILY 0RF ropinirole 2 mg tablet extended release 24 hr 2 mg PO TID 0RF Changed furosemide [Lasix] 40 mg tablet 20 mg PO QAM PRN (Reason: Edema) Qty: 90 0RF clonazepam 0.5 mg tablet 0.25 mg PO DAILY PRN (Reason: Anxiety) Qty: 0 0RF ropinirole 2 mg tablet extended release 24 hr 1 mg PO TID Qty: 0 0RF Discontinued carvedilol 3.125 mg Tablet 3.125 mg PO BID 0RF Rx Instructions: must administer with a meal/food Discharge Orders: Discharge Order (Routine); Ordered 03/24/22 Ordered By: Emir Swanson Referrals: SNF, PCP [Other] - 1 week Jenni Beltran DO [Primary Care Provider] - (After [facility] DC) Discharge Diet: Soft Mechanical Discharge Activity: Increase activity as tolerated and As per PT/OT instructions Patient Instructions: Lactulose (By mouth), Atorvastatin (By mouth), Rifaximin (By mouth), Hepatic Encephalopathy (GEN) Activity Restrictions/Additional Instructions: Continue lactulose, target 2 soft bowel movements per day. Avoid constipation. Maintain fall precautions. Follow-up with neurology to discuss right arm pronator drift, mild dysmetria, unable to obtain brain imaging to confirm possible prior small stroke. Also recent severe GI bleeding with variceal bleed. Discuss consideration of risks and benefits of antiplatelet medication. Continue to work with your primary doctor to otherwise optimize risk factors of cardiovascular disease. Please follow-up blood counts in 1 week to reassess anemia. Please follow-up with liver specialist. Discussed with your primary doctor regarding noted incidentally small segment of thickening of colonic wall, incidentally seen on CT, possibly nondistended/contracted colonic wall, versus mild colitis. Consider additional assessment with colonoscopy if have not had a recent test. Discussed with your primary doctor regarding incidentally seen compression fractures T1, T3, T4, mild vertebral body height loss. Discussed consideration of assessment for osteoporosis as, treatment options. CODE STATUS AND Discharge Attestations Time Spent in Discharge Care*: greater than 30 min Quality Metrics Clinical Quality Measures [ Cerebrovascular Accident { Contraindication to Antithrombotic: Medical contraindication; Contraindication to Anticoagulation: Overlap treatment not indicated; Contraindication to Statin: None; Statin prescribed;}] Coding Level of Care Code Acute Chg FW DC note Diagnoses Acute hepatic encephalopathy K72.00 Hyperammonemia E72.20 Acute respiratory failure J96.00 Altered mental status R41.82 ECHAVARRIA (nonalcoholic steatohepatitis) K75.81 Esophageal varices I85.00 Anemia D64.9
[2022-03-24 14:00] VITALS: PULSE 71
[2022-03-24 15:49] LABS: SARS Covid-2 Antigen Negative (Negative)
[2022-03-24 15:53] VITALS: PULSE 71
== END 2022-03-24 15:30 | disposition skilled nursing facility (03) | DRG 208 ==
LOC: ER 16:58 → ICU 17:04 → MEDSURG 03-20 14:02
PROVIDERS: Internal Medicine; Admitting Provider Family Medicine; Emergency Provider Family Medicine; PCP Family Medicine; Visit Provider Internal Medicine
DX: J96.01 Acute respiratory failure with hypoxia (principal); K72.00 Acute and subacute hepatic failure without coma; I63.9 Cerebral infarction, unspecified; I85.00 Esophageal varices without bleeding; I50.30 Unspecified diastolic (congestive) heart failure; E87.1 Hypo-osmolality and hyponatremia; E87.4 Mixed disorder of acid-base balance; G20 Parkinson's disease; K75.81 Nonalcoholic steatohepatitis (NASH); W19.XXXA Unspecified fall, initial encounter; E03.9 Hypothyroidism, unspecified; G25.81 Restless legs syndrome; Z96.82 Presence of neurostimulator; Z87.440 Personal history of urinary (tract) infections; Z66 Do not resuscitate; D64.9 Anemia, unspecified; R19.7 Diarrhea, unspecified; E87.6 Hypokalemia
CPT/HCPCS: 31500; 36415; 36416; 36600; 51702; 70450; 70496; 70498; 71045; 74177; 80048; 80051; 80053; 80202; 81003; 82140; 82330; 82550; 82803; 82805; 82962; 83605; 83690; 83735; 83880; 84100; 84145; 84443; 84484; 85025; 85610; 86140; 87040; 87070; 87205; 87426; 87641; 92507; 92523; 92526; 92610; 93005; 94002; 94003; 94799; 96365; 96366; 96367; 97110; 97116; 97161; 97165; 97530; 97535; 99291; 99292; C9113; J0330; J2250; J2405; J2543; J2704; J3010; J3370; J3480; J3490; J7030; J7050; Q9967

== ENCOUNTER → 2022-04-01 07:59 | Outpatient (BNVA) | payer MEDICARE, SELFPAY | PROVIDERS: PCP Family Medicine; Visit Provider Specialist | DX: G20 Parkinson's disease (principal); I85.11 Secondary esophageal varices with bleeding; K75.81 Nonalcoholic steatohepatitis (NASH); K72.90 Hepatic failure, unspecified without coma; Z96.82 Presence of neurostimulator | CPT/HCPCS: 95983; 99214; 99215 ==

== ENCOUNTER → 2022-04-16 14:45 | Outpatient (BNVA) | payer MEDICARE, SELFPAY | PROVIDERS: PCP Family Medicine; Visit Provider Family Medicine | DX: K72.90 Hepatic failure, unspecified without coma (principal); K74.60 Unspecified cirrhosis of liver; R60.0 Localized edema; K75.81 Nonalcoholic steatohepatitis (NASH); D50.0 Iron deficiency anemia secondary to blood loss (chronic) | CPT/HCPCS: 85025 ==

== ENCOUNTER 2022-04-17 06:16 | Outpatient (CLI) | payer MEDICARE, SELFPAY ==
[2022-04-17 06:59] LABS: Basophils # 0.1 10^3/uL (0.0-0.1); Basophils % 1.1 %; Eosinophils # 0.3 10^3/uL (0.0-0.8); Eosinophils % 3.4 %; Hematocrit 36.3 % (37.0-47.0); Lymphocytes # 0.6 10^3/uL (0.8-4.8); Lymphocytes % 7.6 %; Mean Corpuscular HGB Conc 30.3 g/dL (30.0-36.0); Mean Corpuscular Hemoglobin 26.1 pg (28.0-34.0); Mean Corpuscular Volume 86.2 fl (81-99); Monocytes # 0.8 10^3/uL (0.2-0.9); Monocytes % 9.8 %; Neutrophils # 6.31 10^3/uL (1.8-7.7); Neutrophils % 77.7 %; Nucleated Red Blood Cells % 0 %; Platelet Count 256 10^3/cmm (130-400); Red Blood Count 4.21 10^6/uL (4.1-5.3); White Blood Count 8.1 10^3/uL (4.0-10.0)
[2022-04-17 07:10] LABS: INR 1.16 (0.8-1.2)
[2022-04-17 07:18] LABS: Blood Urea Nitrogen 9 mg/dL (8-23); Calcium 7.6 mg/dL (8.5-10.5); Carbon Dioxide 21 mmol/L (22-29); Chloride 104 mmol/L (98-107); Glucose 93 mg/dL (65-115); Osmolality Calculated 280 mOsm/kg (285-295); Sodium 136 mmol/L (136-145)
[2022-04-17 07:46] LABS: Hepatitis A Antibody IgM Non-Reactive (Nonreactive); Hepatitis B Core AB, Total Non-Reactive (Nonreactive); Hepatitis B Surface Antigen Non-Reactive (Nonreactive); Hepatitis C Virus Antibody Non-Reactive (Nonreactive)
[2022-04-17 07:47] LABS: Hepatitis B Surface AB < 3.5 (11.5-1000)
== END 2022-04-17 06:17 | disposition home or self-care (01) ==
LOC: LAB 06:19
PROVIDERS: PCP Family Medicine; Visit Provider Internal Medicine
DX: K74.60 Unspecified cirrhosis of liver (principal); R53.83 Other fatigue
CPT/HCPCS: 80048; 85025; 85610; 86705; 86706; 86709; 86803; 87340

== ENCOUNTER 2022-04-21 11:13 | Outpatient (CLI) | payer MEDICARE, SELFPAY ==
[2022-04-21 11:58] LABS: Basophils # 0.1 10^3/uL (0.0-0.1); Basophils % 1.4 %; Eosinophils # 0.3 10^3/uL (0.0-0.8); Eosinophils % 3.9 %; Hematocrit 37.8 % (37.0-47.0); Hemoglobin 11.3 g/dL (11.5-15.3); Lymphocytes # 0.8 10^3/uL (0.8-4.8); Lymphocytes % 10.1 %; Mean Corpuscular HGB Conc 29.9 g/dL (30.0-36.0); Mean Corpuscular Volume 87.1 fl (81-99); Mean Platelet Volume 9.8 fL (7.4-10.4); Monocytes # 0.6 10^3/uL (0.2-0.9); Neutrophils # 6.12 10^3/uL (1.8-7.7); Neutrophils % 77.3 %; Nucleated Red Blood Cells % 0 %; Platelet Count 286 10^3/cmm (130-400); Red Blood Count 4.34 10^6/uL (4.1-5.3); Red Cell Distribution Width 19.8 % (12.1-15.1); White Blood Count 7.9 10^3/uL (4.0-10.0)
[2022-04-21 12:22] LABS: INR 1.15 (0.8-1.2)
[2022-04-21 12:31] LABS: Ammonia 34 umol/L (11-51)
[2022-04-21 12:36] LABS: Alanine Aminotransferase 15 U/L (0-33); Albumin Level 3.2 g/dL (3.5-5.2); Alkaline Phosphatase 361 IU/L (35-105); Anion Gap 13.7 (5-19); Aspartate Amino Transferase 48 U/L (0-32); Blood Urea Nitrogen 6 mg/dL (8-23); Calcium 8.1 mg/dL (8.5-10.5); Carbon Dioxide 24 mmol/L (22-29); Chloride 103 mmol/L (98-107); Globulin 4.6 g/dL (1.3-4.6); Glucose 90 mg/dL (65-115); Osmolality Calculated 281 mOsm/kg (285-295); Potassium 3.7 mmol/L (3.5-5.1); Sodium 137 mmol/L (136-145); Total Bilirubin 0.8 mg/dL (0.15-1.2); Total Protein 7.8 g/dL (6.6-8.7)
== END 2022-04-21 11:14 | disposition home or self-care (01) ==
LOC: LAB 11:17
PROVIDERS: PCP Family Medicine; Visit Provider Family Medicine
DX: R82.3 Hemoglobinuria (principal); K72.90 Hepatic failure, unspecified without coma; K74.60 Unspecified cirrhosis of liver; R60.9 Edema, unspecified
CPT/HCPCS: 80048; 80076; 82140; 85025; 85610

== ENCOUNTER 2022-05-15 10:58 | Outpatient (CLI) | payer MEDICARE, SELFPAY ==
[2022-05-15 11:32] LABS: Basophils # 0.1 10^3/uL (0.0-0.1); Basophils % 1.1 %; Eosinophils # 0.3 10^3/uL (0.0-0.8); Hematocrit 34.9 % (37.0-47.0); Hemoglobin 11.3 g/dL (11.5-15.3); Lymphocytes # 0.8 10^3/uL (0.8-4.8); Lymphocytes % 9.6 %; Mean Corpuscular HGB Conc 32.4 g/dL (30.0-36.0); Mean Corpuscular Hemoglobin 27.4 pg (28.0-34.0); Mean Corpuscular Volume 84.7 fl (81-99); Monocytes # 0.7 10^3/uL (0.2-0.9); Monocytes % 8.3 %; Neutrophils # 6.32 10^3/uL (1.8-7.7); Neutrophils % 76.6 %; Nucleated Red Blood Cells % 0 %; Platelet Count 266 10^3/cmm (130-400); Red Blood Count 4.12 10^6/uL (4.1-5.3); Red Cell Distribution Width 17.1 % (12.1-15.1); White Blood Count 8.2 10^3/uL (4.0-10.0)
[2022-05-15 11:51] LABS: Ammonia 51 umol/L (11-51)
[2022-05-15 11:57] LABS: Alanine Aminotransferase 15 U/L (0-33); Albumin Level 2.8 g/dL (3.5-5.2); Alkaline Phosphatase 328 IU/L (35-105); Anion Gap 13.9 (5-19); Aspartate Amino Transferase 50 U/L (0-32); Blood Urea Nitrogen 9 mg/dL (8-23); Calcium 8.1 mg/dL (8.5-10.5); Carbon Dioxide 24 mmol/L (22-29); Chloride 103 mmol/L (98-107); Globulin 4.5 g/dL (1.3-4.6); Glomerular Filtration Rate 83.7 mL/min (90-130); Glucose 90 mg/dL (65-115); Osmolality Calculated 284 mOsm/kg (285-295); Sodium 138 mmol/L (136-145); Total Bilirubin 0.7 mg/dL (0.15-1.2); Total Protein 7.3 g/dL (6.6-8.7)
[2022-05-15 12:50] LABS: Potassium 2.9 mmol/L (3.5-5.1)
[2022-05-25 12:00] LABS: Anion Gap 12.9 (5-19); Blood Urea Nitrogen 10 mg/dL (8-23); Carbon Dioxide 22 mmol/L (22-29); Chloride 106 mmol/L (98-107); Glucose 105 mg/dL (65-115); Osmolality Calculated 283 mOsm/kg (285-295); Potassium 3.9 mmol/L (3.5-5.1); Sodium 137 mmol/L (136-145)
== END 2022-05-15 10:59 | disposition home or self-care (01) ==
LOC: LAB 11:01
PROVIDERS: PCP Family Medicine; Visit Provider Family Medicine
DX: K72.90 Hepatic failure, unspecified without coma (principal); D50.0 Iron deficiency anemia secondary to blood loss (chronic)
CPT/HCPCS: 80053; 82140; 85025

== ENCOUNTER 2022-05-25 10:57 | Outpatient (CLI) | payer MEDICARE, SELFPAY | END 2022-05-25 10:58 | disposition home or self-care (01) | LOC: LAB 11:01 | PROVIDERS: PCP Family Medicine; Visit Provider Family Medicine | DX: E87.6 Hypokalemia (principal) | CPT/HCPCS: 80048 ==

== ENCOUNTER 2022-06-06 02:26 | Emergency (ER) | payer MEDICARE, SELFPAY ==
[2022-06-06 02:45] VITALS: BP 113/56; PULSE 85; RESP 16; O2SAT 97
[2022-06-06 03:42] VITALS: BP 110/61; PULSE 73; RESP 15; O2SAT 98
--- NOTE | 2022-06-06 05:15 | ED_ITS ---
HPI - Fall General: Chief Complaint: Fall Stated Complaint: Fall- head lac Time Seen by Provider: 06/06/22 02:49 Source: patient and family History of Present Illness: 66-year-old female who got up to use the restroom this morning and had a simple mechanical fall, striking her head against the shower frame. She also struck her right elbow and right side. She complains mainly of bleeding from the laceration/abrasion to the of her right scalp. She says her whole body hurts, but that is normal for her. She did not lose consciousness. She does not have a headache. She did not get nauseated or throw up. Her mental status is at baseline according to her . She is not anticoagulated. MD complaint: fall Onset (ago): minute(s) Fall from: standing Fall witnessed: yes, by family Place fall occurred: home Loss of consciousness: None Prolonged down time: no Context: tripped/slipped Location of injury: head Location of injury - extremities: Right: elbow Quality: burning and sharp Associated symptoms-after fall: Denies abdominal pain, chest pain, confusion, headache(s), lightheadedness, neck pain, numbness, short of breath or weakness Review of Systems Const: Denies: fever(s) Eyes: Denies: change in vision Card: Denies: chest pain or lightheadedness GI: Denies: abdominal pain Musc: Denies: neck pain Neuro: Denies: headache(s) or confusion PFS ED PFSH: Medical History Acute hepatic encephalopathy Acute respiratory failure Anti-TPO antibodies present Cystitis Esophageal varices Family history of colon cancer Fatty liver disease, nonalcoholic GERD (gastroesophageal reflux disease) High risk medication use Hyperammonemia Hypocalcemia Hypothyroidism Immunization counseling Inflammatory arthritis Joint pain Liver cirrhosis KING (nonalcoholic steatohepatitis) Osteoarthritis, generalized Parkinsons disease Positive NICO (antinuclear antibody) RLS (restless legs syndrome) Surgical History History of colonoscopy (~12/2020) History of esophagogastroduodenoscopy (EGD) (~12/2020) History of left knee replacement History of shoulder surgery S/P bilateral foot surgery S/P ERCP Status post deep brain stimulator placement Family History Brother CAD (coronary artery disease) Hypertension Father CAD (coronary artery disease) Diabetes Hypertension Mother CAD (coronary artery disease) Hypertension Sister Hypertension Other Lupus Rheumatoid arthritis Denies family history of Lung disease Stroke Social History Smoking and tobacco status: never smoked Alcohol intake: never Marital status: Current occupational status: disabled History of recent travel: No Female Reproductive History: Date of last menstrual period: 02/20/21 Physical Exam Const: COMMON NORMALS: no acute distress GENERAL APPEARANCE: cooperative and comfortable HENMT: COMMON NORMALS: normocephalic, external ears normal and Normal external nose present HEAD & SCALP: normocephalic, abrasion and laceration (Right parietal 1.5 cm) FACE & SINUS: normal facial exam and face symmetric; no erythema NOSE: Normal external nose present EXTERNAL EAR: Yes external ears normal Eye: COMMON NORMALS: Equal, round and reactive pupils present and EOMs intact bilaterally PUPIL: Yes Equal, round and reactive pupils present Neck/C-Spine: GENERAL: Yes trachea midline Chest: COMMONS NORMALS: normal inspection of the chest CHEST: Yes Symmetrical chest wall rise Resp: COMMON NORMALS: normal respiratory effort, No use of accessory muscles and clear to auscultation bilaterally AUSCULTATION: clear to auscultation bilaterally Cardio: COMMON NORMALS: regular rate and regular rhythm RATE: regular rate RHYTHM: regular rhythm GI: COMMON NORMALS: Normal to inspection, nondistended, normoactive bowel sounds present and Soft to palpation PALPATION: Yes Soft to palpation Extremity: NARRATIVE EXTREMITY EXAM: Right upper extremity exam reveals small abrasions over the right posterior elbow. There is no joint swelling. Full extension is possible on exam. Neuro: SARINA COMA SCALE: document GCS findings Sarina coma scale eye opening: Spontaneous [place] coma scale verbal response: Orientated Sarina coma scale motor response: Obey commands Sarina coma scale total score: 15 Psych: COMMON NORMALS: mental status grossly normal and cooperative ATTITUDE: Yes calm and Yes engaged Procedures Laceration Laceration 1: Site: scalp Side (If applicable): right Size (cm): 1.5 Description: linear Depth: simple, single layer Pre-repair: wound explored, irrigated extensively, deep structures intact and extensive debridement Skin layer closed with: other (Dermabond) Course Vital Signs: Vital signs: Vital Signs Pulse Rate 73 06/06/22 03:42 Respiratory Rate 15 06/06/22 03:42 Blood Pressure 110/61 06/06/22 03:42 Pulse Oximetry 98 06/06/22 03:42 MDM - Fall Medical Decision Making Small scalp laceration is repaired with Dermabond. No complication. Abrasions are minor. No evidence of closed head injury on exam. Warning signs for worsening were given to the patient and her . Discharge Plan Discharge Patient Disposition: Home Clinical Impression: Laceration of scalp, Contusion of scalp, Abrasion of upper arm Condition: Stable Prescriptions: No Action (DME) Upright Walker See Rx Instructions .Route .MEDSUPPLY Qty: 1 0RF Rx Instructions: Use walker daily with ambulation at all times levothyroxine 150 mcg tablet 150 mcg PO DAILY 90 Days Qty: 90 1RF (DME) upright walker with wheels and brakes See Rx Instructions .Route .MEDSUPPLY Qty: 1 0RF Rx Instructions: As directed carbidopa-levodopa 25-100 mg tablet 1 tab PO TID Qty: 90 3RF ferrous sulfate [Feosol] 325 mg (65 mg iron) tablet 325 mg PO BID Qty: 60 1RF Lasix 40 mg tablet 20 mg PO QAM PRN (Reason: Edema) Qty: 90 0RF potassium chloride [Klor-Con M20] 20 mEq tablet,ER particles/crystals 20 meq PO DAILY Qty: 30 2RF lactulose 20 gram/30 mL solution 30 g PO BID Qty: 2880 0RF calcium carbonate-vitamin D3 500 mg-10 mcg (400 unit) tablet 1 tab PO BID Qty: 60 0RF atorvastatin 40 mg tablet 40 mg PO BEDTIME Qty: 90 0RF hydroxychloroquine 200 mg tablet 200 mg PO DAILY Qty: 90 1RF amantadine HCl 100 mg tablet 100 mg PO BID Qty: 30 5RF ropinirole 1 mg tablet 1 mg PO TID Qty: 90 5RF Aldactone 25 mg tablet 25 mg PO BID 0RF Protonix 40 mg tablet,delayed release (DR/EC) 40 mg PO BID 0RF Xifaxan 550 mg Tablet 550 mg PO Q12H Qty: 180 0RF clonazepam 0.5 mg tablet 0.25 mg PO DAILY PRN (Reason: Anxiety) Qty: 0 0RF Discharge Orders: Discharge ED (Routine); Ordered 06/06/22 Ordered By: Alexis Corea Referrals: Jenni Beltran DO [Primary Care Provider] - 1-3 days Discharge Diet: Advance as tolerated Discharge Activity: Increase activity as tolerated Patient Instructions: Scalp Laceration, Abrasion (ED), Skin Adhesive Care (ED), Scalp Contusion in Adults (ED) Activity Restrictions/Additional Instructions: Return for worsening headache, worsening mental status, vomiting, any other concerning symptoms. Keep area dry for 12 hours, then may wash with soap and running water. Do not soak. Coding Level of Care Code ED Seal Delivery Vehicle Team Technician for Micheline Garcia
== END 2022-06-06 03:44 | disposition home or self-care (01) ==
PROVIDERS: Emergency Provider Emergency Medicine; PCP Family Medicine
DX: S00.03XA Contusion of scalp, initial encounter (principal); S01.01XA Laceration without foreign body of scalp, initial encounter; S40.811A Abrasion of right upper arm, initial encounter; W18.30XA Fall on same level, unspecified, initial encounter; G20 Parkinson's disease
CPT/HCPCS: 12001; 99282

== ENCOUNTER 2022-06-07 16:25 | Emergency (ER) | payer MEDICARE, SELFPAY ==
--- NOTE | 2022-06-07 16:26 | XRR_ITS ---
PROCEDURE INFORMATION: Exam: XR Chest Exam date and time: 06/07/2022 4:54 PM Age: 66 years old Clinical indication: Pain; Angina pectoris; Additional info: Cp TECHNIQUE: Imaging protocol: Radiologic exam of the chest. Views: 2 views. COMPARISON: CR (CHEST, ) 03/16/2022 5:22 PM FINDINGS: Tubes, catheters and devices: There is a neurostimulator with the battery pack in the right anterior chest wall. Degenerative changes in the spine and shoulders. Lungs: Mild elevation of the right hemidiaphragm. No focal consolidation. No pulmonary edema. Pleural spaces: No pleural effusion. No pneumothorax. Heart/Mediastinum: Stable moderate enlargement of the cardiac silhouette. Bones/joints: Bones are diffusely osteopenic. There is an old, mild compression deformity of a lower thoracic spine vertebra. XR/XR chest 2V* [id number] IMPRESSION: 1. No acute cardiopulmonary process. 2. Incidental/nonacute findings are listed in the report.
[2022-06-07 16:30] VITALS: BP 112/64; PULSE 90; RESP 16; TEMP 37.3; O2SAT 98
--- NOTE | 2022-06-07 16:43 | XRR_ITS ---
PROCEDURE INFORMATION: Exam: XR Right Ribs with PA Chest Exam date and time: 06/07/2022 5:05 PM Age: 66 years old Clinical indication: Injury or trauma; Fall; Rib area; Blunt trauma (contusions or hematomas) TECHNIQUE: Imaging protocol: Radiologic exam of the Right ribs with PA chest. Views: 3 views COMPARISON: No relevant prior studies available. FINDINGS: Tubes, catheters and devices: There is a neurostimulator with the battery pack in the right anterior chest wall. Degenerative changes in the spine and shoulders. Lungs: Decreased inspiration with bilateral lower lobe atelectasis. Pleural spaces: No pleural effusion. No pneumothorax. Heart/Mediastinum: Cardiac silhouette is moderately enlarged. Bones/joints: Bones are diffusely osteopenic. No acute fracture. XR/XR ribs RT mn 3V w CXR1V [id number] IMPRESSION: 1. No acute fracture. 2. Decreased inspiration with bilateral lower lobe atelectasis. 3. CT scan of the chest with contrast would be recommended if there is continuing clinical concern for thoracic injury. 4. Incidental/nonacute findings are listed in the report.
--- NOTE | 2022-06-07 17:00 | W.ED.FALL ---
HPI - Fall General: Chief Complaint: Fall Stated Complaint: fall bilateral rib pain Time Seen by Provider: 06/07/22 16:49 History of Present Illness: 66-year-old female comes in today with complaints of right rib pain. Patient had fallen Wednesday morning early over a stool while going to the bathroom. Patient was evaluated at that time and a head laceration was repaired. Over the past 2 days patient's had worsening pain and discomfort to the right ribs. Patient has a history of Parkinson's disease, osteoarthritis, GERD, hypothyroidism, and KING. Associated symptoms-after fall: Denies chest pain or headache(s) Review of Systems General: Reports: 10 or more systems reviewed and unremarkable except in HPI and below Const: Denies: fever(s) Card: Denies: chest pain Resp: Denies: dyspnea GI: Denies: nausea or vomiting : Denies: difficulty voiding Musc: Reports: other (Right rib pain) Neuro: Denies: headache(s) PFS ED PFSH: Medical History Acute hepatic encephalopathy Acute respiratory failure Anti-TPO antibodies present Cystitis Esophageal varices Family history of colon cancer Fatty liver disease, nonalcoholic GERD (gastroesophageal reflux disease) High risk medication use Hyperammonemia Hypocalcemia Hypothyroidism Immunization counseling Inflammatory arthritis Joint pain Liver cirrhosis KING (nonalcoholic steatohepatitis) Osteoarthritis, generalized Parkinsons disease Positive NICO (antinuclear antibody) RLS (restless legs syndrome) Surgical History History of colonoscopy (~12/2020) History of esophagogastroduodenoscopy (EGD) (~12/2020) History of left knee replacement History of shoulder surgery S/P bilateral foot surgery S/P ERCP Status post deep brain stimulator placement Family History Brother CAD (coronary artery disease) Hypertension Father CAD (coronary artery disease) Diabetes Hypertension Mother CAD (coronary artery disease) Hypertension Sister Hypertension Other Lupus Rheumatoid arthritis Denies family history of Lung disease Stroke Social History Smoking and tobacco status: never smoked Alcohol intake: never Marital status: Current occupational status: disabled History of recent travel: No Female Reproductive History: Date of last menstrual period: 02/20/21 Physical Exam Const: COMMON NORMALS: alert HENMT: HEAD & SCALP: laceration (Healing laceration right frontal scalp) Neck/C-Spine: COMMON NORMALS: full ROM Chest: CHEST: Yes tenderness (Right anterior ribs) Resp: COMMON NORMALS: normal respiratory effort and clear to auscultation bilaterally AUSCULTATION: clear to auscultation bilaterally Cardio: COMMON NORMALS: regular rate RATE: regular rate GI: COMMON NORMALS: Soft to palpation and non-tender PALPATION: Yes Soft to palpation Extremity: COMMON NORMALS: normal to inspection Neuro: SENSORIUM/ORIENTATION: Yes alert Skin: TRAUMA: laceration (Healing scalp laceration) Course Vital Signs: Vital signs: Vital Signs Temperature 99.1 F 06/07/22 16:30 Pulse Rate 90 06/07/22 16:30 Respiratory Rate 16 06/07/22 16:30 Blood Pressure 112/64 06/07/22 16:30 Pulse Oximetry 98 06/07/22 16:30 MDM - Fall Medical Decision Making 66-year-old female comes in today with right anterior rib pain. Patient had fallen 2 days ago and continue to have pain today which prompted her to come to the ER. On exam patient has some tenderness in the right anterior ribs, no crepitus noted. Lungs have good air movement throughout. Vital signs are normal. Differential diagnosis includes contusions, fracture, costochondritis. Chest x-ray noted no obvious fractures of the rib. Reviewed exam with patient with recommendations for treatment and follow-up. Patient reported understanding and agreed to plan. Discharge Plan Discharge Patient Disposition: Home Clinical Impression: Contusion of rib on right side Qualifiers: Encounter type: initial encounter Qualified Code(s): S20.211A - Contusion of right front wall of thorax, initial encounter Condition: Stable Prescriptions: No Action (DME) Upright Walker See Rx Instructions .Route .MEDSUPPLY Qty: 1 0RF Rx Instructions: Use walker daily with ambulation at all times levothyroxine 150 mcg tablet 150 mcg PO DAILY 90 Days Qty: 90 1RF (DME) upright walker with wheels and brakes See Rx Instructions .Route .MEDSUPPLY Qty: 1 0RF Rx Instructions: As directed carbidopa-levodopa 25-100 mg tablet 1 tab PO TID Qty: 90 3RF ferrous sulfate [Feosol] 325 mg (65 mg iron) tablet 325 mg PO BID Qty: 60 1RF Lasix 40 mg tablet 20 mg PO QAM PRN (Reason: Edema) Qty: 90 0RF potassium chloride [Klor-Con M20] 20 mEq tablet,ER particles/crystals 20 meq PO DAILY Qty: 30 2RF lactulose 20 gram/30 mL solution 30 g PO BID Qty: 2880 0RF calcium carbonate-vitamin D3 500 mg-10 mcg (400 unit) tablet 1 tab PO BID Qty: 60 0RF atorvastatin 40 mg tablet 40 mg PO BEDTIME Qty: 90 0RF hydroxychloroquine 200 mg tablet 200 mg PO DAILY Qty: 90 1RF amantadine HCl 100 mg tablet 100 mg PO BID Qty: 30 5RF ropinirole 1 mg tablet 1 mg PO TID Qty: 90 5RF Aldactone 25 mg tablet 25 mg PO BID 0RF Protonix 40 mg tablet,delayed release (DR/EC) 40 mg PO BID 0RF Xifaxan 550 mg Tablet 550 mg PO Q12H Qty: 180 0RF clonazepam 0.5 mg tablet 0.25 mg PO DAILY PRN (Reason: Anxiety) Qty: 0 0RF Discharge Orders: Discharge ED (Routine); Ordered 06/07/22 Ordered By: Brian Dempsey Referrals: Jenni Beltran DO [Primary Care Provider] - Discharge Diet: Usual diet Discharge Activity: Increase activity as tolerated Patient Instructions: Musculoskeletal Pain (ED) Activity Restrictions/Additional Instructions: Activity as tolerated. Use acetaminophen or ibuprofen for pain. Drink plenty of water with medication. Increase activity over the next few days. Make sure that take a deep breath and cough every 2 hours. With deep breath and cough you may want to splint your ribs with a pillow. Follow-up with primary care as needed. Return to ER for new concerns such as increased shortness of breath, blood in sputum, fever greater than 100.4. Coding Level of Care Code ED Transmission Calibration Engineer for Micheline Fwd Exam Comprehensive
== END 2022-06-07 17:55 | disposition home or self-care (01) ==
PROVIDERS: Emergency Provider Nurse Practitioner Family; PCP Family Medicine
DX: S20.211A Contusion of right front wall of thorax, initial encounter (principal); G20 Parkinson's disease; W18.09XA Striking against other object with subsequent fall, initial encounter
CPT/HCPCS: 71046; 71101; 99283

== ENCOUNTER → 2022-07-08 13:39 | Outpatient (BNVA) | payer MEDICARE, SELFPAY | PROVIDERS: PCP Family Medicine; Visit Provider Podiatrist Foot & Ankle Surgery | DX: I73.9 Peripheral vascular disease, unspecified (principal); L60.3 Nail dystrophy | CPT/HCPCS: 11721; 99203; 99204 ==

== ENCOUNTER 2022-07-14 16:15 | Outpatient (CLI) | payer MEDICARE, SELFPAY ==
--- NOTE | 2022-07-14 16:51 | US_ITS ---
WS: [id number] Abdomen ultrasound, 07/14/2022 Clinical Data: CIRRHOSIS OF LIVER Comparison: Abdomen ultrasound, 11/06/2021. Findings: The pancreas shows no cyst, pseudocyst or evidence of pancreatitis but is echogenic. The liver shows mixed coarse echotexture with minimal surrounding perihepatic ascites The gallbladder has 0.39 centimeter stone or polyp which is nonmobile. The wall measures 0.1 cm with no pericholecystic fluid. The common bile duct is 0.5 cm and no intraductal abnormalities are noted. The right kidney is 10.3 cm. No cysts, masses or hydronephrosis is seen. The left kidney is 9.8 cm. No cysts, masses or hydronephrosis is seen. The abdominal aorta is not dilated and the inferior vena cava has normal flow. No vascular abnormalit ies are seen. The spleen measures 11.4 cm and there are no intrasplenic masses or capsular abnormalities. US/US abdomen complete* [id number] Impression: 1. Echogenic pancreas. 2. Adherent stone or polyp in the gallbladder. 3. Coarse texture of the liver with minimal perihepatic ascites consistent with cirrhosis of the liver.
== END 2022-07-14 16:16 | disposition home or self-care (01) ==
PROVIDERS: PCP Family Medicine; Visit Provider Nurse Practitioner
DX: K74.60 Unspecified cirrhosis of liver (principal)
CPT/HCPCS: 76700

== ENCOUNTER 2022-08-05 15:40 | Outpatient (CLI) | payer MEDICARE, SELFPAY ==
[2022-08-05 16:44] LABS: Basophils # 0.1 10^3/uL (0.0-0.1); Basophils % 0.9 %; Eosinophils # 0.5 10^3/uL (0.0-0.8); Eosinophils % 6.9 %; Hematocrit 42.1 % (37.0-47.0); Hemoglobin 13.6 g/dL (11.5-15.3); Lymphocytes # 0.8 10^3/uL (0.8-4.8); Lymphocytes % 10.3 %; Mean Corpuscular HGB Conc 32.3 g/dL (30.0-36.0); Mean Corpuscular Hemoglobin 28.3 pg (28.0-34.0); Mean Corpuscular Volume 87.7 fl (81-99); Mean Platelet Volume 11.3 fL (7.4-10.4); Monocytes # 0.8 10^3/uL (0.2-0.9); Monocytes % 10.5 %; Neutrophils # 5.37 10^3/uL (1.8-7.7); Neutrophils % 71.1 %; Nucleated Red Blood Cells % 0 %; Platelet Count 237 10^3/cmm (130-400); Red Cell Distribution Width 15.3 % (12.1-15.1); White Blood Count 7.6 10^3/uL (4.0-10.0)
[2022-08-05 16:49] LABS: INR 1.09 (0.8-1.2)
[2022-08-05 17:07] LABS: Tumor Marker Alpha Fetoprotein 0.8 ng/mL (0-8.3)
[2022-08-05 17:23] LABS: Alanine Aminotransferase 13 U/L (0-33); Blood Urea Nitrogen 9 mg/dL (8-23); Calcium 8.8 mg/dL (8.5-10.5); Carbon Dioxide 24 mmol/L (22-29); Chloride 102 mmol/L (98-107); Glomerular Filtration Rate 83.5 mL/min (90-130); Glucose 77 mg/dL (65-115); Osmolality Calculated 281 mOsm/kg (285-295); Sodium 137 mmol/L (136-145); Total Protein 7.9 g/dL (6.6-8.7)
[2022-08-05 17:55] LABS: Anion Gap 14.8 (5-19); Aspartate Amino Transferase 79 U/L (0-32); Potassium 3.8 mmol/L (3.5-5.1)
[2022-08-05 17:56] LABS: Albumin Level 2.9 g/dL (3.5-5.2); Total Bilirubin 1.3 mg/dL (0.15-1.2)
[2022-08-05 17:57] LABS: Alkaline Phosphatase 464 U/L (35-105)
== END 2022-08-05 15:41 | disposition home or self-care (01) ==
LOC: LAB 15:42
PROVIDERS: PCP Family Medicine; Visit Provider Nurse Practitioner
DX: K74.60 Unspecified cirrhosis of liver (principal)
CPT/HCPCS: 80053; 82105; 85025; 85610

== ENCOUNTER → 2022-08-11 13:02 | Outpatient (BNVA) | payer MEDICARE, SELFPAY | PROVIDERS: PCP Family Medicine; Visit Provider Internal Medicine Rheumatology | DX: R76.8 Other specified abnormal immunological findings in serum (principal); Z79.899 Other long term (current) drug therapy; Z71.85 Encounter for immunization safety counseling; M15.9 Polyosteoarthritis, unspecified; K74.60 Unspecified cirrhosis of liver; M70.62 Trochanteric bursitis, left hip; Y93.9 Activity, unspecified; Q44.5 Other congenital malformations of bile ducts | CPT/HCPCS: 99214 ==

== ENCOUNTER 2022-08-29 17:49 | Emergency (ER) | payer MEDICARE, SELFPAY ==
[2022-08-29 17:51] VITALS: BP 135/69; PULSE 100; RESP 16; TEMP 37.4; O2SAT 98
--- NOTE | 2022-08-29 17:57 | ECG_ITS ---
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 Measurements Intervals [place]ahan Rate: 97 P: 42 OK: 198 QRS: 130 QRSD: 105 T: 49 QT: 337 QTc: 429 Interpretive Statements SINUS RHYTHM RIGHT AXIS DEVIATION [QRS AXIS > 100] ST ELEVATION, PROBABLY EARLY REPOLARIZATION [ST ELEVATION WITH NORMALLY INFLECTED T-WAVE] Compared to ECG 03/16/2022 17:27:28 Right-axis deviation now present ST (T wave) deviation now present Early repolarization now present Ventricular premature complex(es) no longer present Intraventricular conduction delay no longer present T-wave abnormality no longer present Possible ischemia no longer present Electronically Signed On 08-30-2022 22:02:49 CDT by Michael Ulloa M.D. [id number]
--- NOTE | 2022-08-29 18:39 | XRR_ITS ---
PROCEDURE INFORMATION: Exam: XR Chest Exam date and time: 08/29/2022 7:07 PM Age: 67 years old Clinical indication: Other: Weakness, confusion, chest pain; Additional info: Cp TECHNIQUE: Imaging protocol: Radiologic exam of the chest. Views: 1 view. COMPARISON: CR XR ribs RT mn 3V w CXR1V [id number] 06/07/2022 5:05 PM FINDINGS: Tubes, catheters and devices: Stimulator device overlies the right perihilum with leads extending superiorly, similar to the prior study. Lungs: Unremarkable. No consolidation. Pleural spaces: Unremarkable. No pleural effusion. No pneumothorax. Heart/Mediastinum: Unremarkable. No cardiomegaly. Diaphragm: Mild elevation of the right hemidiaphragm. Bones/joints: Unremarkable. XR/XR chest 1V portable [id number] IMPRESSION: No evidence for acute cardiopulmonary disease.
--- NOTE | 2022-08-29 18:40 | CTR_ITS ---
PROCEDURE INFORMATION: Exam: CT Head Without Contrast Exam date and time: 08/29/2022 7:46 PM Age: 67 years old Clinical indication: Altered mental status/memory loss; Confusion or disorientation; Prior surgery; Surgery date: 6+ months; Surgery type: Brain stimulation, parkinson's; Additional info: Weakness, confusion TECHNIQUE: Imaging protocol: Computed tomography of the head without contrast. Radiation optimization: All CT scans at this facility use at least one of these dose optimization techniques: automated exposure control; mA and/or kV adjustment per patient size (includes targeted exams where dose is matched to clinical indication); or iterative reconstruction. COMPARISON: CT head wo con* [id number] 03/20/2022 8:57 AM RADIATION DOSE METRICS: Total DLP (mGy-cm): 1068.41 FINDINGS: Brain: Thalamic stimulator leads noted. No hemorrhage. No edema. No significant white matter disease. No mass effect. Cerebral ventricles: No ventriculomegaly. Paranasal sinuses: Visualized sinuses are unremarkable. No fluid levels. Mastoid air cells: Visualized mastoid air cells are well aerated. Bones/joints: Unremarkable. No acute fracture. Soft tissues: Unremarkable. CT/CT head wo con* [id number] IMPRESSION: No acute intracranial abnormality.
[2022-08-29 18:54] LABS: Basophils # 0.1 10^3/uL (0.0-0.1); Basophils % 0.6 %; Eosinophils # 0.2 10^3/uL (0.0-0.8); Eosinophils % 2.6 %; Hematocrit 40.4 % (37.0-47.0); Hemoglobin 13.3 g/dL (11.5-15.3); Lymphocytes # 0.4 10^3/uL (0.8-4.8); Lymphocytes % 4.7 %; Mean Corpuscular HGB Conc 32.9 g/dL (30.0-36.0); Mean Corpuscular Hemoglobin 28.8 pg (28.0-34.0); Mean Corpuscular Volume 87.4 fl (81-99); Mean Platelet Volume 10.5 fL (7.4-10.4); Monocytes # 0.9 10^3/uL (0.2-0.9); Neutrophils # 7.62 10^3/uL (1.8-7.7); Neutrophils % 81.9 %; Nucleated Red Blood Cells % 0 %; Platelet Count 203 10^3/cmm (130-400); Red Blood Count 4.62 10^6/uL (4.1-5.3); White Blood Count 9.3 10^3/uL (4.0-10.0)
[2022-08-29] MEDS: fentaNYL 50 mcg/mL INJ 2mL IVP (19:03)
[2022-08-29] MEDS: ondansetron 2 mg/ML SDV 2 mL 4 MG IVP (19:03)
[2022-08-29 19:05] LABS: Partial Thromboplastin Time 27.6 SECONDS (23.9-36.7)
[2022-08-29 19:06] LABS: D Dimer 3.68 ug/mIFEU (0-0.59)
[2022-08-29 19:16] VITALS: BP 130/74; PULSE 95; RESP 19; O2SAT 98
[2022-08-29 19:21] LABS: Ammonia 70 umol/L (11-51)
[2022-08-29 19:22] LABS: Troponin(5th) Baseline 12 ng/L (0-10)
[2022-08-29 19:28] LABS: Alanine Aminotransferase 28 U/L (0-33); Albumin Level 2.8 g/dL (3.5-5.2); Alkaline Phosphatase 474 U/L (35-105); Anion Gap 15.6 (5-19); Aspartate Amino Transferase 98 U/L (0-32); Blood Urea Nitrogen 10 mg/dL (8-23); Calcium 8.1 mg/dL (8.5-10.5); Carbon Dioxide 22 mmol/L (22-29); Chloride 101 mmol/L (98-107); Creatine Phosphokinase 111 U/L (26-192); Glomerular Filtration Rate 83.5 mL/min (90-130); Glucose 100 mg/dL (65-115); Osmolality Calculated 279 mOsm/kg (285-295); Potassium 3.6 mmol/L (3.5-5.1); Sodium 135 mmol/L (136-145); Total Bilirubin 2.5 mg/dL (0.15-1.2); Total Protein 7.8 g/dL (6.6-8.7)
[2022-08-29 19:31] LABS: NT Pro B Type Natriuretic Pept 330 pg/mL (0-125)
--- NOTE | 2022-08-29 19:42 | CTR_ITS ---
PROCEDURE INFORMATION: Exam: CTA Chest With Contrast Exam date and time: 08/29/2022 7:51 PM Age: 67 years old Clinical indication: Pain; Other: Elevated d-dimer; Chest pressure; Prior surgery; Surgery date: 6+ months; Surgery type: Implanted device in chest; Additional info: Chest pain, high d dimer TECHNIQUE: Imaging protocol: Computed tomographic angiography of the chest with contrast. 3D rendering (Not supervised by radiologist): MIP and/or 3D reconstructed images were created by the technologist. Radiation optimization: All CT scans at this facility use at least one of these dose optimization techniques: automated exposure control; mA and/or kV adjustment per patient size (includes targeted exams where dose is matched to clinical indication); or iterative reconstruction. Contrast material: OMNI 350; Contrast volume: 95 ml; Contrast route: INTRAVENOUS (IV); COMPARISON: CT angio chest w abd pel w con 08/06/2021 10:03 PM RADIATION DOSE METRICS: Total DLP (mGy-cm): 207.29 FINDINGS: Pulmonary arteries: No central filling defects within the main pulmonary arteries through the first order segmental branches to suggest pulmonary embolism. Distal to this, the examination is inconclusive secondary to inadequate opacification of the distal pulmonary arteries. Aorta: Unremarkable. No aortic aneurysm. No aortic dissection. Veins: Recanalization of the umbilical vein consistent with portal venous hypertension. Lungs: Bilateral pulmonary ground-glass opacities. Pleural spaces: Unremarkable. No pneumothorax. No pleural effusion. Heart: Unremarkable. No cardiomegaly. No pericardial effusion. Lymph nodes: Unremarkable. No enlarged lymph nodes. Diaphragm: Small hiatal hernia. There are varicosities about esophagus. Liver: Lobulated liver consistent with cirrhosis. Gallbladder and bile ducts: Gallbladder wall is ill-defined and appears thickened measuring up to 5 mm. Gallbladder is contracted. Bones/joints: There degenerative changes in the visualized spine. Chronic appearing compression deformities of T1, T3, T4, and T10 vertebra. Soft tissues: Unremarkable. CT/CT angio chest PE protcl [id number] IMPRESSION: 1. Lobulated liver consistent with cirrhosis. There are associated esophageal varices and recanalization of the umbilical vein consistent with portal venous hypertension. 2. No central filling defects within the main pulmonary arteries through the first order segmental branches to suggest pulmonary embolism. Distal to this, the examination is inconclusive secondary to inadequate opacification of the distal pulmonary arteries. 3. Bilateral pulmonary ground-glass opacities are nonspecific and can be seen with pulmonary edema, pneumonitis, and or pneumonia. 4. Gallbladder is contracted and the wall is somewhat ill-defined however appears thickened measuring 5 mm. Gallbladder wall thickening can be seen with systemic disease such as hepatic cirrhosis. Acute cholecystitis cannot be excluded. Consider right upper quadrant ultrasound with the patient in a fasting state for a minimum of 6 hours for further evaluation as clinically warranted.
--- NOTE | 2022-08-29 19:48 | ED_ITS ---
HPI - Chest Pain General: Chief Complaint: Chest Pain Stated Complaint: Chest pain, Left side weakness Time Seen by Provider: 08/29/22 18:04 Source: patient and family History of Present Illness: 67-year-old female with multiple medical problems including parkinsonism, chronic liver disease with hepatic encephalopathy, and others presenting with left-sided shoulder upper back, and chest pain. She has been mildly short of breath with this. Pain is partially reproducible, and worsens with deep breathing and movement. No interventions. She also has been generally weak, but more weak on the left side than the right side. No documented fever, although her temperature here is 99.3. Some possible mild confusion over baseline. MD complaint: chest pain Pertinent past history: other Onset (ago): hour(s) Timing of current episode: constant Prior episodes: No Onset: during rest Pain location: left chest Pain radiation: left shoulder and left scapula Severity: moderate Quality: sharp Relieving factors: nothing Exacerbating factors: inspiration, palpation and movement Associated symptoms: Reports dyspnea, leg edema (Chronic) and nausea; Deny abdominal pain, diaphoresis, fever(s), palpitations or vomiting Review of Systems Const: Denies: fever(s) or diaphoresis Card: Reports: chest pain; Denies: palpitations Resp: Reports: dyspnea; Denies: productive cough or non-productive cough GI: Reports: nausea; Denies: abdominal pain or vomiting Musc: Reports: back pain Skin/Breast: Denies: rash Neuro: Reports: confusion; Denies: headache(s) PFSH ED PFSH: Medical History Acute hepatic encephalopathy Acute respiratory failure Anti-TPO antibodies present Cystitis Esophageal varices Family history of colon cancer Fatty liver disease, nonalcoholic GERD (gastroesophageal reflux disease) High risk medication use Hyperammonemia Hypocalcemia Hypothyroidism Immunization counseling Inflammatory arthritis Joint pain Liver cirrhosis KING (nonalcoholic steatohepatitis) Osteoarthritis, generalized Parkinsons disease Positive NICO (antinuclear antibody) RLS (restless legs syndrome) Surgical History History of colonoscopy (~12/2020) History of esophagogastroduodenoscopy (EGD) (~12/2020) History of left knee replacement History of shoulder surgery S/P bilateral foot surgery S/P ERCP Status post deep brain stimulator placement Family History Brother CAD (coronary artery disease) Hypertension Father CAD (coronary artery disease) Diabetes Hypertension Mother CAD (coronary artery disease) Hypertension Sister Hypertension Other Lupus Rheumatoid arthritis Denies family history of Lung disease Stroke Social History Smoking and tobacco status: never smoked Alcohol intake: never Marital status: Current occupational status: disabled History of recent travel: No Female Reproductive History: Date of last menstrual period: 02/20/21 Physical Exam Const: COMMON NORMALS: alert GENERAL APPEARANCE: cooperative and frail appearing ORIENTATION/CONSCIOUSNESS: Yes oriented to person and Yes oriented to place HENMT: COMMON NORMALS: normocephalic, atraumatic and Normal external nose present HEAD & SCALP: normocephalic and atraumatic FACE & SINUS: normal facial exam and face symmetric NOSE: Normal external nose present Eye: COMMON NORMALS: Equal, round and reactive pupils present and EOMs intact bilaterally PUPIL: Yes Equal, round and reactive pupils present Chest: CHEST: Yes Symmetrical chest wall rise and Yes tenderness (Left posterior chest.) Resp: COMMON NORMALS: normal respiratory effort, No use of accessory muscles and clear to auscultation bilaterally AUSCULTATION: clear to auscultation bilaterally Cardio: COMMON NORMALS: regular rate and regular rhythm RATE: regular rate RHYTHM: regular rhythm GI: COMMON NORMALS: Normal to inspection, nondistended, normoactive bowel sounds present and Soft to palpation PALPATION: Yes Soft to palpation Extremity: GENERAL: Yes edema (1-2+) Neuro: SENSORIUM/ORIENTATION: Yes alert, Yes oriented to person and Yes oriented to place CRANIAL NERVES: Yes CN normal except as noted SPEECH: speech normal GAIT: Yes Unable to assess gait Psych: COMMON NORMALS: cooperative Skin: COMMON NORMALS: no rashes or lesions noted GENERAL SKIN EXAM: no rashes or lesions noted Course Vital Signs: Vital signs: Vital Signs Temperature 99.3 F 08/29/22 17:51 Pulse Rate 95 08/29/22 19:16 Respiratory Rate 19 H 08/29/22 19:16 Blood Pressure 130/74 08/29/22 19:16 Pulse Oximetry 98 08/29/22 19:16 Oxygen Delivery Tn thod 08/29/22 17:51 MDM - Chest Pain Medical Decision Making EKG is nondiagnostic due to noise from stimulator. Chest pain is reproducible. First troponin was baseline and did not change at 2 hours. Fentanyl resolved pain. CBC is normal. BMP is essentially normal. Ammonia is 70, but not high enough to cause significant problems. Bilirubin is 2.5. Chest CT shows b ilateral pneumonitis. She is COVID-negative. Gallbladder wall is somewhat thickened, likely from hepatic disease. The patient is not tender in this area. She is not hypoxic. Her vitals have been good here. She will be covered with antibiotics. She is given a dose of dexamethasone for pleuritic pain. She will stop tramadol, in favor of hydrocodone if needed for significant pleuritic chest pain. knows to bring her back if she is worsening. Lab Data : 08/29/22 18:45 08/29/22 18:45 Radiology Impressions Chest X-Ray 08/29/22 18:39 IMPRESSION: No evidence for acute cardiopulmonary disease. Head CT 08/29/22 18:40 IMPRESSION: No acute intracranial abnormality. Chest CTA 08/29/22 19:42 IMPRESSION: 1. Lobulated liver consistent with cirrhosis. There are associated esophageal varices and recanalization of the umbilical vein consistent with portal venous hypertension. 2. No central filling defects within the main pulmonary arteries through the first order segmental branches to suggest pulmonary embolism. Distal to this, the examination is inconclusive secondary to inadequate opacification of the distal pulmonary arteries. 3. Bilateral pulmonary ground-glass opacities are nonspecific and can be seen with pulmonary edema, pneumonitis, and or pneumonia. 4. Gallbladder is contracted and the wall is somewhat ill-defined however appears thickened measuring 5 mm. Gallbladder wall thickening can be seen with systemic disease such as hepatic cirrhosis. Acute cholecystitis cannot be excluded. Consider right upper quadrant ultrasound with the patient in a fasting state for a minimum of 6 hours for further evaluation as clinically warranted. Laboratory Results WBC 9.3 10^3/uL (4.0-10.0) 08/29/22 18:45 RBC 4.62 10^6/uL (4.1-5.3) 08/29/22 18:45 Hgb 13.3 g/dL (11.5-15.3) 08/29/22 18:45 Hct 40.4 % (37.0-47.0) 08/29/22 18:45 MCV 87.4 fl (81-99) 08/29/22 18:45 MCH 28.8 pg (28.0-34.0) 08/29/22 18:45 MCHC 32.9 g/dL (30.0-36.0) 08/29/22 18:45 RDW 17.0 % (12.1-15.1) H 08/29/22 18:45 Plt Count 203 10^3/cmm (130-400) 08/29/22 18:45 MPV 10.5 fL (7.4-10.4) H 08/29/22 18:45 Neut % (Auto) 81.9 % 08/29/22 18:45 Lymph % (Auto) 4.7 % 08/29/22 18:45 [place] % (Auto) 10.0 % 08/29/22 18:45 Eos % (Auto) 2.6 % 08/29/22 18:45 Baso % (Auto) 0.6 % 08/29/22 18:45 Neut # (Auto) 7.62 10^3/uL (1.8-7.7) 08/29/22 18:45 Lymph # (Auto) 0.4 10^3/uL (0.8-4.8) L 08/29/22 18:45 [place] # (Auto) 0.9 10^3/uL (0.2-0.9) 08/29/22 18:45 Eos # (Auto) 0.2 10^3/uL (0.0-0.8) 08/29/22 18:45 Baso # (Auto) 0.1 10^3/uL (0.0-0.1) 08/29/22 18:45 Nucleated RBC % (auto) 0 % 08/29/22 18:45 Nucleated RBCs # 0.0 /100WBC 08/29/22 18:45 PT 14.50 SECONDS (12.1-14.9) 08/29/22 18:45 INR 1.10 (0.8-1.2) 08/29/22 18:45 APTT 27.6 SECONDS (23.9-36.7) 08/29/22 18:45 D-Dimer 3.68 ug/mIFEU (0-0.59) H 08/29/22 18:45 Sodium 135 mmol/L (136-145) L 08/29/22 18:45 Potassium 3.6 mmol/L (3.5-5.1) 08/29/22 18:45 Chloride 101 mmol/L (98-107) 08/29/22 18:45 Carbon Dioxide 22 mmol/L (22-29) 08/29/22 18:45 Anion Gap 15.6 (5-19) 08/29/22 18:45 BUN 10 mg/dL (8-23) 08/29/22 18:45 Creatinine 0.7 mg/dL (0.5-0.9) 08/29/22 18:45 GFR Calculation 83.5 mL/min (90-130) L 08/29/22 18:45 Glucose 100 mg/dL (65-115) 08/29/22 18:45 Calculated Osmolality 279 mOsm/kg (285-295) L 08/29/22 18:45 Calcium 8.1 mg/dL (8.5-10.5) L 08/29/22 18:45 Total Bilirubin 2.5 mg/dL (0.15-1.2) H 08/29/22 18:45 AST 98 U/L (0-32) H 08/29/22 18:45 ALT 28 U/L (0-33) 08/29/22 18:45 Alkaline Phosphatase 474 U/L (35-105) H 08/29/22 18:45 Ammonia 70 umol/L (11-51) H 08/29/22 18:45 Creatine Kinase 111 U/L (26-192) 08/29/22 18:45 Troponin T Baseline 12 ng/L (0-10) H 08/29/22 18:45 Troponin T 120 Minute 12.45 ng/L (0-10) H 08/29/22 20:30 Delta Troponin T 0.45 ABS# (0-10) 08/29/22 20:30 NT-Pro-B Natriuret Pep 330 pg/mL (0-125) H 08/29/22 18:45 Total Protein 7.8 g/dL (6.6-8.7) 08/29/22 18:45 Albumin 2.8 g/dL (3.5-5.2) L 08/29/22 18:45 Globulin 5.0 g/dL (1.3-4.6) H 08/29/22 18:45 SARS-CoV-2 Ag (Rapid) Negative (Negative) 08/29/22 20:40 Discharge Plan Discharge Patient Disposition: Home Clinical Impression: Chest pain, pleuritic, Pneumonia Condition: Stable Prescriptions: New doxycycline hyclate 100 mg capsule 100 mg PO BID 7 Days Qty: 14 0RF hydrocodone-acetaminophen 5-325 mg tablet 1 tab PO Q8H PRN (Reason: pain) Qty: 7 0RF No Action (DME) Upright Walker See Rx Instructions .Route .MEDSUPPLY Qty: 1 0RF Rx Instructions: Use walker daily with ambulation at all times diclofenac sodium 1 % gel 2 g topical QID PRN (Reason: Pain) Qty: 100 0RF Rx Instructions: apply to affected area as needed leflunomide 10 mg tablet 10 mg PO DAILY Qty: 90 0RF prednisone 10 mg tablet See Rx Instructions PO .COMPLEX PRN (Reason: joint pain) Qty: 30 1RF Rx Instructions: take 1 or 2 tab daily for 3-7 days prn joint pain flare PO PRN; Lasix 40 mg tablet 40 mg PO QAM PRN (Reason: Edema) Qty: 90 1RF (DME) upright walker with wheels and brakes See Rx Instructions .Route .MEDSUPPLY Qty: 1 0RF Rx Instructions: As directed ferrous sulfate [Feosol] 325 mg (65 mg iron) tablet 325 mg PO BID Qty: 60 1RF calcium carbonate-vitamin D3 500 mg-10 mcg (400 unit) tablet 1 tab PO BID Qty: 60 0RF hydroxychloroquine 200 mg tablet 200 mg PO DAILY Qty: 90 1RF levothyroxine 150 mcg tablet See Rx Instructions .ROUTE .COMPLEX Qty: 90 1RF Dose Instruction: TAKE 1 TABLET BY MOUTH EVERY DAY FOR 90 DAYS Rx Instructions: TAKE 1 TABLET BY MOUTH EVERY DAY FOR 90 DAYS carbidopa-levodopa 25-100 mg tablet 1 tab PO TID Qty: 90 3RF tramadol 50 mg tablet 50 mg PO Q8H PRN (Reason: pain) Qty: 20 0RF pantoprazole 40 mg tablet,delayed release (DR/EC) See Rx Instructions .ROUTE .COMPLEX Qty: 90 1RF Dose Instruction: TAKE 1 TABLET BY MOUTH EVERY DAY Rx Instructions: TAKE 1 TABLET BY MOUTH EVERY DAY spironolactone 25 mg tablet See Rx Instructions .ROUTE .COMPLEX Qty: 90 0RF Dose Instruction: TAKE 1 TABLET BY MOUTH EVERY DAY Rx Instructions: TAKE 1 TABLET BY MOUTH EVERY DAY clonazepam 0.5 mg tablet 0.25 mg PO DAILY PRN (Reason: Anxiety) Qty: 15 2RF amantadine HCl 100 mg tablet See Rx Instructions .ROUTE .COMPLEX Qty: 180 0RF Dose Instruction: TAKE 1 TABLET BY MOUTH TWICE A DAY Rx Instructions: TAKE 1 TABLET BY MOUTH TWICE A DAY lactulose 20 gram/30 mL solution 30 g PO BID 90 Days Qty: 8100 1RF ropinirole 1 mg tablet See Rx Instructions .ROUTE .COMPLEX Qty: 90 5RF Dose Instruction: TAKE 1 TABLET BY MOUTH THREE TIMES A DAY Rx Instructions: TAKE 1 TABLET BY MOUTH THREE TIMES A DAY potassium chloride [Klor-Con M20] 20 mEq tablet,ER particles/crystals See Rx Instructions .ROUTE .COMPLEX Qty: 30 2RF Dose Instruction: TAKE 1 TABLET BY MOUTH EVERY DAY Rx Instructions: TAKE 1 TABLET BY MOUTH EVERY DAY atorvastatin 40 mg tablet See Rx Instructions .ROUTE .COMPLEX Qty: 90 0RF Dose Instruction: TAKE 1 TABLET BY MOUTH EVERYDAY AT BEDTIME Rx Instructions: TAKE 1 TABLET BY MOUTH EVERYDAY AT BEDTIME Xifaxan 550 mg Tablet 550 mg PO Q12H Qty: 180 0RF Discharge Orders: Discharge ED (Routine); Ordered 08/29/22 Ordered By: Alexis Corea Referrals: Jenni Beltran DO [Primary Care Provider] - 1-3 days Activity Restrictions/Additional Instructions: You have a mild pneumonia on chest CT. This could be the cause of your chest wall pain. Stop the tramadol, if you take the hydrocodone for pain. Only take for significant pain. Antibiotics as directed. Return for worsening pain despite treatment, shortness of breath, worsening mental status, any other concerning symptoms. See your doctor on Wednesday or Wednesday for follow-up. Coding Level of Care Code ED Clinical Nutritionist for Micheline Fwdangelo Exam Comprehensive
[2022-08-29] MEDS: iohexol 350 mg/mL 100 mL Btl IV (20:06)
--- NOTE | 2022-08-29 20:30 | ECG_ITS ---
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 Measurements Intervals [place] Rate: 92 P: 39 [place]: 152 QRS: -78 QRSD: 94 T: 71 QT: 374 QTc: 465 Interpretive Statements SINUS RHYTHM WITH OCCASIONAL VENTRICULAR PREMATURE COMPLEXES LEFT ATRIAL ENLARGEMENT [-0.15mV P-WAVE IN V1/V2] LEFT AXIS DEVIATION [QRS AXIS < -30] POSSIBLE INFERIOR MYOCARDIAL INFARCTION , PROBABLY OLD [30 ms Q WAVE IN II/aVF] Compared to ECG 08/29/2022 17:57:58 Ventricular premature complex(es) now present Atrial abnormality now present Left-axis deviation now present Myocardial infarct finding now present Right-axis deviation no longer present ST (T wave) deviation no longer present Early repolarization no longer present Electronically Signed On 08-30-2022 22:06:16 CDT by Michael Ulloa M.D. [id number]
[2022-08-29 21:04] LABS: Troponin 5 2HR 12.45 ng/L (0-10)
[2022-08-29 21:06] LABS: Troponin 5 2HR Delta 0.45 ABS# (0-10)
[2022-08-29 21:11] LABS: SARS Covid-2 Antigen Negative (Negative)
[2022-08-29] MEDS: FUROsemide 10 mg/mL SDV 4mL 40 MG IVP (21:51)
[2022-08-29] MEDS: dexamethasone 4 mg/mL INJ 8 MG IVP (21:51)
[2022-08-29] MEDS: doxycycline 100 mg Tablet PO (21:52)
== END 2022-08-29 22:05 | disposition home or self-care (01) ==
PROVIDERS: Emergency Provider Emergency Medicine; PCP Family Medicine
DX: J18.9 Pneumonia, unspecified organism (principal); R07.89 Other chest pain; K75.81 Nonalcoholic steatohepatitis (NASH); K76.82 Hepatic encephalopathy; G20 Parkinson's disease
CPT/HCPCS: 70450; 71045; 71275; 80053; 82140; 82550; 83880; 84484; 85025; 85378; 85610; 85730; 87426; 93005; 96374; 96375; 99285; J1100; J1940; J2405; J3010; Q9967

== ENCOUNTER 2022-09-11 13:41 | Outpatient (CLI) | payer MEDICARE, SELFPAY ==
[2022-09-11 14:00] LABS: Basophils # 0.1 10^3/uL (0.0-0.1); Basophils % 0.9 %; Eosinophils # 0.3 10^3/uL (0.0-0.8); Eosinophils % 3.6 %; Hematocrit 39.9 % (37.0-47.0); Hemoglobin 13.2 g/dL (11.5-15.3); Lymphocytes # 0.6 10^3/uL (0.8-4.8); Lymphocytes % 7.3 %; Mean Corpuscular HGB Conc 33.1 g/dL (30.0-36.0); Mean Corpuscular Hemoglobin 29.7 pg (28.0-34.0); Mean Corpuscular Volume 89.9 fl (81-99); Mean Platelet Volume 11.4 fL (7.4-10.4); Monocytes # 0.8 10^3/uL (0.2-0.9); Monocytes % 9.2 %; Neutrophils # 6.74 10^3/uL (1.8-7.7); Neutrophils % 78.7 %; Nucleated Red Blood Cells % 0 %; Platelet Count 189 10^3/cmm (130-400); Red Blood Count 4.44 10^6/uL (4.1-5.3); Red Cell Distribution Width 17.5 % (12.1-15.1); White Blood Count 8.6 10^3/uL (4.0-10.0)
[2022-09-11 14:41] LABS: Alanine Aminotransferase 12 U/L (0-33); Albumin Level 2.8 g/dL (3.5-5.2); Alkaline Phosphatase 438 U/L (35-105); Aspartate Amino Transferase 102 U/L (0-32); C Reactive Protein 44.7 mg/L (0.0-4.9); Globulin 4.9 g/dL (1.3-4.6); Glomerular Filtration Rate 83.5 mL/min (90-130); Total Bilirubin 2.7 mg/dL (0.15-1.2); Total Protein 7.7 g/dL (6.6-8.7)
== END 2022-09-11 13:42 | disposition home or self-care (01) ==
LOC: LAB 13:46
PROVIDERS: PCP Family Medicine; Visit Provider Internal Medicine Rheumatology
DX: M19.90 Unspecified osteoarthritis, unspecified site (principal); Z79.899 Other long term (current) drug therapy
CPT/HCPCS: 80076; 82565; 85025; 86140

== ENCOUNTER → 2022-09-15 08:40 | Outpatient (BNVA) | payer MEDICARE, SELFPAY | PROVIDERS: PCP Family Medicine; Visit Provider Specialist | DX: G20 Parkinson's disease (principal); K72.90 Hepatic failure, unspecified without coma; K75.81 Nonalcoholic steatohepatitis (NASH); R76.8 Other specified abnormal immunological findings in serum; Z96.82 Presence of neurostimulator; Z45.42 Encounter for adjustment and management of neurostimulator | CPT/HCPCS: 95983; 95984; 99214 ==

== ENCOUNTER 2022-10-13 09:46 | Outpatient (CLI) | payer MEDICARE, SELFPAY ==
[2022-10-13 10:27] LABS: Ammonia 19 umol/L (11-51)
[2022-10-13 10:36] LABS: Alanine Aminotransferase 34 U/L (0-33); Albumin Level 2.7 g/dL (3.5-5.2); Alkaline Phosphatase 353 U/L (35-105); Anion Gap 14.5 (5-19); Aspartate Amino Transferase 67 U/L (0-32); Blood Urea Nitrogen 10 mg/dL (8-23); Calcium 8.9 mg/dL (8.5-10.5); Carbon Dioxide 26 mmol/L (22-29); Chloride 102 mmol/L (98-107); Globulin 5.1 g/dL (1.3-4.6); Glomerular Filtration Rate 99.7 mL/min (90-130); Glucose 94 mg/dL (65-115); Osmolality Calculated 287 mOsm/kg (285-295); Potassium 3.5 mmol/L (3.5-5.1); Sodium 139 mmol/L (136-145); Thyroid Stimulating Hormone 1.22 uIU/mL (0.27-4.20); Total Bilirubin 1.8 mg/dL (0.15-1.2); Total Protein 7.8 g/dL (6.6-8.7)
== END 2022-10-13 09:47 | disposition home or self-care (01) ==
LOC: LAB 09:49
PROVIDERS: PCP Family Medicine; Visit Provider Family Medicine
DX: E03.9 Hypothyroidism, unspecified (principal); K75.81 Nonalcoholic steatohepatitis (NASH)
CPT/HCPCS: 36415; 80053; 82140; 84443

== ENCOUNTER → 2022-11-05 14:53 | Outpatient (BNVA) | payer MEDICARE, SELFPAY | PROVIDERS: PCP Family Medicine; Visit Provider Podiatrist Foot & Ankle Surgery | DX: I73.9 Peripheral vascular disease, unspecified (principal); L60.8 Other nail disorders; L60.3 Nail dystrophy; G20 Parkinson's disease; E03.9 Hypothyroidism, unspecified | CPT/HCPCS: 11721 ==

== ENCOUNTER 2022-11-11 10:34 | Outpatient (CLI) | payer MEDICARE, SELFPAY ==
--- NOTE | 2022-11-11 11:09 | US_ITS ---
WS: [id number] ULTRASOUND ABDOMEN LIMITED CLINICAL INFORMATION: CIRRHOSIS OF LIVER COMPARISON: Ultrasound July 14, 2022 FINDINGS: Liver Size: Normal. Craniocaudal length: 12.6 cm. Echogenicity: Coarse Surface nodularity: Cirrhotic Mass (size and location): None. Bile ducts Intrahepatic ducts: Normal. Common bile duct diameter: 0.4 cm. Gallbladder Cholelithiasis and gallbladder wall thickening. Dens shadowing calculi. Gallstones: Present Gallbladder sludge: None. Gallbladder wall thickening: Present 4.2mm Pericholecystic fluid: None. Sonographic Ventura sign: Absent. Pancreas Normal as visualized. Right kidney: Normal. Hydronephrosis: None. Size: 11.1 cm x 4.6 cm x 4.9 cm. Abdominal aorta and IVC Visualized portions are normal. Ascites: Perihepatic ascites US/US gall bladder [id number] IMPRESSION: 1. Cirrhotic liver with coarse echogenicity. Small amount of perihepatic ascit es. 2. Cholelithiasis with dense shadowing calculi. 3. Gallbladder wall thickening new from previous but likely due to hepatic dis ease. This can be further evaluated with HIDA scan if persistent concern. Crystal l common bile duct. 4. No hydronephrosis in RIGHT kidney 5. Perihepatic ascites.
[2022-11-11 11:15] LABS: Basophils # 0.1 10^3/uL (0.0-0.1); Basophils % 1.3 %; Eosinophils # 0.5 10^3/uL (0.0-0.8); Hematocrit 38.3 % (37.0-47.0); Hemoglobin 12.7 g/dL (11.5-15.3); Lymphocytes # 0.6 10^3/uL (0.8-4.8); Lymphocytes % 7.5 %; Mean Corpuscular HGB Conc 33.2 g/dL (30.0-36.0); Mean Corpuscular Hemoglobin 28.3 pg (28.0-34.0); Mean Corpuscular Volume 85.5 fl (81-99); Mean Platelet Volume 10.7 fL (7.4-10.4); Monocytes % 12.1 %; Neutrophils # 5.74 10^3/uL (1.8-7.7); Neutrophils % 72.7 %; Nucleated Red Blood Cells % 0 %; Platelet Count 243 10^3/cmm (130-400); Red Blood Count 4.48 10^6/uL (4.1-5.3); White Blood Count 7.9 10^3/uL (4.0-10.0)
[2022-11-11 11:26] LABS: INR 1.24 (0.8-1.2)
[2022-11-11 11:41] LABS: Tumor Marker Alpha Fetoprotein 1.2 ng/mL (0-8.3)
[2022-11-11 11:52] LABS: Alanine Aminotransferase 6 U/L (0-33); Albumin Level 2.7 g/dL (3.5-5.2); Alkaline Phosphatase 269 U/L (35-105); Anion Gap 14.3 (5-19); Aspartate Amino Transferase 47 U/L (0-32); Blood Urea Nitrogen 10 mg/dL (8-23); Calcium 7.6 mg/dL (8.5-10.5); Carbon Dioxide 23 mmol/L (22-29); Chloride 101 mmol/L (98-107); Globulin 4.3 g/dL (1.3-4.6); Glomerular Filtration Rate 99.7 mL/min (90-130); Glucose 79 mg/dL (65-115); Osmolality Calculated 278 mOsm/kg (285-295); Potassium 3.3 mmol/L (3.5-5.1); Sodium 135 mmol/L (136-145); Total Bilirubin 1.7 mg/dL (0.15-1.2)
== END 2022-11-11 10:35 | disposition home or self-care (01) ==
PROVIDERS: PCP Family Medicine; Visit Provider Nurse Practitioner
DX: K74.60 Unspecified cirrhosis of liver (principal); R18.8 Other ascites; K80.20 Calculus of gallbladder without cholecystitis without obstruction
CPT/HCPCS: 36415; 76705; 80053; 82105; 85025; 85610

== ENCOUNTER 2022-12-15 10:02 | Outpatient (RCR) | payer MEDICARE, SELFPAY | END 2022-12-29 23:59 | disposition home or self-care (01) | LOC: SPT 10:02 | PROVIDERS: PCP Family Medicine; Visit Provider Family Medicine | DX: R76.8 Other specified abnormal immunological findings in serum (principal); M15.9 Polyosteoarthritis, unspecified; Z79.899 Other long term (current) drug therapy; Z71.85 Encounter for immunization safety counseling; K74.60 Unspecified cirrhosis of liver; M70.62 Trochanteric bursitis, left hip; Y93.9 Activity, unspecified; Q44.5 Other congenital malformations of bile ducts; Z96.89 Presence of other specified functional implants; Z98.890 Other specified postprocedural states; R26.81 Unsteadiness on feet; G20 Parkinson's disease | CPT/HCPCS: 97162; 99214 ==

== ENCOUNTER → 2022-12-22 12:14 | Outpatient (BNVA) | payer MEDICARE, SELFPAY | PROVIDERS: PCP Family Medicine; Visit Provider Specialist | DX: G20 Parkinson's disease (principal); Z45.42 Encounter for adjustment and management of neurostimulator; Z96.82 Presence of neurostimulator | CPT/HCPCS: 95983; 99214 ==

== ENCOUNTER 2022-12-27 06:24 | Inpatient (IN) | payer MEDICARE, SELFPAY ==
[2022-12-27] VITALS (13 sets, daily range): BP systolic 93–141; BP diastolic 42–70; PULSE 78–91; RESP 14–18; TEMP 36.4–37.2; O2SAT 95–99; BMI 27.3
--- NOTE | 2022-12-27 06:32 | XRR_ITS ---
PROCEDURE INFORMATION: Exam: XR Chest Exam date and time: 12/27/2022 6:37 AM Age: 67 years old Clinical indication: Shortness of breath; Prior surgery; Additional info: SOB TECHNIQUE: Imaging protocol: Radiologic exam of the chest. Views: 1 view. COMPARISON: CR (CHEST, ) 08/29/2022 7:07 PM FINDINGS: Tubes, catheters and devices: Unchanged device is seen overlying the right mid chest with leads extending cephalad into the right neck with region. Lungs: Mildly decreased lung volumes. No interstitial airspace opacities in the lungs. Unchanged elevated right hemidiaphragm, suggestive of hemidiaphragmatic eventration. Pleural spaces: No pleural effusion. No pneumothorax. Heart/Mediastinum: Normal heart size. Normal mediastinum. Midline trachea. Bones/joints: No acute osseous abnormalities seen. XR/XR chest 1V portable [id number] IMPRESSION: No confluent infiltrates in the lungs.
--- NOTE | 2022-12-27 06:33 | ECG_ITS ---
[facility] Test Date: 2022-12-27 Pat Name: Ksenia Tejada Department: Room: Gender: Female [employer]: : 1955 Requested By: Jolynn Harrison Order Number: [id number] Ting MD: Michael Ulloa M.D. Measurements Intervals [place] Rate: 88 P: 17 [place]: 143 QRS: -17 QRSD: 94 T: 81 QT: 334 QTc: 406 Interpretive Statements SINUS RHYTHM POSSIBLE ANTERIOR MYOCARDIAL INFARCTION , PROBABLY OLD [30 ms Q WAVE IN V3/V4, OR R < 0.2 mV IN V4] Compared to ECG 08/29/2022 20:30:26 Ventricular premature complex(es) no longer present Atrial abnormality no longer present Left-axis deviation no longer present Myocardial infarct finding still present Electronically Signed On 12-27-2022 11:19:18 SALVAGE CLERK by Michael Ulloa M.D. [id number]
[2022-12-27] MEDS: ondansetron 2 mg/ML SDV 2 mL 4 MG IVP (06:44)
[2022-12-27] MEDS: morphine 4 mg/mL SDV 1 mL 2 MG IVP (06:44)
[2022-12-27 06:47] LABS: Basophils % 0.2 %; Eosinophils # 0.1 10^3/uL (0.0-0.8); Eosinophils % 0.6 %; Hematocrit 39.1 % (37.0-47.0); Hemoglobin 13.6 g/dL (11.5-15.3); Lymphocytes # 0.5 10^3/uL (0.8-4.8); Lymphocytes % 3.7 %; Mean Corpuscular HGB Conc 34.8 g/dL (30.0-36.0); Mean Corpuscular Hemoglobin 27.1 pg (28.0-34.0); Mean Corpuscular Volume 77.9 fl (81-99); Monocytes % 7.8 %; Neutrophils # 11.01 10^3/uL (1.8-7.7); Neutrophils % 87.1 %; Nucleated Red Blood Cells % 0 %; Platelet Count 263 10^3/cmm (130-400); Red Blood Count 5.02 10^6/uL (4.1-5.3); Red Cell Distribution Width 17.2 % (12.1-15.1); White Blood Count 12.6 10^3/uL (4.0-10.0)
[2022-12-27 07:07] LABS: Troponin(5th) Baseline 33 ng/L (0-10)
--- NOTE | 2022-12-27 07:09 | W.ED.ABDPA2 ---
HPI - Abdominal Pain General: Chief Complaint: Abdominal Pain Stated Complaint: ABD PAIN Time Seen by Provider: 12/27/22 06:24 History of Present Illness: This patient is a 67 year old presenting by EMS from home due to abdominal pain and distention. She reports that she has had pain in the LUQ and told EMS that it had been for a month, but worse in the past 2 weeks. She told me that it has been going on much longer than that and she was seen in August for similar complaints. She has a history of cirrhosis due to KING, and sees a GI specialist - one office note stated it was in [place] or [place]. She has never had ascites drained. She is on lactulose and has been having regular, loose BMs. She felt like she had a fever over the past two days. She has had some vomiting. She has not been able to eat or drink much. She also has history of Parkinson's and has recently started using a wheelchair exclusively. She has had several falls in the past month. She also has an autoimmune disorder and is currently on prednisone 5 mg daily after she failed Leflunomide per rheumatology office note. According to neurology office note, she lives in a trailer with her who is dialysis dependant. Related Data: Date of Last Menstrual Period: 02/20/21 [facility] ED [facility]: Medical History (Updated 12/27/22 @ 13:03 by Jolynn Whelan MD) Acute hepatic encephalopathy Acute respiratory failure Anti-TPO antibodies present Cystitis Esophageal varices Family history of colon cancer Fatty liver disease, nonalcoholic GERD (gastroesophageal reflux disease) High risk medication use Hyperammonemia Hypocalcemia Hypothyroidism Immunization counseling Inflammatory arthritis Joint pain Liver cirrhosis KING (nonalcoholic steatohepatitis) Osteoarthritis, generalized Parkinsons disease Positive NICO (antinuclear antibody) RLS (restless legs syndrome) Surgical History History of colonoscopy (~12/2020) History of esophagogastroduodenoscopy (EGD) (~12/2020) History of left knee replacement History of shoulder surgery S/P bilateral foot surgery S/P ERCP Status post deep brain stimulator placement Family History Brother CAD (coronary artery disease) Hypertension Father CAD (coronary artery disease) Diabetes Hypertension Mother CAD (coronary artery disease) Hypertension Sister Hypertension Other Lupus Rheumatoid arthritis Denies family history of Lung disease Stroke Social History Smoking and tobacco status: never smoked Alcohol intake: never Marital status: Current occupational status: disabled History of recent travel: No Female Reproductive History: Date of last menstrual period: 02/20/21 Physical Exam Const: COMMON NORMALS: no acute distress, patient oriented x3, no limitations and alert GENERAL APPEARANCE: cooperative and comfortable HENMT: HEAD & SCALP: normal to inspection FACE & SINUS: normal facial exam MOUTH: moist mucous membranes abnormal Details: parched Eye: GENERAL EYE: appearance normal, both eyes and all related structures Neck/C-Spine: COMMON NORMALS: supple and no meningeal signs Chest: COMMONS NORMALS: normal inspection of the chest Resp: EFFORT & INSPECTION: Yes labored AUSCULTATION: breath sounds absent (base) on the right Cardio: COMMON NORMALS: regular rate, regular rhythm and No murmurs present (Cardio) JUGULAR VENOUS DISTENTION: JVD RATE: regular rate RHYTHM: regular rhythm GI: INSPECTION: Yes abdominal distension, Yes caput medusae present (distended vessels noted all over abdomen) and Yes Fluid wave present PALPATION: Yes Firmness to palpation present (GI) and Yes Tenderness to palpation present (GI) (mild diffuse) PERCUSSION: Fluid wave present Back/Pelvis: COMMON NORMALS: thoracic and lumbar spine normal to inspection Extremity: COMMON NORMALS: normal to inspection GENERAL: Yes edema (2+) Neuro: COMMON NORMALS: patient oriented x3, moves all extremities, no focal motor deficits and no sensory deficits noted SENSORIUM/ORIENTATION: Yes alert MENINGEAL SIGNS: Yes no meningeal signs Psych: COMMON NORMALS: mental status grossly normal, cooperative and normal affect Skin: COMMON NORMALS: no rashes or lesions noted and turgor normal GENERAL SKIN EXAM: no rashes or lesions noted and turgor normal Procedures Paracentesis Time Out Performed: Yes Local Anesthetic: lidocaine 1% Amount of anesthesia used (mL): 2 Fluid: clear and sent to lab for analysis Post Procedure Exam: awake, alert, normal BP, normal HR and normal SpO2 Patient Tolerated Procedure: well and other (albumin, NS 500 mL bolus given during and post procedure) Complications: none (RLQ - US guided) Course Vital Signs: Vital signs: Vital Signs Temperature 99.0 F 12/27/22 06:29 Pulse Rate 89 12/27/22 10:30 Respiratory Rate 16 12/27/22 09:30 Blood Pressure 103/59 12/27/22 10:30 Pulse Oximetry 96 12/27/22 10:30 Oxygen Delivery Me thod 12/27/22 06:29 MDM - Abdominal Pain Medical Decision Making Abdominal distention, evidence of cirrhosis with elevated portal pressures. Low grade temp (99) here. Concern for SBP. Pain may also be related to the ascites itself, as the pain has been on going for sometime. She may need peracentsis for comfort and to test fluid for infection. She also has decreased breath sounds in the right base - ? pleural effusion? CXR pending. Labs including CBC for anemia, leukocytosis, platelet count - due to liver disease - pending. CMP for LFTs, electrolytes, renal function to rule out hepatorenal syndrome. PT/INR due to liver disease and potential procedure. Doubt cardiac disease but possible - given left sided pain, shortness of breath. Cardiac work up including BNP pending. Clinically appears dry, but holding fluids until CXR and labs are back to help assess best fluid, rate. Lab Data 12/27/22 06:00 12/27/22 06:00 Labs/Radiology: Radiology Impressions Chest X-Ray 12/27/22 06:32 IMPRESSION: No confluent infiltrates in the lungs. Abdomen/Pelvis CT 12/27/22 08:08 IMPRESSION: 1. Worsened small nodular contour liver with mild heterogeneous attenuation. This is consistent with known liver cirrhosis. Right hepatic lobe segment VII 0.9 x 0.9 cm indeterminate character low-attenuation lesion. This was not definitively seen on the prior CT. Sonography or MRI may be performed for further assessment. 2. Moderate to severe abdominal ascites. Some gastroesophageal junction varices. This would be consistent with portal hypertension. 3. Small bowel and colonic wall regions of thickening. This may be related to hypoproteinemia. Laboratory Results WBC 12.6 10^3/uL (4.0-10.0) H 12/27/22 06:00 RBC 5.02 10^6/uL (4.1-5.3) 12/27/22 06:00 Hgb 13.6 g/dL (11.5-15.3) 12/27/22 06:00 Hct 39.1 % (37.0-47.0) 12/27/22 06:00 MCV 77.9 fl (81-99) L 12/27/22 06:00 MCH 27.1 pg (28.0-34.0) L 12/27/22 06:00 MCHC 34.8 g/dL (30.0-36.0) 12/27/22 06:00 RDW 17.2 % (12.1-15.1) H 12/27/22 06:00 Plt Count 263 10^3/cmm (130-400) 12/27/22 06:00 MPV 10.0 fL (7.4-10.4) 12/27/22 06:00 Neut % (Auto) 87.1 % 12/27/22 06:00 Lymph % (Auto) 3.7 % 12/27/22 06:00 [place] % (Auto) 7.8 % 12/27/22 06:00 Eos % (Auto) 0.6 % 12/27/22 06:00 Baso % (Auto) 0.2 % 12/27/22 06:00 Neut # (Auto) 11.01 10^3/uL (1.8-7.7) H 12/27/22 06:00 Lymph # (Auto) 0.5 10^3/uL (0.8-4.8) L 12/27/22 06:00 [place] # (Auto) 1.0 10^3/uL (0.2-0.9) H 12/27/22 06:00 Eos # (Auto) 0.1 10^3/uL (0.0-0.8) 12/27/22 06:00 Baso # (Auto) 0.0 10^3/uL (0.0-0.1) 12/27/22 06:00 Nucleated RBC % (auto) 0 % 12/27/22 06:00 Nucleated RBCs # 0.0 /100WBC 12/27/22 06:00 PT 18.30 SECONDS (12.1-14.9) H 12/27/22 06:00 INR 1.49 (0.8-1.2) H 12/27/22 06:00 Sodium 127 mmol/L (136-145) L 12/27/22 06:00 Potassium 4.1 mmol/L (3.5-5.1) 12/27/22 06:00 Chloride 92 mmol/L (98-107) L 12/27/22 06:00 Carbon Dioxide 23 mmol/L (22-29) 12/27/22 06:00 Anion Gap 16.1 (5-19) 12/27/22 06:00 BUN 27 mg/dL (8-23) H 12/27/22 06:00 Creatinine 1.0 mg/dL (0.5-0.9) H 12/27/22 06:00 GFR Calculation 55.3 mL/min (90-130) L 12/27/22 06:00 Glucose 65 mg/dL (65-115) 12/27/22 06:00 Calculated Osmolality 267 mOsm/kg (285-295) L 12/27/22 06:00 Lactic Acid 2.0 mmol/L (0.5-2.2) 12/27/22 06:50 Calcium 8.3 mg/dL (8.5-10.5) L 12/27/22 06:00 Magnesium 2.6 mg/dL (1.7-2.3) H 12/27/22 06:00 Total Bilirubin 3.0 mg/dL (0.15-1.2) H 12/27/22 06:00 AST 70 U/L (0-32) H 12/27/22 06:00 ALT 20 U/L (0-33) 12/27/22 06:00 Alkaline Phosphatase 315 U/L (35-105) H 12/27/22 06:00 Ammonia 28 umol/L (11-51) 12/27/22 08:51 Troponin T Baseline 33 ng/L (0-10) H 12/27/22 06:00 Troponin T 120 Minute 25.41 ng/L (0-10) H 12/27/22 07:53 Delta Troponin T -7.59 ABS# (0-10) L 12/27/22 07:53 NT-Pro-B Natriuret Pep 1207 pg/mL (0-125) H 12/27/22 06:00 Total Protein 7.5 g/dL (6.6-8.7) 12/27/22 06:00 Albumin 2.2 g/dL (3.5-5.2) L 12/27/22 06:00 Globulin 5.3 g/dL (1.3-4.6) H 12/27/22 06:00 Lipase 20 U/L (13-60) 12/27/22 06:00 Urine Color Dark yellow (Yellow) 12/27/22 08:15 Urine Appearance Clear (CLEAR) 12/27/22 08:15 Urine pH 5 (5-7) 12/27/22 08:15 Ur Specific [place] 1.025 (1.005-1.030) 12/27/22 08:15 Urine Protein Trace (Negative) 12/27/22 08:15 Urine Glucose (UA) Norm (Normal) 12/27/22 08:15 Urine Ketones 1+ (Negative) H 12/27/22 08:15 Urine Blood Neg (Negative) 12/27/22 08:15 Urine Nitrate Positive (Negative) H 12/27/22 08:15 Urine Bilirubin 1+ (Negative) H 12/27/22 08:15 Urine Urobilinogen 1 mg/dL (Negative) H 12/27/22 08:15 Ur Leukocyte Esterase Trace (Negative) H 12/27/22 08:15 Urine RBC None /hpf (0-2) 12/27/22 08:15 Urine WBC 5-10 /hpf (0-5) H 12/27/22 08:15 Ur Squamous Epith Cells Rare /hpf (0-5) 12/27/22 08:15 Amorphous Sediment Trace /hpf 12/27/22 08:15 Urine Bacteria Trace /hpf (NONE) 12/27/22 08:15 Urine Mucus Trace /hpf 12/27/22 08:15 Fluid Total Protein 1.7 g/dL 12/27/22 09:40 Fluid Albumin 0.7 g/dL 12/27/22 09:40 Peritoneal Color Pale yellow (Pale Yellow) 12/27/22 09:40 Peritoneal Appearance Hazy (Clear) 12/27/22 09:40 Peritoneal WBC 20 /uL 12/27/22 09:40 Peritoneal RBC 0 10^3/uL 12/27/22 09:40 Periton Mononu # Auto 0.006 10^3/uL 12/27/22 09:40 Mononuclear WBCs % 30.000 % 12/27/22 09:40 Polynuclear WBCs % 70.000 % 12/27/22 09:40 Perit Polynuc WBCs # 0.014 10^3/uL 12/27/22 09:40 Peritoneal Diff Commnt Yes 12/27/22 09:40 Discharge Plan Discharge Patient Disposition: Placed in Observation Admit Provider: Joshua Grant Clinical Impression: UTI (urinary tract infection), KING (nonalcoholic steatohepatitis), Parkinsons disease, Generalized weakness, Leg edema Condition: Stable Coding Level of Care Code ED Chucking Machine Set Up Operator for Chg Fwd Exam Comprehensive
[2022-12-27 07:11] LABS: INR 1.49 (0.8-1.2)
[2022-12-27 07:15] LABS: Alanine Aminotransferase 20 U/L (0-33); Albumin Level 2.2 g/dL (3.5-5.2); Alkaline Phosphatase 315 U/L (35-105); Anion Gap 16.1 (5-19); Aspartate Amino Transferase 70 U/L (0-32); Blood Urea Nitrogen 27 mg/dL (8-23); Calcium 8.3 mg/dL (8.5-10.5); Carbon Dioxide 23 mmol/L (22-29); Chloride 92 mmol/L (98-107); Globulin 5.3 g/dL (1.3-4.6); Glomerular Filtration Rate 55.3 mL/min (90-130); Glucose 65 mg/dL (65-115); Lipase 20 U/L (13-60); Magnesium 2.6 mg/dL (1.7-2.3); NT Pro B Type Natriuretic Pept 1207 pg/mL (0-125); Osmolality Calculated 267 mOsm/kg (285-295); Potassium 4.1 mmol/L (3.5-5.1); Sodium 127 mmol/L (136-145); Total Protein 7.5 g/dL (6.6-8.7)
--- NOTE | 2022-12-27 08:08 | CTR_ITS ---
PROCEDURE INFORMATION: Exam: CT Abdomen And Pelvis With Contrast Exam date and time: 12/27/2022 8:24 AM Age: 67 years old Clinical indication: Abdominal pain; Localized; Left upper quadrant (luq); Additional info: Abd pain, luq, cirrhosis TECHNIQUE: Imaging protocol: Computed tomography of the abdomen and pelvis with contrast. Radiation optimization: All CT scans at this facility use at least one of these dose optimization techniques: automated exposure control; mA and/or kV adjustment per patient size (includes targeted exams where dose is matched to clinical indication); or iterative reconstruction. Contrast material: OMNI 350; Contrast volume: 100 ml; Contrast route: INTRAVENOUS (IV); Other protocol: This patient has received 6 known CTs and 0 known cardiac nuclear medicine studies in the 12 months prior to the current study. COMPARISON: CT abdomen pelvis w con* [id number] 03/16/2022 2:33 PM RADIATION DOSE METRICS: Total DLP (mGy-cm): 642.7 FINDINGS: Lungs: The visualized portions of the lung bases are normal. Liver: Worsened small nodular contour liver is seen with mildly heterogeneous attenuation. This is consistent with known liver cirrhosis. Right hepatic lobe/segment VII 0.9 x 0.9 cm low-attenuation lesion is seen (series 6, image 16). This was not definitively seen on the prior CT. Sonography or MRI may be performed for further assessment.This is of indeterminate character. The nonemergent sonography or MRI may be performed for further assessment. Gallbladder and bile ducts: Euxj-ak-eddafdrghu distended gallbladder. No calcified stone. No biliary ductal dilatation. Pancreas: Unremarkable CT appearance of the pancreatic parenchyma. No ductal dilatation. Spleen: The contrast enhanced spleen shows an unchanged upper splenic 1 x 1 cm low-attenuation lesion, which may represent a cyst or hemangioma. Adrenal glands: Normal CT appearance of the adrenals. No mass. Kidneys and ureters: Normal renal contour. No mass seen. No hydronephrosis. Stomach and bowel: The non-contrast opacified stomach is not well distended with relative gastric fold prominence. Assessment is limited. Small hiatal hernia is seen. Some gastroesophageal junction region varices are seen. Nonspecific mild jejunal fold thickening is seen. This can be seen with hypoproteinemia. The ileal small bowel loops appear unremarkable. The noncontrast opacified loops of colon show mild distal transverse colonic, descending colonic, sigmoid colonic and rectal wall thickening. These findings may be related to hypoproteinemia.The lack of orally administered contrast material limits assessment. Appendix: No CT evidence of appendicitis. Some inspissated material is seen in the appendix. Intraperitoneal space: No free air. Moderate to severe abdominal ascites. Vasculature: No abdominal aortic aneurysm. Inferior vena cava and portal vein appear unremarkable. Lymph nodes: No enlarged lymph nodes. Urinary bladder: No bladder wall thickening or debris. Reproductive: Unremarkable as visualized. Bones/joints: No acute osseous abnormality seen. Mild bilateral hip degenerative changes are seen. Soft tissues: Mild body wall edema. CT/CT abdomen pelvis w con* [id number] IMPRESSION: 1. Worsened small nodular contour liver with mild heterogeneous attenuation. This is consistent with known liver cirrhosis. Right hepatic lobe segment VII 0.9 x 0.9 cm indeterminate character low-attenuation lesion. This was not definitively seen on the prior CT. Sonography or MRI may be performed for further assessment. 2. Moderate to severe abdominal ascites. Some gastroesophageal junction varices. This would be consistent with portal hypertension. 3. Small bowel and colonic wall regions of thickening. This may be related to hypoproteinemia.
[2022-12-27 08:19] LABS: Troponin 5 2HR 25.41 ng/L (0-10)
[2022-12-27] MEDS: iohexol 350 mg/mL 500 mL Btl (per mL) IV (08:26)
--- NOTE | 2022-12-27 08:33 | ECG_ITS ---
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 Measurements Intervals [place] Rate: 87 P: 53 [place]: 174 QRS: 12 QRSD: 106 T: 32 QT: 372 QTc: 448 Interpretive Statements Secondary to Baseline artifact, rhythm interpretation not possible LOW QRS VOLTAGE IN EXTREMITY LEADS [QRS DEFLECTION < 0.5 mV IN LIMB LEADS] Compared to ECG 08/29/2022 20:30:26 Low QRS voltage now present Ventricular premature complex(es) no longer present Atrial abnormality no longer present Left-axis deviation no longer present Myocardial infarct finding no longer present Electronically Signed On 12-27-2022 11:32:33 CONTRACTOR BUYER by Michael Ulloa M.D. [id number]
[2022-12-27 08:58] LABS: Troponin 5 2HR Delta -7.59 ABS# (0-10)
[2022-12-27] MEDS: morphine 4 mg/mL SDV 1 mL IVP (09:24)
--- NOTE | 2022-12-27 09:29 | PC.NURSE ---
PARACENTESIS 0929 DR. LOUISE 91 HEART RATE 96% O2 112/69 16RR RIGHT ABDOMEN ACCESSED 0933 0944 90 HEART RATE 97% O2 98/58 16RR 3200ML OUTPUT 0950 4260 OUTPUT 88 HEART RATE 96% O2 97/61 16 RR 0959 6000ML OUTPUT TOTAL 90 HEART RATE 96% O2 114/[address] LOUISE DC'D ACCESS SITE PT TOLERATED PROCEDURE WELL
[2022-12-27 09:32] LABS: Ammonia 28 umol/L (11-51)
[2022-12-27 09:47] LABS: Add Urine Microscopic? YES; Bilirubin Urine 1+ (Negative); Blood Urine Neg (Negative); Glucose Urine UA Norm (Normal); Ketones Urine 1+ (Negative); Leukocyte Esterase Urine Trace (Negative); Nitrate Urine Positive (Negative); Protein Urine Trace (Negative); Specific Gravity, Urine 1.025 (1.005-1.030); Urine Appearance Clear (CLEAR); Urine Color Dark Yellow (Yellow); Urobilinogen Urine 1 mg/dL (Negative); pH Urine 5 (5-7)
[2022-12-27 09:48] LABS: Amorphous Sediment Urine TRACE /hpf; Bacteria Urine TRACE /hpf; Mucus Urine TRACE /hpf; Squamous Epithelial Cell Urine RARE /hpf (0-5)
[2022-12-27 09:49] LABS: Add Urine Culture? No
[2022-12-27] MEDS: sodium chloride 0.9% 500 ML 999 ML IV (10:23)
[2022-12-27 10:45] LABS: Cyto Order Verification No Order
[2022-12-27 10:46] LABS: Mononuclear #, Pertinoneal Fl 0.006 10^3/uL; Polynuclear # Cells, Perit 0.014 10^3/uL
[2022-12-27 11:01] LABS: Total Protein Body Fluid 1.7 g/dL
[2022-12-27 11:02] LABS: Albumin Body Fluid 0.7 g/dL
[2022-12-27 11:11] LABS: Appearance, Peritoneal Fluid Hazy (Clear); Color, Peritoneal Fluid Pale Yellow (Pale Yellow); Pathology Referral Yes; RBC Pertioneal Fluid 0 10^3/uL; WBC Peritoneal Fluid 20 /uL
--- NOTE | 2022-12-27 12:05 | PM.HP ---
Providers/Chief Complaint Primary Care Provider: Jenni Beltran DO Chief Complaint: ABD PAIN History of Present Illness Ksenia Tejada is a 67 year old female history of Echavarria, liver cirrhosis, portal hypertension, esophageal varices, required banding, history of GI bleed, history of Parkinson's disease, hip encephalopathy, hypothyroidism, restless leg syndrome, who presents to [facility] due to fatigue, malaise, poor appetite, abdominal distention. Patient tells me that she has a history of liver cirrhosis, secondary to ECHAVARRIA, she sees a liver doctor in [place], her last follow-up was last week, she was doing well, but over the last few days she started developing abdominal distention, no fevers, chills, no hemoptysis, no nausea, no vomiting, no falls. In the emergency room she was found to have abdominal ascites, status post paracentesis 6 L removed, 25 white blood cells, she was found to have a UTI, hospitalist team was called for admission. Currently she is alert oriented x3, she follows commands, but is a bit drowsy her ammonia levels are within normal limits, is at bedside Review of Systems Const: Reports: fatigue and malaise; Denies: fever(s) or chills Eyes: Denies: change in vision Card: Denies: chest pain Resp: Denies: dyspnea GI: Reports: abdominal pain : Denies: flank pain or difficulty voiding Musc: Reports: back pain Skin/Breast: Denies: rash Neuro: Denies: headache(s) or numbness in extremities Psych: Denies: anxiety Endo: Denies: polyuria Ang/Lymph: Denies: petechiae Medications/Allergies Home Medications Medication Instructions Recorded Confirmed Last Taken Type Upright Walker #1 ea 10/30/20 12/22/22 Unknown Rx upright walker with wheels and #1 ea 10/13/21 12/22/22 Unknown Rx brakes ferrous sulfate 325 mg (65 mg 325 mg PO BID #60 tabs 04/13/22 12/22/22 Unknown Rx iron) tablet (Feosol) calcium carbonate 500 mg-vitamin 1 tab PO BID Low calcium #60 tabs 05/27/22 12/22/22 Unknown Rx D3 10 mcg (400 unit) tablet furosemide 40 mg tablet (Lasix) 40 mg PO QAM PRN Edema #90 tabs 07/14/22 12/22/22 Unknown Rx lactulose 20 gram/30 mL oral 30 g (45 mL) PO BID 90 days #8,100 07/28/22 12/22/22 Unknown Rx solution mL amantadine HCl 100 mg tablet See Rx Instructions .Route 09/15/22 12/22/22 Unknown Rx .COMPLEX #180 tabs ropinirole 1 mg tablet See Rx Instructions .Route 09/15/22 12/22/22 Unknown Rx .COMPLEX #90 tabs levothyroxine 150 mcg tablet See Rx Instructions .Route 10/14/22 12/22/22 Unknown Rx .COMPLEX #90 tabs fluoxetine 10 mg capsule (Prozac) 10 mg PO DAILY #90 caps 11/10/22 12/22/22 Unknown Rx wheelchair #1 ea 11/10/22 12/22/22 Unknown Rx atorvastatin 40 mg tablet See Rx Instructions .Route 11/16/22 12/22/22 Unknown Rx .COMPLEX #90 tabs potassium chloride 20 mEq See Rx Instructions .Route 11/28/22 12/22/22 Unknown Rx tablet,extended .COMPLEX #90 tabs release(part/cryst) (Klor-Con M) spironolactone 50 mg tablet See Rx Instructions .Route 11/28/22 12/22/22 Unknown Rx .COMPLEX #90 tabs diclofenac sodium 1 % topical gel 2 g topical QID PRN Pain #100 grams 12/15/22 12/22/22 Unknown Rx prednisone 5 mg tablet 5 mg PO DAILY #30 tabs 12/15/22 12/22/22 Unknown Rx carbidopa 25 mg-levodopa 100 mg See Rx Instructions .Route .COMPLEX 12/22/22 Unknown History tablet pantoprazole 40 mg tablet,delayed See Rx Instructions .Route .COMPLEX 12/22/22 Unknown History release Allergies Allergy/AdvReac Type Severity Reaction Status Date / Time No Known Allergies Allergy Verified 12/22/22 12:40 PFSH Acute PFSH: Medical History (Updated 12/27/22 @ 12:17 by Joshua Grant MD) Acute hepatic encephalopathy Acute respiratory failure Anti-TPO antibodies present Cystitis Esophageal varices Family history of colon cancer Fatty liver disease, nonalcoholic GERD (gastroesophageal reflux disease) High risk medication use Hyperammonemia Hypocalcemia Hypothyroidism Immunization counseling Inflammatory arthritis Joint pain Liver cirrhosis ECHAVARRIA (nonalcoholic steatohepatitis) Osteoarthritis, generalized Parkinsons disease Positive NICO (antinuclear antibody) RLS (restless legs syndrome) Surgical History History of colonoscopy (~12/2020) History of esophagogastroduodenoscopy (EGD) (~12/2020) History of left knee replacement History of shoulder surgery S/P bilateral foot surgery S/P ERCP Status post deep brain stimulator placement Family History Brother CAD (coronary artery disease) Hypertension Father CAD (coronary artery disease) Diabetes Hypertension Mother CAD (coronary artery disease) Hypertension Sister Hypertension Other Lupus Rheumatoid arthritis Denies family history of Lung disease Stroke Social History Smoking and tobacco status: never smoked Alcohol intake: never Marital status: Current occupational status: disabled History of recent travel: No Female Reproductive History: Date of last menstrual period: 02/20/21 Vitals/I&O/Wt Last Vital Signs Temp 99.0 F 12/27/22 06:29 Pulse 89 12/27/22 10:30 Resp 16 12/27/22 09:30 BP 103/59 12/27/22 10:30 Pulse Ox 96 12/27/22 10:30 O2 Del Method 12/27/22 06:29 12/26/22 12/27/22 12/27/22 22:59 06:59 14:59 Intake Total 500 / 500 Balance 500 / 500 Weight last 48 hrs Weight 63.503 kg Physical Exam Const: COMMON NORMALS: no acute distress and patient oriented x3 HENMT: COMMON NORMALS: normocephalic HEAD & SCALP: normocephalic Eye: COMMON NORMALS: Equal, round and reactive pupils present Lymph: LYMPHATIC: no lymphadenopathy noted Resp: COMMON NORMALS: normal respiratory effort, No retractions, No use of accessory muscles and clear to auscultation bilaterally AUSCULTATION: clear to auscultation bilaterally Cardio: COMMON NORMALS: regular rate, regular rhythm, S1 normal heart sound present and S2 normal heart sound present RATE: regular rate RHYTHM: regular rhythm HEART SOUNDS: S1 normal heart sound present and S2 normal heart sound present GI: COMMON NORMALS: Soft to palpation and non-tender AUSCULTATION: Yes normoactive bowel sounds PALPATION: Yes Soft to palpation, No Tenderness to palpation present (GI), No Guarding due to palpation present (GI) and No Rigid due to palpation PERCUSSION: normal to percussion : COMMON NORMALS: Yes no CVA tenderness Extremity: COMMON NORMALS: no calf tenderness and no pedal edema Neuro: COMMON NORMALS: patient oriented x3, CN's II-XII intact bilaterally, moves all extremities and no focal motor deficits Psych: COMMON NORMALS: mental status grossly normal Data 12/27/22 06:00 12/27/22 06:00 Micro: Microbiology 12/27/22 11:54 Blood Culture - Preliminary Blood SPECIMEN COLLECTED 12/27/22 11:52 Blood Culture - Preliminary Blood SPECIMEN COLLECTED A&P Assessment and plan (1) Parkinsons disease: (2) Hepatic encephalopathy: (3) ECHAVARRIA (nonalcoholic steatohepatitis): (4) Anemia: Qualifiers: Anemia type: iron deficiency Iron deficiency anemia type: chronic blood loss Qualified Code(s): D50.0 - Iron deficiency anemia secondary to blood loss (chronic) (5) Esophageal varices: Qualifiers: Esophageal varices type: secondary Esophageal varices bleeding: with bleeding Qualified Code(s): I85.11 - Secondary esophageal varices with bleeding (6) Hypothyroidism: Qualifiers: Hypothyroidism type: acquired Qualified Code(s): E03.9 - Hypothyroidism, unspecified (7) Liver cirrhosis: (8) Protein calorie malnutrition: (9) Severe muscle deconditioning: (10) Abdominal ascites: (11) Generalized weakness: (12) UTI (urinary tract infection): (13) Goals of care, counseling/discussion: (14) Acute kidney injury: (15) Cardiorenal syndrome: (16) NSTEMI (non-ST elevated myocardial infarction): (17) Hypoalbuminemia: (18) Transaminitis: Plan Urinary tract infection -Continue Rocephin -Follow urine cultures, blood cultures Recurrent abdominal ascites -Patient has soft blood pressures -Status post 6 L paracentesis, cultures obtained, received albumin -Monitor blood pressure closely -Monitor cultures ECHAVARRIA, with liver cirrhosis --Meld score 23 -As per is not on liver transplant list Elevated INR Hyperbilirubinemia Hypoalbuminemia monitor History of hepatic encephalopathy -Continue lactulose Acute on chronic hyponatremia -Serum sodium 127, monitor -Hold off of fluid therapy CHADD, likely cardiorenal syndrome, creatinine 1.9, monitor NSTEMI, serial EKGs serial troponins telemetry monitoring Protein calorie malnutrition Consult speech therapy Physical deconditioning, muscular deconditioning, has peripheral muscle wasting, bilateral arms, lower extremity, thigh muscles temporal wasting, Goals of care discussion patient is DNR/DNI Attestations Medical Necessity Statement*: Patient requires hospitalization, outpatient with observation, for UTI, abdominal ascites, deconditioning, protein calorie malnutrition, liver cirrhosis, hyponatremia, and NSTEMI, 8 I Coding Level of Care Code Acute Code for Chg Fwd Diagnoses Parkinsons disease G20 Hepatic encephalopathy K72.90 ECHAVARRIA (nonalcoholic steatohepatitis) K75.81 Anemia D50.0 Anemia type: iron deficiency Iron deficiency anemia type: chronic blood loss Esophageal varices I85.11 Esophageal varices type: secondary Esophageal varices bleeding: with bleeding Hypothyroidism E03.9 Hypothyroidism type: acquired Liver cirrhosis K74.60 Protein calorie malnutrition E46 Severe muscle deconditioning R29.898 Abdominal ascites R18.8 Generalized weakness R53.1 UTI (urinary tract infection) N39.0 Goals of care, counseling/discussion Z71.89 Acute kidney injury N17.9 Cardiorenal syndrome I13.10 NSTEMI (non-ST elevated myocardial infarction) I21.4 Hypoalbuminemia E88.09 Transaminitis R74.01
[2022-12-27] MEDS: cefTRIAXone 1,000 MG in sodium chloride 0.9% (plus) 50 ML 100 MG IV (12:16)
[2022-12-27 12:19] LABS: Troponin 5 6HR 30.14 ng/L (0-10)
[2022-12-27 12:28] LABS: Troponin 5 6HR Delta -2.86 ng/L (0-12)
--- NOTE | 2022-12-27 12:33 | ECG_ITS ---
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 Measurements Intervals [place] Rate: 87 P: 69 VT: 218 QRS: -81 QRSD: 98 T: 91 QT: 360 QTc: 434 Interpretive Statements SINUS RHYTHM WITH FIRST DEGREE AV BLOCK LEFT AXIS DEVIATION [QRS AXIS < -30] PATTERN CONSISTENT WITH PULMONARY DISEASE MODERATE ST DEPRESSION [0.05+ mV ST DEPRESSION] ABNORMAL QRS-T ANGLE [QRS-T AXIS DIFFERENCE > 60] Compared to ECG 12/27/2022 07:16:15 First degree AV block now present Left-axis deviation now present ST (T wave) deviation now present Myocardial infarct finding no longer present Electronically Signed On 12-27-2022 21:43:33 SOAP BOILER by Michael Ulloa M.D. [id number]
[2022-12-27 12:34] LABS: Cortisol Random 21.93 ug/dL (2.47-19.5); Procalcitonin 1.04 ng/mL (0-0.5); Thyroid Stimulating Hormone 2.25 uIU/mL (0.27-4.20)
[2022-12-27 16:40] LABS: Glucose Point of Care 57 mg/dL (70-110)
[2022-12-27 17:12] LABS: Glucose Point of Care 87 mg/dL (70-110)
[2022-12-27] MEDS: lactulose oral liq 20 gm/30 mL UDC 30 GM PO (18:00)
[2022-12-27] MEDS: pantoprazole DR 40 mg Tablet PO (18:00)
[2022-12-27] MEDS: ferrous sulfate EC 325 mg Tablet PO (18:00)
[2022-12-27] MEDS: carbidopa-levodopa 25-100mg Tablet 1 EACH PO ×2 (18:00→22:22)
[2022-12-27] MEDS: ropinirole 1 mg Tablet PO ×2 (18:00→22:22)
[2022-12-27] MEDS: atorvastatin 40 mg Tablet PO (22:22)
--- NOTE | 2022-12-27 22:28 | PC.NURSE ---
Patient A&Ox0. Lungs auscultated clear bilaterally, saturating on room air. S1 and S2 heart sounds present. Pressure ulcer noted on medial sacrum, optifoam applied. Excoriation in folds of lower legs/pelvic area. Left lower extremity appears red, foot exhibiting non pitting edema and a bump on the proximal side of her foot. Patient had no complaints of pain at this time. Bed alarm reset, and patient resting in bed with two side rails up, call light within reach.
[2022-12-28] VITALS (8 sets, daily range): BP systolic 93–120; BP diastolic 47–73; PULSE 72–90; RESP 15–18; TEMP 36.1–36.7; O2SAT 91–97
[2022-12-28 04:59] LABS: Basophils % 0.1 %; Eosinophils # 0.2 10^3/uL (0.0-0.8); Eosinophils % 2.1 %; Hematocrit 38.5 % (37.0-47.0); Hemoglobin 12.9 g/dL (11.5-15.3); Lymphocytes # 0.4 10^3/uL (0.8-4.8); Lymphocytes % 3.5 %; Mean Corpuscular HGB Conc 33.5 g/dL (30.0-36.0); Mean Corpuscular Hemoglobin 27.2 pg (28.0-34.0); Mean Corpuscular Volume 81.2 fl (81-99); Mean Platelet Volume 10.8 fL (7.4-10.4); Monocytes # 0.6 10^3/uL (0.2-0.9); Monocytes % 5.8 %; Neutrophils # 9.68 10^3/uL (1.8-7.7); Nucleated Red Blood Cells % 0 %; Platelet Count 191 10^3/cmm (130-400); Red Blood Count 4.74 10^6/uL (4.1-5.3); Red Cell Distribution Width 17.2 % (12.1-15.1)
[2022-12-28 05:20] LABS: Anion Gap 15.9 (5-19); Blood Urea Nitrogen 26 mg/dL (8-23); Calcium 7.6 mg/dL (8.5-10.5); Carbon Dioxide 20 mmol/L (22-29); Chloride 97 mmol/L (98-107); Glomerular Filtration Rate 62.5 mL/min (90-130); Glucose 72 mg/dL (65-115); Osmolality Calculated 271 mOsm/kg (285-295); Potassium 3.9 mmol/L (3.5-5.1); Sodium 129 mmol/L (136-145)
[2022-12-28 05:27] LABS: NT Pro B Type Natriuretic Pept 2147 pg/mL (0-125)
[2022-12-28] MEDS: levothyroxine 150 mcg Tablet PO (06:15)
[2022-12-28] MEDS: fluoxetine 10 mg Capsule PO (07:37)
[2022-12-28] MEDS: predniSONE 5 mg Tablet PO (07:37)
[2022-12-28] MEDS: ropinirole 1 mg Tablet PO ×3 (07:37→21:58)
[2022-12-28] MEDS: potassium chloride ER 20 mEq Tablet PO (07:38)
[2022-12-28] MEDS: pantoprazole DR 40 mg Tablet PO ×2 (07:38→17:06)
[2022-12-28] MEDS: carbidopa-levodopa 25-100mg Tablet 1 EACH PO ×4 (07:38→21:58)
[2022-12-28] MEDS: ferrous sulfate EC 325 mg Tablet PO ×2 (07:38→17:07)
[2022-12-28] MEDS: lactulose oral liq 20 gm/30 mL UDC 30 GM PO ×2 (07:50→17:07)
--- NOTE | 2022-12-28 10:23 | PC.CHAP ---
Pastoral Care Encounter/Spiritual Assessment Type of Contact [] Declined engineering programmer visit [] Patient/Family/Request visit [] Outpatient visit [] Follow-up visit [] Physician referral [] Code/Alert [] Routine visit [] Staff referral [] Actively dying [] Patient sleeping [] Family support [] [] Out of room [] Palliative care [] [x] Receiving care in room [] Pre-surgical visit [] Trauma [] Long length of stay [] ICU visit [] Other: Relational/Emotional Strength [] Patient feels connected with others/family/visitors/staff [] Distress [] Loneliness/isolation [] Abandonment Spirituality of Patient [] Person of Eunice [] Attends Episcopalian of their [place]un[place] [] Believes in Prayer [] Reads Bible or Religion materials [] There are Spiritual issues to be addressed Engravings Polisher Interventions [] Prayer [] Active listening [] Non-anxious presence [] Spiritual/emotional support [] Crisis/trauma care [] Spiritual counseling [] Bereavement support [] Provided bereavement packet [] Provided Bible/devotional materials [] Provided toy/stuffed animal, coloring book to patient or family member [] Provided Communion [] Anointing/[place] [] Salvation [] Completed spiritual assessment [] Other: Impact on Illness or Injury [] Angry [] Fearful [] Anxious [] Often cries [] Exhaustion [] Unable to work [] Unable to attend christianity [] Unable to walk/stand [] Unable to read [] Unable to drive [] Unable to eat/drink [] Unable to sleep [] Unable to be with family [] Patient intubated [] Other: Summary Time spent with patient
[2022-12-28] MEDS: cefTRIAXone 1,000 MG in sodium chloride 0.9% (plus) 50 ML 100 MG IV (10:24)
[2022-12-28 12:05] LABS: Acinetobacter baumannii Not Detected (NOT DETECT); Bacteroides fragilis Not Detected (NOT DETECT); CTX-M Not Detected (NOT DETECT); Citrobacter Not Detected (NOT DETECT); Cronobacter sakazakii Not Detected (NOT DETECT); Enterobacter cloacae complex Detected (NOT DETECT); Enterobacter non cloacae Not Detected (NOT DETECT); Fusobacterium necrophorum Not Detected (NOT DETECT); Fusobacterium nucleatum Not Detected (NOT DETECT); Haemophilus influenzae Not Detected (NOT DETECT); IMP Resistance Gene Not Detected (NOT DETECT); KPC Resistance Gene Not Detected (NOT DETECT); Klebsiella pneumoniae group Not Detected (NOT DETECT); Morganella morganii Not Detected (NOT DETECT); NDM Resistance Gene Not Detected (NOT DETECT); Neisseria meningitidis Not Detected (NOT DETECT); OXA Resistance Gene Not Detected (NOT DETECT); Pan Candida Not Detected (NOT DETECT); Pan Gram-Positive Not Detected (NOT DETECT); Proteus mirabilis Not Detected (NOT DETECT); Pseudomonas aeruginosa Not Detected (NOT DETECT); Salmonella Not Detected (NOT DETECT); Serratia Not Detected (NOT DETECT); Serratia marcescens Not Detected (NOT DETECT); Stenotrophomonas maltophilia Not Detected (NOT DETECT); VIM Resistance Gene Not Detected (NOT DETECT)
--- NOTE | 2022-12-28 12:32 | P.PN_ITS ---
Subjective Subjective: patient was seen this morning family at bedside, patient denies abdominal pain or fevers, has poor appetite, no N/V/D Vitals/I&O/Wt Last Vital Signs Temp 97.3 F L 12/28/22 08:00 Pulse 82 12/28/22 08:11 Resp 16 12/28/22 08:11 BP 120/73 12/28/22 08:00 Pulse Ox 93 12/28/22 08:11 O2 Del Method 12/28/22 08:11 12/27/22 12/28/22 12/28/22 22:59 06:59 14:59 Intake Total 290 / 890 240 / 1130 120 / 120 Balance 290 / 890 240 / 1130 120 / 120 Weight last 48 hrs Weight 63.503 kg Physical Exam Const: COMMON NORMALS: no acute distress and patient oriented x3 Resp: COMMON NORMALS: normal respiratory effort, No retractions, No use of accessory muscles and clear to auscultation bilaterally AUSCULTATION: clear to auscultation bilaterally Cardio: COMMON NORMALS: regular rate, regular rhythm, S1 normal heart sound present and S2 normal heart sound present RATE: regular rate RHYTHM: re gular rhythm HEART SOUNDS: S1 normal heart sound present and S2 normal heart sound present GI: COMMON NORMALS: Normal to inspection, nondistended, normoactive bowel sounds present and non-tender Extremity: COMMON NORMALS: no pedal edema Neuro: COMMON NORMALS: patient oriented x3 Psych: COMMON NORMALS: mental status grossly normal Data 12/28/22 04:46 12/28/22 04:46 Micro: Microbiology 12/27/22 11:52 Blood Culture - Preliminary Blood NEGATIVE TO DATE 12/27/22 09:40 Gram Stain - Final Peritoneal Fluid Body Fluid Culture - Preliminary 12/27/22 11:54 Blood Culture - Preliminary Blood 12/27/22 08:15 Urine Culture - Preliminary Urine Catheterized A&P Assessment and plan (1) Gram-negative bacteremia: (2) Parkinsons disease: (3) Hepatic encephalopathy: (4) KING (nonalcoholic steatohepatitis): (5) Anemia: Qualifiers: Anemia type: iron deficiency Iron deficiency anemia type: chronic blood loss Qualified Code(s): D50.0 - Iron deficiency anemia secondary to blood loss (chronic) (6) Esophageal varices: Qualifiers: Esophageal varices type: secondary Esophageal varices bleeding: with bleeding Qualified Code(s): I85.11 - Secondary esophageal varices with bleeding (7) Hypothyroidism: Qualifiers: Hypothyroidism type: acquired Qualified Code(s): E03.9 - Hypothyroidism, unspecified (8) Liver cirrhosis: (9) Protein calorie malnutrition: (10) Severe muscle deconditioning: (11) Abdominal ascites: (12) Generalized weakness: (13) UTI (urinary tract infection): (14) Goals of care, counseling/discussion: (15) Acute kidney injury: (16) Cardiorenal syndrome: (17) NSTEMI (non-ST elevated myocardial infarction): (18) Hypoalbuminemia: (19) Transaminitis: Plan Gram negative bacteremia -follow cultures -repeat in AM -continue rocephin -source likely UTI -follow ucx -paracentesis cultures negative so far Urinary tract infection -Continue Rocephin -Follow urine cultures, blood cultures Recurrent abdominal ascites -Patient has soft blood pressures -Status post 6 L paracentesis, cultures obtained, received albumin -Monitor blood pressure closely -Monitor cultures KING, with liver cirrhosis --Meld score 23 -As per is not on liver transplant list Elevated INR Hyperbilirubinemia Hypoalbuminemia monitor History of hepatic encephalopathy -Continue lactulose Acute on chronic hyponatremia -Serum sodium 127, monitor -Hold off of fluid therapy CHADD, likely cardiorenal syndrome, creatinine0.9, monitor NSTEMI, serial EKGs serial troponins telemetry monitoring Protein calorie malnutrition Consult speech therapy Physical deconditioning, muscular deconditioning, has peripheral muscle wasting, bilateral arms, lower extremity, thigh muscles temporal wasting, Goals of care discussion patient is DNR/DNI plan or today follow cultures, countinue rocephin, pt/ot, Attestations Medical Necessity Statement*: patient requires hospitalization for gram negative bacteremia, uti, chadd, nstemi, liver cirhosis Coding Level of Care Code Acute Code for [facility] Fwd Diagnoses Gram-negative bacteremia R78.81 Parkinsons disease G20 Hepatic encephalopathy K72.90 KING (nonalcoholic steatohepatitis) K75.81 Anemia D50.0 Anemia type: iron deficiency Iron deficiency anemia type: chronic blood loss Esophageal varices I85.11 Esophageal varices type: secondary Esophageal varices bleeding: with bleeding Hypothyroidism E03.9 Hypothyroidism type: acquired Liver cirrhosis K74.60 Protein calorie malnutrition E46 Severe muscle deconditioning R29.898 Abdominal ascites R18.8 Generalized weakness R53.1 UTI (urinary tract infection) N39.0 Goals of care, counseling/discussion Z71.89 Acute kidney injury N17.9 Cardiorenal syndrome I13.10 NSTEMI (non-ST elevated myocardial infarction) I21.4 Hypoalbuminemia E88.09 Transaminitis R74.01
[2022-12-28] MEDS: morphine 4 mg/mL SDV 1 mL 2 MG IVP (13:34)
[2022-12-28] MEDS: atorvastatin 40 mg Tablet PO (21:58)
[2022-12-29] VITALS (9 sets, daily range): BP systolic 105–127; BP diastolic 62–77; PULSE 66–79; RESP 15–18; TEMP 36.4–36.8; O2SAT 96–98
[2022-12-29 05:24] LABS: Basophils % 0.2 %; Eosinophils # 0.3 10^3/uL (0.0-0.8); Eosinophils % 2.9 %; Hematocrit 38.8 % (37.0-47.0); Hemoglobin 13.2 g/dL (11.5-15.3); Lymphocytes # 0.4 10^3/uL (0.8-4.8); Lymphocytes % 3.9 %; Mean Corpuscular Hemoglobin 27.2 pg (28.0-34.0); Mean Corpuscular Volume 79.8 fl (81-99); Mean Platelet Volume 10.5 fL (7.4-10.4); Monocytes # 1.2 10^3/uL (0.2-0.9); Monocytes % 10.8 %; Neutrophils # 9.13 10^3/uL (1.8-7.7); Neutrophils % 81.6 %; Nucleated Red Blood Cells % 0 %; Platelet Count 209 10^3/cmm (130-400); Red Blood Count 4.86 10^6/uL (4.1-5.3); Red Cell Distribution Width 17.4 % (12.1-15.1); White Blood Count 11.2 10^3/uL (4.0-10.0)
[2022-12-29 05:41] LABS: C Reactive Protein 93.7 mg/L (0.0-4.9)
[2022-12-29] MEDS: levothyroxine 150 mcg Tablet PO (05:41)
[2022-12-29 05:46] LABS: Anion Gap 14.6 (5-19); Blood Urea Nitrogen 27 mg/dL (8-23); Calcium 7.7 mg/dL (8.5-10.5); Carbon Dioxide 21 mmol/L (22-29); Chloride 100 mmol/L (98-107); Glomerular Filtration Rate 55.3 mL/min (90-130); Glucose 103 mg/dL (65-115); Osmolality Calculated 277 mOsm/kg (285-295); Potassium 4.6 mmol/L (3.5-5.1); Sodium 131 mmol/L (136-145)
[2022-12-29 05:48] LABS: Procalcitonin 0.87 ng/mL (0-0.5)
[2022-12-29] MEDS: ropinirole 1 mg Tablet PO ×3 (09:37→22:13)
[2022-12-29] MEDS: pantoprazole DR 40 mg Tablet PO ×2 (09:37→17:09)
[2022-12-29] MEDS: potassium chloride ER 20 mEq Tablet PO (09:37)
[2022-12-29] MEDS: carbidopa-levodopa 25-100mg Tablet 1 EACH PO ×4 (09:37→22:12)
[2022-12-29] MEDS: cefTRIAXone 1,000 MG in sodium chloride 0.9% (plus) 50 ML 100 MG IV (09:38)
[2022-12-29] MEDS: predniSONE 5 mg Tablet PO (09:38)
[2022-12-29] MEDS: ferrous sulfate EC 325 mg Tablet PO ×2 (09:38→17:09)
[2022-12-29] MEDS: fluoxetine 10 mg Capsule PO (09:38)
[2022-12-29] MEDS: lactulose oral liq 20 gm/30 mL UDC 30 GM PO ×2 (09:39→17:09)
--- NOTE | 2022-12-29 10:18 | P.PN_ITS ---
Subjective Subjective: Patient was seen this morning, denies any fevers, no chills, no nausea, no vomiting, Vitals/I&O/Wt Last Vital Signs Temp 97.6 F 12/29/22 07:46 Pulse 79 12/29/22 07:46 Resp 16 12/29/22 07:46 BP 115/65 12/29/22 07:46 Pulse Ox 98 12/29/22 07:46 O2 Del Method 12/29/22 07:46 12/28/22 12/29/22 12/29/22 22:59 06:59 14:59 Intake Total 530 / 890 360 / 360 Balance 530 / 890 360 / 360 Physical Exam Const: COMMON NORMALS: no acute distress and patient oriented x3 Resp: COMMON NORMALS: normal respiratory effort, No retractions, No use of accessory muscles and clear to auscultation bilaterally AUSCULTATION: clear to auscultation bilaterally Cardio: COMMON NORMALS: regular rate, regular rhythm, S1 normal heart sound present and S2 normal heart sound present RATE: regular rate RHYTHM: regular rhythm HEART SOUNDS: S1 normal heart sound present and S2 normal heart sound present GI: COMMON NORMALS: Normal to inspection, nondistended, normoactive bowel sounds present Extremity: COMMON NORMALS: no pedal edema Neuro: COMMON NORMALS: patient oriented x3 Psych: COMMON NORMALS: mental status grossly normal Data 12/29/22 04:50 12/29/22 04:50 Micro: Microbiology 12/27/22 08:15 Urine Culture - Final Urine Catheterized 12/27/22 11:52 Blood Culture - Preliminary Blood Enterobacter cloacae 12/27/22 11:54 Blood Culture - Preliminary Blood Enterobacter cloacae 12/29/22 04:48 Blood Culture - Preliminary Blood SPECIMEN COLLECTED 12/29/22 04:50 Blood Culture - Preliminary Blood SPECIMEN COLLECTED 12/27/22 09:40 Gram Stain - Final Peritoneal Fluid Body Fluid Culture - Preliminary A&P Assessment and plan (1) Gram-negative bacteremia: (2) Parkinsons disease: (3) Hepatic encephalopathy: (4) KING (nonalcoholic steatohepatitis): (5) Anemia: Qualifiers: Anemia type: iron deficiency Iron deficiency anemia type: chronic blood loss Qualified Code(s): D50.0 - Iron deficiency anemia secondary to blood loss (chronic) (6) Esophageal varices: Qualifiers: Esophageal varices type: secondary Esophageal varices bleeding: with b leeding Qualified Code(s): I85.11 - Secondary esophageal varices with bleeding (7) Hypothyroidism: Qualifiers: Hypothyroidism type: acquired Qualified Code(s): E03.9 - Hypothyroidism, unspecified (8) Liver cirrhosis: (9) Protein calorie malnutrition: (10) Severe muscle deconditioning: (11) Abdominal ascites: (12) Generalized weakness: (13) UTI (urinary tract infection): (14) Goals of care, counseling/discussion: (15) Acute kidney injury: (16) Cardiorenal syndrome: (17) NSTEMI (non-ST elevated myocardial infarction): (18) Hypoalbuminemia: (19) Transaminitis: Plan Gram negative bacteremia, Enterobacter -follow cultures sensitivity -repeat in AM -continue rocephin -source likely UTI -Urine culture negative -paracentesis cultures negative so far Urinary tract infection -Continue Rocephin -Follow urine cultures, blood cultures Recurrent abdominal ascites -Patient has soft blood pressures -Status post 6 L paracentesis, cultures obtained, received albumin -Monitor blood pressure closely -Monitor cultures KING, with liver cirrhosis --Meld score 23 -As per is not on liver transplant list Elevated INR Hyperbilirubinemia Hypoalbuminemia monitor History of hepatic encephalopathy -Continue lactulose Acute on chronic hyponatremia -Serum sodium 131, monitor -Hold off of fluid therapy CHADD, likely cardiorenal syndrome, creatinine 1.0, monitor NSTEMI, serial EKGs serial troponins telemetry monitoring Protein calorie malnutrition Consult speech therapy Physical deconditioning, muscular deconditioning, has peripheral muscle wasting, bilateral arms, lower extremity, thigh muscles temporal wasting, Goals of care discussion patient is DNR/DNI plan or today follow cultures, countinue rocephin, pt/ot, Attestations Medical Necessity Statement*: Patient requires hospitalization for gram- negative bacteremia, UTI, recurrent ascites, Coding Level of Care Code Acute Code for Chg Fwd Diagnoses Gram-negative bacteremia R78.81 Parkinsons disease G20 Hepatic encephalopathy K72.90 KING (nonalcoholic steatohepatitis) K75.81 Anemia D50.0 Anemia type: iron deficiency Iron deficiency anemia type: chronic blood loss Esophageal varices I85.11 Esophageal varices type: secondary Esophageal varices bleeding: with bleeding Hypothyroidism E03.9 Hypothyroidism type: acquired Liver cirrhosis K74.60 Protein calorie malnutrition E46 Severe muscle deconditioning R29.898 Abdominal ascites R18.8 Generalized weakness R53.1 UTI (urinary tract infection) N39.0 Goals of care, counseling/discussion Z71.89 Acute kidney injury N17.9 Cardiorenal syndrome I13.10 NSTEMI (non-ST elevated myocardial infarction) I21.4 Hypoalbuminemia E88.09 Transaminitis R74.01
--- NOTE | 2022-12-29 10:32 | USR_ITS ---
PROCEDURE INFORMATION: Exam: US Abdomen Complete Exam date and time: 12/29/2022 3:32 PM Age: 67 years old Clinical indication: Abnormal findings; Abnormal radiologic finding of the abdomen; Radiologic exam and body structure: CT abd/pelvis; Additional info: Bacteremia from gi source, ate breakfast. Nurse notified to keep patient npo. Will scan this TECHNIQUE: Imaging protocol: Real-time ultrasound of the abdomen with image documentation. Complete exam. COMPARISON: US abdomen complete* [id number] 07/14/2022 5:03 PM FINDINGS: Liver: Lobular in contour, consistent with cirrhosis. Gallbladder: Contracted with mild gallbladder wall thickening, likely reactive. No gallstones. Negative sonographic Ventura's sign, as per the coat tailor. Biliary ducts: Normal. No stones. No dilation. Pancreas: Unremarkable as visualized. Right kidney: No mass. No definite stones. No hydronephrosis. Left kidney: No mass. No definite stones. No hydronephrosis. Spleen: Unremarkable. Intraperitoneal space: Moderate to large ascites. Aorta: Unremarkable as visualized. No aneurysm. Inferior vena cava: Unremarkable as visualized. US/US abdomen complete* [id number] IMPRESSION: 1. Cirrhosis and moderate to large ascites. 2. Mild gallbladder wall thickening, likely reactive.
[2022-12-29] MEDS: morphine 4 mg/mL SDV 1 mL 2 MG IVP (13:02)
--- NOTE | 2022-12-29 18:09 | PC.NURSE ---
SHift SUmmary: Uneventful shift, Patient rested in bed throughout the day, but has frequently been up to the bedside commode. Patient is alert and oriented to person, place, time, and situation, but appears to have underlying confusion when conversing. Abdominal ultrasound today shows moderate to large ascites, patient abdomen appears slightly larger than this morning, through still soft, Dr nino notified of this.
--- NOTE | 2022-12-29 20:42 | PC.NURSE ---
Patient was bathed and had fresh linens by this aid and pts nurse, Kenyatta THRASHER. Patient stated she has been dirty since 1800. Feces was dried to patients legs, linens and hands. Nurse reassured patient she would not be dirty that long again and was very sorry that happened to her. Will continue to closely monitor patient and chart all changes.
[2022-12-29] MEDS: atorvastatin 40 mg Tablet PO (22:13)
[2022-12-30] VITALS (8 sets, daily range): BP systolic 101–107; BP diastolic 50–62; PULSE 61–93; RESP 14–18; TEMP 36.4–36.6; O2SAT 93–97
[2022-12-30 04:59] LABS: Basophils % 0.1 %; Eosinophils # 0.2 10^3/uL (0.0-0.8); Eosinophils % 1.6 %; Hematocrit 39.6 % (37.0-47.0); Hemoglobin 13.6 g/dL (11.5-15.3); Lymphocytes # 0.4 10^3/uL (0.8-4.8); Lymphocytes % 3.6 %; Mean Corpuscular HGB Conc 34.3 g/dL (30.0-36.0); Mean Corpuscular Hemoglobin 27.5 pg (28.0-34.0); Mean Corpuscular Volume 80.2 fl (81-99); Mean Platelet Volume 10.1 fL (7.4-10.4); Monocytes # 1.3 10^3/uL (0.2-0.9); Monocytes % 11.6 %; Neutrophils # 9.03 10^3/uL (1.8-7.7); Neutrophils % 82.6 %; Nucleated Red Blood Cells % 0 %; Platelet Count 194 10^3/cmm (130-400); Red Blood Count 4.94 10^6/uL (4.1-5.3); Red Cell Distribution Width 18.1 % (12.1-15.1); White Blood Count 10.9 10^3/uL (4.0-10.0)
[2022-12-30] MEDS: levothyroxine 150 mcg Tablet PO (05:16)
[2022-12-30 05:24] LABS: C Reactive Protein 64.5 mg/L (0.0-4.9)
[2022-12-30 05:27] LABS: Anion Gap 12.7 (5-19); Blood Urea Nitrogen 25 mg/dL (8-23); Carbon Dioxide 22 mmol/L (22-29); Chloride 101 mmol/L (98-107); Glomerular Filtration Rate 83.5 mL/min (90-130); Glucose 107 mg/dL (65-115); Osmolality Calculated 277 mOsm/kg (285-295); Potassium 4.7 mmol/L (3.5-5.1); Sodium 131 mmol/L (136-145)
[2022-12-30 05:30] LABS: Procalcitonin 0.48 ng/mL (0-0.5)
[2022-12-30] MEDS: ropinirole 1 mg Tablet PO ×3 (08:14→20:35)
[2022-12-30] MEDS: fluoxetine 10 mg Capsule PO (08:14)
[2022-12-30] MEDS: potassium chloride ER 20 mEq Tablet PO (08:14)
[2022-12-30] MEDS: ferrous sulfate EC 325 mg Tablet PO ×2 (08:14→17:13)
[2022-12-30] MEDS: carbidopa-levodopa 25-100mg Tablet 1 EACH PO ×4 (08:14→20:36)
[2022-12-30] MEDS: pantoprazole DR 40 mg Tablet PO ×2 (08:14→17:13)
[2022-12-30] MEDS: predniSONE 5 mg Tablet PO (08:15)
[2022-12-30] MEDS: cefTRIAXone 1,000 MG in sodium chloride 0.9% (plus) 50 ML 100 MG IV (08:15)
--- NOTE | 2022-12-30 08:51 | US_ITS ---
WS: [id number] ULTRASOUND-GUIDED PARACENTESIS CLINICAL INFORMATION: ascities COMPARISON: None. Procedure Informed consent: The risks, benefits, and alternatives of the procedure were discussed with the homero ent. Verbal and written consent was obtained. Timeout: A timeout was performed to confirm the correct patient, procedure, and site. Preparation: A suitable skin site was identified. The patient was prepped and draped in usual sterile fashion. Lidocaine 1% was used for local anesthesia. Catheter: 4 Spanish One-step Yueh catheter. Side: RIGHT Lower quadrant. Fluid Volume: 4100 ml Color: Clear yellow DISPOSITION: Discarded safely. Complications: None. US/US paracentesis abd w [id number] IMPRESSION: Uncomplicated ultrasound-guided paracentesis. Removal of 4100 cc ascites
[2022-12-30] MEDS: morphine 4 mg/mL SDV 1 mL 2 MG IVP (09:22)
--- NOTE | 2022-12-30 10:47 | P.PN_ITS ---
Subjective Subjective: Patient was seen this morning she is sitting up at the side of the bed, does complain of abdominal distention and pain, no nausea, no vomiting, continues to have poor appetite afebrile overnight Vitals/I&O/Wt Last Vital Signs Temp 97.5 F L 12/30/22 07:28 Pulse 82 12/30/22 07:28 Resp 18 12/30/22 09:22 BP 106/61 12/30/22 07:28 Pulse Ox 96 12/30/22 07:28 O2 Del Method 12/30/22 07:28 12/29/22 12/30/22 12/30/22 22:59 06:59 14:59 Intake Total 460 / 460 Balance 460 / 460 Physical Exam Const: COMMON NORMALS: no acute distress and patient oriented x3 Neck/C-Spine: COMMON NORMALS: no JVD Resp: COMMON NORMALS: normal respiratory effort, No retractions, No use of accessory muscles and clear to auscultation bilaterally AUSCULTATION: clear to auscultation bilaterally Cardio: COMMON NORMALS: no JVD, regular rate, regular rhythm, S1 normal heart sound present and S2 normal heart sound present RATE: regular rate RHYTHM: regular rhythm HEART SOUNDS: S1 normal heart sound present and S2 normal heart sound present GI: COMMON NORMALS: Normal to inspection, nondistended, normoactive bowel sounds present and non-tender OTHER: Abdomen distended, fluid wave present Extremity: COMMON NORMALS: no pedal edema Neuro: COMMON NORMALS: patient oriented x3 Psych: COMMON NORMALS: mental status grossly normal Data 12/30/22 04:51 12/30/22 04:51 Micro: Microbiology 12/29/22 04:48 Blood Culture - Preliminary Blood NEGATIVE TO DATE 12/29/22 04:50 Blood Culture - Preliminary Blood NEGATIVE TO DATE 12/27/22 09:40 Gram Stain - Final Peritoneal Fluid Body Fluid Culture - Preliminary 12/27/22 08:15 Urine Culture - Final Urine Catheterized 12/27/22 11:52 Blood Culture - Preliminary Blood Enterobacter cloacae 12/27/22 11:54 Blood Culture - Preliminary Blood Enterobacter cloacae A&P Assessment and plan (1) Gram-negative bacteremia: (2) Parkinsons disease: (3) Hepatic encephalopathy: (4) KING (nonalcoholic steatohepatitis): (5) Anemia: Qualifiers: Anemia type: iron deficiency Iron deficiency anemia type: chronic blood loss Qualified Code(s): D50.0 - Iron deficiency anemia secondary to blood loss (chronic) (6) Esophageal varices: Qualifiers: Esophageal varices type: secondary Esophageal varices bleeding: with bleeding Qualified Code(s): I85.11 - Secondary esophageal varices with bleeding (7) Hypothyroidism: Qualifiers: Hypothyroidism type: acquired Qualified Code(s): E03.9 - Hypothyroidism, unspecified (8) Liver cirrhosis: (9) Protein calorie malnutrition: (10) Severe muscle deconditioning: (11) Abdominal ascites: (12) Generalized weakness: (13) UTI (urinary tract infection): (14) Goals of care, counseling/discussion: (15) Acute kidney injury: (16) Cardiorenal syndrome: (17) NSTEMI (non-ST elevated myocardial infarction): (18) Hypoalbuminemia: (19) Transaminitis: (20) Spontaneous bacterial peritonitis: Plan Gram negative bacteremia, Enterobacter -Source likely GI, CT scan no abdominal perforation, likely SBP -follow cultures sensitivity -repeat cultures so far negative -continue rocephin -source likely GI, likely SBP -Urine culture negative -paracentesis cultures negative so far -We will discharge on Cipro 500 mg once daily for SBP prophylaxis Spontaneous bacterial peritonitis -Continue Rocephin -We will discharge on Cipro and Bactrim for prophylaxis Urinary tract infection -Continue Rocephin -Follow urine cultures, blood cultures Recurrent abdominal ascites -Monitor blood pressures -Status post 6 L paracentesis, cultures obtained, received albumin -Abdomen distended today, will repeat paracentesis, albumin during paracentesis -Monitor blood pressure closely -Monitor cultures KING, with liver cirrhosis --Meld score 23 -As per is not on liver transplant list Elevated INR Hyperbilirubinemia Hypoalbuminemia monitor History of hepatic encephalopathy -Continue lactulose Acute on chronic hyponatremia -Serum sodium 131, monitor -Hold off of fluid therapy CHADD, likely cardiorenal syndrome, creatinine 0.7, monitor NSTEMI, serial EKGs serial troponins telemetry monitoring Protein calorie malnutrition Consult speech therapy Physical deconditioning, muscular deconditioning, has peripheral muscle wasting, bilateral arms, lower extremity, thigh muscles temporal wasting, Goals of care discussion patient is DNR/DNI plan or today follow cultures, continue Rocephin, PT OT, repeat paracentesis Attestations Medical Necessity Statement*: Patient requires hospitalization, for spont aneous bacterial peritonitis, Enterobacter bacteremia, recurrent abdominal ascites Coding Level of Care Code Acute Code for Chg Fwd Diagnoses Gram-negative bacteremia R78.81 Parkinsons disease G20 Hepatic encephalopathy K72.90 KING (nonalcoholic steatohepatitis) K75.81 Anemia D50.0 Anemia type: iron deficiency Iron deficiency anemia type: chronic blood loss Esophageal varices I85.11 Esophageal varices type: secondary Esophageal varices bleeding: with bleeding Hypothyroidism E03.9 Hypothyroidism type: acquired Liver cirrhosis K74.60 Protein calorie malnutrition E46 Severe muscle deconditioning R29.898 Abdominal ascites R18.8 Generalized weakness R53.1 UTI (urinary tract infection) N39.0 Goals of care, counseling/discussion Z71.89 Acute kidney injury N17.9 Cardiorenal syndrome I13.10 NSTEMI (non-ST elevated myocardial infarction) I21.4 Hypoalbuminemia E88.09 Transaminitis R74.01 Spontaneous bacterial peritonitis K65.2
[2022-12-30] MEDS: AMANTADINE HCL 100 MG 1 EACH PO (17:13)
--- NOTE | 2022-12-30 17:37 | PC.OT ---
OT tx attempted at 1540. Pt receiving dialysis and nurse requested she not be moved or move her arms at this time to avoid dislodging the needle. OT tx to be resumed in the a.m.
[2022-12-30] MEDS: atorvastatin 40 mg Tablet PO (20:35)
[2022-12-31 03:50] VITALS: BP 100/47; PULSE 77; RESP 17; TEMP 36.7; O2SAT 95
[2022-12-31] MEDS: levothyroxine 150 mcg Tablet PO (05:05)
[2022-12-31 05:58] LABS: Basophils % 0.1 %; Eosinophils # 0.2 10^3/uL (0.0-0.8); Eosinophils % 1.7 %; Hematocrit 36.8 % (37.0-47.0); Hemoglobin 12.7 g/dL (11.5-15.3); Lymphocytes # 0.4 10^3/uL (0.8-4.8); Lymphocytes % 4.3 %; Mean Corpuscular HGB Conc 34.5 g/dL (30.0-36.0); Mean Corpuscular Hemoglobin 26.7 pg (28.0-34.0); Mean Corpuscular Volume 77.3 fl (81-99); Monocytes % 10.6 %; Neutrophils # 7.69 10^3/uL (1.8-7.7); Neutrophils % 82.7 %; Nucleated Red Blood Cells % 0 %; Platelet Count 182 10^3/cmm (130-400); Red Blood Count 4.76 10^6/uL (4.1-5.3); Red Cell Distribution Width 17.8 % (12.1-15.1); White Blood Count 9.3 10^3/uL (4.0-10.0)
[2022-12-31 06:21] LABS: C Reactive Protein 46.3 mg/L (0.0-4.9)
[2022-12-31 06:27] LABS: Anion Gap 14.6 (5-19); Blood Urea Nitrogen 20 mg/dL (8-23); Calcium 7.6 mg/dL (8.5-10.5); Carbon Dioxide 22 mmol/L (22-29); Chloride 99 mmol/L (98-107); Glomerular Filtration Rate 83.5 mL/min (90-130); Glucose 69 mg/dL (65-115); Osmolality Calculated 273 mOsm/kg (285-295); Potassium 4.6 mmol/L (3.5-5.1); Sodium 131 mmol/L (136-145)
[2022-12-31 07:44] VITALS: BP 89/52; PULSE 84; RESP 16; TEMP 37; O2SAT 97
--- NOTE | 2022-12-31 08:23 | P.DS_ITS ---
Discharge Providers Date of Admission: 12/28/22 09:08 Date of Discharge: December 31, 2022 Attending Provider at Admission: Joshua Grant MD Attending Provider at Discharge: Joshua Grant MD Primary Care Provider: Jenni Beltran DO Diagnoses at Discharge Discharge Diagnosis (1) Gram-negative bacteremia: Status: Acute (2) Parkinsons disease: Status: Chronic (3) Hepatic encephalopathy: Status: Acute (4) ECHAVARRIA (nonalcoholic steatohepatitis): Status: Acute (5) Anemia: Status: Acute Qualifiers: Anemia type: iron deficiency Iron deficiency anemia type: chronic blood loss Qualified Code(s): D50.0 - Iron deficiency anemia secondary to blood loss (chronic) (6) Esophageal varices: Status: Acute Qualifiers: Esophageal varices type: secondary Esophageal varices bleeding: with bleeding Qualified Code(s): I85.11 - Secondary esophageal varices with bleeding (7) Hypothyroidism: Status: Chronic Qualifiers: Hypothyroidism type: acquired Qualified Code(s): E03.9 - Hypothyroidism, unspecified (8) Liver cirrhosis: Status: Acute (9) Protein calorie malnutrition: Status: Acute (10) Severe muscle deconditioning: Status: Acute (11) Abdominal ascites: Status: Acute (12) Generalized weakness: Status: Acute (13) UTI (urinary tract infection): Status: Acute (14) Goals of care, counseling/discussion: Status: Acute (15) Acute kidney injury: Status: Acute (16) Cardiorenal syndrome: Status: Acute (17) NSTEMI (non-ST elevated myocardial infarction): Status: Acute (18) Hypoalbuminemia: Status: Acute (19) Transaminitis: Status: Acute (20) Spontaneous bacterial peritonitis: Status: Acute Reason for Visit Reason for Visit: ABD PAIN Hospital Course Hospital Course Ksenia Tejada is a 67 year old female history of Echavarria, liver cirrhosis, portal hypertension, esophageal varices, required banding, history of GI bleed, history of Parkinson's disease, hip encephalopathy, hypothyroidism, restless leg syndrome, who presents to [facility] due to fatigue, malaise, poor appetite, abdominal distention.? Patient tells me that she has a history of liver cirrhosis, secondary to ECHAVARRIA, she sees a liver doctor in [place], her last follow-up was last week, she was doing well, but over the last few days she started developing abdominal distention, no fevers, chills, no hemoptysis, no nausea, no vomiting, no falls.? In the emergency room she was found to have abdominal ascites, status post paracentesis 6 L removed, 25 white blood cells, she was found to have a UTI, hospitalist team was called for admission.? Currently she is alert oriented x3, she follows commands, but is a bit drowsy her ammonia levels are within normal limits, is at bedside Patient was admitted to [facility] for spontaneous bacterial peritonitis, with gram-negative bacteremia, Enterobacter, received broad- spectrum antibiotic therapy, overall clinically improved, recurrent blood cultures negative remained afebrile, asymptomatic, discharged on ciprofloxacin chronically for SBP prophylaxis. Patient had recurrent abdominal ascites, on admission she had 6 L paracentesis, on 12/30/2022 had roughly 4.1L removed, she is likely going to be paracentesis dependent, patient voiced understanding, all questions asked and agreed to proceed. Patient has chronically low blood pressure so whenever she has paracentesis she should receive albumin to avoid renal failure UT, on Rocephin, discharged also, Liver cirrhosis MELD score 23 and with elevated INR, hyperbilirubinemia, hypoalbuminemia Patient acute injury during hospitalization, likely cardiorenal syndrome, improved on discharge Had acute on chronic hyponatremia likely secondary liver failure, continue to monitor For physical deconditioning, particularly malnutrition, muscular deconditioning, discharge to a longterm facility Physical Exam Const: COMMON NORMALS: no acute distress and patient oriented x3 Resp: COMMON NORMALS: normal respiratory effort, No retractions, No use of accessory muscles and clear to auscultation bilaterally AUSCULTATION: clear to auscultation bilaterally Cardio: COMMON NORMALS: regular rate, regular rhythm, S1 normal heart sound present and S2 normal heart sound present RATE: regular rate RHYTHM: regular rhythm HEART SOUNDS: S1 normal heart sound present and S2 normal heart sound present GI: COMMON NORMALS: Normal to inspection, nondistended, normoactive bowel sounds present and non-tender Extremity: COMMON NORMALS: no pedal edema Neuro: COMMON NORMALS: patient oriented x3 Psych: COMMON NORMALS: mental status grossly normal Discharge Data Studies Completed and Pending Completed Studies During Hospitalization Category Date Time Status CT abdomen pelvis w con* [id number] Stat Cat Scan 12/27/22 08:08 Completed XR chest 1V portable [id number] Stat Exams 12/27/22 06:32 Completed US abdomen complete* [id number] Routine Ultrasound 12/29/22 10:32 Completed Pending at discharge Category Date Time Status Blood Culture AM LABS Lab 12/29/22 04:48 Results US paracentesis abdomen [US paracentesis abd w [id number]] Ultrasound 12/30/22 08:51 Taken Routine Radiology Impressions Chest X-Ray 12/27/22 06:32 IMPRESSION: No confluent infiltrates in the lungs. Abdomen/Pelvis CT 12/27/22 08:08 IMPRESSION: 1. Worsened small nodular contour liver with mild heterogeneous attenuation. This is consistent with known liver cirrhosis. Right hepatic lobe segment VII 0.9 x 0.9 cm indeterminate character low-attenuation lesion. This was not definitively seen on the prior CT. Sonography or MRI may be performed for further assessment. 2. Moderate to severe abdominal ascites. Some gastroesophageal junction varices. This would be consistent with portal hypertension. 3. Small bowel and colonic wall regions of thickening. This may be related to hypoproteinemia. Abdomen Ultrasound 12/29/22 10:32 IMPRESSION: 1. Cirrhosis and moderate to large ascites. 2. Mild gallbladder wall thickening, likely reactive. Laboratory Results WBC 9.3 10^3/uL (4.0-10.0) 12/31/22 05:37 RBC 4.76 10^6/uL (4.1-5.3) 12/31/22 05:37 Hgb 12.7 g/dL (11.5-15.3) 12/31/22 05:37 Hct 36.8 % (37.0-47.0) L 12/31/22 05:37 MCV 77.3 fl (81-99) L 12/31/22 05:37 MCH 26.7 pg (28.0-34.0) L 12/31/22 05:37 MCHC 34.5 g/dL (30.0-36.0) 12/31/22 05:37 RDW 17.8 % (12.1-15.1) H 12/31/22 05:37 Plt Count 182 10^3/cmm (130-400) 12/31/22 05:37 MPV 11.0 fL (7.4-10.4) H 12/31/22 05:37 Neut % (Auto) 82.7 % 12/31/22 05:37 Lymph % (Auto) 4.3 % 12/31/22 05:37 [place] % (Auto) 10.6 % 12/31/22 05:37 Eos % (Auto) 1.7 % 12/31/22 05:37 Baso % (Auto) 0.1 % 12/31/22 05:37 Neut # (Auto) 7.69 10^3/uL (1.8-7.7) 12/31/22 05:37 Lymph # (Auto) 0.4 10^3/uL (0.8-4.8) L 12/31/22 05:37 [place] # (Auto) 1.0 10^3/uL (0.2-0.9) H 12/31/22 05:37 Eos # (Auto) 0.2 10^3/uL (0.0-0.8) 12/31/22 05:37 Baso # (Auto) 0.0 10^3/uL (0.0-0.1) 12/31/22 05:37 Nucleated RBC % (auto) 0 % 12/31/22 05:37 Nucleated RBCs # 0.0 /100WBC 12/31/22 05:37 PT 18.30 SECONDS (12.1-14.9) H 12/27/22 06:00 INR 1.49 (0.8-1.2) H 12/27/22 06:00 Sodium 131 mmol/L (136-145) L 12/31/22 05:37 Potassium 4.6 mmol/L (3.5-5.1) 12/31/22 05:37 Chloride 99 mmol/L (98-107) 12/31/22 05:37 Carbon Dioxide 22 mmol/L (22-29) 12/31/22 05:37 Anion Gap 14.6 (5-19) 12/31/22 05:37 BUN 20 mg/dL (8-23) 12/31/22 05:37 Creatinine 0.7 mg/dL (0.5-0.9) 12/31/22 05:37 GFR Calculation 83.5 mL/min (90-130) L 12/31/22 05:37 Glucose 69 mg/dL (65-115) 12/31/22 05:37 POC Glucose 87 mg/dL (70-110) 12/27/22 17:09 Calculated Osmolality 273 mOsm/kg (285-295) L 12/31/22 05:37 Lactic Acid 2.0 mmol/L (0.5-2.2) 12/27/22 06:50 Calcium 7.6 mg/dL (8.5-10.5) L 12/31/22 05:37 Magnesium 2.6 mg/dL (1.7-2.3) H 12/27/22 06:00 Total Bilirubin 3.0 mg/dL (0.15-1.2) H 12/27/22 06:00 AST 70 U/L (0-32) H 12/27/22 06:00 ALT 20 U/L (0-33) 12/27/22 06:00 Alkaline Phosphatase 315 U/L (35-105) H 12/27/22 06:00 Ammonia 28 umol/L (11-51) 12/27/22 08:51 Troponin T Baseline 33 ng/L (0-10) H 12/27/22 06:00 Troponin T 120 Minute 25.41 ng/L (0-10) H 12/27/22 07:53 Delta Troponin T -7.59 ABS# (0-10) L 12/27/22 07:53 Troponin T Hi Sens 6Hr 30.14 ng/L (0-10) H 12/27/22 11:54 Troponin T Hi Sens 6Hr Delta -2.86 ng/L (0-12) L 12/27/22 11:54 C-Reactive Protein 46.3 mg/L (0.0-4.9) H 12/31/22 05:37 NT-Pro-B Natriuret Pep 2147 pg/mL (0-125) H 12/28/22 04:46 Total Protein 7.5 g/dL (6.6-8.7) 12/27/22 06:00 Albumin 2.2 g/dL (3.5-5.2) L 12/27/22 06:00 Globulin 5.3 g/dL (1.3-4.6) H 12/27/22 06:00 Lipase 20 U/L (13-60) 12/27/22 06:00 Procalcitonin 0.40 ng/mL (0-0.5) 12/31/22 05:37 TSH 2.25 uIU/mL (0.27-4.20) 12/27/22 11:54 Random Cortisol 21.93 ug/dL (2.47-19.5) H 12/27/22 11:54 Urine Color Dark yellow (Yellow) 12/27/22 08:15 Urine Appearance Clear (CLEAR) 12/27/22 08:15 Urine pH 5 (5-7) 12/27/22 08:15 Ur Specific [place] 1.025 (1.005-1.030) 12/27/22 08:15 Urine Protein Trace (Negative) 12/27/22 08:15 Urine Glucose (UA) Norm (Normal) 12/27/22 08:15 Urine Ketones 1+ (Negative) H 12/27/22 08:15 Urine Blood Neg (Negative) 12/27/22 08:15 Urine Nitrate Positive (Negative) H 12/27/22 08:15 Urine Bilirubin 1+ (Negative) H 12/27/22 08:15 Urine Urobilinogen 1 mg/dL (Negative) H 12/27/22 08:15 Ur Leukocyte Esterase Trace (Negative) H 12/27/22 08:15 Urine RBC None /hpf (0-2) 12/27/22 08:15 Urine WBC 5-10 /hpf (0-5) H 12/27/22 08:15 Ur Squamous Epith Cells Rare /hpf (0-5) 12/27/22 08:15 Amorphous Sediment Trace /hpf 12/27/22 08:15 Urine Bacteria Trace /hpf (NONE) 12/27/22 08:15 Urine Mucus Trace /hpf 12/27/22 08:15 Fluid Total Protein 1.7 g/dL 12/27/22 09:40 Fluid Albumin 0.7 g/dL 12/27/22 09:40 Peritoneal Color Pale yellow (Pale Yellow) 12/27/22 09:40 Peritoneal Appearance Hazy (Clear) 12/27/22 09:40 Peritoneal WBC 20 /uL 12/27/22 09:40 Peritoneal RBC 0 10^3/uL 12/27/22 09:40 Periton Mononu # Auto 0.006 10^3/uL 12/27/22 09:40 Mononuclear WBCs % 30.000 % 12/27/22 09:40 Polynuclear WBCs % 70.000 % 12/27/22 09:40 Perit Polynuc WBCs # 0.014 10^3/uL 12/27/22 09:40 Peritoneal Diff Commnt Yes 12/27/22 09:40 Vitals Last Vital Signs Temp 98.6 F 12/31/22 07:44 Pulse 84 12/31/22 07:44 Resp 16 12/31/22 07:44 BP 89/52 12/31/22 07:44 Pulse Ox 97 12/31/22 07:44 O2 Del Method 12/31/22 07:44 Discharge Plan Discharge Patient Disposition: Xfer SNF Condition: Stable Prescriptions: New ciprofloxacin HCl 500 mg tablet See Rx Instructions .ROUTE .COMPLEX Qty: 40 0RF Rx Instructions: 500 mg a day for 5 days followed by 500 mg once daily Continued (DME) Upright Walker See Rx Instructions .Route .MEDSUPPLY Qty: 1 0RF Rx Instructions: Use walker daily with ambulation at all times amantadine HCl 100 mg tablet See Rx Instructions .ROUTE .COMPLEX Qty: 180 0RF Dose Instruction: TAKE 1 TABLET BY MOUTH TWICE A DAY Rx Instructions: TAKE 1 TABLET BY MOUTH TWICE A DAY diclofenac sodium 1 % gel 2 g topical QID PRN (Reason: Pain) Qty: 100 1RF Rx Instructions: apply to affected area as needed prednisone 5 mg tablet 5 mg PO DAILY Qty: 30 3RF fluoxetine [Prozac] 10 mg capsule 10 mg PO DAILY Qty: 90 0RF carbidopa-levodopa 25-100 mg tablet See Rx Instructions .ROUTE .COMPLEX Dose Instruction: TAKE 1 TABLET BY MOUTH THREE TIMES A DAY Rx Instructions: TAKE 1 TABLET BY MOUTH FOUR TIMES A DAY pantoprazole 40 mg tablet,delayed release (DR/EC) 40 mg PO BID Dose Instruction: TAKE 1 TABLET BY MOUTH EVERY DAY (DME) wheelchair See Rx Instructions .Route .MEDSUPPLY Qty: 1 0RF Rx Instructions: As directed (DME) upright walker with wheels and brakes See Rx Instructions .Route .MEDSUPPLY Qty: 1 0RF Rx Instructions: As directed ferrous sulfate [Feosol] 325 mg (65 mg iron) tablet 325 mg PO BID Qty: 60 1RF calcium carbonate-vitamin D3 500 mg-10 mcg (400 unit) tablet 1 tab PO BID Qty: 60 0RF lactulose 20 gram/30 mL solution 30 g PO BID 90 Days Qty: 8100 1RF atorvastatin 40 mg tablet See Rx Instructions .ROUTE .COMPLEX Qty: 90 0RF Dose Instruction: TAKE 1 TABLET BY MOUTH EVERYDAY AT BEDTIME Rx Instructions: TAKE 1 TABLET BY MOUTH EVERYDAY AT BEDTIME ropinirole 1 mg tablet 1 mg PO TID Klor-Con M20 20 mEq tablet,ER particles/crystals 20 meq PO DAILY levothyroxine 150 mcg tablet 150 mcg PO DAILY Changed Lasix 40 mg tablet 20 mg PO Q24H 30 Days Qty: 30 1RF spironolactone 25 mg tablet 25 mg PO DAILY 30 Days Qty: 30 0RF Discharge Orders: Discharge Order (Routine); Ordered 12/31/22 Ordered By: Joshua Grant Referrals: Jenni Beltran DO [Primary Care Provider] - 1-3 days Discharge Diet: Regular Discharge Activity: Resume usual activity Activity Restrictions/Additional Instructions: - Continue ciprofloxacin 500 twice daily for 5 days followed by 500 mg once daily for SBP prophylaxis -If he has worsening confusion, abdominal pain please come back to the emergency room -For abdominal distention and abdominal ascites, he will require recurrent paracentesis Discharge Attestations Time Spent in Discharge Care*: greater than 30 min Quality Metrics Clinical Quality Measures [ No reported AMI, CVA or VTE this stay] Coding Level of Care Code Acute Code for Chg Fwd Diagnoses Gram-negative bacteremia R78.81 Parkinsons disease G20 Hepatic encephalopathy K72.90 ECHAVARRIA (nonalcoholic steatohepatitis) K75.81 Anemia D50.0 Anemia type: iron deficiency Iron deficiency anemia type: chronic blood loss Esophageal varices I85.11 Esophageal varices type: secondary Esophageal varices bleeding: with bleeding Hypothyroidism E03.9 Hypothyroidism type: acquired Liver cirrhosis K74.60 Protein calorie malnutrition E46 Severe muscle deconditioning R29.898 Abdominal ascites R18.8 Generalized weakness R53.1 UTI (urinary tract infection) N39.0 Goals of care, counseling/discussion Z71.89 Acute kidney injury N17.9 Cardiorenal syndrome I13.10 NSTEMI (non-ST elevated myocardial infarction) I21.4 Hypoalbuminemia E88.09 Transaminitis R74.01 Spontaneous bacterial peritonitis K65.2
[2022-12-31 08:47] VITALS: RESP 16
[2022-12-31] MEDS: morphine 4 mg/mL SDV 1 mL 2 MG IVP (08:47)
[2022-12-31] MEDS: cefTRIAXone 1,000 MG in sodium chloride 0.9% (plus) 50 ML 100 MG IV (08:47)
[2022-12-31] MEDS: potassium chloride ER 20 mEq Tablet PO (08:48)
[2022-12-31] MEDS: predniSONE 5 mg Tablet PO (08:48)
[2022-12-31] MEDS: ropinirole 1 mg Tablet PO ×2 (08:48→14:02)
[2022-12-31] MEDS: carbidopa-levodopa 25-100mg Tablet 1 EACH PO ×3 (08:48→17:20)
[2022-12-31] MEDS: ferrous sulfate EC 325 mg Tablet PO ×2 (08:48→17:20)
[2022-12-31] MEDS: pantoprazole DR 40 mg Tablet PO ×2 (08:48→17:20)
[2022-12-31] MEDS: fluoxetine 10 mg Capsule PO (08:48)
[2022-12-31] MEDS: AMANTADINE HCL 100 MG 1 EACH PO ×2 (08:51→17:20)
--- NOTE | 2022-12-31 10:07 | PC.SOCIAL ---
IMM update IMM updated with patient. Verbalized an understanding. Copy PG 2 provided. Initialled, dated, timed, and placed in chart.
[2022-12-31 11:55] VITALS: BP 109/60; PULSE 73; RESP 18; TEMP 37.1; O2SAT 99
[2022-12-31 14:40] LABS: SARS Covid-2 Antigen negative (Negative)
[2022-12-31 15:13] VITALS: BP 109/60; PULSE 73; RESP 18; TEMP 37.1; O2SAT 99
--- NOTE | 2022-12-31 15:17 | PC.NURSE ---
Discharge Note Patient discharged to snf via transport accompanied by transportation driver . Discharge instructions reviewed with patient and/or financial services representative. Mobile pharmacy medications and/or prescriptions provided. Belongings/home medications returned.
[2022-12-31 16:00] VITALS: BP 127/60; PULSE 72; RESP 18; TEMP 36.9; O2SAT 94
== END 2022-12-31 17:22 | disposition skilled nursing facility (03) | DRG 372 ==
LOC: ER 07:22 → MEDSURG 12:51
PROVIDERS: Admitting Provider Family Medicine; Emergency Provider Emergency Medicine; PCP Family Medicine; Visit Provider Family Medicine
DX: K65.2 Spontaneous bacterial peritonitis (principal); E44.0 Moderate protein-calorie malnutrition; E87.1 Hypo-osmolality and hyponatremia; K76.6 Portal hypertension; R18.8 Other ascites; N39.0 Urinary tract infection, site not specified; N17.9 Acute kidney failure, unspecified; B96.89 Other specified bacterial agents as the cause of diseases classified elsewhere; K74.60 Unspecified cirrhosis of liver; K75.81 Nonalcoholic steatohepatitis (NASH); G20 Parkinson's disease; E03.9 Hypothyroidism, unspecified; G25.81 Restless legs syndrome; K76.82 Hepatic encephalopathy; I13.10 Hypertensive heart and chronic kidney disease without heart failure, with stage 1 through stage 4 chronic kidney disease, or unspecified chronic kidney disease; N18.9 Chronic kidney disease, unspecified; K21.9 Gastro-esophageal reflux disease without esophagitis; Z66 Do not resuscitate; Z96.82 Presence of neurostimulator; Z96.652 Presence of left artificial knee joint; Z68.27 Body mass index [BMI] 27.0-27.9, adult
CPT/HCPCS: 36415; 36416; 49082; 49083; 71045; 74177; 76700; 80048; 80053; 80503; 81001; 82042; 82140; 82533; 82962; 83605; 83690; 83735; 83880; 84145; 84157; 84443; 84484; 85025; 85610; 86140; 87040; 87070; 87075; 87077; 87086; 87150; 87186; 87205; 87426; 89050; 93005; 94664; 96365; 96374; 96375; 96376; 97110; 97116; 97161; 97165; 97530; 97535; 99285; G0378; J0696; J2270; J2405; J7040; J7512; P9046; P9047; Q9967

== ENCOUNTER 2023-01-12 10:04 | Outpatient (CLI) | payer MEDICARE, SELFPAY ==
--- NOTE | 2023-01-12 10:23 | NM_ITS ---
WS: [id number] NUCLEAR MEDICINE HIDA SCAN CLINICAL INFORMATION: GALLSTONES TECHNIQUE: Following intravenous administration of 8.1 mCi of technetium 99m mebrofenin, images of th e abdomen were obtained over the course of 60 minutes. Next, gallbladder ejection fraction was determ ined by obtaining preprandial and one-hour postprandial images of the gallbladder following oral joyce stion of Ensure. COMPARISON: CT 12/27/2022 and 12/29/2022 FINDINGS: Markedly cirrhotic configuration to the liver. Gallbladder is visualized by 120 minutes. No evidence of acute cholecystitis. Normal common bile duct and small bowel activity. Reduced Gallbladder ejection fraction measuring 16% compatible with gallbladder dysfunction. This is likely chronic. In addition, calculated gallbladder ejection fraction may be artificially decreased d ue to liver failure with poor hepatic excretion NM/NM hepatobiliary w phar* [id number] IMPRESSION: 1. Markedly cirrhotic liver with ascites. 2. Gallbladder is visualized by 2 hours. No evidence of acute cholecystitis. 3. Reduced gallbladder ejection fraction measuring 16% compatible with gallbl adder dysfunction likely chronic.
== END 2023-01-12 10:05 | disposition home or self-care (01) ==
LOC: RAD 10:07
PROVIDERS: PCP Family Medicine; Visit Provider Nurse Practitioner
DX: K80.20 Calculus of gallbladder without cholecystitis without obstruction (principal)
CPT/HCPCS: 78227; A9537

== ENCOUNTER 2023-01-14 07:56 | Emergency (ER) | payer MEDICARE, SELFPAY ==
[2023-01-14 08:00] VITALS: BP 102/57; PULSE 94; RESP 19; TEMP 36.4; O2SAT 99; BMI 24.0
--- NOTE | 2023-01-14 08:11 | XR_ITS ---
WS: [id number] Portable AP semiupright chest, 01/14/2023 Clinical Data: dyspnea/cough Comparison: Portable chest, 12/27/2022 Findings: No nodules, masses or effusions are seen. The heart is normal. The pulmonary vascularity is not increased. No pneumothorax is seen. There is minimal patchy opacity extending into the left uppe r lobe which could represent minimal pneumonia. There is a generator overlying the right upper chest obscuring detail with the wires leading superiorly into the right side of the neck. There are small b owel loops with a moderate amount of air consistent with an ileus. XR/XR chest 1V portable [id number] Impression: Minimal patchy left upper lobe opacity which could represent mild viral pneumon ia.
--- NOTE | 2023-01-14 08:11 | ECG_ITS ---
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 Measurements Intervals [place] Rate: 92 P: 43 SD: 163 QRS: -24 QRSD: 98 T: 52 QT: 360 QTc: 446 Interpretive Statements SINUS RHYTHM LOW QRS VOLTAGE IN PRECORDIAL LEADS [QRS DEFLECTION < 1.0 mV IN CHEST LEADS] POSSIBLE ANTERIOR MYOCARDIAL INFARCTION , PROBABLY OLD [30 ms Q WAVE IN V3/V4, OR R < 0.2 mV IN V4] Compared to ECG 12/27/2022 13:05:28 Low QRS voltage now present Myocardial infarct finding now present First degree AV block no longer present Left-axis deviation no longer present ST (T wave) deviation no longer present Electronically Signed On 01-14-2023 20:02:04 PROTEIN PURIFICATION SCIENTIST by Abner Núñez M.D. [email or web address]
--- NOTE | 2023-01-14 08:21 | W.ED.GENADLT ---
HPI - General Adult General: Chief complaint: General Medical Stated complaint: RESPIRATORY DISTRESS Time Seen by Provider: 01/14/23 07:58 Source: patient Mode of arrival: EMS History of Present Illness: 67-year-old female presents via ambulance from the senior living with complaints of difficulty breathing. Patient has a history of Echavarria is began to develop ascites and has had several paracentesis recently. She was seen by nurse practitioner and referred to the emergency room this morning. She has a scheduled paracentesis at 1:00 today. On arrival she is at 97% in no respiratory distress on room air. Sisters at the bedside states that in general her mental status and cognition has been declining recently but there is not been a sudden acute change. Relieving factors: none Exacerbating factors: none Associated symptoms: Reports malaise; Deny chest pain, dyspnea, nausea, rash or vomiting Review of Systems Const: Reports: body aches, change in appetite, fatigue and malaise; Denies: fever(s) or chills ENMT: Denies: throat pain, ear or mastoid pain, nasal discharge or nasal congestion Card: Denies: chest pain, edema, dyspnea on exertion or orthopnea Resp: Denies: dyspnea, productive cough or non-productive cough GI: Reports: early satiety and bloating; Denies: abdominal pain, nausea, vomiting, hematemesis, coffee ground emesis, diarrhea, constipation, hematochezia or melena : Denies: flank pain, difficulty voiding, dysuria, urinary frequency or urinary urgency Skin/Breast: Denies: rash or pruritus PFSH ED PFSH: Medical History (Updated 01/22/23 @ 00:[address] [place]) Acute hepatic encephalopathy Acute respiratory failure Anti-TPO antibodies present Cystitis Esophageal varices Family history of colon cancer Fatty liver disease, nonalcoholic GERD (gastroesophageal reflux disease) High risk medication use Hyperammonemia Hypocalcemia Hypothyroidism Immunization counseling Inflammatory arthritis Joint pain Liver cirrhosis ECHAVARRIA (nonalcoholic steatohepatitis) Osteoarthritis, generalized Parkinsons disease Positive NICO (antinuclear antibody) RLS (restless legs syndrome) Surgical History History of colonoscopy (~12/2020) History of esophagogastroduodenoscopy (EGD) (~12/2020) History of left knee replacement History of shoulder surgery S/P bilateral foot surgery S/P ERCP Status post deep brain stimulator placement Family History Brother CAD (coronary artery disease) Hypertension Father CAD (coronary artery disease) Diabetes Hypertension Mother CAD (coronary artery disease) Hypertension Sister Hypertension Other Lupus Rheumatoid arthritis Denies family history of Lung disease Stroke Social History Smoking and tobacco status: never smoked Alcohol intake: never Marital status: Current occupational status: disabled History of recent travel: No Female Reproductive History: Date of last menstrual period: 02/20/21 Physical Exam Const: GENERAL APPEARANCE: cooperative and comfortable ORIENTATION/CONSCIOUSNESS: Yes awake HENMT: COMMON NORMALS: normocephalic, atraumatic and hearing grossly normal bilaterally HEAD & SCALP: normocephalic and atraumatic Resp: COMMON NORMALS: normal respiratory effort, No retractions, No use of accessory muscles and clear to auscultation bilaterally AUSCULTATION: clear to auscultation bilaterally Cardio: COMMON NORMALS: regular rate, regular rhythm and No murmurs present (Cardio) RATE: regular rate RHYTHM: regular rhythm GI: COMMON NORMALS: Soft to palpation and No hepatosplenomegaly present INSPECTION: Yes abdominal distension and Yes Fluid wave present AUSCULTATION: Yes normoactive bowel sounds PALPATION: Yes Soft to palpation, No Tenderness to palpation present (GI), No Guarding due to palpation present (GI) and Yes No hepatosplenomegaly present PERCUSSION: dullness to percussion and Fluid wave present Extremity: COMMON NORMALS: normal to inspection, capillary refill normal and no clubbing, cyanosis or edema GENERAL: Yes edema Skin: COMMON NORMALS: no rashes or lesions noted GENERAL SKIN EXAM: no rashes or lesions noted Course Vital Signs: Vital signs: Vital Signs Temperature 97.5 F L 01/14/23 08:00 Pulse Rate 97 01/14/23 09:24 Respiratory Rate 19 H 01/14/23 09:24 Blood Pressure 105/60 01/14/23 09:24 Pulse Oximetry 97 01/14/23 09:24 Oxygen Delivery Me thod 01/14/23 09:24 MDM - General Adult Medical Decision Making Patient with ascites. Patient discharged from the ER and sent outpatients for paracentesis. Discharged to senior living from there. Medical Records I reviewed the patient's medical records. Lab Data I reviewed the patient's lab results. 01/14/23 08:43 01/14/23 08:43 Radiology Impressions Chest X-Ray 01/14/23 08:11 Impression: Minimal patchy left upper lobe opacity which could represent mild viral pneumonia. Laboratory Results WBC 11.1 10^3/uL (4.0-10.0) H 01/14/23 08:43 RBC 4.81 10^6/uL (4.1-5.3) 01/14/23 08:43 Hgb 13.4 g/dL (11.5-15.3) 01/14/23 08:43 Hct 37.8 % (37.0-47.0) 01/14/23 08:43 MCV 78.6 fl (81-99) L 01/14/23 08:43 MCH 27.9 pg (28.0-34.0) L 01/14/23 08:43 MCHC 35.4 g/dL (30.0-36.0) 01/14/23 08:43 RDW 20.4 % (12.1-15.1) H 01/14/23 08:43 Plt Count 199 10^3/cmm (130-400) 01/14/23 08:43 MPV 10.7 fL (7.4-10.4) H 01/14/23 08:43 Neut % (Auto) 89.5 % 01/14/23 08:43 Lymph % (Auto) 2.1 % 01/14/23 08:43 [place] % (Auto) 7.4 % 01/14/23 08:43 Eos % (Auto) 0.3 % 01/14/23 08:43 Baso % (Auto) 0.1 % 01/14/23 08:43 Neut # (Auto) 9.95 10^3/uL (1.8-7.7) H 01/14/23 08:43 Lymph # (Auto) 0.2 10^3/uL (0.8-4.8) L 01/14/23 08:43 [place] # (Auto) 0.8 10^3/uL (0.2-0.9) 01/14/23 08:43 Eos # (Auto) 0.0 10^3/uL (0.0-0.8) 01/14/23 08:43 Baso # (Auto) 0.0 10^3/uL (0.0-0.1) 01/14/23 08:43 Nucleated RBC % (auto) 0 % 01/14/23 08:43 Nucleated RBCs # 0.0 /100WBC 01/14/23 08:43 PT 19.50 SECONDS (12.1-14.9) H 01/14/23 08:43 INR 1.59 (0.8-1.2) H 01/14/23 08:43 APTT 45.7 SECONDS (23.9-36.7) H 01/14/23 08:43 Sodium 137 mmol/L (136-145) 01/14/23 08:43 Potassium 4.6 mmol/L (3.5-5.1) 01/14/23 08:43 Chloride 104 mmol/L (98-107) 01/14/23 08:43 Carbon Dioxide 16 mmol/L (22-29) L 01/14/23 08:43 Anion Gap 21.6 (5-19) H 01/14/23 08:43 BUN 56 mg/dL (8-23) H 01/14/23 08:43 Creatinine 1.6 mg/dL (0.5-0.9) H 01/14/23 08:43 GFR Calculation 32.2 mL/min (90-130) L 01/14/23 08:43 Glucose 67 mg/dL (65-115) 01/14/23 08:43 Calculated Osmolality 298 mOsm/kg (285-295) H 01/14/23 08:43 Calcium 8.2 mg/dL (8.5-10.5) L 01/14/23 08:43 Total Bilirubin 3.9 mg/dL (0.15-1.2) H 01/14/23 08:43 AST 56 U/L (0-32) H 01/14/23 08:43 ALT 28 U/L (0-33) 01/14/23 08:43 Alkaline Phosphatase 606 U/L (35-105) H 01/14/23 08:43 Ammonia 77 umol/L (11-51) H 01/14/23 08:43 Total Protein 6.8 g/dL (6.6-8.7) 01/14/23 08:43 Albumin 2.5 g/dL (3.5-5.2) L 01/14/23 08:43 Globulin 4.3 g/dL (1.3-4.6) 01/14/23 08:43 Urine Color Yellow (Yellow) 01/14/23 09:12 Urine Appearance Clear (CLEAR) 01/14/23 09:12 Urine pH 5 (5-7) 01/14/23 09:12 Ur Specific [place] 1.020 (1.005-1.030) 01/14/23 09:12 Urine Protein Neg (Negative) 01/14/23 09:12 Urine Glucose (UA) Norm (Normal) 01/14/23 09:12 Urine Ketones 1+ (Negative) H 01/14/23 09:12 Urine Blood Neg (Negative) 01/14/23 09:12 Urine Nitrate Negative (Negative) 01/14/23 09:12 Urine Bilirubin 1+ (Negative) H 01/14/23 09:12 Urine Urobilinogen 1 mg/dL (Negative) H 01/14/23 09:12 Ur Leukocyte Esterase Negative (Negative) 01/14/23 09:12 Nasal Influ A H1 2009 PCR Not detected (NOT DETECT) 01/14/23 10:27 Coronavirus 229E (PCR) Not detected (NOT DETECT) 01/14/23 10:27 Influenza A (H1) PCR Not detected (NOT DETECT) 01/14/23 10:27 Influenza A (H3) PCR Not detected (NOT DETECT) 01/14/23 10:27 Influenza Type A (PCR) Not detected (NOT DETECT) 01/14/23 10:27 Influenza Type B (PCR) Not detected (NOT DETECT) 01/14/23 10:27 SARS-CoV-2 (PCR) Not detected (NOT DETECT) 01/14/23 10:27 Discharge Plan Discharge Patient Disposition: Home Clinical Impression: Ascites, Parkinsons disease, Liver cirrhosis secondary to ECHAVARRIA Condition: Stable Prescriptions: No Action (DME) Upright Walker See Rx Instructions .Route .MEDSUPPLY Qty: 1 0RF Rx Instructions: Use walker daily with ambulation at all times diclofenac sodium 1 % gel 2 g topical QID PRN (Reason: Pain) Qty: 100 1RF Rx Instructions: apply to affected area as needed prednisone 5 mg tablet 5 mg PO DAILY Qty: 30 3RF fluoxetine [Prozac] 10 mg capsule 10 mg PO DAILY Qty: 90 0RF carbidopa-levodopa 25-100 mg tablet 1 tab PO QID Dose Instruction: TAKE 1 TABLET BY MOUTH THREE TIMES A DAY pantoprazole 40 mg tablet,delayed release (DR/EC) 40 mg PO BID Dose Instruction: TAKE 1 TABLET BY MOUTH EVERY DAY (DME) wheelchair See Rx Instructions .Route .MEDSUPPLY Qty: 1 0RF Rx Instructions: As directed (DME) upright walker with wheels and brakes See Rx Instructions .Route .MEDSUPPLY Qty: 1 0RF Rx Instructions: As directed ferrous sulfate [Feosol] 325 mg (65 mg iron) tablet 325 mg PO BID Qty: 60 1RF calcium carbonate-vitamin D3 500 mg-10 mcg (400 unit) tablet 1 tab PO BID Qty: 60 0RF ropinirole 1 mg tablet 1 mg PO TID levothyroxine 150 mcg tablet 150 mcg PO DAILY spironolactone 25 mg tablet 25 mg PO DAILY 30 Days Qty: 30 0RF atorvastatin 20 mg tablet 20 mg PO DAILY furosemide 20 mg tablet 20 mg PO DAILY tuberculin PPD 5 tub. unit /0.1 mL Solution 1 tb unit INTRADERMAL Q14D acetaminophen 325 mg Tablet 650 mg PO QID PRN (Reason: Fever/pain) albuterol sulfate 2.5 mg /3 mL (0.083 %) Solution For Nebulization 2.5 mg INHALATION Q4H PRN (Reason: Shortness Of Breath) Milk of Magnesia 400 mg/5 mL Suspension 400 mg PO DAILY PRN (Reason: Constipation) Dulcolax (bisacodyl) 10 mg Suppository 10 mg KS DAILY PRN (Reason: Constipation) Fleet Enema 19-7 gram/118 mL Enema 118 ml KS DAILY PRN (Reason: Constipation) Pro-Stat Max 11 gram-80 kcal/30 mL Liquid 1 ea PO BID amantadine HCl 100 mg tablet 100 mg PO BID lactulose 20 gram/30 mL solution 30 ml PO BID Discharge Orders: Discharge ED (Routine); Ordered 01/14/23 Ordered By: Gutierrez Harden Referrals: Jenni Beltran DO [Primary Care Provider] - Patient Instructions: Opioid Safety, Pain Management Activity Restrictions/Additional Instructions: You will be discharged to outpatient services for your paracentesis. Coding Level of Care Code ED Fisher Scallop for Micheline Garcia
[2023-01-14 08:52] LABS: Basophils % 0.1 %; Eosinophils % 0.3 %; Hematocrit 37.8 % (37.0-47.0); Hemoglobin 13.4 g/dL (11.5-15.3); Lymphocytes # 0.2 10^3/uL (0.8-4.8); Lymphocytes % 2.1 %; Mean Corpuscular HGB Conc 35.4 g/dL (30.0-36.0); Mean Corpuscular Hemoglobin 27.9 pg (28.0-34.0); Mean Corpuscular Volume 78.6 fl (81-99); Mean Platelet Volume 10.7 fL (7.4-10.4); Monocytes # 0.8 10^3/uL (0.2-0.9); Monocytes % 7.4 %; Neutrophils # 9.95 10^3/uL (1.8-7.7); Neutrophils % 89.5 %; Nucleated Red Blood Cells % 0 %; Platelet Count 199 10^3/cmm (130-400); Red Blood Count 4.81 10^6/uL (4.1-5.3); Red Cell Distribution Width 20.4 % (12.1-15.1); White Blood Count 11.1 10^3/uL (4.0-10.0)
[2023-01-14 09:08] LABS: INR 1.59 (0.8-1.2)
[2023-01-14 09:09] LABS: Partial Thromboplastin Time 45.7 SECONDS (23.9-36.7)
[2023-01-14 09:11] LABS: Alanine Aminotransferase 28 U/L (0-33); Albumin Level 2.5 g/dL (3.5-5.2); Alkaline Phosphatase 606 U/L (35-105); Anion Gap 21.6 (5-19); Aspartate Amino Transferase 56 U/L (0-32); Blood Urea Nitrogen 56 mg/dL (8-23); Calcium 8.2 mg/dL (8.5-10.5); Carbon Dioxide 16 mmol/L (22-29); Chloride 104 mmol/L (98-107); Globulin 4.3 g/dL (1.3-4.6); Glomerular Filtration Rate 32.2 mL/min (90-130); Glucose 67 mg/dL (65-115); Osmolality Calculated 298 mOsm/kg (285-295); Potassium 4.6 mmol/L (3.5-5.1); Sodium 137 mmol/L (136-145); Total Bilirubin 3.9 mg/dL (0.15-1.2); Total Protein 6.8 g/dL (6.6-8.7)
[2023-01-14 09:12] LABS: Ammonia 77 umol/L (11-51)
[2023-01-14 09:19] LABS: Add Urine Microscopic? NO; Charge for UA Resulting for Rev
[2023-01-14 09:24] VITALS: BP 105/60; PULSE 97; RESP 19; O2SAT 97
[2023-01-14 09:27] LABS: Bilirubin Urine 1+ (Negative); Blood Urine Neg (Negative); Glucose Urine UA Norm (Normal); Ketones Urine 1+ (Negative); Leukocyte Esterase Urine Negative (Negative); Nitrate Urine Negative (Negative); Protein Urine Neg (Negative); Urine Appearance Clear (CLEAR); Urine Color Yellow (Yellow); Urobilinogen Urine 1 mg/dL (Negative); pH Urine 5 (5-7)
[2023-01-14 12:50] LABS: Adenovirus Not Detected (NOT DETECT); Chlamydia Pneumoniae Not Detected (NOT DETECT); Coronavirus 229E,HKU1,NL63,OC4 Not Detected (NOT DETECT); Human Metapneumovirus Not Detected (NOT DETECT); Human Rhinovirus/Enterovirus Not Detected (NOT DETECT); Influenza A Not Detected (NOT DETECT); Influenza A H1 Not Detected (NOT DETECT); Influenza A H1-2009 Not Detected (NOT DETECT); Influenza A H3 Not Detected (NOT DETECT); Influenza B Not Detected (NOT DETECT); Mycoplasma Pneumoniae Not Detected (NOT DETECT); Parainfluenza Virus Type 1 Not Detected (NOT DETECT); Parainfluenza Virus Type 2 Not Detected (NOT DETECT); Parainfluenza Virus Type 3 Not Detected (NOT DETECT); Parainfluenza Virus Type 4 Not Detected (NOT DETECT); Respiratory Syncytial Virus A Not Detected (NOT DETECT); Respiratory Syncytial Virus B Not Detected (NOT DETECT); SARS-COV-2 Not Detected (NOT DETECT)
[2023-01-14 13:00] LABS: Results from GEN
== END 2023-01-14 11:39 | disposition home or self-care (01) ==
PROVIDERS: Emergency Provider Family Medicine; PCP Family Medicine
DX: R18.8 Other ascites (principal); K74.69 Other cirrhosis of liver; K75.81 Nonalcoholic steatohepatitis (NASH)
CPT/HCPCS: 36415; 49083; 71045; 80053; 81003; 82140; 85025; 85610; 85730; 87631; 87635; 93005; 96365; 99285; P9047

== ENCOUNTER 2023-01-14 12:05 | Day surgery (SDC) | payer MEDICARE, SELFPAY ==
--- NOTE | 2023-01-14 12:31 | US_ITS ---
WS: [id number] ULTRASOUND-GUIDED PARACENTESIS CLINICAL INFORMATION: ascites COMPARISON: None. Procedure Informed consent: The risks, benefits, and alternatives of the procedure were discussed with the homero ent. Verbal and written consent was obtained. Timeout: A timeout was performed to confirm the correct patient, procedure, and site. Preparation: A suitable skin site was identified. The patient was prepped and draped in usual sterile fashion. Lidocaine 1% was used for local anesthesia. Catheter: 4 [place] One-step Yueh catheter. Side: RIGHT Lower quadrant. Fluid Volume: 2500 ml Color: Clear yellow DISPOSITION: Discarded safely. Complications: None. Patient disposition: Discharged from the department in stable condition. US/US paracentesis [id number] IMPRESSION: Uncomplicated ultrasound-guided paracentesis. Removal of 2500 cc
[2023-01-14 12:41] VITALS: BP 119/64; PULSE 92; RESP 22; TEMP 36.7; O2SAT 98; BMI 24.0
[2023-01-14] MEDS: albumin 12.5 GM/50 ML VIAL IV (14:40)
== END 2023-01-14 16:00 | disposition home or self-care (01) ==
PROVIDERS: Radiology Neuroradiology; PCP Family Medicine; Visit Provider Nurse Practitioner Family
PROC: (CPT 49082; principal; 2023-01-14 13:15)
DX: R18.8 Other ascites (principal)
CPT/HCPCS: 49083; 96365; P9047